=== PATIENT | male | born 1950 | race Caucasian/White ===

== ENCOUNTER 2020-04-04 14:32 | Inpatient (IN) | payer MEDICARE ==
[~2020-04-04] VITALS: Ht 182.9 cm; Wt 123.8 kg
[2020-04-04] MEDS ORDERED: SODIUM CHLORIDE 0.9% 1000ML 1,000 ML IV STA (14:40)
[2020-04-04] MEDS ORDERED: PIPERACILLIN/TAZO 4.5 GM 100 ML IV STA (14:40)
--- NOTE | 2020-04-04 14:44 | Emergency Department Note ---
History of Present Illnes History of Present Illness Chief Complaint: Hypertension History of Present Illness This is a 69 year old male presents to the ED from [place] [facility] today after it was noted that he was ataxic and feeling week. Enroute patient noted to be febrile with SBP 90 mmHg. Patient at clinic for orthopedic appointment. 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 Preventative Medicine/EMS Arrival Mode: [facility] TRANSCRIPTION SPECIALIST: See EMS Report Onset (how long ago): hour(s) Radiation: Reports non-radiation Severity: mild Onset quality: gradual Duration (how long): hour(s) Timing of current episode: constant Progression: unchanged Chronicity: new Context: Denies recent illness, Denies recent surgery, Denies recent immobilization, Denies recent travel, Denies trauma/injury, Denies new med ications, Denies hx of DVT/PE, Denies non-compliance w/ medications, Denies other Relieving factors: none Exacerbating factors: none Associated symptoms: Denies denies other symptoms, Denies confusion, Denies chest pain, Denies cough, Denies diaphoresis, Denies fever/chills, Denies headaches, Denies loss of appetite, Denies malaise, Denies nausea/vomiting, Denies rash, Denies seizure, Denies shortness of breath, Denies syncope, Denies weakness, Denies other Past Medical/Family History Physician Review I have reviewed the patient's past medical and family history. Any updates have been documented here. Past Medical History Recent Fever: No Clinical Suspicion of Infectio: Yes New/Unexplained Change in Ment: No Past Medical History: Diabetes Past Surgical History: None Social History Smoking Cessation: Never Smoker Alcohol Use: None Any Illegal Drug Use: No Review of Systems Review of Systems Constitutional: Reports no symptoms EENTM: Reports no symptoms Cardiovascular: Reports no symptoms Respiratory: Reports cough Gastrointestinal: Reports no symptoms Genitourinary: Reports no symptoms Musculoskeletal: Reports no symptoms Integumentary: Reports no symptoms Neurological: Reports no symptoms Psychological: Reports no symptoms Endocrine: Reports no symptoms Hematological/Lymphatic: Reports no symptoms Physical Exam Related Data Allergies: Coded Allergies: No Known Allergies (Unverified , 04/04/20) Physical Exam CONSTITUTIONAL HENT EYES NECK PULMONARY CARDIOVASCULAR GASTROINTESTINAL GENITOURINARY SKIN MUSCULOSKELETAL NEUROLOGICAL PSYCHOLOGICAL Results Laboratory Lab results reviewed: Yes Imaging Imaging results reviewed: Yes Impressions [facility] [address] [address] Patient Name: DYLLAN WAGNER MR #: [id number] : 1950 Age/Sex: 69/M Req #: [id number] Adm Physician: Ordered by: HOMAR MAYEN DO Report #: [id number] Location: ER Room/Bed: Procedure: [id number] DX/CHEST SINGLE (PORTABLE) Exam Date: Exam Time: REPORT STATUS: Signed TECHNIQUE: Frontal view of the chest. INDICATION: ^Y ^fever, hypoxia COMPARISON: None. IMPRESSION: Lines and hardware: Median sternotomy wires. Heart and mediastinum: Hazy left heart border. Lungs and pleura: Pulmonary interstitial edema. Hazy left airspace opacity, may represent atelectasis versus pneumonitis. Probable layering left pleural effusion. No pneumothorax. Soft tissues and bones: No acute abnormality. 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: Interpreted by ED physician Date: Apr 04, 2020 Time: 15:08 Prior ECG tracings: reviewed Rhythm: sinus rhythm Rate: normal BPM: 94 QRS axis: left ST segments normal: Yes T waves normal: Yes Clinical Impression: non-specific ECG Assessment & Plan Medical Decision Making MDM Diff Dx : Sepsis, PNA, CVA, covid-19 infection Assessment & Plan Final Impression: (1) Person under investigation for COVID-19 (2) SIRS (systemic inflammatory response syndrome) (3) Renal insufficiency Depart Disposition: ADMITTED Home Meds Reported Medications Insulin Glargine (LANTUS 3ML PEN) 100 Units/1 Ml Inj, 100 UNITS SQ HS 04/05/20 Insulin Lispro (HUMALOG) 100 Unit/1 Ml Cartridge, 50-60 UNITS SQ AC 04/05/20 Atorvastatin Calcium (ATORVASTATIN CALCIUM) 20 Mg Tablet, 20 MG PO HS 04/05/20 Pregabalin (LYRICA) 100 Mg Capsule, 100 MG PO TID, CAP 04/05/20 Furosemide (LASIX) 20 Mg Tablet, 20 MG PO DAILY 04/05/20 Aspirin (ASPIRIN) 81 Mg Tab.chew, 81 MG PO DAILY 04/05/20 HOMAR MAYEN DO Apr 04, 2020 14:43
[2020-04-04] MEDS ORDERED: ASPIRIN 81 MG CHEW TAB PO ONE (14:45)
--- NOTE | 2020-04-04 14:58 | NUR ---
Upon arrival to O2 applied via NC@2L, for O2 sats of 93%. Febrile with 102.9
[2020-04-04 15:02] LABS: BASOPHILS % 0.3 % (0.0-1.0); HEMATOCRIT 45.8 % (38.2-49.6); HEMOGLOBIN 14.8 g/dL (14.0-18.0); LYMPHOCYTES # (AUTO) 0.3 (1.0-3.2); LYMPHOCYTES % 2.5 % (18.0-39.1); MEAN CORPUSCULAR HEMOGLOBIN 27.1 pg (28-32); MEAN CORPUSCULAR HGB CONC 32.3 g/dL (31-35); MEAN CORPUSCULAR VOLUME 83.7 fL (81-99); MONOCYTES # (AUTO) 0.8 (0.2-0.8); MONOCYTES % 7.9 % (4.4-11.3); NEUTROPHILS # (AUTO) 9.4 (2.1-6.9); NEUTROPHILS % 88.2 % (38.7-80.0); PLATELET COUNT 228 x10e3/uL (140-360); RED BLOOD COUNT 5.47 x10e6/uL (4.3-5.7); RED CELL DISTRIBUTION WIDTH 14.9 % (11.7-14.4)
[2020-04-04 15:18] LABS: ALBUMIN 3.7 g/dL (3.5-5.0); ALBUMIN/GLOBULIN RATIO 1.2 (0.8-2.0); ANION GAP 16.9 mmol/L (8-16); CALCIUM 8.9 mg/dL (8.4-10.2); CREATININE, SERUM 2.36 mg/dL (0.72-1.25); POTASSIUM 4.9 mmol/L (3.5-5.1)
--- OUTSIDE RECORDS SUMMARY | 2020-04-04 15:22 | XMS REPORT | Continuity of Care Document ---
Author Author Cayetano Crespo Information DYLLAN Anderson [facility] Information Exchange Address Unknown Phone Unavailable Care Team Providers Care Security Management Specialist Name Role Phone [facility] Information Exchange Unavailable Un available Problems Problem Status Onset Date Classification Date Reported Comments Source Muscle weakness (generalized) 09/09/2017 12/10/2017 [facility] LEFT ACHILLES Active 08/05/2017 [facility] Methicillin resistant Staphylococcus aureus (organism) Active 02/04/2017 Problem 12/10/2017 RIGHT FOOT, 02/05/20 17 Problem [facility] Discern 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 02/27/2015 MANUEL Crespo PNEUMONIA/GENERALIZED WEAKNESS Active 01/15/2015 [facility] WEAKNESS Active 01/15/2015 [facility] POST CAB, POST AORTIV VALVE REPLACEMENT Active 12/27/2014 [facility] POST CAB, POST AORTIC VALVE REPLACEMENT Active 12/27/2014 [facility] POST CAB, POST AVR Active 12/27/2014 [facility] CAD Active 0 10/27/2014 [facility] Unspecified abnormalities of gait and mobility 12/10/2017 [facility] Unspecified injury of left Achilles tendon, sequela 12/10/2017 [facility] Type 2 diabetes mellitus without complications 12/10/2017 [facility] Pure hypercholesterolemia, unspecified 12/10/2017 [facility] Amputation of finger tip (procedure) Resolved Problem 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 finger) [facility] Aortic valve stenosis with insufficiency (disorder) Active Problem [facility]10[facility] Disorder of carotid artery (disorder) [facility] Diabetes mellitus (disorder) A ctive Problem [facility] Diabetic neuropathy (disorder) Active Problem MANUEL [place],[facility] Hypercholesterolemia (disorder) Active Problem MANUEL [place],[facility] Hypertensive disorder, systemic arterial (disorder) Active Problem 12/10/2017 MANUEL Zak,[facility] Psoriasis (disorder) [facility]10[facility]UMONIA, ORGANISM NOS Active [facility] MALAISE AND FATIGUE NEC Active [facility] CELLULITIS OF RIGHT LOWER LIMB Active [facility] OSTEOMYELITIS OF RIGHT ORBIT A ctive [facility] OTHER INJURY OF UNSPECIFIED BODY REGION Active [facility] Medications Medication Details Route Status Patient Instructions Ordering Provider Order Date Source Insulin Glargine 100 UNT/ML Injectable Solution 80 unit, SUB-Q, Bedtime, 0 Refill(s) Active 02/07/2017 [facility] cefdinir 300 MG Oral Capsule [Omnicef] 300 mg = 1 cap, PO, Daily, X 10 day, # 10 cap, 0 Refill(s), Pharmacy: [facility] [employer] [facility] [id number] Active 02/07/2017 [facility] ciprofloxacin 500 mg oral tablet 500 mg = 1 tab, PO, Daily, X 10 day, # 10 tab, 0 Refill(s), Pharmacy: [facility] [id number] Active 02/07/2017 [facility] Amlodipine 5 MG Oral Tablet [Norvasc] 5 mg = 1 tab, PO, Daily, # 30 tab, 0 Refill(s), Pharmacy: [facility] [id number] Active 02/07/2017 [facility] Kayexalate Notes: (sodium poly styrene sulfonate 15 gm/60 ml VONNIE) Shake well before use. (Same as: Kayexalate, SPS) Inactive 02/07/2017 [facility] Hydralazine Notes: (Same as: A presoline) Push over 5 minutes Inactive 02/07/2017 [facility] Ceftriaxone Notes: (Same As: Hue ayala). Use with 100 mL NS and infuse over 30 min MEDICATION WASTE Product Size: 1000 mg Product Wasted: ___ mg No Longer Active 02/07/2017 [facility] Insulin Lispro Notes: Roll in palms of hands gently; Do not shake `vigorously. (Same as: Humalog ) "Single Patient Use Only " WASTE: F/P - Black; E - Municipal Trash Bin Stable for 28 days at room temperature. Expires in days from Date No Longer Active 02/06/2017 [facility] Glucagon 1 mg, Route: IM, Drug form: PDR/INJ, PRN, Dosing Weight 139.364, kg, PRN Blood Glucose Results, Start date: 02/06/17 14:24:00 CDT, Duration: 30 day, Stop date: 03/08/17 14:23:00 CDT No Longer Active 02/06/2017 [facility] Dextrose 50% Syringe 12.5 gm, 25 mL, Route: IVP, Drug Form: INJ, Dosing Weight 139.364, kg, PRN, PRN Blood Glucose Results, Start date: 02/06/17 14:24:00 CDT, Duration: 30 day, Stop date: 03/08/17 14:23:00 CDT No Longer Active 02/06/2017 [facility] 3 ML Insulin Lispro 100 UNT/ML Pen Injector [Humalog] 50 units, SUB-Q, TID-Before Meals, 0 Refill(s) No Longer Active 02/06/2017 [facility] Saline Flush 0.9% Notes: Same as: BD Posiflush Sterile No Longer Active 02/06/2017 [facility] Saline Flush 0.9% Notes: Same as: BD Posiflush Sterile No Longer Active 02/05/2017 [facility] Acetaminophen 325 MG / Hydrocodone Marcelo trate 5 MG Oral Tablet Notes: (Same as: [place] 325/5) Do not ex ceed 4gm/day of acetaminophen. No Longer Active 02/05/2017 [facility] Morphine Notes: (Same as:MORPh ine Sulfate) No Longer Active 02/05/2017 [facility] propofol (ANES) Route: IV, Perez g form: INJ, ONCE, Stop date: 02/05/17 14:42:00 CDT Inactive 02/05/2017 [facility] ondansetron (ANES) Route: IV, Drug form: INJ, ONCE, Stop date: 02/05/17 14:37:00 CDT Inactive 02/05/2017 [facility] fentaNYL (ANES) Route: IV, Perez g form: INJ, ONCE, Stop date: 02/05/17 14:37:00 CDT Inactive 02/05/2017 [facility] famotidine (ANES) Route: IV, D rug form: INJ, ONCE, Stop date: 02/05/17 14:37:00 CDT Inactive 02/05/2017 [facility] midazolam (ANES) Route: IV, Dr ug form: SOLN, ONCE, Stop date: 02/05/17 14:27:00 CDT Inactive 02/05/2017 [facility] LR 1000 mL INJ (ANES) Route: I V, Total Volume: 1,000, Start date: 02/05/17 13:47:00 CDT, Stop date: 02/05/17 14:47:00 CDT Inactive 02/05/2017 [facility] insulin detemir 50 unit, Route : SUB-Q, Daily, Dosing Weight 139.364, kg, Start date: 02/05/17 9:00:00 CDT, Duration: 30 day, Stop date: 03/06/17 9:00:00 CDT No Longer Active 02/05/2017 [facility] Lyrica Notes: Same as Lyrica No Longer Active 02/05/2017 [facility] insulin glargine Notes: (Same as: Lantus) Do not hold insulin without contacting prescriber WASTE: F/P - Black; E - Municipal Trash Bin "single patient use only" No Longer Active 02/05/2017 [facility] Lisinopril Notes: (Same as: Pr inivil, Zestril) No Longer Active 02/05/2017 [facility] sodium hypochlorite topical 0.25% solution Notes: Note: half-strength = 0.25% sodium hypochlorite. No Longer Active 02/05/2017 [facility] Furosemide Notes: (Same as: La six) May cause GI upset. Give with food or milk. No Longer Active 02/05/2017 [facility] Aspirin Notes: Do not crush or chew. (Same As: Ecotrin) No Longer Active 02/05/2017 [facility] Albuterol 0.833 MG/ML / Ipratropium Brom french 0.167 MG/ML Inhalant Solution Notes: (Same as: Duoneb) Inactive 02/05/2017 [facility] Calcium Chloride 0.0014 MEQ/ML / Potassi um Chloride 0.004 MEQ/ML / Sodium Chloride 0.103 MEQ/ML / Sodium Lactate 0.028 MEQ/ML Injectable Solution 1,000 mL, Rate: 25 ml/hr, Infuse over: 4 0 hr, Route: IV, Dosing Weight 139.364 kg, Total Volume: 1,000, Start date: 02/05/17 6:19:00 CDT, Duration: 30 day, Stop date: 03/07/17 6:18:00 CDT Inactive 02/05/2017 [facility] insulin detemir 80 unit, Route : SUB-Q, Bedtime, Dosing Weight 139.364, kg, Start date: 02/04/17 21:00:00 CDT, Duration: 30 day, Stop date: 03/05/17 21:00:00 CDT Inactive 02/05/2017 [facility] heparin Notes: porcine heparin Inactive 02/05/2017 [facility] insulin glargine Notes: (Same as: Lantus) Do not hold insulin without contacting prescriber WASTE: F/P - Black; E - Municipal Trash Bin "single patient use only" No Longer Active 02/05/2017 [facility] atorvastatin Notes: (Same As: Lipitor) No Longer Active 02/05/2017 [facility] vancomycin + sodium chloride 0.9% INJ 250 mL 2001 mg: infuse over 2.5 hours MEDICATION WASTE Product Size: 1000 mg Product Wasted: ___ mg No Longer Active 02/05/2017 [facility] Zosyn + sodium chloride 0.9% INJ 100 mL Notes: (Same as: Zosyn) Dosing based on Piperacillin component MEDICATION WASTE Product Size: 3375 mg Product Wasted: ___ mg No Longer Active 02/05/2017 [facility] Humalog See Instructions, SUB- Q, 0 Refill(s), Pt uses this for sliding scale No Longer Active 02/04/2017 [facility] Amoxicillin 875 MG / Clavulanate 125 MG Oral Tablet 1 tab, PO, BID, # 20 tab, 0 Refill(s) No Longer Active 02/04/2017 [facility] Furosemide 40 mg, Daily, 0 Ref ill(s) No Longer Active 02/04/2017 [facility] Lisinopril 10 mg, PO, Daily, 0 Refill(s) No Longer Active 02/04/2017 [facility] Trujeo Trujeo, 50 units, SUB-Q , QAM, Refill(s) 0 No Longer Active 02/04/2017 [facility] Vancomycin 1,000 mg, Route: IV PB, Drug form: INJ, [id number], Dosing Weight 110.909, kg, Start date: 02/04/17 16:00:00 CDT, Duration: 10 day, Stop date: 02/13/17 16:00:00 CDT, ABX Indication: Bone/Joint Infection Inactive 02/04/2017 [facility] Dakins Half Strength Solution 0.25% topical Notes: Note: half-strength = 0.25% sodium hypochlorite. Inactive 02/04/2017 [facility] Zosyn 3.375 gm, Route: IVPB, D rug form: PDR/INJ, [id number], Dosing Weight 110.909, kg, Start date: 02/04/17 16:00:00 CDT, Duration: 10 day, Stop date: 02/14/17 10:00:00 CDT, ABX Indication: Bone/Joint Infection Inactive 02/04/2017 [facility] cefepime 1 g injection 1 gm, I V, Q12H, X 10 day, # 20 ea, 0 Refill(s), other Active 01/18/2015 [facility] Vancomycin 1.5 gm = 250 mL, IV PB, [id number], 0 Refill(s) Active 01/18/2015 [facility] Enoxaparin 40 mg = 0.4 mL, SUB -Q, [id number], 0 Refill(s) Active 01/18/2015 [facility] epoetin darnell 10,000 units/mL injectable solution 10,000 unit = 1 mL, SUB-Q, Q-M-W-F, 0 Refill(s) Active 01/18/2015 [facility] cefepime 1 gm, Route: IVPB, AB XQ12H, Dosing Weight 124.727, kg, Start date: 01/17/15 13:00:00, Duration: 30 day, Stop date: 02/16/15 1:00:00 Inactive 01/17/2015 [facility] NS 1,000 mL 1,000 mL, Rate: 50 ml/hr, Infuse over: 20 hr, Route: IV, Dosing Weight 124.727 kg, Total Volume: 1,000, Start date: 01/17/15 10:50:00, Duration: 30 day, Stop date: 02/16/15 10:49:00 Inactive 01/17/2015 [facility] ergocalciferol 50,000 IntlUnit , 1 cap, Route: PO, Drug form: CAP, QTue, Dosing Weight 112.4, kg, Start date: 01/17/15 9:00:00, Duration: 30 day, Stop date: 02/14/15 9:00:00 Inactive 01/17/2015 [facility] Insulin, Aspart, Human Notes: Roll in palms of hands gently; Do not shake vigorously. (Same as: NovoLOG) "single patient use only" Stable for 28 days at room temperature. Expires in days from Date Inactive 01/17/2015 [facility] Glucagon 1 mg, Route: IM, Drug form: PDR/INJ, PRN, Dosing Weight 124.727, kg, PRN Blood Glucose Results, Start date: 01/17/15 4:45:00, Duration: 30 day, Stop date: 02/16/15 4:44:00 Inactive 01/17/2015 [facility] Dextrose 50% Syringe 25 gm, 50 mL, Route: IVP, Drug Form: INJ, Dosing Weight 124.727, kg, PRN, PRN Blood Glucose Results, Start date: 01/17/15 4:45:00, Duration: 30 day, Stop date: 02/16/15 4:44:00 Inactive 01/17/2015 [facility] Sodium Chloride 0.154 MEQ/ML Injectable Solution 500 mL, 500 ml/hr, Infuse Over: 1 hr, Route: IV, 500, Drug form: INJ, ONCE, Priority: STAT, Dosing Weight 112.4 kg, Start date: 01/16/15 17:59:00, Duration: 1 doses or times, Stop date: 01/16/15 17:59:00 Inactive 01/16/2015 [facility] Epogen Notes: (Same as: Procri t) epoetin darnell 04423 unit/1 ml VL. For dialysis use only. (Procrit) MEDICATION WASTE Product Size: 54312 unit Product Wasted: ___ unit No Longer Active 01/16/2015 [facility] Sodium Chloride 0.154 MEQ/ML Injectable Solution 500 mL, 500 ml/hr, Infuse Over: 1 hr, Route: IV, ONCE, Priority: STAT, Dosing Weight 112.4 kg, Start date: 01/16/15 16:35:00, Duration: 1 doses or times, Stop date: 01/16/15 16:35:00 Inactive 01/16/2015 [facility] Furosemide Notes: (Same as: La six) May cause GI upset. Give with food or milk. Inactive 01/16/2015 [facility] Vancomycin 2001 mg: infuse ov er 2.5 hours No Longer Active 01/16/2015 [facility] NS 1,000 mL 1,000 mL, Rate: 75 ml/hr, Infuse over: 13.3 hr, Route: IV, Dosing Weight 112.4 kg, Total Volume: 1,000, Start date: 01/16/15 8:32:00, Duration: 30 day, Stop date: 02/15/15 8:31:00 No Longer Active 01/16/2015 [facility] NovoLOG FlexPen Notes: Roll in palms of hands gently; Do not shake vigorously. (Same as: NovoLOG) "single patient use only" Stable for 28 days at room temperature. Expires in days from Date No Longer Active 01/16/2015 [facility] Humalog 8 unit, Route: SUB-Q, QAM (Insulin), Dosing Weight 112.4, kg, Start date: 01/16/15 7:30:00, Duration: 30 day, Stop date: 02/14/15 7:30:00 No Longer Active 01/16/2015 [facility] atorvastatin 10 mg, Route: PO, Drug form: TAB, Bedtime, Dosing Weight 112.4, kg, Start date: 01/15/15 21:00:00, Duration: 30 day, Stop date: 02/13/15 21:00:00 Inactive 01/16/2015 [facility] Lantus Notes: Same as Laxmi S ernestoostar PEN "single patient use only" Stable for 28 days at room temperature. Expires in days from Date No Longer Active 01/16/2015 [facility] Vancomycin Notes: TIME CRITICA L MEDICATION No Longer Active 01/16/2015 [facility] Hydrochlorothiazide 12.5 MG / Lisinopril 10 MG Oral Tablet [Zestoretic 10/12.5] 1 tab, Route: PO, Drug Form: TAB, Dosing Weight 112.4, kg, BID, Start date: 01/15/15 17:00:00, Duration: 30 day, Stop date: 02/14/15 9:00:00 Inactive 01/15/2015 [facility] Lyrica Notes: Same as Lyrica No Longer Active 01/15/2015 [facility] Prinivil Notes: (Same as: Prin ivil, Zestril) Inactive 01/15/2015 [facility] hydrochlorothiazide 25 mg oral tablet Notes: (Same as: Hydrodiuril) With food. Inactive 01/15/2015 [facility] NovoLOG FlexPen Notes: Roll in palms of hands gently; Do not shake vigorously. (Same as: NovoLOG) "single patient use only" Stable for 28 days at room temperature. Expires in days from Date No Longer Active 01/15/2015 [facility] Humalog 5 unit, Route: SUB-Q, QPM (Insulin), Dosing Weight 112.4, kg, Start date: 01/15/15 16:30:00, Duration: 30 day, Stop date: 02/13/15 16:30:00 Inactive 01/15/2015 [facility] NovoLOG FlexPen Notes: Roll in palms of hands gently; Do not shake vigorously. (Same as: NovoLOG) "single patient use only" Stable for 28 days at room temperature. Expires in days from Date No Longer Active 01/15/2015 [facility] Bisoprolol Notes: (Same As: Ze beta) No Longer Active 01/15/2015 [facility] Aspirin 81 mg, 1 tab, Route: P O, Drug form: ECTAB, Daily, Dosing Weight 112.4, kg, Start date: 01/15/15 12:30:00, Duration: 30 day, Stop date: 02/14/15 9:00:00 No Longer Active 01/15/2015 [facility] Humalog 5 unit, Route: SUB-Q, QNoon, Dosing Weight 112.4, kg, Start date: 01/15/15 12:00:00, Duration: 30 day, Stop date: 02/13/15 12:00:00 Inactive 01/15/2015 [facility] cefepime Notes: (Same As: Yossi jama) MEDICATION WASTE Product Size: 1000 mg Product Wasted: ___ mg No Longer Active 01/15/2015 [facility] Enoxaparin Notes: (Same as: Lo venox) No Longer Active 01/15/2015 [facility] Sodium Chloride 0.9% IV 25 mL, Route: IV, Start date: 01/15/15 10:59:00, Duration: 30 day, Stop date: 02/14/15 10:58:00, PRN Line Flush No Longer Active 01/15/2015 [facility] BD Normal Saline Flush Notes: (Same as: BD Posiflush) No Longer Active 01/15/2015 [facility] Ergocalciferol 02651 UNT Oral Capsule 50,000 IntlUnit = 1 cap, PO, QTue, 0 Refill(s) Active 01/15/2015 [facility] Bisoprolol 10 mg, PO, Daily, 0 Refill(s) Active 01/15/2015 [facility] Humalog 5 unit, SUB-Q, QPM (In sulin), 0 Refill(s) No Longer Active 01/15/2015 [facility] Aspirin Low Dose 81 mg oral tablet = 1 tab, PO, Daily, # 30 tab, 1 Refill(s) Active 01/15/2015 [facility] Sodium Chloride 0.154 MEQ/ML Injectable Solution 250 mL, 250 ml/hr, Infuse Over: 1 hr, Route: IV, 250, Drug form: INJ, ONCE, Priority: STAT, Dosing Weight 118.182 kg, Start date: 01/15/15 7:49:00, Duration: 1 doses or times, Stop date: 01/15/15 7:49:00 Inactive 01/15/2015 [facility] Vancomycin Notes: TIME CRITICA L MEDICATION Inactive 01/15/2015 [facility] Levaquin Notes: (Same as:Levaq uin) Inactive 01/15/2015 [facility] Zosyn Notes: (Same as: Zosyn) Dosing based on Piperacillin component MEDICATION WASTE Product Size: 3375 mg Product Wasted: _0__ mg Inactive 01/15/2015 [facility] Sodium Chloride 0.154 MEQ/ML Injectable Solution 250 mL, 250 ml/hr, Infuse Over: 1 hr, Route: IV, 250, Drug form: INJ, ONCE, Priority: STAT, Dosing Weight 118.182 kg, Start date: 01/15/15 6:48:00, Duration: 1 doses or times, Stop date: 01/15/15 6:48:00 Inactive 01/15/2015 [facility] Saline Flush 0.9% Notes: (Same as: BD Posiflush) No Longer Active 01/15/2015 [facility] normal saline 0.9% IV 500 mL 5 00 mL, Rate: 100 ml/hr, Infuse over: 5 hr, Route: IV, Dosing Weight 126.818 kg, Total Volume: 500, Start date: 11/08/14 12:54:00, Duration: 30 day, Stop date: 12/08/14 12:53:00 Inactive 11/08/2014 [facility] Acetaminophen Notes: Do not ex ceed 4 gm/day. (Same as: Tylenol) Inactive 11/08/2014 [facility] Ondansetron Notes: (Same as: Faiza long) MEDICATION WASTE Product Size: 4 mg Product Wasted: ___ mg Inactive 11/08/2014 [facility] Psoriasis Drug Study Psoriasis Drug Study, Q30D, Refill(s) 0 Active 11/04/2014 [facility] atorvastatin 10 mg oral tablet 10 mg = 1 tab, PO, Bedtime Active 11/04/2014 [facility] gemfibrozil 600 mg oral tablet 600 mg = 1 tab, PO, BID Active 11/04/2014 [facility] 24 HR Metformin hydrochloride 500 MG Ext ended Release Tablet [Glumetza] 500 mg = 1 tab, PO, Daily Active 11/04/2014 [facility] Lantus 80 unit, SUB-Q, Bedtime Active 11/04/2014 [facility] Humalog 50 unit, SUB-Q, TID-Be fore Meals, 0 Refill(s) Active 11/04/2014 [facility] Aspirin 81 MG Enteric Coated Tablet 81 mg = 1 tab, PO, Daily Active 11/04/2014 [facility] pregabalin 150 MG Oral Capsule [Lyrica] 150 mg = 1 cap, PO, TID Active 11/04/2014 [facility] Hydrochlorothiazide 12.5 MG / Lisinopril 10 MG Oral Tablet [Zestoretic 10/12.5] 1 tab, PO, BID Active 11/04/2014 [facility] bisoprolol 5 mg oral tablet 5 mg = 1 tab, PO, Daily Active 11/04/2014 [facility] Allergies, Adverse Reactions, Alerts Substance Category Reaction Severity Reaction type Status Date Reported Comments Source NKFA Assertion Drug allergy Active [facility] Immunizations Immunization Date Given Site Status Last Updated Comments Source pneumococcal 23-valent vaccine 01/16/2015 Left deltoid completed [facility]ak[facility] MANUEL Crespo,[facility] Results Order Name Results Value Reference Range Date Interpretation Comments Source ELECTROLYTES Potassium Lvl 4.3 3.5 - 5.1 02/07/2017 [facility] CHEM PANEL Phosphorus 3.8 2.5 - 4.5 02/07/2017 [facility] CHEM PANEL Magnesium Lvl 2.6 1.8 - 2.4 02/07/2017 [facility] CHEM PANEL eGFR 45 02/07/2017 Result Comment: The eGFR is calculated using the CKD-EPI formula. In most young, healthy individuals the eGFR will be >90 mL/min/1.73m2. The eGFR declines with age. An eGFR of 60-89 may be normal in some populations, particularly the elderly, for whom the CKD-EPI formula has not been extensively validated. Use of the eGFR is not recommended in the following populations:

Individuals with unstable creatinine concentrations, including patients and those with serious co-morbid conditions.

Patients with extremes in muscle mass or diet.

The data above are obtained from the National Kidney Disease Education Program (NKDEP) which additionally recommends that when the eGFR is used in patients with extremes of body mass index for purposes of drug dosing, the eGFR should be multiplied by the estimated BMI. [facility] CHEM PANEL Calcium Lvl 8.8 8.5 - 10.5 02/07/2017 [facility] CHEM PANEL CO2 30 24 - 32 02/07/2017 [facility] CHEM PANEL Potassium Lvl 5.5 3.5 - 5.1 02/07/2017 [facility] CHEM PANEL Chloride Lvl 101 95 - 109 02/07/2017 [facility] CHEM PANEL BUN 20 7 - 22 02/07/2017 [facility] CHEM PANEL Creatinine Lvl 1.61 0.50 - 1.40 02/07/2017 [facility] CHEM PANEL Sodium Lvl 135 135 - 145 02/07/2017 [facility] CHEM PANEL Glucose Lvl 267 70 - 99 02/07/2017 [facility] CHEM PANEL AGAP 9.5 10.0 - 20.0 02/07/2017 [facility] HEMATOLOGY RDW 15.8 11.5 - 14.5 02/07/2017 [facility] HEMATOLOGY MCV 82.0 80.0 - 94.0 02/07/2017 [facility] HEMATOLOGY MCH 27.6 27.0 - 31.0 02/07/2017 [facility] HEMATOLOGY MCHC 33.6 32.0 - 36.0 02/07/2017 [facility] HEMATOLOGY Hct 38.2 42.0 - 54.0 02/07/2017 [facility] HEMATOLOGY Platelet 170 133 - 450 02/07/2017 [facility] HEMATOLOGY MPV 9.6 7.4 - 10.4 02/07/2017 [facility] HEMATOLOGY WBC 7.4 3.7 - 10.4 02/07/2017 [facility] HEMATOLOGY RBC 4.65 4.70 - 6.10 02/07/2017 [facility] HEMATOLOGY Hgb 12.8 14.0 - 18.0 02/07/2017 [facility] HEMATOLOGY Basophils # 0.1 0.0 - 0.2 02/07/2017 [facility] HEMATOLOGY Monocytes # 0.9 0.0 - 0.8 02/07/2017 [facility] HEMATOLOGY Eosinophils # 0.3 0.0 - 0.5 02/07/2017 [facility] HEMATOLOGY Basophils 0.8 0.0 - 1.0 02/07/2017 [facility] HEMATOLOGY Eosinophils 3.7 0.0 - 4.0 02/07/2017 [facility] HEMATOLOGY Lymphocytes # 1.1 1.0 - 5.5 02/07/2017 [facility] HEMATOLOGY Segs-Bands # 5.0 1.5 - 8.1 02/07/2017 [facility] HEMATOLOGY Segs 67.7 45.0 - 75.0 02/07/2017 [facility] HEMATOLOGY Lymphocytes 15.0 20.0 - 40.0 02/07/2017 [facility] HEMATOLOGY Monocytes 12.8 2.0 - 12.0 02/07/2017 [facility] CHEM PANEL eGFR 50 02/06/2017 Result Comment: The eGFR is calculated using the CKD-EPI formula. In most young, healthy individuals the eGFR will be >90 mL/min/1.73m2. The eGFR declines with age. An eGFR of 60-89 may be normal in some populations, particularly the elderly, for whom the CKD-EPI formula has not been extensively validated. Use of the eGFR is not recommended in the following populations:

Individuals with unstable creatinine concentrations, including patients and those with serious co-morbid conditions.

Patients with extremes in muscle mass or diet.

The data above are obtained from the National Kidney Disease Education Program (NKDEP) which additionally recommends that when the eGFR is used in patients with extremes of body mass index for purposes of drug dosing, the eGFR should be multiplied by the estimated BMI. [facility] CHEM PANEL Potassium Lvl 4.4 3.5 - 5.1 02/06/2017 [facility] CHEM PANEL Chloride Lvl 106 95 - 109 02/06/2017 [facility] CHEM PANEL CO2 29 24 - 32 02/06/2017 [facility] CHEM PANEL Calcium Lvl 8.6 8.5 - 10.5 02/06/2017 [facility] CHEM PANEL Creatinine Lvl 1.47 0.50 - 1.40 02/06/2017 [facility] CHEM PANEL BUN 19 7 - 22 02/06/2017 [facility] CHEM PANEL Glucose Lvl 164 70 - 99 02/06/2017 [facility] CHEM PANEL Sodium Lvl 139 135 - 145 02/06/2017 [facility] CHEM PANEL AGAP 8.4 10.0 - 20.0 02/06/2017 [facility] HEMATOLOGY Lymphocytes # 0.9 1.0 - 5.5 02/06/2017 [facility] HEMATOLOGY Eosinophils # 0.2 0.0 - 0.5 02/06/2017 [facility] HEMATOLOGY Basophils # 0.1 0.0 - 0.2 02/06/2017 [facility] HEMATOLOGY Segs 76.4 45.0 - 75.0 02/06/2017 [facility] HEMATOLOGY Monocytes # 0.9 0.0 - 0.8 02/06/2017 [facility] HEMATOLOGY Basophils 0.6 0.0 - 1.0 02/06/2017 [facility] HEMATOLOGY Lymphocytes 10.7 20.0 - 40.0 02/06/2017 [facility] HEMATOLOGY Eosinophils 2.0 0.0 - 4.0 02/06/2017 [facility] HEMATOLOGY Segs-Bands # 6.5 1.5 - 8.1 02/06/2017 [facility] HEMATOLOGY Monocytes 10.3 2.0 - 12.0 02/06/2017 [facility] HEMATOLOGY RDW 16.4 11.5 - 14.5 02/06/2017 [facility] HEMATOLOGY MCHC 33.4 32.0 - 36.0 02/06/2017 [facility] HEMATOLOGY MCH 27.3 27.0 - 31.0 02/06/2017 [facility] HEMATOLOGY WBC 8.5 3.7 - 10.4 02/06/2017 [facility] HEMATOLOGY RBC 4.74 4.70 - 6.10 02/06/2017 [facility] HEMATOLOGY Platelet 177 133 - 450 02/06/2017 [facility] HEMATOLOGY MPV 9.6 7.4 - 10.4 02/06/2017 [facility] HEMATOLOGY MCV 82.0 80.0 - 94.0 02/06/2017 [facility] HEMATOLOGY Hgb 13.0 14.0 - 18.0 02/06/2017 [facility] HEMATOLOGY Hct 38.8 42.0 - 54.0 02/06/2017 [facility] CHEM PANEL Calcium Lvl 8.8 8.5 - 10.5 02/05/2017 [facility] CHEM PANEL Chloride Lvl 107 95 - 109 02/05/2017 [facility] CHEM PANEL eGFR 48 02/05/2017 Result Comment: The eGFR is calculated using the CKD-EPI formula. In most young, healthy individuals the eGFR will be >90 mL/min/1.73m2. The eGFR declines with age. An eGFR of 60-89 may be normal in some populations, particularly the elderly, for whom the CKD-EPI formula has not been extensively validated. Use of the eGFR is not recommended in the following populations:

Individuals with unstable creatinine concentrations, including patients and those with serious co-morbid conditions.

Patients with extremes in muscle mass or diet.

The data above are obtained from the National Kidney Disease Education Program (NKDEP) which additionally recommends that when the eGFR is used in patients with extremes of body mass index for purposes of drug dosing, the eGFR should be multiplied by the estimated BMI. [facility] CHEM PANEL CO2 30 24 - 32 02/05/2017 [facility] CHEM PANEL Sodium Lvl 140 135 - 145 02/05/2017 [facility] CHEM PANEL BUN 23 7 - 22 02/05/2017 [facility] CHEM PANEL Creatinine Lvl 1.50 0.50 - 1.40 02/05/2017 [facility] CHEM PANEL Glucose Lvl 103 70 - 99 02/05/2017 [facility] CHEM PANEL AGAP 7.6 10.0 - 20.0 02/05/2017 [facility] HEMATOLOGY PTT 29.3 22.9 - 35.8 02/05/2017 [facility] HEMATOLOGY PT 13.4 12.0 - 14.7 02/05/2017 [facility] HEMATOLOGY INR 1.00 0.85 - 1.17 02/05/2017 [facility] HEMATOLOGY Platelet 176 133 - 450 02/05/2017 [facility] HEMATOLOGY MCV 81.8 80.0 - 94.0 02/05/2017 [facility] HEMATOLOGY MCH 27.3 27.0 - 31.0 02/05/2017 [facility] HEMATOLOGY MCHC 33.4 32.0 - 36.0 02/05/2017 [facility] HEMATOLOGY Hgb 13.1 14.0 - 18.0 02/05/2017 [facility] HEMATOLOGY Hct 39.3 42.0 - 54.0 02/05/2017 [facility] HEMATOLOGY RDW 15.7 11.5 - 14.5 02/05/2017 [facility] HEMATOLOGY RBC 4.80 4.70 - 6.10 02/05/2017 [facility] HEMATOLOGY WBC 7.8 3.7 - 10.4 02/05/2017 [facility] HEMATOLOGY MPV 9.4 7.4 - 10.4 02/05/2017 [facility] HEMATOLOGY Basophils # 0.1 0.0 - 0.2 02/05/2017 [facility] HEMATOLOGY Eosinophils 2.0 0.0 - 4.0 02/05/2017 [facility] HEMATOLOGY Segs 71.3 45.0 - 75.0 02/05/2017 [facility] HEMATOLOGY Lymphocytes 14.4 20.0 - 40.0 02/05/2017 [facility] HEMATOLOGY Monocytes 11.4 2.0 - 12.0 02/05/2017 [facility] HEMATOLOGY Segs-Bands # 5.6 1.5 - 8.1 02/05/2017 [facility] HEMATOLOGY Lymphocytes # 1.1 1.0 - 5.5 02/05/2017 [facility] HEMATOLOGY Eosinophils # 0.2 0.0 - 0.5 02/05/2017 [facility] HEMATOLOGY Basophils 0.9 0.0 - 1.0 02/05/2017 [facility] HEMATOLOGY Monocytes # 0.9 0.0 - 0.8 02/05/2017 [facility] URINE AND STOOL UA Nitrite Negative (02/05/17 1:40 AM) Negative 02/05/2017 [facility] URINE AND STOOL UA Leuk Est Negative (02/05/17 1:40 AM) Negative 02/05/2017 [facility] URINE AND STOOL Micro? Not Indicated (02/05/17 1:40 AM) 02/05/2017 [facility] URINE AND STOOL UA Urobilinogen 0.2 0.1 - 1.0 02/05/2017 [facility] URINE AND STOOL UA Blood Negative (02/05/17 1:40 AM) Negative 02/05/2017 [facility] URINE AND STOOL UA Turbidity Clear (02/05/17 1:40 AM) Clear 02/05/2017 [facility] URINE AND STOOL UA Color STRAW 02/05/2017 [facility] URINE AND STOOL UA Spec Grav <=1.005 *NA* (02/05/17 1:40 AM) <=1.030 02/05/2017 [facility] URINE AND STOOL UA Ketones Negative *NA* (02/05/17 1:40 AM) Negative 02/05/2017 [facility] URINE AND STOOL UA pH 6.0 5.0 - 8.0 02/05/2017 [facility] URINE AND STOOL UA Protein Negative (02/05/17 1:40 AM) Negative 02/05/2017 [facility] URINE AND STOOL UA Glucose Negative (02/05/17 1:40 AM) Negative 02/05/2017 [facility] URINE AND STOOL UA Bili Negative *NA* (02/05/17 1:40 AM) Negative 02/05/2017 [facility] HEMATOLOGY INR 0.98 0.85 - 1.17 02/04/2017 [facility] HEMATOLOGY PTT 20.5 22.9 - 35.8 02/04/2017 [facility] HEMATOLOGY PT 13.2 12.0 - 14.7 02/04/2017 [facility] HEMATOLOGY Sed Rate 20 0 - 15 02/04/2017 [facility] HEMATOLOGY PT 13.2 12.0 - 14.7 02/04/2017 [facility] HEMATOLOGY INR 0.98 0.85 - 1.17 02/04/2017 [facility] SPECIAL CHEMISTRY Hgb A1C 7.3 <=5.6 % 02/04/2017 [facility] TOXICOLOGY Vanco Tr 19.0 01/17/2015 [facility] TOXICOLOGY Vanco Tr TND 0900 01/17/2015 [facility] CHEM PANEL BUN 34 7 - 22 01/17/2015 [facility] CHEM PANEL CO2 24 24 - 32 01/17/2015 [facility] CHEM PANEL eGFR 46 01/17/2015 Result Comment: The eGFR is calculated using the CKD-EPI formula. In most young, healthy individuals the eGFR will be >90 mL/min/1.73m2. The eGFR declines with age. An eGFR of 60-89 may be normal in some populations, particularly the elderly, for whom the CKD-EPI formula has not been extensively validated. Use of the eGFR is not recommended in the following populations:

Individuals with unstable creatinine concentrations, including patients and those with serious co-morbid conditions.

Patients with extremes in muscle mass or diet.

The data above are obtained from the National Kidney Disease Education Program (NKDEP) which additionally recommends that when the eGFR is used in patients with extremes of body mass index for purposes of drug dosing, the eGFR should be multiplied by the estimated BMI. [facility] CHEM PANEL AGAP 14.7 10.0 - 20.0 01/17/2015 [facility] CHEM PANEL Chloride Lvl 100 95 - 109 01/17/2015 [facility] CHEM PANEL Glucose Lvl 125 70 - 99 01/17/2015 [facility] CHEM PANEL Calcium Lvl 7.5 8.5 - 10.5 01/17/2015 [facility] CHEM PANEL Sodium Lvl 134 135 - 145 01/17/2015 [facility] CHEM PANEL Potassium Lvl 4.7 3.5 - 5.1 01/17/2015 [facility] CHEM PANEL Creatinine Lvl 1.6 0.5 - 1.4 01/17/2015 [facility] HEMATOLOGY RBC Morph Neli l (01/17/15 3:36 AM) 01/17/2015 [facility] HEMATOLOGY Basophils 0.4 0.0 - 1.0 01/17/2015 [facility] HEMATOLOGY Lymphocytes 7.2 20.0 - 40.0 01/17/2015 [facility] HEMATOLOGY Eosinophils 2.1 0.0 - 4.0 01/17/2015 [facility] HEMATOLOGY Segs 80.7 45.0 - 75.0 01/17/2015 [facility] HEMATOLOGY Monocytes 9.6 2.0 - 12.0 01/17/2015 [facility] Monocytes # 1.2 0.0 - 0.8 01/17/2015 [facility] HEMATOLOGY Eosinophils # 0.3 0.0 - 0.5 01/17/2015 [facility] Segs-Bands # 9.9 1.5 - 8.1 01/17/2015 [facility] Lymphocytes # 0.9 1.0 - 5.5 01/17/2015 [facility] Large Plt Moder ate *ABN* (01/17/15 3:36 AM) None Seen 01/17/2015 [facility] Basophils # 0.1 0.0 - 0.2 01/17/2015 [facility] HEMATOLOGY Hct 25.0 42.0 - 54.0 01/17/2015 [facility] HEMATOLOGY MCH 27.0 27.0 - 31.0 01/17/2015 [facility] HEMATOLOGY Platelet 235 133 - 450 01/17/2015 [facility] HEMATOLOGY MCV 83.6 80.0 - 94.0 01/17/2015 [facility] HEMATOLOGY MPV 9.7 7.4 - 10.4 01/17/2015 [facility] MCHC 32.3 32.0 - 36.0 01/17/2015 [facility] HEMATOLOGY RDW 16.6 11.5 - 14.5 01/17/2015 [facility] HEMATOLOGY WBC 12.2 3.7 - 10.4 01/17/2015 [facility] HEMATOLOGY Hgb 8.1 14.0 - 18.0 01/17/2015 [facility] HEMATOLOGY RBC 2.99 4.70 - 6.10 01/17/2015 [facility] CHEM PANEL Albumin Lvl 2.4 3.5 - 5.0 01/16/2015 [facility] CHEM PANEL CO2 24 24 - 32 01/16/2015 [facility] CHEM PANEL eGFR 42 01/16/2015 Result Comment: The eGFR is calculated using the CKD-EPI formula. In most young, healthy individuals the eGFR will be >90 mL/min/1.73m2. The eGFR declines with age. An eGFR of 60-89 may be normal in some populations, particularly the elderly, for whom the CKD-EPI formula has not been extensively validated. Use of the eGFR is not recommended in the following populations:

Individuals with unstable creatinine concentrations, including patients and those with serious co-morbid conditions.

Patients with extremes in muscle mass or diet.

The data above are obtained from the National Kidney Disease Education Program (NKDEP) which additionally recommends that when the eGFR is used in patients with extremes of body mass index for purposes of drug dosing, the eGFR should be multiplied by the estimated BMI. [facility] CHEM PANEL Potassium Lvl 4.8 3.5 - 5.1 01/16/2015 [facility] CHEM PANEL Chloride Lvl 97 95 - 109 01/16/2015 [facility] CHEM PANEL Creatinine Lvl 1.7 0.5 - 1.4 01/16/2015 [facility] CHEM PANEL Sodium Lvl 132 135 - 145 01/16/2015 [facility] CHEM PANEL Calcium Lvl 7.9 8.5 - 10.5 01/16/2015 [facility] CHEM PANEL Alk Phos 129 39 - 136 01/16/2015 [facility] CHEM PANEL AST 16 0 - 37 01/16/2015 [facility] CHEM PANEL Bili Total 1.1 0.2 - 1.3 01/16/2015 [facility] CHEM PANEL Total Protein 5.8 6.4 - 8.4 01/16/2015 [facility] CHEM PANEL BUN 31 7 - 22 01/16/2015 [facility] CHEM PANEL ALT 28 0 - 65 01/16/2015 [facility] CHEM PANEL Glucose Lvl 184 70 - 99 01/16/2015 [facility] CHEM PANEL AGAP 15.8 10.0 - 20.0 01/16/2015 [facility] CHEM PANEL Globulin 3.4 2.0 - 4.0 01/16/2015 [facility] CHEM PANEL B/C Ratio 18 6 - 25 01/16/2015 [facility] CHEM PANEL A/G Ratio 0.7 0.7 - 1.6 01/16/2015 [facility] CHEM PANEL Phosphorus 3.1 2.5 - 4.5 01/16/2015 [facility] HEMATOLOGY MPV 9.4 7.4 - 10.4 01/16/2015 [facility] HEMATOLOGY Platelet 269 133 - 450 01/16/2015 [facility] MCHC 32.5 32.0 - 36.0 01/16/2015 [facility] HEMATOLOGY RDW 16.4 11.5 - 14.5 01/16/2015 [facility] MCH 27.3 27.0 - 31.0 01/16/2015 [facility] HEMATOLOGY MCV 83.8 80.0 - 94.0 01/16/2015 [facility] HEMATOLOGY Hct 27.1 42.0 - 54.0 01/16/2015 [facility] HEMATOLOGY Hgb 8.8 14.0 - 18.0 01/16/2015 [facility] HEMATOLOGY RBC 3.23 4.70 - 6.10 01/16/2015 [facility] HEMATOLOGY WBC 17.5 3.7 - 10.4 01/16/2015 [facility] HEMATOLOGY Lymphocytes # 0.8 1.0 - 5.5 01/16/2015 [facility] HEMATOLOGY Monocytes # 1.9 0.0 - 0.8 01/16/2015 [facility] HEMATOLOGY Eosinophils # 0.0 0.0 - 0.5 01/16/2015 [facility] HEMATOLOGY Eosinophils 0.1 0.0 - 4.0 01/16/2015 [facility] HEMATOLOGY Monocytes 11.0 2.0 - 12.0 01/16/2015 [facility] HEMATOLOGY Segs-Bands # 14.7 1.5 - 8.1 01/16/2015 [facility] HEMATOLOGY Basophils 0.3 0.0 - 1.0 01/16/2015 [facility] HEMATOLOGY Segs 84.0 45.0 - 75.0 01/16/2015 [facility] Lymphocytes 4.6 20.0 - 40.0 01/16/2015 [facility] HEMATOLOGY Plt Morph Neli l (01/16/15 3:45 AM) 01/16/2015 [facility] HEMATOLOGY Basophils # 0.1 0.0 - 0.2 01/16/2015 [facility] HEMATOLOGY RBC Morph Neli l (01/16/15 3:45 AM) 01/16/2015 [facility] IMMUNOLOGY CRP, High Sensitivity >19 0.0 mg/L 01/16/2015 [facility] TOXICOLOGY Vanco Tr TND 2030 01/16/2015 [facility] TOXICOLOGY Vanco Tr 4.8 01/16/2015 [facility] CARDIAC ENZYMES CK MB 0.8 0.5 - 3.6 01/15/2015 [facility] CARDIAC ENZYMES Total CK 41 12 - 191 01/15/2015 [facility] CARDIAC ENZYMES Troponin-I 0.51 0.00 - 0.40 01/15/2015 Result Comment: Critical Result(s) jo quiroga at 01/15/2015 18:49 by bk. Read back [place]. [facility] URINE AND STOOL UA Urobilinogen <=1.0 mg/dL 0.1 - 1.0 01/15/2015 [facility] URINE AND STOOL UA Bili Negative *NA* (01/15/15 4:40 PM) Negative 01/15/2015 [facility] URINE AND STOOL UA Ketones Negative mg/dL Negative mg/dL 01/15/2015 [facility] URINE AND STOOL UA Glucose Negative mg/dL Negative mg/dL 01/15/2015 [facility] URINE AND STOOL UA Protein 20 mg/dL Negative mg/dL 01/15/2015 [facility] URINE AND STOOL UA Nitrite Negative (01/15/15 4:40 PM) Negative 01/15/2015 [facility] URINE AND STOOL UA Blood Negative (01/15/15 4:40 PM) Negative 01/15/2015 [facility] URINE AND STOOL UA Leuk Est Negative (01/15/15 4:40 PM) Negative 01/15/2015 [facility] URINE AND STOOL UA Mucus Few /LPF None Seen /LPF 01/15/2015 [facility] URINE AND STOOL UA RBC <1 0 - 2 01/15/2015 [facility] URINE AND STOOL UA WBC 1 0 - 5 01/15/2015 [facility] URINE AND STOOL UA Sq Epi Few /LPF Few /LPF 01/15/2015 [facility] URINE AND STOOL UA pH 5.0 5.0 - 8.0 01/15/2015 [facility] URINE AND STOOL UA Color Yellow *NA* (01/15/15 4:40 PM) Yellow 01/15/2015 [facility] URINE AND STOOL UA Spec Grav 1.017 <=1.030 01/15/2015 [facility] URINE AND STOOL UA Turbidity Clear (01/15/15 4:40 PM) Clear 01/15/2015 [facility] URINE CHEM U Microalb 54.6 01/15/2015 [facility] URINE CHEM U Creatinine 158.5 01/15/2015 [facility] URINE CHEM U Alb/Crea 34.4 <=30.0 mcg/mg creat 01/15/2015 [facility] URINE CHEM U Sodium <5 01/15/2015 [facility] URINE CHEM U Eos None Seen (01/15/15 4:40 PM) None Seen 01/15/2015 [facility] CARDIAC ENZYMES CK MB 0.7 0.5 - 3.6 01/15/2015 [facility] CARDIAC ENZYMES Total CK 40 12 - 191 01/15/2015 [facility] CARDIAC ENZYMES Troponin-I 0.54 0.00 - 0.40 01/15/2015 Result Comment: Critical Result(s) osorio d to Leilani Quiroga at 01/15/2015 12:55 by hy. Read back OK. [facility] CHEM PANEL eGFR 42 01/15/2015 Result Comment: The eGFR is calculated using the CKD-EPI formula. In most young, healthy individuals the eGFR will be >90 mL/min/1.73m2. The eGFR declines with age. An eGFR of 60-89 may be normal in some populations, particularly the elderly, for whom the CKD-EPI formula has not been extensively validated. Use of the eGFR is not recommended in the following populations:

Individuals with unstable creatinine concentrations, including patients and those with serious co-morbid conditions.

Patients with extremes in muscle mass or diet.

The data above are obtained from the National Kidney Disease Education Program (NKDEP) which additionally recommends that when the eGFR is used in patients with extremes of body mass index for purposes of drug dosing, the eGFR should be multiplied by the estimated BMI. [facility] CHEM PANEL Creatinine Lvl 1.7 0.5 - 1.4 01/15/2015 [facility] HEMATOLOGY Platelet 294 133 - 450 01/15/2015 [facility] VIRAL - SEROLOGY Influ A Negative (01/15/15 6:50 AM) Negative 01/15/2015 [facility] VIRAL - SEROLOGY Influ B Negative (01/15/15 6:50 AM) Negative 01/15/2015 [facility] CARDIAC ENZYMES Troponin-I 0.66 0.00 - 0.40 01/15/2015 Result Comment: Critical Result(s) osorio d to zoran head rn at 01/15/2015 06:26 by hp. Read back OK. [facility] CARDIAC ENZYMES BNP 1369 <=100 pg/mL 01/15/2015 [facility] CARDIAC ENZYMES Total CK 42 12 - 191 01/15/2015 [facility] CARDIAC ENZYMES CK MB 0.8 0.5 - 3.6 01/15/2015 [facility] CARDIAC ENZYMES CK MB Index 1.9 0.0 - 2.5 01/15/2015 [facility] CHEM PANEL Lactic Acid Lvl 1.8 0.5 - 2.2 01/15/2015 [facility] CHEM PANEL Total Protein 6.6 6.4 - 8.4 01/15/2015 [facility] CHEM PANEL AST 17 0 - 37 01/15/2015 [facility] CHEM PANEL Alk Phos 157 39 - 136 01/15/2015 [facility] CHEM PANEL ALT 34 0 - 65 01/15/2015 [facility] CHEM PANEL Bili Total 1.1 0.2 - 1.3 01/15/2015 [facility] CHEM PANEL B/C Ratio 18 6 - 25 01/15/2015 [facility] CHEM PANEL A/G Ratio 0.7 0.7 - 1.6 01/15/2015 [facility] CHEM PANEL Globulin 3.8 2.0 - 4.0 01/15/2015 [facility] CHEM PANEL BUN 31 7 - 22 01/15/2015 [facility] CHEM PANEL CO2 26 24 - 32 01/15/2015 [facility] CHEM PANEL Calcium Lvl 8.6 8.5 - 10.5 01/15/2015 [facility] CHEM PANEL Albumin Lvl 2.8 3.5 - 5.0 01/15/2015 [facility] CHEM PANEL Potassium Lvl 5.1 3.5 - 5.1 01/15/2015 [facility] CHEM PANEL Chloride Lvl 99 95 - 109 01/15/2015 [facility] CHEM PANEL AGAP 16.1 10.0 - 20.0 01/15/2015 [facility] CHEM PANEL Sodium Lvl 136 135 - 145 01/15/2015 [facility] CHEM PANEL Glucose Lvl 167 70 - 99 01/15/2015 [facility] HEMATOLOGY PT 15.5 12.0 - 14.7 01/15/2015 [facility] HEMATOLOGY INR 1.22 0.85 - 1.17 01/15/2015 [facility] HEMATOLOGY PTT 41.5 22.9 - 35.8 01/15/2015 [facility] HEMATOLOGY MCHC 32.2 32.0 - 36.0 01/15/2015 [facility] HEMATOLOGY RDW 16.5 11.5 - 14.5 01/15/2015 [facility] HEMATOLOGY MPV 10.1 7.4 - 10.4 01/15/2015 [facility] MCV 83.9 80.0 - 94.0 01/15/2015 [facility] HEMATOLOGY WBC 17.1 3.7 - 10.4 01/15/2015 [facility] HEMATOLOGY RBC 3.73 4.70 - 6.10 01/15/2015 [facility] HEMATOLOGY Hgb 10.1 14.0 - 18.0 01/15/2015 [facility] HEMATOLOGY Hct 31.3 42.0 - 54.0 01/15/2015 [facility] HEMATOLOGY MCH 27.0 27.0 - 31.0 01/15/2015 [facility] HEMATOLOGY D-Dimer 3.78 01/15/2015 [facility] HEMATOLOGY Basophils # 0.1 0.0 - 0.2 01/15/2015 [facility] HEMATOLOGY Monocytes # 1.9 0.0 - 0.8 01/15/2015 [facility] HEMATOLOGY Eosinophils # 0.0 0.0 - 0.5 01/15/2015 [facility] HEMATOLOGY Segs 85.0 45.0 - 75.0 01/15/2015 [facility] HEMATOLOGY Plt Morph Neli l (01/15/15 5:51 AM) 01/15/2015 [facility] HEMATOLOGY RBC Morph Neli l (01/15/15 5:51 AM) 01/15/2015 [facility] HEMATOLOGY Eosinophils 0.1 0.0 - 4.0 01/15/2015 [facility] Segs-Bands # 14.5 1.5 - 8.1 01/15/2015 [facility] HEMATOLOGY Basophils 0.3 0.0 - 1.0 01/15/2015 [facility] HEMATOLOGY Lymphocytes 3.7 20.0 - 40.0 01/15/2015 [facility] HEMATOLOGY Lymphocytes # 0.6 1.0 - 5.5 01/15/2015 [facility] HEMATOLOGY Monocytes 10.9 2.0 - 12.0 01/15/2015 [facility] CHEM PANEL eGFR 54 11/04/2014 <sup>1</sup>Result Comment: The eGFR is calculated using the CKD-EPI formula. In most young, healthy individuals the eGFR will be >90 mL/min/1.73m2. The eGFR declines with age. An eGFR of 60-89 may be normal in some populations, particularly the elderly, for whom the CKD-EPI formula has not been extensively validated. Use of the eGFR is not recommended in the following populations:& lt;br/>
Individuals with unstable creatinine concentrations, including patients and those with serious co-morbid conditions.

Patients with extremes in muscle mass or diet.

The data above are obtained from the National Kidney Disease Education Program (NKDEP) which additionally recommends that when the eGFR is used in patients with extremes of body mass index for purposes of drug dosing, the eGFR should be multiplied by the estimated BMI. [facility] CHEM PANEL Potassium Lvl 4.6 3.5 - 5.1 11/04/2014 [facility] CHEM PANEL Sodium Lvl 138 135 - 145 11/04/2014 [facility] CHEM PANEL Creatinine Lvl 1.4 0.5 - 1.4 11/04/2014 [facility] CHEM PANEL Calcium Lvl 9.0 8.5 - 10.5 11/04/2014 [facility] CHEM PANEL Chloride Lvl 103 95 - 109 11/04/2014 [facility] CHEM PANEL CO2 30 24 - 32 11/04/2014 [facility] CHEM PANEL BUN 27 7 - 22 11/04/2014 [facility] CHEM PANEL Glucose Lvl 191 70 - 99 11/04/2014 <sup>2</sup>Interpretive Data: Adult ref erence range values reflect the clinical guidelines
of the [place] [employer]. [facility] CHEM PANEL AGAP 9.6 10.0 - 20.0 11/04/2014 [facility] HEMATOLOGY MCH 27.9 27.0 - 31.0 11/04/2014 [facility] HEMATOLOGY Hct 39.8 42.0 - 54.0 11/04/2014 [facility] HEMATOLOGY MCV 81.0 80.0 - 94.0 11/04/2014 [facility] HEMATOLOGY RBC 4.91 4.70 - 6.10 11/04/2014 [facility] Hgb 13.7 14.0 - 18.0 11/04/2014 [facility] HEMATOLOGY MPV 10.1 7.4 - 10.4 11/04/2014 [facility] HEMATOLOGY Platelet 207 133 - 450 11/04/2014 [facility] MCHC 34.4 32.0 - 36.0 11/04/2014 [facility] HEMATOLOGY RDW 18.1 11.5 - 14.5 11/04/2014 [facility] HEMATOLOGY WBC 7.4 3.7 - 10.4 11/04/2014 [facility] HEMATOLOGY PT 14.0 12.0 - 14.7 11/04/2014 [facility] HEMATOLOGY INR 1.08 0.85 - 1.17 11/04/2014 <sup>3</sup>Interpretive Data: RECOMMEND ED RANGES FOR PROTIME INR:
2.0- 3.0 for most medical and surgical thromboembolic states.
2.5-3.5 for artificial heart valves and recurrent embolism.

INR SHOULD BE USED ONLY FOR PATIENTS ON STABLE ANTICOAGULANT THERAPY. [facility] IMMUNOLOGY HIV 1/2 Ab Negat gail *NA* (11/04/14 2:00 PM) Negative 11/04/2014 [facility] Pathology Reports No Data Provided for This Section Diagnostic Reports Report Value Date Source Foot series DX Study: Right fo ot, 3 views Clinical Indication: -Post amputation Comparison: Right foot 02/04/2017 FINDINGS: The distal 5th metatarsal and the base of the 5th proximal phalanx have been resected. There is generalized osteopenia. Plantar and retrocalcaneal spurs are noted. Vascular calcifications are evident. SL: [id number] 02/05/2017 [facility] Chest 2 views DX EXAM: Chest 2 views DX DATE: 02/04/2017 2:57 PM CDT INDICATION: - infection COMPARISON: None. IMPRESSION: Moderately enlarged cardiac silhouette. Postoperative median sternotomy. No gross focal consolidation, significant pleural effusion or pneumothorax detected. Mild thoracic spondylosis. SL: [id number] 02/04/2017 [facility] Foot 3 views bilateral DX Stud y: Bilateral feet, 3 views Clinical Indication: - cellulitis, osteomyelitis of right foot; Comparison: None FINDINGS: Right foot: There is soft tissue ulcer lateral to the 5th toe. The soft tissues are edematous. No fracture or definite bone destruction is identified. There is generalized osteopenia. Minor degenerative changes involve the midfoot anteriorly and there is a moderate-sized plantar calcaneal spur. Left foot: The soft tissues are edematous. There are extensive vascular calcifications. No definite soft tissue gas or ulceration is evident. Minor degenerative changes involve the great toe metatarsal phalangeal joint and minor hypertrophic changes involve the anterior midfoot. Moderate-sized plantar and large retrocalcaneal spurs are noted. SL: [id number] 02/04/2017 [facility] Chest 2 views DX EXAM: Chest x -ray 2 views INDICATION: Atherosclerotic disease COMPARISON: 02/27/2015. TECHNIQUE: PA and lateral radiographs of the chest. FINDINGS: Significant interval improvement of previously seen left pleural effusion and basilar consolidation. Slight blunting of the bilateral costophrenic angles may relate to slight pleural thickening or trace pleural fluid. There is also decreasing central prominence of bronchovascular markings compatible with improved interstitial edema. There is no evidence of confluent consolidation or pneumothorax. Cardiomediastinal silhouette remains moderately enlarged. Prior median sternotomy. No acute osseous abnormalities noted. IMPRESSION: 1. Improving congestive heart failure, i nterstitial edema, and left pleural effusion with probable trace residual pleural fluid. 2. Moderate enlargement of the cardiomed iastinal silhouette and prior median sternotomy compatible with underlying heart disease. 03/28/2015 [facility] Chest 2 views DX EXAM: Chest x -ray 2 views INDICATION: Cardiomyopathy COMPARISON: 01/16/2015. TECHNIQUE: PA and lateral radiographs of the chest. FINDINGS: There is stable enlargement of the cardiomediastinal silhouette with postoperative changes of CABG and median sternotomy. There is a small to moderate sized left pleural effusion with associated left basilar opacity, progressed from the prior exam of 01/16/2015 and which may represent atelectasis or infiltrate. Prominent bronchovascular markings in both lungs may relate to component of interstitial pulmonary edema. Right lung demonstrates no consolidation with probable small effusion. IMPRESSION: See above. 02/27/2015 [facility] Chest 1view DX Clinical Histor y: See Clinic Indication Exam: CHEST Jan 16, 2015 05:38:00 AM Comparison: 01/15/2015 exam. Findings: There is a retrocardiac opacity. The heart is enlarged .There is no pneumothorax or pleural effusion. There is no acute fracture. IMPRESSION: Stable cardiomegaly. Retrocardiac opacity, which may represent atelectasis or pneumonia 01/16/2015 [facility] Ext Lower Venous Doppler Bilat US LOWER EXTREMITY VENOUS DOPPLER CLINICAL HISTORY: Lower extremity pain and swelling. TECHNIQUE: The bilateral deep venous system was evaluated with miller scale, color Doppler, and spectral Doppler sonography. FINDINGS: The veins of the bilateral lower extremity show no evidence of filling defect. There is normal respiratory phasicity on spectral doppler imaging and normal compressibility. IMPRESSION: No evidence of DVT. 01/15/2015 [facility] Retroperitoneal limited US FINDINGS: Right kidney: Length and cortical thickness are 13.0 x 5.4 x 5.4 and 1.34 cm, respectively. No hydronephrosis, suspicious mass, or large shadowing calculus. Left Kidney: Length and cortical thickness are 12.9 x 6.1 x 4.7 and 1.52 cm, respectively. No hydronephrosis, suspicious mass, or large shadowing calculus. Bladder: No wall thickening, mural nodularity, or suspicious intraluminal echoes are identified. IMPRESSION: No significant abnormality. 01/15/2015 [facility] Lung perfusion scan [place] [facility] HISTORY: Chest tightness. : 1950. TECHNIQUE: Single breath, equilibrium and washout posterior ventilation imaging was performed following inhalation of 14.6 mCi of xenon-133 gas following by immediate static perfusion imaging in multiple projections after intravenous injection of 6.4 mCi of technetium 99m MAA. Comparison chest x-ray from today. The ventilation images show normal distribution of radiotracer. There is normal washout. The perfusion images show no absolute segmental perfusion defect or mismatch. Matched photopenic defects noted from enlarged heart. IMPRESSION: 1. No evidence for acute pulmonary embol ism. 01/15/2015 [facility] Lung ventilation scan NM Pleas e refer to the Perfusion Lung Scan report, performed on 01/15/2015. 01/15/2015 [facility] Chest 1view DX Clinical Histor y: See Clinic Indication Exam: CHEST Jan 15, 2015 05:23:00 AM Comparison: 11/08/2014 exam. Findings: The lungs are clear. The heart is enlarged. There is no pneumothorax or pleural effusion. There is no acute fracture. IMPRESSION: No acute cardiopulmonary abnormality. 01/15/2015 [facility] Chest 1view DX STUDY: Chest, 1 view. COMPARISON: 05/13/2011 HISTORY: Arrhythmias. FINDINGS: The lungs are clear. No dense focal consolidation is seen. No pleural effusion or pneumothorax is seen. Mild cardiomegaly is seen. No pulmonary edema is seen. The osseous structures are unremarkable. IMPRESSION: No acute cardiopulmonary process. Cardiomegaly without pulmonary edema. 11/08/2014 [facility] Consultation Notes No Data Provided for This Section Discharge Summaries No Data Provided for This Section History and Physicals No Data Provided for This Section Vital Signs Vital Sign Value Date Comments Source Systolic (mm Hg) 152 02/07/2017 [facility] Diastolic (mm Hg) 78 02/07/2017 [facility] Systolic (mm Hg) 168 02/07/2017 [facility] Diastolic (mm Hg) 78 02/07/2017 [facility] Respitory Rate 18 02/07/2017 [facility] Heart Rate 78 02/07/2017 [facility] Temperature Oral (F) 98.0 F 02/07/2017 [facility] Temperature Oral (F) 98.1 F 02/07/2017 [facility] Respitory Rate 20 02/07/2017 [facility] Heart Rate 71 02/07/2017 [facility] Systolic (mm Hg) 160 02/07/2017 [facility] Diastolic (mm Hg) 81 02/07/2017 [facility] Temperature Oral (F) 97.6 F 02/07/2017 [facility] Heart Rate 70 02/07/2017 [facility] Respitory Rate 20 02/07/2017 [facility] Weight 139.364 02/04/2017 [facility] BMI Calculated 41.67 02/04/2017 [facility] Height 182.88 cm 02/04/2017 [facility] Weight 139.364 02/04/2017 [facility] BMI Calculated 41.67 02/04/2017 [facility] Height 182.88 cm 02/04/2017 [facility] Height 182.88 cm 05/17/2015 [facility] BMI Calculated 33.16 05/17/2015 [facility] Weight 110.909 05/17/2015 [facility] Weight 110.909 04/17/2015 [facility] BMI Calculated 33.16 04/17/2015 [facility] Height 182.88 cm 04/17/2015 [facility] Height 182.88 cm 03/22/2015 [facility] BMI Calculated 39.01 03/22/2015 [facility] Weight 130.455 03/22/2015 [facility] Weight 130.455 03/01/2015 [facility] BMI Calculated 39.01 03/01/2015 [facility] Height 182.88 cm 03/01/2015 [facility] Systolic (mm Hg) 122 01/18/2015 [facility] Diastolic (mm Hg) 62 01/18/2015 [facility] Respitory Rate 32 01/18/2015 [facility] Systolic (mm Hg) 118 01/17/2015 [facility] Diastolic (mm Hg) 64 01/17/2015 [facility] Respitory Rate 30 01/17/2015 [facility] Temperature Oral (F) 98.2 F 01/17/2015 [facility] Respitory Rate 21 01/17/2015 [facility] Systolic (mm Hg) 99 01/17/2015 [facility] Diastolic (mm Hg) 51 01/17/2015 [facility] Temperature Oral (F) 97.9 F 01/17/2015 [facility] Temperature Oral (F) 98.7 F 01/17/2015 [facility] Weight 124.727 01/17/2015 [facility] BMI Calculated 33.61 01/15/2015 [facility] Weight 112.4 01/15/2015 [facility] Height 182.88 cm 01/15/2015 [facility] BMI Calculated 33.45 01/15/2015 [facility] Weight 118.182 01/15/2015 [facility] Height 187.96 cm 01/15/2015 [facility] Heart Rate 87 01/15/2015 [facility] BMI Calculated 37.92 11/02/2014 [facility] Weight 126.818 11/02/2014 [facility] Height 182.88 cm 11/02/2014 [facility] Encounters Location Location Details Encounter Type Encounter Number Reason For Visit Attending Provider ADM Date DC Date Status Source [facility] Bedded Outpatient [id number] Arie Morillo 11/08/2014 11/09/2014 [facility] Inpatient [id number] Dali Escobar 01/15/2015 01/18/2015 [facility] [place] [facility] [id number] Familia Perkins 02/27/2015 02/28/2015 [facility] OP Recurring [id number] Familia Perkins 03/01/2015 03/16/2015 [facility] OP Recurring [id number] Familia Perkins 03/16/2015 04/15/2015 [facility] [place] [facility] [id number] Familia Perkins 03/28/2015 03/29/2015 [facility] OP Recurring [id number] Familia Perkins 04/17/2015 05/17/2015 [facility] OP Recurring [id number] Familia Perkins 05/17/2015 06/16/2015 [facility] Inpatient [id number] Aiedn Richards 02/04/2017 02/07/2017 [facility] OP Therapy Patients [id number] Lemuel Vijaya 08/05/2017 09/04/2017 [facility] [place] Procedures Procedure Code Date Perfomer Comments Source Cardiac catheterization, combined right and left heart [id number] MANUEL Crespo,[facility], [facility] [place],[facility] Cholecystectomy [id number] [facility] [place],[facility]onsillectomy [id number] [facility] [place],[facility] Triple coronary bypass [id number] [facility] [place],[facility] Assessment and Plan Assessment and Plan Date Source Extracted from:Title: Progress Note * Author: Star Gaviria MD Date: 02/05/17 Impression and Plan 1: 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 Follow-up on cultures. Patient being planned for surgery today per Dr. Sandra. Case discussed with Dr. Buchanan who has cleared the patient for surgery with a low cardiac risk. 2: Coronary artery disease status post C ABG: Continue heart medication at home dose. Currently patient asymptomatic. 3: Aortic valve disease status post biop rosthetic aortic valve replaced: Currently patient asymptomatic continue perioperative empiric antibiotic at present. Further follow-up as outpatient with primary cash sales audit clerk. 4: Diabetes mellitus type 2: Continue current insulin regimen, continue Accu-Cheks with sliding scale insulin and monitor blood sugar for any further adjustment. 5: Peripheral neuropathy. Continue Lyrica 6: Hypertension: Currently blood pressure stable on current medication continue to monitor blood pressure for any further adjustment. Extracted from:Title: History and Physical Author: Vicki Roman MD Date: 02/04/17 Assessment/Plan 66 yo M with PMH of CAD s/p CABG, AI s/p bioprostheticAVR, carotid artery disease, DMT2 with peripheral neuropathy, psoriasis,HTN who presents with RLE nonhealing wound with erythema and purulent drainage c/f active infection. RLE cellulitis RLE nonhealing wound CAD s/p CABG Carotid artery disease s/p bioprosthetic AVR DMT2 Peripheral neuropathy HTN -continue vanc/zosyn, f/u blood and woun d cx -c/f deeper infection, f/u ESR -f/u arterial dopplers -appreciate podiatry recommendations -ISS, f/u A1c, resume home insulin regim en -restart home medications except cosynte x Prophylaxis heparin Addendum by Vicki Roman MD on 02/04/2017 18:[address] Sandra, patient had outpatient MRI with confirmed osteomyelitits of 5th metatarsal head. Plan for surgical intervention tomorrow morning under local anesthesia with sedation.Cardiology c/s for clearance ordered. 02/07/2017 [facility] Plan of Care No Data Provided for This Section Social History Social History Date Source Social History TypeResponse Smoking Status Never smoker; Exposure to Tobacco Smoke None; Cigarette Smoking Last 365 Days No; Reg Smoking Cessation Counseling No entered on: 02/04/17 02/04/2017 [facility] Social History TypeResponse Smoking Status Never smoker; Exposure to Tobacco Smoke None; Cigarette Smoking Last 365 Days No; Reg Smoking Cessation Counseling No 02/04/2017 [facility] Social History TypeResponse Smoking Status Never smoker; Exposure to Tobacco Smoke None; Cigarette Smoking Last 365 Days No; Reg Smoking Cessation Counseling No 01/15/2015 [facility] Social History TypeResponse Smoking Status Never smoker; Exposure to Tobacco Smoke None; Cigarette Smoking Last 365 Days No; Reg Smoking Cessation Counseling No 01/15/2015 [facility] Family History No Data Provided for This Section Advance Directives No Data Provided for This Section Functional Status No Data Provided for This Section
--- OUTSIDE RECORDS SUMMARY | 2020-04-04 15:22 | XMS REPORT | Continuity of Care Document ---
Author Author [facility] t Organization [facility] Address 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 Attphys Unavailable Abdirahman Lopez Attphys Armando Richards Attphys Chetan Perkins Attphys Lior Escobar Attphys Blas Morillo Attphys Armando Richardsis Admphys Chetan Perkins Admphys Lior Escobar Dali Admphys Payers Payer Name Policy Type Policy Number Effective Date Expiration Date S ource Problems Condition Name Condition Details Condition Category Status Onset Date Resolution Date Last Treatment Date Treating Clinician Comments Source LEFT ACHILLES LEFT ACHILLES Active 08/05/2017 [facility] Diagnosis Active 2017-08-05 12:45:00 2017-08-05 12:48:00 Cayetano Crespo Methicillin resistant Staphylococcus aureus (organism) Methicillin resistant Staphylococcus aureus (organism) Active 02/04/2017 Problem 12/10/2017 RIGHT FOOT, 02/04/2017Problem added by Discern Expert. [facility] Problem Active 2017-02-04 00:00:00 2017-12-10 11:40:27 [facility] CELLULITIS INFECTED WOUND RIGHT FOOT,OST CELLULITIS INFECTED WOUND RIGHT FOOT,OST Active 02/04/2017 [facility] Diagnosis Active 2017-02-04 00:00:00 2017-02-13 22:03:00 [facility] Zak 425.4 - PRIM CARDIOMYOP 425. 4 - PRIM CARDIOMYOP Active 02/27/2015 [facility] [place] Diagnosis Active 2015-02-27 00:01:00 2015-02-27 16:05:00 [facility] Zak PNEUMONIA/GENERALIZED WEAKNESS PNEUMONIA/GENERALIZED WEAKNESS Active 01/15/2015 [facility] Diagnosis Active 01-15 00:00:00 2015-01-18 15:22:00 [facility] Her hinson WEAKNESS WEAK NESS Active 01/15/2015 [facility] Diagnosis Active 2015-01-15 00:00:00 2015-01-15 06:19:00 [facility] Zak POST CAB, POST AORTIV VALVE REPLACEMENT POST CAB, POST AORTIV VALVE REPLACEMENT Active 12/27/2014 [facility] Diagnosis Active 2014-12-27 08:00:00 2015-03-01 15:33:00 [facility] [place] POST CAB, POST AORTIC VALVE REPLACEMENT POST CAB, POST AORTIC VALVE REPLACEMENT Active 12/27/2014 [facility] Diagnosis Active 2014-12-27 08:00:00 2015-03-21 14:05:00 [facility] POST CAB, POST AVR POST CAB, POST AVR Active 12/27/2014 [facility] Diagnosis Active 2014-12-27 08:00:00 2015-05-17 15:33:00 [facility] CAD CAD Active 10/27/2014 [facility] Diagnosis Active 2014-10-27 00:00:00 2014-11-08 07:04:00 [facility] Zak Unspecified abnormalities of gait and mobility Unspecified abnormalities of gait and mobility 12/10/2017 [facility] Bivins Problem 2017-12-10 11:40:27 [facility] Zak Unspecified injury of left Achilles tendon, sequela Unspecified injury of left Achilles tendon, sequela 12/10/2017 [facility] Biv[facility] Problem 2017-12-10 11:40:27 [facility] Zak Type 2 diabetes mellitus without complications Type 2 diabetes mellitus without complications 12/10/2017 [facility] Problem 2017-12-10 11:40:27 [facility] Pure hypercholesterolemia, unspecified Pure hypercholesterolemia, unspecified 12/10/2017 [facility] Problem 2017-12-10 11:40:27 [facility] Amputation of finger tip (procedure) Amputation of finger tip (procedure) Resolved Problem 12/10/2017 Partial amputation of fingertip (right middle & ring finger) MANUEL Crespo, [facility], [facility] Problem Resolved 2017-12-10 11:40:27 [facility] Aortic valve stenosis with insufficiency (disorder) Aortic valve stenosis with insufficiency (disorder) Active Problem 12/10/2017 MANUEL Crespo,[facility], [facility] Problem Active 2017-12-10 11:40:27 Frank Crespo Disorder of carotid artery (disorder) Disorder of carotid artery (disorder) Active Problem 12/10/2017 MANUEL Crespo,[facility], [facility] Problem Active 2017-12-10 11:40:27 [facility] Diabetes mellitus (disorder) D iabetes mellitus (disorder) Active Problem 12/10/2017 LIANNA Crespo,[facility], [facility] Problem Active 2017-12-10 11:40:27 [facility] Diabetic neuropathy (disorder) Diabetic neuropathy (disorder) Active Problem 12/10/2017 [facility] Problem Active 2017-12-10 11:40:27 [facility] Hypercholesterolemia (disorder) Hypercholesterolemia (disorder) Active Problem 12/10/2017 MANUEL Crespo,[facility], [facility] Problem Active 2017-12-10 11:40:27 [facility] Hypertensive disorder, systemic arterial (disorder) Hypertensive disorder, systemic arterial (disorder) Active Problem 12/10/2017 [facility] Problem Active 2017-12-10 11:40:27 Frank Crespo Psoriasis (disorder) Psor iasis (disorder) Active Problem 12/10/2017 [facility] Problem Active 2017-12-10 11:40:27 Elijah Crespo PNEUMONIA, ORGANISM NOS PNEU MONIA, ORGANISM NOS Active [facility] Diagnosis Active 2015-01-18 15:22:00 [facility] MALAISE AND FATIGUE NEC OZZIE ISE AND FATIGUE NEC Active [facility] Diagnosis Active 2015-01-18 15:22:00 [facility] Zak CELLULITIS OF RIGHT LOWER LIMB CELLULITIS OF RIGHT LOWER LIMB Active [facility] Diagnosis Active 2016 22:03:00 [facility] Zak OSTEOMYELITIS OF RIGHT ORBIT O STEOMYELITIS OF RIGHT ORBIT Active [facility] Diagnosis Active 2016 22:03:00 [facility] Zak OTHER INJURY OF UNSPECIFIED BODY REGION OTHER INJURY OF UNSPECIFIED BODY REGION Active [facility] Diagnosis Active 2017-02-13 22:03:00 [facility] Muscle weakness (generalized) Muscle weakness (generalized) 09/09/2017 12/10/2017 [facility] Problem 2017-09-09 04:16:51 2017-12-10 11:40:27 2017-12-10 11:40:27 M ace Crespo Allergies, Adverse Reactions, Alerts Allergy Name Allergy Type Status Severity Reaction(s) Onset Date Inacti ve Date Treating Clinician Comments Source No Known Allergies DA Active U 2019-07-11 00:00:00 [facility] No Known Contrast Allergies DA Active U 2003-11-26 00:00: 00 [facility] No Known Drug Allergies DA Active U 2003-11-26 00:00:00 [facility] No Known Food Allergies DA Active U 2003-11-26 00:00:00 [facility] No Known Other Allergies DA Active U 2003-11-26 00:00:00 [facility] NKFA NKFA Active [facility] Social History Smoking Status Start Date Stop Date Source Social History [facility] Medications Ordered Medication Name Filled Medication Name Start Date Stop Da te Current Medication? Ordering Clinician Indication Dosage Frequency Signature (SIG) Comments Components Source Insulin Glargine 100 UNT/ML Injectable Solution 2017-02-07 21:11 :00 Yes 80 unit, SUB-Q, Bedtime, 0 Refill(s) Cayetano Crespo cefdinir 300 MG Oral Capsule [Omnicef] 2017-02-07 21:11:00 Yes 300 mg = 1 cap, PO, Daily, X 10 day, # 10 cap, 0 Refill(s), Pharmacy: [facility] [id number] [place], [place] [address]ann ciprofloxacin 500 mg oral tablet 2017-02-07 21:11:00 Yes 500 mg = 1 tab, PO, Daily, X 10 day, # 10 tab, 0 Refill(s), Pharmacy: [facility] [id number] [facility] Amlodipine 5 MG Oral Tablet [Norvasc] 2017-02-07 21:11:00 Y es 5 mg = 1 tab, PO, Daily, # 30 tab, 0 Refill(s), Pharmacy: [facility] [id number] [facility] Kayexalate 2017-02-07 17:39:00 No Notes: (sodium polystyrene sulfonate 15 gm/60 ml VONNIE) Shake well before use. (Same as: Kayexalate, SPS) [facility] Hydralazine 2017-02-07 17:31:00 No Notes: (Same as: Apresoline) Push over 5 minutes [facility] Ceftriaxone 2017-02-07 01:00:00 No Notes: (Same As: Rocephin). Use with 100 mL NS and infuse over 30 min MEDICATION WASTE Product Size: 1000 mg Product Wasted: ___ mg [facility] Insulin Lispro 2017-02-06 19:24:00 No Notes: Roll in palms of hands gently; Do not shake `vigorously. (Same as: Humalog ) "Single Patient Use Only " WASTE: F/P - Black; E - Municipal Trash Bin Stable for 28 days at room temperature. Expires in days from Date [facility] Glucagon 2017-02-06 19:24:00 No 1 mg, Route: IM, Drug form: PDR/INJ, PRN, Dosing Weight 139.364, kg, PRN Blood Glucose Results, Start date: 02/06/17 14:24:00 CDT, Duration: 30 day, Stop date: 03/08/17 14:23:00 CDT [facility] Dextrose 50% Syringe 2017-02-06 19:24:00 No 12.5 gm, 25 mL, Route: IVP, Drug Form: INJ, Dosing Weight 139.364, kg, PRN, PRN Blood Glucose Results, Start date: 02/06/17 14:24:00 CDT, Duration: 30 day, Stop date: 03/08/17 14:23:00 CDT [facility] 3 ML Insulin Lispro 100 UNT/ML Pen Injector [Humalog] 2017-02-06 19:15:00 No 50 units, SUB-Q, TID-Before Meals, 0 Ref ill(s) [facility] Saline Flush 0.9% 2017-02-06 02:00:00 No Notes: Same as: BD Posiflush Sterile [facility] Saline Flush 0.9% 2017-02-05 19:43:00 No Notes: Same as: BD Posiflush Sterile [facility] Acetaminophen 325 MG / Hydrocodone Bitartrate 5 MG Oral Tabl et 2017-02-05 19:43:00 No Notes: (Sa me as: [place] 325/5) Do not exceed 4gm/day of acetaminophen. [facility] Morphine 2017-02-05 19:43:00 No Not es: (Same as:MORPhine Sulfate) [facility] propofol (ANES) 2017-02-05 19:42:00 No Route: IV, Drug form: INJ, ONCE, Stop date: 02/05/17 14:42:00 CDT [facility] ondansetron ([facility]) 2017-02-05 19:37:00 No Route: IV, Drug form: INJ, ONCE, Stop date: 02/05/17 14:37:00 CDT [facility] fentaNYL ([facility]) 2017-02-05 19:37:00 No Route: IV, Drug form: INJ, ONCE, Stop date: 02/05/17 14:37:00 [facility] 2017-02-05 19:37:00 No Route: IV, Drug form: INJ, ONCE, Stop date: 02/05/17 14:37:00 CDT [facility] midazolam (ANES) 2017-02-05 19:27:00 No Route: IV, Drug form: SOLN, ONCE, Stop date: 02/05/17 14:27:00 [facility] mL INJ ([facility]) 2017-02-05 18:47:00 No Route: IV, Total Volume: 1,000, Start date: 02/05/17 13:47:00 CDT, Stop date: 02/05/17 14:47:00 CDT [facility] insulin detemir 2017-02-05 14:00:00 No 50 unit, Route: SUB-Q, Daily, Dosing Weight 139.364, kg, Start date: 02/05/17 9:00:00 CDT, Duration: 30 day, Stop date: 03/06/17 9:00:00 CDT [facility] Zak Lyrica 2017-02-05 14:00:00 No Notes: Same a derrell Agudelo [facility] Zak insulin glargine 2017-02-05 14:00:00 No Notes: (Same as: Lantus) Do not hold insulin without contacting prescriber WASTE: F/P - Black; E - Municipal Trash Bin "single patient use only" Cayetano Crespo Lisinopril 2017-02-05 14:00:00 No Notes: (Same as: ivgarcía Zestril) Cayetano Crespo sodium hypochlorite topical 0.25% solution 2017-02-05 14:00:00 No Notes: Note: half-strength = 0.25% sodium hypochlorite. Cayetano Crespo Furosemide 2017-02-05 14:00:00 No Notes: (Same as: Lasix) May cause GI upset. Give with food or milk. Elijah rial Zak Aspirin 2017-02-05 14:00:00 No Notes: Do not crush or chew. (Same As: Ecotrin) Cayetano Crespo Albuterol 0.833 MG/ML / Ipratropium [place] 0.167 MG/ML Inha lant Solution 2017-02-05 11:19:00 No Notes: (Same as: D uoneb) Cayetano Crespo Calcium Chloride 0.0014 MEQ/ML / Potassi um Chloride 0.004 MEQ/ML / Sodium Chloride 0.103 MEQ/ML / Sodium Lactate 0.028 MEQ/ML Injectable Solution 2017-02-05 11:19:00 No 1,000 mL, Rate: 25 ml/hr, Infuse over: 40 hr, Route: IV, Dosing Weight 139.364 kg, Total Volume: 1,000, Start date: 02/05/17 6:19:00 CDT, Duration: 30 day, Stop date: 03/07/17 6:18:00 CDT [facility] insulin detemir 2017-02-05 02:00:00 No 80 unit, Route: SUB-Q, Bedtime, Dosing Weight 139.364, kg, Start date: 02/04/17 21:00:00 CDT, Duration: 30 day, Stop date: 03/05/17 21:00:00 CDT [facility] heparin 2017-02-05 02:00:00 No Notes: porci ne heparin [facility] insulin glargine 2017-02-05 02:00:00 No Notes: (Same as: Lantus) Do not hold insulin without contacting prescriber WASTE: F/P - Black; E - Municipal Trash Bin "single patient use only" [facility] atorvastatin 2017-02-05 02:00:00 No Notes: (Same As: Lipitor) [facility] vancomycin + sodium chloride 0.9% INJ 250 mL 2017-02-05 01:00:00 No 2001 mg: infuse over 2.5 hours MEDICATION WASTE Product Size: 1000 mg Product Wasted: ___ mg [facility] chepe Zosyn + sodium chloride 0.9% INJ 100 mL 2017-02-05 01:00:00 No Notes: (Same as: Zosyn) Dosing based on Piperacillin component MEDICATION WASTE Product Size: 3375 mg Product Wasted: ___ mg [facility] Humalog 2017-02-04 22:09:00 No See Instructions, SUB-Q, 0 Refill(s), Pt uses this for sliding scale [facility] Amoxicillin 875 MG / Clavulanate 125 MG Oral Tablet 02-04 22:09:00 No 1 tab, PO, BID, # 20 tab, 0 Refill(s) [facility] Furosemide 2017-02-04 22:07:00 No 40 mg, [place], 0 Refill(s) [facility] Lisinopril 2017-02-04 22:07:00 No 10 mg, PO , Daily, 0 Refill(s) [facility] Trujeo 2017-02-04 22:04:00 No Trujeo, 50 units, SUB-Q, QAM, Refill(s) 0 [facility] Vancomycin 2017-02-04 21:00:00 No 1,000 mg, Route: IVPB, Drug form: INJ, [id number], Dosing Weight 110.909, kg, Start date: 02/04/17 16:00:00 CDT, Duration: 10 day, Stop date: 02/13/17 16:00:00 CDT, ABX Indication: Bone/Joint Infection [facility] Dakins Half Strength Solution 0.25% topical 2017-02-04 21:00:00 No Notes: Note: half-strength = 0.25% sodium hypochlorite. [facility] Zosyn 2017-02-04 21:00:00 No 3.375 gm, Route: IVPB, Drug form: PDR/INJ, [id number], Dosing Weight 110.909, kg, Start date: 02/04/17 16:00:00 CDT, Duration: 10 day, Stop date: 02/14/17 10:00:00 CDT, ABX Indication: Bone/Joint Infection [facility] cefepime 1 g injection 2015-01-18 00:40:00 Yes 1 gm, IV, Q12H, X 10 day, # 20 ea, 0 Refill(s), other [facility] [place] Vancomycin 2015-01-18 00:40:00 Yes 1.5 gm = 250 mL, IVPB, [id number], 0 Refill(s) [facility] Enoxaparin 2015-01-18 00:40:00 Yes 40 mg = 0.4 mL, SUB-Q, [id number], 0 Refill(s) [facility] epoetin darnell 10,000 units/mL injectable solution 2015-01-18 00:40:00 Yes 10,000 unit = 1 mL, SUB-Q, [id number], 0 Refill(s) [facility] cefepime 2015-01-17 18:00:00 No 1 gm, Route: IVPB, [id number], Dosing Weight 124.727, kg, Start date: 01/17/15 13:00:00, Duration: 30 day, Stop date: 02/16/15 1:00:00 [facility] NS 1,000 mL 2015-01-17 15:50:00 No 1,000 mL, Rate: 50 ml/hr, Infuse over: 20 hr, Route: IV, Dosing Weight 124.727 kg, Total Volume: 1,000, Start date: 01/17/15 10:50:00, Duration: 30 day, Stop date: 02/16/15 10:49:00 [facility] ergocalciferol 2015-01-17 14:00:00 No 50,000 IntlUnit, 1 cap, Route: PO, Drug form: CAP, QTue, Dosing Weight 112.4, kg, Start date: 01/17/15 9:00:00, Duration: 30 day, Stop date: 02/14/15 9:00:00 [facility] Insulin, Aspart, Human 2015-01-17 09:45:00 No Notes: Roll in palms of hands gently; Do not shake vigorously. (Same as: NovoLOG) "single patient use only" Stable for 28 days at room temperature. Expires in days from Date [facility] Glucagon 2015-01-17 09:45:00 No 1 mg, Route: IM, Drug form: PDR/INJ, PRN, Dosing Weight 124.727, kg, PRN Blood Glucose Results, Start date: 01/17/15 4:45:00, Duration: 30 day, Stop date: 02/16/15 4:44:00 [facility] Dextrose 50% Syringe 2015-01-17 09:45:00 No 25 gm, 50 mL, Route: IVP, Drug Form: INJ, Dosing Weight 124.727, kg, PRN, PRN Blood Glucose Results, Start date: 01/17/15 4:45:00, Duration: 30 day, Stop date: 02/16/15 4:44:00 [facility] Sodium Chloride 0.154 MEQ/ML Injectable Solution 2015-01-16 22:5 9:00 No 500 mL, 500 ml/hr, Infuse Ov er: 1 hr, Route: IV, 500, Drug form: INJ, ONCE, Priority: STAT, Dosing Weight 112.4 kg, Start date: 01/16/15 17:59:00, Duration: 1 doses or times, Stop date: 01/16/15 17:59:00 [facility] Epogen 2015-01-16 22:00:00 No Notes: (Same as: Procrit) epoetin darnell 25360 unit/1 ml VL. For dialysis use only. (Procrit) MEDICATION WASTE Product Size: 33769 unit Product Wasted: ___ unit [facility] Sodium Chloride 0.154 MEQ/ML Injectable Solution 2015-01-16 21:3 5:00 No 500 mL, 500 ml/hr, Infuse Ov er: 1 hr, Route: IV, ONCE, Priority: STAT, Dosing Weight 112.4 kg, Start date: 01/16/15 16:35:00, Duration: 1 doses or times, Stop date: 01/16/15 16:35:00 Elijah Crespo Furosemide 2015-01-16 14:45:00 No Notes: (Same as: Lasix) May cause GI upset. Give with food or milk. Elijah florecitamarisel Zak Vancomycin 2015-01-16 14:00:00 No 2001 mg: infuse over 2.5 hours [facility] NS 1,000 mL 2015-01-16 13:32:00 No 1,000 mL, Rate: 75 ml/hr, Infuse over: 13.3 hr, Route: IV, Dosing Weight 112.4 kg, Total Volume: 1,000, Start date: 01/16/15 8:32:00, Duration: 30 day, Stop date: 02/15/15 8:31:00 [facility] NovoLOG FlexPen 2015-01-16 13:00:00 No Notes: Roll in palms of hands gently; Do not shake vigorously. (Same as: NovoLOG) "single patient use only" Stable for 28 days at room temperature. Expires in days from Date [facility] Humalog 2015-01-16 12:30:00 No 8 unit, Route: SUB-Q, QAM (Insulin), Dosing Weight 112.4, kg, Start date: 01/16/15 7:30:00, Duration: 30 day, Stop date: 02/14/15 7:30:00 [facility] atorvastatin 2015-01-16 02:00:00 No 10 mg, Route: PO, Drug form: TAB, Bedtime, Dosing Weight 112.4, kg, Start date: 01/15/15 21:00:00, Duration: 30 day, Stop date: 02/13/15 21:00:00 [facility] eloisa Crespo Lantus 2015-01-16 02:00:00 No Notes: Same as Lant Solostar PEN "single patient use only" Stable for 28 days at room temperature. Expires in days from Date Frank Crespo Vancomycin 2015-01-16 02:00:00 No N otes: TIME CRITICAL MEDICATION Cayetano Crespo Hydrochlorothiazide 12.5 MG / Lisinopril 10 MG Oral Ta blet [Zestoretic 10/12.5] 2015-01-15 22:00:00 No 1 ta b, Route: PO, Drug Form: TAB, Dosing Weight 112.4, kg, BID, Start date: 01/15/15 17:00:00, Duration: 30 day, Stop date: 02/14/15 9:00:00 Cayetano Crespo Lyrica 2015-01-15 22:00:00 No Notes: Same a s Lyabisaia Cayetano Crespo Prinivil 2015-01-15 22:00:00 No Not es: (Same as: Prinivil, Zestril) Cayetano Crespo hydrochlorothiazide 25 mg oral tablet 2015-01-15 22:00:00 N o Notes: (Same as: Hydrodiuril) With food. [facility] NovoLOG FlexPen 2015-01-15 22:00:00 No Notes: Roll in palms of hands gently; Do not shake vigorously. (Same as: NovoLOG) "single patient use only" Stable for 28 days at room temperature. Expires in days from Date [facility] Zak Humalog 2015-01-15 21:30:00 No 5 unit, Route: SUB-Q, QPM (Insulin), Dosing Weight 112.4, kg, Start date: 01/15/15 16:30:00, Duration: 30 day, Stop date: 02/13/15 16:30:00 [facility] Zak NovoLOG FlexPen 2015-01-15 17:31:00 No Notes: Roll in palms of hands gently; Do not shake vigorously. (Same as: NovoLOG) "single patient use only" Stable for 28 days at room temperature. Expires in days from Date [facility] Bisoprolol 2015-01-15 17:30:00 No Notes: (S ladarius As: Zebeta) Cayetano Crespo Aspirin 2015-01-15 17:30:00 No 81 mg, 1 tab, Route: PO, Drug form: ECTAB, Daily, Dosing Weight 112.4, kg, Start date: 01/15/15 12:30:00, Duration: 30 day, Stop date: 02/14/15 9:00:00 Elijah adeline Issaann Humalog 2015-01-15 17:00:00 No 5 unit, Route: SUB-Q, QNoon, Dosing Weight 112.4, kg, Start date: 01/15/15 12:00:00, Duration: 30 day, Stop date: 02/13/15 12:00:00 Cayetano Zak cefepime 2015-01-15 17:00:00 No Notes: (Same As: Maxipime) MEDICATION WASTE Product Size: 1000 mg Product Wasted: ___ mg [facility] [place] Enoxaparin 2015-01-15 16:00:00 No Notes: (S ladarius as: Lovenox) [facility] [place] Sodium Chloride 0.9% IV 2015-01-15 15:59:00 No 25 mL, Route: IV, Start date: 01/15/15 10:59:00, Duration: 30 day, Stop date: 02/14/15 10:58:00, PRN Line Flush Cayetano Crespo BD Normal Saline Flush 2015-01-15 15:58:00 No Notes: (Same as: BD Posiflush) [facility] [place] Ergocalciferol [id number] UNT Oral Capsule 2015-01-15 15:42:00 Y es 50,000 IntlUnit = 1 cap, PO, QTue, 0 Refill(s) [facility] Bisoprolol 2015-01-15 15:42:00 Yes 1 0 mg, PO, Daily, 0 Refill(s) [facility] Zak Humalog 2015-01-15 15:42:00 No 5 unit, SUB-Q, QPM (Insulin), 0 Refill(s) Cayetano Crespo Aspirin Low Dose 81 mg oral tablet 2015-01-15 14:39:00 Yes = 1 tab, PO, Daily, # 30 tab, 1 Refill(s) Cande Crespo Sodium Chloride 0.154 MEQ/ML Injectable Solution 2015-01-15 12:4 9:00 No 250 mL, 250 ml/hr, Infuse Ov er: 1 hr, Route: IV, 250, Drug form: INJ, ONCE, Priority: STAT, Dosing Weight 118.182 kg, Start date: 01/15/15 7:49:00, Duration: 1 doses or times, Stop date: 01/15/15 7:49:00 [facility] Vancomycin 2015-01-15 12:27:00 No N otes: TIME CRITICAL MEDICATION [facility] Levaquin 2015-01-15 12:26:00 No Notes: (Jasper e as:Levaquin) [facility] Zosyn 2015-01-15 12:26:00 No Notes: (Same as: Zosyn) Dosing based on Piperacillin component MEDICATION WASTE Product Size: 3375 mg Product Wasted: _0__ mg [facility] Sodium Chloride 0.154 MEQ/ML Injectable Solution 2015-01-15 11:4 8:00 No 250 mL, 250 ml/hr, Infuse Ov er: 1 hr, Route: IV, 250, Drug form: INJ, ONCE, Priority: STAT, Dosing Weight 118.182 kg, Start date: 01/15/15 6:48:00, Duration: 1 doses or times, Stop date: 01/15/15 6:48:00 [facility] Saline Flush 0.9% 2015-01-15 10:14:00 No Notes: (Same as: BD Posiflush) [facility] normal saline 0.9% IV 500 mL 2014-11-08 17:54:00 No 500 mL, Rate: 100 ml/hr, Infuse over: 5 hr, Route: IV, Dosing Weight 126.818 kg, Total Volume: 500, Start date: 11/08/14 12:54:00, Duration: 30 day, Stop date: 12/08/14 12:53:00 [facility] Acetaminophen 2014-11-08 17:54:00 No Notes: Do not exceed 4 gm/day. (Same as: Tylenol) [facility] [facility] Ondansetron 2014-11-08 17:54:00 No Notes: (Same as: Zofran) MEDICATION WASTE Product Size: 4 mg Product Wasted: ___ mg [facility] Psoriasis Drug Study 2014-11-04 19:51:00 Yes Psoriasis Drug Study, Q30D, Refill(s) 0 [facility] atorvastatin 10 mg oral tablet 2014-11-04 18:57:00 Yes 10 mg = 1 tab, PO, Bedtime [facility] gemfibrozil 600 mg oral tablet 2014-11-04 18:57:00 Yes 600 mg = 1 tab, PO, BID [facility] 24 HR Metformin hydrochloride 500 MG Extended Release Tablet [Glumetza] 2014-11-04 18:57:00 Yes 500 mg = 1 tab, PO , Daily [facility] Lantus 2014-11-04 18:57:00 Yes 80 unit, SUB- Q, Bedtime [facility] [place] Humalog 2014-11-04 18:57:00 Yes 50 unit, SUB-Q, TID-Before Meals, 0 Refill(s) [facility] Aspirin 81 MG Enteric Coated Tablet 2014-11-04 18:57:00 Yes 81 mg = 1 tab, PO, Daily [facility] pregabalin 150 MG Oral Capsule [Lyrica] 2014-11-04 18:57:00 Yes 150 mg = 1 cap, PO, TID [facility] Hydrochlorothiazide 12.5 MG / Lisinopril 10 MG Oral Ta blet [Zestoretic 10/12.5] 2014-11-04 18:57:00 Yes 1 tab, PO, BID [facility] bisoprolol 5 mg oral tablet 2014-11-04 18:57:00 Yes 5 mg = 1 tab, PO, Daily [facility] Vital Signs Vital Name Observation Time Observation Value Comments Source Systolic (mm Hg) 2017-02-07 21:15:00 Elijah rial [place] Diastolic (mm Hg) 2017-02-07 21:15:00 [facility] Systolic (mm Hg) 2017-02-07 20:40:00 Elijah rial [place] Diastolic (mm Hg) 2017-02-07 20:40:00 Mem o[facility] [place] Respitory Rate 2017-02-07 20:40:00 Charlieori al [place] Heart Rate 2017-02-07 20:40:00 [facility] Temperature Oral (F) 2017-02-07 20:40:00 98.0 F [facility] Temperature Oral (F) 2017-02-07 16:15:00 98.1 F [facility] [place] Respitory Rate 2017-02-07 16:15:00 [facility] Heart Rate 2017-02-07 16:15:00 [facility] Systolic (mm Hg) 2017-02-07 16:15:00 Elijah [facility] [place] Diastolic (mm Hg) 2017-02-07 16:15:00 [facility] Temperature Oral (F) 2017-02-07 11:43:00 97.6 F [facility] [place] Heart Rate 2017-02-07 11:43:00 [facility] Respitory Rate 2017-02-07 11:43:00 [facility] Weight 2017-02-04 21:49:00 [facility] BMI Calculated 2017-02-04 21:49:00 [facility] Height 2017-02-04 21:49:00 182.88 cm [facility] [place] Weight 2017-02-04 20:41:00 [facility] [place] BMI Calculated 2017-02-04 20:41:00 [facility] Height 2017-02-04 20:41:00 182.88 cm [facility] Height 2015-05-17 21:50:00 182.88 cm [facility] BMI Calculated 2015-05-17 21:50:00 [facility] Weight 2015-05-17 21:50:00 [facility] [place] Weight 2015-04-17 21:56:00 [facility] BMI Calculated 2015-04-17 21:56:00 [facility] Height 2015-04-17 21:56:00 182.88 cm [facility] Height 2015-03-22 14:26:00 182.88 cm [facility] [place] BMI Calculated 2015-03-22 14:26:00 [facility] Weight 2015-03-22 14:26:00 [facility] Weight 2015-03-01 21:21:00 [facility] BMI Calculated 2015-03-01 21:21:00 [facility] Height 2015-03-01 21:21:00 182.88 cm [facility] Systolic (mm Hg) 2015-01-18 01:00:00 Elijah [facility] [place] Diastolic (mm Hg) 2015-01-18 01:00:00 Mem [facility] [place] Respitory Rate 2015-01-18 01:00:00 Mem[facility] [place] Systolic (mm Hg) 2015-01-17 23:18:00 [facility] [place] Diastolic (mm Hg) 2015-01-17 23:18:00 [facility] [place] Respitory Rate 2015-01-17 23:18:00 [facility] Temperature Oral (F) 2015-01-17 21:00:00 98.2 F [facility] [place] Respitory Rate 2015-01-17 20:00:00 [facility] Systolic (mm Hg) 2015-01-17 20:00:00 Elijah rial [place] Diastolic (mm Hg) 2015-01-17 20:00:00 Mem o[facility] [place] Temperature Oral (F) 2015-01-17 17:00:00 97.9 F [facility] Temperature Oral (F) 2015-01-17 13:00:00 98.7 F [facility] [place] Weight 2015-01-17 09:19:00 [facility] [place] BMI Calculated 2015-01-15 15:35:00 [facility] Weight 2015-01-15 15:35:00 [facility] Height 2015-01-15 15:35:00 182.88 cm [facility] [place] BMI Calculated 2015-01-15 10:03:00 Memori al [place] Weight 2015-01-15 10:03:00 [facility] [place] Height 2015-01-15 10:03:00 187.96 cm [facility] Heart Rate 2015-01-15 10:03:00 [facility] [place] BMI Calculated 2014-11-02 17:47:00 [facility] Weight 2014-11-02 17:47:00 [facility] [place] Height 2014-11-02 17:47:00 182.88 cm [facility] Procedures Procedure Date / Time Performed Performing Clinician [facility] e [U] XRAY ANKLE 2 VWS LEFT [id number] 2017-07-28 00:00:00 [facility] Cardiac catheterization, combined right and left heart [facility] Cholecystectomy [facility] [place] Tonsillectomy [facility] Triple coronary bypass [facility] [place] Encounters Start Date/Time End Date/Time En[facility] ID Source 2017-09-10 15:15:00 2017-09-10 15:15:00 Appointment; LEMUEL LOPEZ M. D. SHANI, RAJ, M.D. [facility] [id number] [facility] 2017-08-05 12:45:00 2017-09-03 23:59:00 Outpatient Lemuel Lopez [id number] 2017-07-28 11:00:00 2017-07-28 11:00:00 Appointment; LEMUEL LOPEZ M. D. SHANI, RAJ, M.D. [facility] [id number] [facility] 2017-02-04 14:28:00 2017-02-07 17:11:00 Outpatient Taylor mark Aiden Roberts [facility] [id number] 2015-05-17 15:32:00 2015-06-15 23:59:00 Outpatient Marco Perkins [facility] [id number] 2015-04-17 15:46:00 2015-05-16 23:59:00 Outpatient Marco Perkins [facility] [id number] 2015-03-16 08:00:00 2015-04-14 23:59:00 Outpatient Marco Perkins [facility] [id number] 2015-03-28 14:08:00 2015-03-28 23:59:00 Outpatient Marco Perkins [facility] [id number] 2015-03-01 15:33:00 2015-03-15 19:10:00 Outpatient Marco Perkins [facility] [id number] 2015-02-27 15:55:00 2015-02-27 23:59:00 Outpatient Marco Perkins [facility] [id number] 2015-01-15 05:02:00 2015-01-17 22:42:00 Outpatient Dali Escobar [facility] [id number] 2014-11-08 07:04:00 2014-11-08 20:00:00 Outpatient Arie Morillo [facility] [id number] Results Test Description Test Time Test Comments Results Result Comments Source D-DIMER 2019-07-11 10:20:00 Test Item D-DIMER (test code = DDIMER) 1470 ng/ml < 600 HH Results called to [id number] by V.LAB. 07/11/19 1019Critical results verified and read back by Nurse? Y BASIC METABOLIC [id number] 09:54:00* Test Item Value Reference Range Interpretation Comments SODIUM (test code = NA) 139 mmol/L 135-148 N POTASSIUM (test code = K) 5.2 mmol/L 3.5-5.1 H CHLORIDE (test code = CL) 101 mmol/L 101-109 N CARBON DIOXIDE (test code = CO2) 28.8 mmol/L 21-32 N ANION GAP (test code = GAP) 14 mmol/L 10-20 N GLUCOSE (test code = GLU) 296 mg/dL 74-106 H BLOOD UREA NITROGEN (test code = BUN) 35 mg/dL 3-21 H GLOMERULAR FILTRATION RATE (test code = GFR) 37 mL/min >=60 Estimated GFR by using Modified MDRD formula.Chronic kidney disease is defined as either kidney damageor GFR <60 mL/min/1.73 m2 for >3 months. CREATININE (test code = CREAT) 1.84 mg/dL 0.55-1.3 H BUN/CREATININE RATIO (test code = BUN/CREA) 19.0 10-20 N CALCIUM (test code = CA) 9.3 mg/dL 8.4-10.2 N CBC W/O [id number] 09:50:00* Test Item Value Reference Range Interpretation Comments WHITE BLOOD CELL (test code = WBC) 6.2 K/mm3 4.5-12.5 N RED BLOOD CELL (test code = RBC) 5.24 mill/mm3 4.0-5.8 N HEMOGLOBIN (test code = HGB) 14.8 gram/dL 13.0-17.5 N HEMATOCRIT (test code = HCT) 45.0 % 42.0-52.0 N MEAN CELL VOLUME (test code = MCV) 85.9 fL 80-98 N MEAN CELL HGB (test code = MCH) 28.2 picogram 27.0-33.0 N MEAN CELL HGB CONCETRATION (test code = MCHC) 32.9 gram/dL 33.0-36. 0 L RED CELL DISTRIBUTION WIDTH (test code = RDW) 13.8 % 11.6-16. 2 N RED CELL DISTRIBUTION WIDTH SD (test code = RDW-SD) 44.5 fL 37 .0-51.0 N PLATELET COUNT (test code = PLT) 255 K/mm3 150-450 N MEAN PLATELET VOLUME (test code = MPV) 11.8 fL 6.7-11.0 H [U] XRAY ANKLE MIN 3 VWS LEFT [id number] 11:44:00Images acquired, not reported on this accession number.[facility]icians[facility] 2017-02-07 20:03:004.3[facility] [id number] 16:22:003.8[facility]ann[facility] OKGXF0853-53-05 16:22:002.6[facility]ann[facility] PZUCX2032-88-98 16:22:0045[facility] RXWET5691-88-42 16:22:008.8[facility]ann[facility] TKXRB5123-76-72 16:22:0030[facility] ZTUTQ1826-77-22 16:22:005.5 [facility]ann[facility] SLXQX9020-91-68 16:22:71147Sbodiapc HermannCHEM PANEL 2017-02-07 16:22:0020[facility]ann[facility] QMBOU4635-95-14 16:22:001.61[facility]ann[facility] CHPWX8882-74-51 16:22:12707Xboitlgc HermannCHEM KOJAP3105-38-07 16:22:02737Ghhymowc HermannCHEM RNPDM2696-99-02 16:22:009.5[facility] KGMYBOQKEF5145-53-95 16:22:0015.8[facility] WnirgwlRQUHJLPGTA0564-54-26 16:22:00 82.0[facility] GsgwuxwDZOSRIKUEN6594-92-83 16:22:00* Test Item Value Reference Range Interpretation Comments MCH (test code = MCH) 27.6 pg 27.0-31.0 [facility] WjszdytEIZMSZXSFC5601-99-05 16:22:0033.6[facility]annHEMATOLOGY 2017-02-07 16:22:0038.2[facility] SjbmezsJYOTPODUJJ1194-09-71 16:22:18385Ohjicnkd WydmghyUKQEIISMZB2383-22-25 16:22:009.6[facility] ZquqqyiUAUDQWIUYV4587-02-22 16:22:007.4[facility] KzdseycZGDHYOECBW5384-08-05 16:22:004.65[facility] DDVNFECPTI1568-74-72 16:22:0012.8[facility] CxuhpdbUTWJSDBBVS7608-42-77 16:22:00 0.1[facility] BkekbiiKTUHFOOJRM4005-19-65 16:22:000.9[facility]annHEMATOLOGY 2017-02-07 16:22:000.3[facility] RvfdfnsLJWCTQSCGG9531-11-55 16:22:000.8[facility] QitmzaiNEBGXMOTSV1789-48-43 16:22:003.7[facility] CqqzzrqSGVSJYVJTM5656-44-17 16:22:001.1[facility] VauvwviZAORSGFXVL4397-90-91 16:22:005.0[facility] TPZWRXBRSA0815-84-42 16:22:0067.7[facility] NwmpeygBXUVKLOTSM1596-86-41 16:22:00 15.0[facility] XuspkxoECDKPKKTYG1933-05-23 16:22:0012.8[facility] HermannCHEM PANEL 2017-02-06 09:23:0050[facility]annCHE[facility] ZEWSW1954-50-36 09:23:004.4[facility]ann[facility] GVKRD8563-53-52 09:23:48673Xtkoqfkx HermannCHEM KEMSD4953-68-68 09:23:0029[facility]ann[facility] QBLEA4482-23-13 09:23:008.6[facility]ann[facility] CGYEB3893-04-02 09:23:001.47[facility]ann[facility] MSPYY6035-38-55 09:23:0019 [facility]ann[facility] JEHOZ7463-47-40 09:23:50030Wbshextj HermannCHEM PANEL 2017-02-06 09:23:94931Wzznmcsn HermannCHEM IEZPN9417-68-78 09:23:008.4[facility] JsyuczhZJJVLROXAE9399-05-01 09:23:000.9[facility] CjnhnqjYAJURGXGDF4275-38-64 09:23:000.2[facility] WtrbfqbQTQILNZLHT5384-32-12 09:23:000.1[facility] KSLFEYYZXG3351-51-22 09:23:0076.4[facility] UatqvbaXZAZORUGFI3612-19-11 09:23:00 0.9[facility] WoonbuyHQDVITCJXH9111-46-88 09:23:000.6[facility]annHEMATOLOGY 2017-02-06 09:23:0010.7[facility] YzrqpnyLQYDOMHOTP5803-53-66 09:23:002.0[facility] EtruwtoRTCITKNSWJ0166-71-77 09:23:006.5[facility] AyvoitoGWMXAIBVNY3298-77-78 09:23:0010.3[facility] McifxpoZQMVZUGOOC2832-44-99 09:23:0016.4[facility] [place] UQJGLHJUMY9576-12-54 09:23:0033.4[facility] SdremugYGMMGAZVPB2217-65-26 09:23:00* Test Item Value Reference Range Interpretation Comments MCH (test code = MCH) 27.3 pg 27.0-31.0 [facility] LpzmvyhGSZEQEVEFX0862-68-73 09:23:008.5[facility]annHEMATOLOGY 2017-02-06 09:23:004.74[facility] RomzqveDQLYJVYXMP5580-19-70 09:23:89359Mprcjsto RpjccmsVKGEFGKEPC8597-21-98 09:23:009.6[facility] AsdqdmuDYAFDXIMFC0042-13-00 09:23:0082.0[facility] RozxkfdIORKLRLWHC2807-51-33 09:23:0013.0[facility] [place] TSQDYYBASU9791-45-28 09:23:0038.8[facility]annCHE[facility] RKQTP6611-77-76 10:07:00 8.8[facility]annCHE[facility] RGSUK5201-54-84 10:07:68583Vdddsfmy HermannCHEM PANEL 2017-02-05 10:07:0048[facility]annCHE[facility] EHXYY4157-38-26 10:07:0030[facility]ann[facility] NQEJR6601-84-25 10:07:30354Butznyae HermannCHEM HPQWG8092-29-15 10:07:0023[facility]annCHE[facility] WZJOA8194-81-22 10:07:001.50[facility]annCHE[facility] FPFJM6359-11-18 10:07:77871Uiqtlthq HermannCHEM JGLQQ1459-55-29 10:07:007.6 [facility] CldwlgaRGVOFICMGB3593-16-73 10:07:00* Test Item Value Reference Range Interpretation Comments PTT (test code = PTT) 29.3 s 22.9-35.8 [facility] FkertglLCDABAPKAI1738-30-95 10:07:00* Test Item Value Reference Range Interpretation Comments PT (test code = PT) 13.4 s 12.0-14.7 [facility] YlnzdllWNIYOWXHAB2626-54-58 10:07:001.00[facility]annHEMATOLOGY 2017-02-05 10:07:21707Ocihnzly VvblubwOGCTKEBCRY5052-15-77 10:07:0081.8[facility] UagtcsnQWTTKFGRDE0631-64-56 10:07:00* Test Item Value Reference Range Interpretation Comments MCH (test code = MCH) 27.3 pg 27.0-31.0 [facility] AkbqdnkLQJWAJFNCN5100-48-89 10:07:0033.4[facility]annHEMATOLOGY 2017-02-05 10:07:0013.1[facility] DuxzcjpMZHTIBPXXG2741-19-84 10:07:0039.3[facility] YwbkcvdMYRIOUFHGH9908-43-47 10:07:0015.7[facility] TpenoraSJXSODQCHJ7345-56-46 10:07:004.80[facility] QokunvkKYFFJWFVUC4923-38-02 10:07:007.8[facility] IAXLVAGWHY3552-04-02 10:07:009.4[facility] JypxgokRCZSPGJQJS5663-90-35 10:07:000.1 [facility] ZbhgcoaUBBCFCOOLR8587-49-17 10:07:002.0[facility]annHEMATOLOGY 2017-02-05 10:07:0071.3[facility] PwqhimeIFUEOHESOH4035-33-77 10:07:0014.4[facility] QaftaeyGUECZETZLL9960-18-36 10:07:0011.4[facility] NtpycaoISERXFVPLN5977-59-97 10:07:005.6[facility] UcihfczHKJIRHSITD8111-89-06 10:07:001.1[facility] [place] OYRLHHPDFR1057-96-98 10:07:000.2[facility] HjmgezcVVGATOMOYH3145-73-39 10:07:000.9 [facility] JjgqylvJUUHWBJBCR9202-74-92 10:07:000.9[facility]annURINE AND STOOL 2017-02-05 06:40:00Negative (02/05/17 1:40 AM)[facility] STOOL 2017-02-05 06:40:00Negative (02/05/17 1:40 AM)[facility] STOOL 2017-02-05 06:40:00Not Indicated (02/05/17 1:40 AM)[facility] FMQQD6291-88-72 06:40:000.2[facility] GPKAQ7586-61-75 06:40:00 Negative (02/05/17 1:40 AM)[facility] SABIA9030-10-40 06:40:00 Clear (02/05/17 1:40 AM)[facility] MVNXK3524-80-96 06:40:00<=1.005 *NA*(02/05/17 1:40 AM)[facility] LDGCF7123-17-11 06:40:00Negative *NA*(02/05/17 1:40 AM)[facility] RRASO0087-74-70 06:40:00* Test Item Value Reference Range Interpretation Comments UA pH (test code = UA pH) 6.0 1 5.0-8.0 [facility] EKNFB8668-57-90 06:40:00Negative (02/05/17 1:40 AM) [facility] NKIRB2149-52-25 06:40:00Negative (02/05/17 1:40 AM) [facility] XIONO6065-41-33 06:40:00Negative *NA*(02/05/17 1:40 AM) [facility] EnepxtpUOSCVMDNOQ2711-70-56 23:22:000.98[facility]annHEMATOLOGY 2017-02-04 23:22:00* Test Item Value Reference Range Interpretation Comments PTT (test code = PTT) 20.5 s 22.9-35.8 [facility] WmljadmFFKRDYJYBV3496-17-84 23:22:00* Test Item Value Reference Range Interpretation Comments PT (test code = PT) 13.2 s 12.0-14.7 [facility] QewtzdcZSIJHHUPVU7615-16-96 23:22:0020[facility]annHE[facility]OLOGY 2017-02-04 23:22:00* Test Item Value Reference Range Interpretation Comments PT (test code = PT) 13.2 s 12.0-14.7 [facility] AmlzhvxGOMMEEOGQI2842-92-52 23:22:000.98[facility]annSPECIAL OXCVVZGZW4953-18-11 23:22:007.3[facility] GzmdrowUOKYCVBXSI5886-48-64 13:45:0019.0 [facility] GqtnncfCCPTDBGOLQ3762-37-45 13:45:510053Zbywwacv HermannCHEM PANEL 2015-01-17 08:36:0034[facility]annCHEM XLQGQ3854-13-04 08:36:0024[facility]annCHEM DJGMW1584-37-17 08:36:0046[facility]annCHE[facility] TTEPU0592-81-32 08:36:0014.7[facility]annCHEM YQMCI0041-05-89 08:36:50308Fkwuvxgh HermannCHEM GDEWJ8652-66-64 08:36:06176Rrjguyic HermannCHEM SYGHT6010-05-77 08:36:007.5 [facility] TXHDC4308-26-93 08:36:85190Wrtfcgeq HermannCHEM PANEL 2015-01-17 08:36:004.7[facility]annCHE[facility] OBMNW8511-70-63 08:36:001.6[facility] IiivlwgWGYATEUTJV2711-75-43 08:36:00Normal (01/17/15 3:36 AM)[facility] KNCJXNWJXQ7256-04-04 08:36:000.4[facility] HhsxfklONXWXXBAST0956-15-26 08:36:007.2 [facility] MftdxnbMTKPKQKLBN7607-59-38 08:36:002.1[facility]annHEMATOLOGY 2015-01-17 08:36:0080.7[facility] FiklhznLZEFAHDAKY6405-38-62 08:36:009.6[facility] UusycdqSKJIFGZPYI7547-22-32 08:36:001.2[facility] VmdpjkjUTOPYCLPNW5327-69-13 08:36:000.3[facility] ZtabaltPPCXFNOLRT6307-97-37 08:36:009.9[facility] QBMPNDCFNC3509-39-62 08:36:000.9[facility] EutvyggQIGKWOUVFX8107-39-78 08:36:00 Moderate *ABN*(01/17/15 3:36 AM)[facility] QxkplsxNEXKETLIDF8831-69-46 08:36:000.1 [facility] SxkhberGSNIZWWRFD6829-18-03 08:36:0025.0[facility]annHEMATOLOGY 2015-01-17 08:36:00* Test Item Value Reference Range Interpretation Comments MCH (test code = MCH) 27.0 pg 27.0-31.0 [facility] LonpjxuJPUDLCDQYU3601-85-41 08:36:67089Ydjimcuh HermannHEMATOLOGY 2015-01-17 08:36:0083.6[facility] ZaosvmdIDPOXEWCRW1731-27-29 08:36:009.7[facility] RvhihzuWEBRNFUOVD5216-04-13 08:36:0032.3[facility] MggppmwRGIICBKZIO0943-96-52 08:36:0016.6[facility] ZfpmsvtXDIZNLHYRW2512-60-35 08:36:0012.2[facility] FUECMCNSJQ4096-88-46 08:36:008.1[facility] RitnpxbJHMKJVDNOP2977-19-81 08:36:00 2.99[facility]annCHEM YZHNZ1649-69-03 08:45:002.4[facility]annCHEM PANEL 2015-01-16 08:45:0024[facility]annCHEM YEJYU6710-24-06 08:45:0042[facility]annCHE[facility] TOGFJ0924-30-34 08:45:004.8[facility]annCHE[facility] DLANQ2165-48-52 08:45:0097[facility]CHE[facility] HWQFK4662-30-91 08:45:001.7[facility]annCHE[facility] UQMPV7478-82-02 08:45:48047Tboiiswx [facility]annCHEM ACANQ9318-52-71 08:45:007.9 [facility] IMHBN5283-37-03 08:45:32964Iymyohiq HermannCHEM PANEL 2015-01-16 08:45:0016[facility]annCHEM JUSQF2525-11-81 08:45:001.1[facility]annCHE[facility] JPYDN0124-34-66 08:45:005.8[facility]annCHEM DKRXD3812-61-26 08:45:0031[facility]annCHE[facility] LWHYF2884-77-16 08:45:0028[facility]CHE[facility] RPREO4592-92-47 08:45:28244Ltmmpgmo HermannCHEM QKVBD0621-59-97 08:45:0015.8 [facility]CHE[facility] IPGEI3839-17-62 08:45:003.4[facility] HermannCHEM PANEL 2015-01-16 08:45:0018[facility]annCHEM TXZSL1732-03-01 08:45:000.7[facility]annCHEM ULLIC4760-12-03 08:45:003.1[facility] QswbkfkHYRHOACCWM5697-73-76 08:45:009.4[facility] GljvwmxBWLZMPDXYZ4496-91-15 08:45:23800Lidzophz [facility] OWQZMGUQKP9350-78-38 08:45:0032.5[facility] XoydrclKEJRPOXGAA1547-53-26 08:45:00 16.4[facility] FimzjyxIEJTZWWROR9817-68-29 08:45:00* Test Item Value Reference Range Interpretation Comments MCH (test code = MCH) 27.3 pg 27.0-31.0 [facility] UsqllruKCKDAWXUMG1874-95-96 08:45:0083.8[facility]annHEMATOLOGY 2015-01-16 08:45:0027.1[facility] XrgikagPFWMYEPSDF6242-79-62 08:45:008.8[facility] AdftaujGKGZVFGHPV4705-20-21 08:45:003.23[facility] HomhxipYBPGHVKXJW6528-65-58 08:45:0017.5[facility] DkpqvtiGCEZSYNTSH0701-41-24 08:45:000.8[facility] DVZOUJCMLF3251-77-72 08:45:001.9[facility] IcmxzktWRRKZSRCLF3266-67-08 08:45:000.0 [facility] KlcssszAJWGLTQFFF9667-81-02 08:45:000.1[facility] HermannHEMATOLOGY 2015-01-16 08:45:0011.0[facility] KhpevbvUJGQBQWOCY3214-14-71 08:45:0014.7[facility] YswjkcyZHGQRHDSYC7935-00-52 08:45:000.3[facility] AftjodcCPOAVQOPKG0023-24-29 08:45:0084.0[facility] BnjjssbUFBXWPYZET7798-53-44 08:45:004.6[facility] XVZZKLMEMB9968-22-66 08:45:00Normal (01/16/15 3:45 AM)[facility]annHEMATOLOGY 2015-01-16 08:45:000.1[facility] OdpchvcGGXPYGYFYB4619-65-83 08:45:00Normal (01/16/15 3:45 AM)[facility] DmumirqIURBPPJQGP6448-58-94 01:39:903148Xcglicug WqchzkaVJQOGZNLRS7495-93-94 01:39:004.8[facility] HermannCARDIAC SCJNFQF5735-71-53 23:12:000.8[facility] HermannCARDIAC EUBDCVE2238-42-91 23:12:0041[facility] [place] CARDIAC VTPPTKL5394-65-00 23:12:000.51[facility]UR[facility] AND PLXWU1250-42-43 21:40:00Negative *NA*(01/15/15 4:40 PM)[facility] UIRBQ1181-51-29 21:40:00Negative (01/15/15 4:40 PM)[facility] URFMR7874-27-13 21:40:00Negative (01/15/15 4:40 PM)[facility] CXQIY7549-99-90 21:40:00Negative (01/15/15 4:40 PM)[facility] GDZHK6078-99-54 21:40:00<1[facility] LPIYT6851-96-56 21:40:001[facility] AND ZLZWC2288-28-64 21:40:005.0[facility] AZZNW7658-26-81 21:40:00Yellow *NA*(01/15/15 4:40 PM)[facility] XLQQD0803-62-76 21:40:001.017[facility] JDTJP7674-93-80 21:40:00Clear (01/15/15 4:40 PM)[facility] CKXT3486-77-03 21:40:0054.6[facility] MYLD1304-83-02 21:40:42989.5[facility] NIWF8330-80-20 21:40:0034.4 [facility] HAJD9149-21-56 21:40:00<5[facility] CHEM 2015-01-15 21:40:00None Seen (01/15/15 4:40 PM)[facility] ENZYMES 2015-01-15 16:53:000.7[facility] WGISVBE6988-70-64 16:53:0040 [facility] BXKAVYF6914-97-36 16:53:000.54[facility]annCHEM PANEL 2015-01-15 16:53:0042[facility]annCHEM CEZPF8483-53-00 16:53:001.7[facility] ZrhsdjvPSVXGIUGLE1481-20-37 16:53:20065Ofzxnmux HermannVIRAL - SEROLOGY 2015-01-15 11:50:00Negative (01/15/15 6:50 AM)[facility] SEROLOGY 2015-01-15 11:50:00Negative (8/2/15 6:50 AM)[facility] ENZYMES 2015-01-15 10:51:000.66[facility] RSBEMOZ8932-41-22 10:51:201905 [facility] FFHLOND3902-42-36 10:51:0042[facility] NEEBKVS0053-68-70 10:51:000.8[facility] CSIARBG2885-19-51 10:51:00 1.9[facility]annCHEM VBAWC1052-21-42 10:51:001.8[facility]annCHEM PANEL 2015-01-15 10:51:006.6[facility]annCHEM AYXNA9092-28-99 10:51:0017[facility]annCHEM AAVPU2359-45-24 10:51:82666Ezthkebk HermannCHEM TCQAK0319-74-47 10:51:0034[facility]annCHEM ZJCLW9143-15-78 10:51:001.1[facility]annCHEM SLVSX2374-40-64 10:51:0018[facility]annCHEM QMMFL9729-81-06 10:51:000.7 [facility]annCHE[facility] NMPWC6193-16-38 10:51:003.8[facility]annCHEM PANEL 2015-01-15 10:51:0031[facility]annCHEM GSCKL7383-62-62 10:51:0026[facility]annCHEM MPVKY5799-36-30 10:51:008.6[facility]annCHEM MFTLZ6319-11-92 10:51:002.8[facility]annCHEM SUQED3956-28-89 10:51:005.1[facility]annCHEM WGPRE8189-59-01 10:51:0099[facility]annCHEM KPYPZ0258-14-55 10:51:0016.1 [facility]annCHEM PVUNN4241-98-58 10:51:17538Bzhtmrlo HermannCHEM PANEL 2015-01-15 10:51:52499Fcprvrbu IxswzhoSIONBTRSPU9150-14-31 10:51:00* Test Item Value Reference Range Interpretation Comments PT (test code = PT) 15.5 s 12.0-14.7 [facility] PjvjazvBCUIYMHEBH0484-06-20 10:51:001.22[facility]annHEMATOLOGY 2015-01-15 10:51:00* Test Item Value Reference Range Interpretation Comments PTT (test code = PTT) 41.5 s 22.9-35.8 [facility] LyojdwwRBNNDGVTTC3665-95-42 10:51:0032.2[facility]annHEMATOLOGY 2015-01-15 10:51:0016.5[facility] ZmouvrnCBABJOMFFA1774-03-76 10:51:0010.1[facility] XabshcrAGZYPDYZKM2562-56-29 10:51:0083.9[facility] KotqtowVOFSSRFRJY8042-14-46 10:51:0017.1[facility] SxsctnhOBSAKEJABO4204-02-81 10:51:003.73[facility] ZEWSWHMWCM4125-56-79 10:51:0010.1[facility] NafaqhbYRSUQVSHFL3523-71-25 10:51:00 31.3[facility] SbyjuxxCVDWJGKPEQ0606-59-36 10:51:00* Test Item Value Reference Range Interpretation Comments MCH (test code = MCH) 27.0 pg 27.0-31.0 [facility] CjyussqPLNSXJDDWY8012-05-11 10:51:003.78[facility]annHEMATOLOGY 2015-01-15 10:51:000.1[facility] AefhmsuQALMBZNKRF9634-37-82 10:51:001.9[facility] KxoxsjoOZQORTSPIQ3770-15-77 10:51:000.0[facility] HecwxfmRUJFXBOZQG2439-83-55 10:51:0085.0[facility] BfjzhrcFICXOUATHA2339-59-95 10:51:00Normal (01/15/15 5:51 AM) [facility] GgwxsvoBYGCKWBVNT3866-75-86 10:51:00Normal (01/15/15 5:51 AM)[facility] WvnsxrvBEVGKVXZKW9253-84-69 10:51:000.1[facility] HxokishPRKONTJKXK9337-42-56 10:51:0014.5[facility] IoyclsuLHVFJRESAO8515-16-04 10:51:000.3[facility] TXCAOIATUR0445-61-81 10:51:003.7[facility] EjujhwgDYUFLIHTAJ6490-79-16 10:51:000.6 [facility] PmnkrlfAZFLUTHMPW8618-10-27 10:51:0010.9[facility] HermannCHEM PANEL 2014-11-04 19:00:0054[facility] HermannCHEM PLCTO1453-90-39 19:00:004.6[facility] HermannCHEM BGAMO0921-09-93 19:00:01258Fbjelmyo HermannCHEM QMPGT8896-14-30 19:00:001.4[facility]annCHEM ZMSZA9000-04-21 19:00:009.0[facility]annCHEM QFDGS2234-56-32 19:00:02220Unifovez HermannCHEM RRZBR6622-23-50 19:00:0030 [facility]annCHEM NDABP3359-47-92 19:00:0027[facility]annCHEM PANEL 2014-11-04 19:00:83847Avdyzrln HermannCHEM KPATC6123-44-00 19:00:009.6[facility] WeywtpwBALSMIJEMR3793-13-42 19:00:00* Test Item Value Reference Range Interpretation Comments MCH (test code = MCH) 27.9 pg 27.0-31.0 [facility] XkmtuazDNUEKNHTMN7834-62-78 19:00[facility].8[facility] 2014-[facility]-04 19:00:0081.0[facility] XcnfeduDIBCQCBCLH7391-97-32 19:00:004.91[facility] GbzgofvPFUCJUCAXY5130-38-48 19:00:0013.7[facility] DtujoxdRQJEACFEYP6022-59-27 19:00:0010.1[facility] CvxwtxdGSTVAOTVPJ2153-33-35 19:00:57590[place] WKKVFGTBZU3095-57-49 19:00:0034.4[facility] GkptjxvXKHTXJELEV3782-04-45 19:00:00 18.1[facility] WzccevmNQMKRGWHSK9229-39-02 19:00:007.4[facility] 2014-11-04 19:00:00* Test Item Value Reference Range Interpretation Comments PT (test code = PT) 14.0 s 12.0-14.7 [facility]PRNCZNGAV5531-73-18 19:00:001.08[facility]OLOG[facility] 2014-11-04 19:00:00Negative *NA*(11/04/14 2:00 PM)[facility]
[2020-04-04] MEDS ORDERED: ACETAMINOPHEN 325 MG TAB PO STA (15:24)
[2020-04-04 15:25] LABS: CREATINE KINASE MB 1.4 ng/mL (0-5.0)
[2020-04-04 16:18] LABS: ABG PH 7.34 (7.35-7.45)
[2020-04-04 16:19] LABS: ABG HCO3 21 mmol/L (22-26); ABG PCO2 40 mmHg (35-45); ABG PO2 72 mmHg (80-105); ABG TCO2 22
--- NOTE | 2020-04-04 16:41 | Diagnostic Imaging Report ---
TECHNIQUE: Frontal view of the chest. INDICATION: ^Y ^fever, hypoxia COMPARISON: None. IMPRESSION: Lines and hardware: Median sternotomy wires. Heart and mediastinum: Hazy left heart border. Lungs and pleura: Pulmonary interstitial edema. Hazy left airspace opacity, may represent atelectasis versus pneumonitis. Probable layering left pleural effusion. No pneumothorax. Soft tissues and bones: No acute abnormality. Signed by: Ko Wylie MD on 04/04/2020 4:37 PM
[2020-04-04 17:25] LABS: CLARITY,URINE SL CLOUDY (CLEAR); COLOR,URINE YELLOW (YELLOW)
[2020-04-04 17:26] LABS: LEUKOCYTE ESTERASE ,URINE NEGATIVE (NEGATIVE); NITRITE,URINE NEGATIVE (NEGATIVE)
[2020-04-04 17:27] LABS: BILIRUBIN,URINE NEGATIVE (NEGATIVE); KETONES,URINE NEGATIVE (NEGATIVE); PROTEIN,URINE DIPSTICK NEGATIVE (NEGATIVE); URINE UROBILINOGEN 0.2 mg/dL (0.2 - 1)
[2020-04-04 17:34] LABS: BACTERIA,URINE RARE /HPF
[2020-04-04] MEDS ORDERED: ONDANSETRON HCL INJ 2MG/ML 2ML 2 MG/ML VIAL IV PRN (17:45)
[2020-04-04] MEDS ORDERED: MORPHINE SULFATE 2 MG/ML SYR 1ML IV PRN (17:45)
--- OUTSIDE RECORDS SUMMARY | 2020-04-04 17:56 | XMS REPORT | Continuity of Care Document ---
Author Author [facility] t Organization [facility] Address [address] [place] [address] Phone Unavailable Care Team Providers Care Financial Operations Analyst Name Role Phone HOMAR MAYEN Attphys Unavailable LEMUEL LOPEZ M.D. Attphys Unavailable Abdirahman Lopez Attphys Armando Richardsis Attphys Chetan Perkins Attphys Lior Escobarmbola Attphys Blas Morillo Attphys Armando Richards Aiden Admphys Chetan Perkins Admphys Lior Escobar Dali Admphys Payers Payer Name Policy Type Policy Number Effective Date Expiration Date S ource Problems Condition Name Condition Details Condition Category Status Onset Date Resolution Date Last Treatment Date Treating Clinician Comments Source LEFT ACHILLES LEFT ACHILLES Active 08/05/2017 [facility] [place] Diagnosis Active 2017-08-05 12:45:00 2017-08-05 12:48:00 Cayetano Crespo Methicillin resistant Staphylococcus aureus (organism) Methicillin resistant Staphylococcus aureus (organism) Active 02/04/2017 Problem 12/10/2017 RIGHT FOOT, 02/04/2017Problem added by Discern Expert. [facility] [place] [facility] Active 2017-02-04 00:00:00 2017-12-10 11:40:27 [facility] Zak CELLULITIS INFECTED WOUND RIGHT FOOT,OST CELLULITIS INFECTED WOUND RIGHT FOOT,OST Active 02/04/2017 [facility] Diagnosis Active 2017-02-04 00:00:00 2017-02-13 22:03:00 [facility] Zak 425.4 - PRIM CARDIOMYOP 425. 4 - PRIM CARDIOMYOP Active 02/27/2015 [facility] [place] Diagnosis Active 2015-02-27 00:01:00 2015-02-27 16:05:00 [facility] PNEUMONIA/GENERALIZED WEAKNESS PNEUMONIA/GENERALIZED WEAKNESS Active 01/15/2015 [facility] Diagnosis Active 01-15 00:00:00 2015-01-18 15:22:00 [facility] sravan WEAKNESS WEAK NESS Active 01/15/2015 [facility] Diagnosis Active 2015-01-15 00:00:00 2015-01-15 06:19:00 [facility] Zak POST CAB, POST AORTIV VALVE REPLACEMENT POST CAB, POST AORTIV VALVE REPLACEMENT Active 12/27/2014 [facility] Diagnosis Active 2014-12-27 08:00:00 2015-03-01 15:33:00 [facility] [place] POST CAB, POST AORTIC VALVE REPLACEMENT POST CAB, POST AORTIC VALVE REPLACEMENT Active 12/27/2014 [facility] Diagnosis Active 2014-12-27 08:00:00 2015-03-21 14:05:00 [facility] POST CAB, POST AVR POST CAB, POST AVR Active 12/27/2014 [facility] Diagnosis Active 2014-12-27 08:00:00 2015-05-17 15:33:00 [facility] CAD CAD Active 10/27/2014 [facility] Diagnosis Active 2014-10-27 00:00:00 2014-11-08 07:04:00 [facility] Zak Unspecified abnormalities of gait and mobility Unspecified abnormalities of gait and mobility 12/10/2017 [facility] [place] Problem 2017-12-10 11:40:27 [facility] Zak Unspecified injury of left Achilles tendon, sequela Unspecified injury of left Achilles tendon, sequela 12/10/2017 [facility] [place] Problem 2017-12-10 11:40:27 [facility] Zak Type 2 diabetes mellitus without complications Type 2 diabetes mellitus without complications 12/10/2017 [facility] [place] Problem 2017-12-10 11:40:27 [facility] Pure hypercholesterolemia, unspecified Pure hypercholesterolemia, unspecified 12/10/2017 [facility] [place] Problem 2017-12-10 11:40:27 [facility] Amputation of finger tip (procedure) Amputation of finger tip (procedure) Resolved Problem 12/10/2017 Partial amputation of fingertip (right middle & ring finger) MANUEL Crespo, [facility], [facility] [place],[facility] Problem Resolved 2017-12-10 11:40:27 [facility] Aortic valve stenosis with insufficiency (disorder) Aortic valve stenosis with insufficiency (disorder) Active Problem 12/10/2017 MANUEL Crespo, [facility], [facility] [place],[facility] Problem Active 2017-12-10 11:40:27 Frank Crespo Disorder of carotid artery (disorder) Disorder of carotid artery (disorder) Active Problem 12/10/2017 MANUEL Crespo, [facility], [facility] [place],[facility] Problem Active 2017-12-10 11:40:27 [facility] Diabetes mellitus (disorder) D iabetes mellitus (disorder) Active Problem 12/10/2017 MANUEL Crespo, [facility], [facility] [place],[facility] Problem Active 2017-12-10 11:40:27 [facility] Diabetic neuropathy (disorder) Diabetic neuropathy (disorder) Active Problem 12/10/2017 MANUEL Crespo, [facility], [facility] [place],[facility] Problem Active 2017-12-10 11:40:27 [facility] Hypercholesterolemia (disorder) Hypercholesterolemia (disorder) Active Problem 12/10/2017 MANUEL Crespo, [facility], [facility] [place],[facility] Problem Active 2017-12-10 11:40:27 [facility] Hypertensive disorder, systemic arterial (disorder) Hypertensive disorder, systemic arterial (disorder) Active Problem 12/10/2017 MANUEL Crespo, [facility], [facility] [place] Problem Active 2017-12-10 11:40:27 Frank Crespo Psoriasis (disorder) Psor iasis (disorder) Active Problem 12/10/2017 LIANNA Crespo, [facility], [facility] [place] Problem Active 2017-12-10 11:40:27 Elijah Crespo PNEUMONIA, ORGANISM NOS PNEU MONIA, ORGANISM NOS Active [facility] Diagnosis Active 2015-01-18 15:22:00 [facility] MALAISE AND FATIGUE NEC OZZIE ISE AND FATIGUE NEC Active [facility] Diagnosis Active 2015-01-18 15:22:00 [facility] Zak CELLULITIS OF RIGHT LOWER LIMB CELLULITIS OF RIGHT LOWER LIMB Active [facility] Diagnosis Active 2016 22:03:00 [facility] Zak OSTEOMYELITIS OF RIGHT ORBIT O STEOMYELITIS OF RIGHT ORBIT Active [facility] Diagnosis Active 2016 22:03:00 Cayetano Crespo OTHER INJURY OF UNSPECIFIED BODY REGION OTHER INJURY OF UNSPECIFIED BODY REGION Active [facility] Diagnosis Active 2017-02-13 22:03:00 [facility] Muscle weakness (generalized) Muscle weakness (generalized) 09/09/2017 12/10/2017 [facility] [place] Problem 2017-09-09 04:16:51 2017-12-10 11:40:27 2017-12-10 11:40:27 M ace Crespo Allergies, Adverse Reactions, Alerts Allergy Name Allergy Type Status Severity Reaction(s) Onset Date Inacti ve Date Treating Clinician Comments Source No Known Allergies DA Active U 2019-07-11 00:00:00 [facility] No Known Contrast Allergies DA Active U 2003-11-26 00:00: 00 [facility] No Known Drug Allergies DA Active U 2003-11-26 00:00:00 [facility] No Known Food Allergies DA Active U 2003-11-26 00:00:00 [facility] No Known Other Allergies DA Active U 2003-11-26 00:00:00 [facility] NKFA NKFA Active [facility] Social History Smoking Status Start Date Stop Date Source Social History [facility] Medications Ordered Medication Name Filled Medication Name [...] day, # 10 cap, 0 Refill(s), Pharmacy: [facility] [id number] Cayetano Crespo ciprofloxacin 500 mg oral tablet 2017-02-07 21:11:00 Yes 500 mg = 1 tab, PO, Daily, X 10 day, # 10 tab, 0 Refill(s), Pharmacy: [facility] [id number] [facility] Amlodipine 5 MG Oral Tablet [Norvasc] 2017-02-07 21:11:00 Y es 5 mg = 1 tab, PO, Daily, # 30 tab, 0 Refill(s), Pharmacy: [facility] [id number] [facility] Kayexalate 2017-02-07 17:39:00 No Notes: (sodium polystyrene sulfonate 15 gm/60 ml VONNIE) Shake well before use. (Same as: Kayexalate, SPS) [facility] Hydralazine 2017-02-07 17:31:00 No Notes: (Same as: Apresoline) Push over 5 minutes [facility] Ceftriaxone 2017-02-07 01:00:00 No Notes: (Same As: Rocephin). Use with 100 mL NS and infuse over 30 min MEDICATION WASTE Product Size: 1000 mg Product Wasted: ___ mg [facility] Insulin Lispro 2017-02-06 19:24:00 No Notes: Roll in palms of hands gently; Do not shake `vigorously. (Same as: Humalog ) "Single Patient Use Only " WASTE: F/P - Black; E - Municipal Trash Bin Stable for 28 days at room temperature. Expires in days from Date [facility] Glucagon 2017-02-06 19:24:00 No 1 mg, Route: IM, Drug form: PDR/INJ, PRN, Dosing Weight 139.364, kg, PRN Blood Glucose Results, Start date: 02/06/17 14:24:00 CDT, Duration: 30 day, Stop date: 03/08/17 14:23:00 CDT [facility] Dextrose 50% Syringe 2017-02-06 19:24:00 No 12.5 gm, 25 mL, Route: IVP, Drug Form: INJ, Dosing Weight 139.364, kg, PRN, PRN Blood Glucose Results, Start date: 02/06/17 14:24:00 CDT, Duration: 30 day, Stop date: 03/08/17 14:23:00 CDT [facility] 3 ML Insulin Lispro 100 UNT/ML Pen Injector [Humalog] 2017-02-06 19:15:00 No 50 units, SUB-Q, TID-Before Meals, 0 Ref ill(s) [facility] Saline Flush 0.9% 2017-02-06 02:00:00 No Notes: Same as: BD Posiflush Sterile [facility] Saline Flush 0.9% 2017-02-05 19:43:00 No Notes: Same as: BD Posiflush Sterile [facility] Acetaminophen 325 MG / Hydrocodone Bitartrate 5 MG Oral Tabl et 2017-02-05 19:43:00 No Notes: (Sa me as: [place] 325/5) Do not exceed 4gm/day of acetaminophen. [facility] Morphine 2017-02-05 19:43:00 No Not es: (Same as:MORPhine Sulfate) [facility] propofol (ANES) 2017-02-05 19:42:00 No Route: IV, Drug form: INJ, ONCE, Stop date: 02/05/17 14:42:00 [facility] 2017-02-05 19:37:00 No Route: IV, Drug form: INJ, ONCE, Stop date: 02/05/17 14:37:00 CDT [facility] fentaNYL (ANES) 2017-02-05 19:37:00 No Route: IV, Drug form: INJ, ONCE, Stop date: 02/05/17 14:37:00 [facility] famotidine ([facility]) 2017-02-05 19:37:00 No Route: IV, Drug form: INJ, ONCE, Stop date: 02/05/17 14:37:00 CDT [facility] midazolam ([facility]) 2017-02-05 19:27:00 No Route: IV, Drug form: SOLN, ONCE, Stop date: 02/05/17 14:27:00 [facility] 1000 mL INJ (ANES) 2017-02-05 18:47:00 No Route: IV, Total Volume: 1,000, Start date: 02/05/17 13:47:00 CDT, Stop date: 02/05/17 14:47:00 CDT [facility] insulin detemir 2017-02-05 14:00:00 No 50 unit, Route: SUB-Q, Daily, Dosing Weight 139.364, kg, Start date: 02/05/17 9:00:00 CDT, Duration: 30 day, Stop date: 03/06/17 9:00:00 CDT Cyaetano Crespo Lyrica 2017-02-05 14:00:00 No Notes: Same a derrell Crespo insulin glargine 2017-02-05 14:00:00 No Notes: (Same as: Lantus) Do not hold insulin without contacting prescriber WASTE: F/P - Black; E - Municipal Trash Bin "single patient use only" Cayetano Crespo Lisinopril 2017-02-05 14:00:00 No Notes: (Same as: Maxwell Gibsonstril) Cayetano Cerspo sodium hypochlorite topical 0.25% solution 2017-02-05 14:00:00 No Notes: Note: half-strength = 0.25% sodium hypochlorite. Cayetano Crespo Furosemide 2017-02-05 14:00:00 No Notes: (Same as: Lasix) May cause GI upset. Give with food or milk. [facility]jah rial Zak Aspirin 2017-02-05 14:00:00 No Notes: Do not crush or chew. (Same As: Ecotrin) Cayetano Crespo Albuterol 0.833 MG/ML / Ipratropium Keiser 0.167 MG/ML Inha lant Solution 2017-02-05 11:19:00 No Notes: (Same as: Yossi frankelb) Cayetano Crespo Calcium Chloride 0.0014 MEQ/ML / Potassi um Chloride 0.004 MEQ/ML / Sodium Chloride 0.103 MEQ/ML / Sodium Lactate 0.028 MEQ/ML Injectable Solution 2017-02-05 11:19:00 No 1,000 mL, Rate: 25 ml/hr, Infuse over: 40 hr, Route: IV, Dosing Weight 139.364 kg, Total Volume: 1,000, Start date: 02/05/17 6:19:00 CDT, Duration: 30 day, Stop date: 03/07/17 6:18:00 CDT Cayetano Crespo insulin detemir 2017-02-05 02:00:00 No 80 unit, Route: SUB-Q, Bedtime, Dosing Weight 139.364, kg, Start date: 02/04/17 21:00:00 CDT, Duration: 30 day, Stop date: 03/05/17 21:00:00 CDT [facility] heparin 2017-02-05 02:00:00 No Notes: porci ne heparin [facility] insulin glargine 2017-02-05 02:00:00 No Notes: (Same as: Lantus) Do not hold insulin without contacting prescriber WASTE: F/P - Black; E - Municipal Trash Bin "single patient use only" [facility] atorvastatin 2017-02-05 02:00:00 No Notes: (Same As: Lipitor) [facility] vancomycin + sodium chloride 0.9% INJ 250 mL 2017-02-05 01:00:00 No 2001 mg: infuse over 2.5 hours MEDICATION WASTE Product Size: 1000 mg Product Wasted: ___ mg [facility] Zosyn + sodium chloride 0.9% INJ 100 mL 2017-02-05 01:00:00 No Notes: (Same as: Zosyn) Dosing based on Piperacillin component MEDICATION WASTE Product Size: 3375 mg Product Wasted: ___ mg [facility] Humalog 2017-02-04 22:09:00 No See Instructions, SUB-Q, 0 Refill(s), Pt uses this for sliding scale [facility] Amoxicillin 875 MG / Clavulanate 125 MG Oral Tablet 02-04 22:09:00 No 1 tab, PO, BID, # 20 tab, 0 Refill(s) [facility] Furosemide 2017-02-04 22:07:00 No 40 mg, [place], 0 Refill(s) [facility] Lisinopril 2017-02-04 22:07:00 No 10 mg, PO , Daily, 0 Refill(s) [facility] Trujeo 2017-02-04 22:04:00 No Trujeo, 50 units, SUB-Q, QAM, Refill(s) 0 [facility] Vancomycin 2017-02-04 21:00:00 No 1,000 mg, Route: IVPB, Drug form: INJ, [id number], Dosing Weight 110.909, kg, Start date: 02/04/17 16:00:00 CDT, Duration: 10 day, Stop date: 02/13/17 16:00:00 CDT, ABX Indication: Bone/Joint Infection [facility] Dakins Half Strength Solution 0.25% topical 2017-02-04 21:00:00 No Notes: Note: half-strength = 0.25% sodium hypochlorite. [facility] Zosyn 2017-02-04 21:00:00 No 3.375 gm, Route: IVPB, Drug form: PDR/INJ, [id number], Dosing Weight 110.909, kg, Start date: 02/04/17 16:00:00 CDT, Duration: 10 day, Stop date: 02/14/17 10:00:00 CDT, ABX Indication: Bone/Joint Infection [facility] cefepime 1 g injection 2015-01-18 00:40:00 Yes 1 gm, IV, Q12H, X 10 day, # 20 ea, 0 Refill(s), other Memoria l [place] Vancomycin 2015-01-18 00:40:00 Yes 1.5 gm = 250 mL, IVPB, [id number], 0 Refill(s) [facility] Enoxaparin 2015-01-18 00:40:00 Yes 40 mg = 0.4 mL, SUB-Q, [id number], 0 Refill(s) [facility] epoetin darnell 10,000 units/mL injectable solution 2015-01-18 00:40:00 Yes 10,000 unit = 1 mL, SUB-Q, [id number], 0 Refill(s) [facility] cefepime 2015-01-17 18:00:00 No 1 gm, Route: IVPB, [id number], Dosing Weight 124.727, kg, Start date: 01/17/15 13:00:00, Duration: 30 day, Stop date: 02/16/15 1:00:00 [facility] NS 1,000 mL 2015-01-17 15:50:00 No 1,000 mL, Rate: 50 ml/hr, Infuse over: 20 hr, Route: IV, Dosing Weight 124.727 kg, Total Volume: 1,000, Start date: 01/17/15 10:50:00, Duration: 30 day, Stop date: 02/16/15 10:49:00 [facility] ergocalciferol 2015-01-17 14:00:00 No 50,000 IntlUnit, 1 cap, Route: PO, Drug form: CAP, QTue, Dosing Weight 112.4, kg, Start date: 01/17/15 9:00:00, Duration: 30 day, Stop date: 02/14/15 9:00:00 [facility] Insulin, Aspart, Human 2015-01-17 09:45:00 No Notes: Roll in palms of hands gently; Do not shake vigorously. (Same as: NovoLOG) "single patient use only" Stable for 28 days at room temperature. Expires in days from Date [facility] Glucagon 2015-01-17 09:45:00 No 1 mg, Route: IM, Drug form: PDR/INJ, PRN, Dosing Weight 124.727, kg, PRN Blood Glucose Results, Start date: 01/17/15 4:45:00, Duration: 30 day, Stop date: 02/16/15 4:44:00 [facility] Dextrose 50% Syringe 2015-01-17 09:45:00 No 25 gm, 50 mL, Route: IVP, Drug Form: INJ, Dosing Weight 124.727, kg, PRN, PRN Blood Glucose Results, Start date: 01/17/15 4:45:00, Duration: 30 day, Stop date: 02/16/15 4:44:00 [facility] Sodium Chloride 0.154 MEQ/ML Injectable Solution 2015-01-16 22:5 9:00 No 500 mL, 500 ml/hr, Infuse Ov er: 1 hr, Route: IV, 500, Drug form: INJ, ONCE, Priority: STAT, Dosing Weight 112.4 kg, Start date: 01/16/15 17:59:00, Duration: 1 doses or times, Stop date: 01/16/15 17:59:00 [facility] Epogen 2015-01-16 22:00:00 No Notes: (Same as: Procrit) epoetin darnell 03103 unit/1 ml VL. For dialysis use only. (Procrit) MEDICATION WASTE Product Size: 67798 unit Product Wasted: ___ unit Cayetano Crespo Sodium Chloride 0.154 MEQ/ML Injectable Solution 2015-01-16 21:3 5:00 No 500 mL, 500 ml/hr, Infuse Ov er: 1 hr, Route: IV, ONCE, Priority: STAT, Dosing Weight 112.4 kg, Start date: 01/16/15 16:35:00, Duration: 1 doses or times, Stop date: 01/16/15 16:35:00 Elijah Crespo Furosemide 2015-01-16 14:45:00 No Notes: (Same as: Lasix) May cause GI upset. Give with food or milk. Elijah Crespo Vancomycin 2015-01-16 14:00:00 No 2001 mg: infuse over 2.5 hours Cayetano Crespo NS 1,000 mL 2015-01-16 13:32:00 No 1,000 mL, Rate: 75 ml/hr, Infuse over: 13.3 hr, Route: IV, Dosing Weight 112.4 kg, Total Volume: 1,000, Start date: 01/16/15 8:32:00, Duration: 30 day, Stop date: 02/15/15 8:31:00 Cayetano Crespo NovoLOG FlexPen 2015-01-16 13:00:00 No Notes: Roll in palms of hands gently; Do not shake vigorously. (Same as: NovoLOG) "single patient use only" Stable for 28 days at room temperature. Expires in days from Date Cayetano Crespo Humalog 2015-01-16 12:30:00 No 8 unit, Route: SUB-Q, QAM (Insulin), Dosing Weight 112.4, kg, Start date: 01/16/15 7:30:00, Duration: 30 day, Stop date: 02/14/15 7:30:00 [facility] Zak atorvastatin 2015-01-16 02:00:00 No 10 mg, Route: PO, Drug form: TAB, Bedtime, Dosing Weight 112.4, kg, Start date: 01/15/15 21:00:00, Duration: 30 day, Stop date: 02/13/15 21:00:00 Charlie amin [place] Lantus 2015-01-16 02:00:00 No Notes: Same as Lantus Solostar PEN "single patient use only" Stable [...] 2015-01-15 22:00:00 No Notes: Same a s Saraha Cayetano Crespo Prinivil 2015-01-15 22:00:00 No Not es: (Same as: Maxwell Gibsonstril) [facility] Zak hydrochlorothiazide 25 mg oral tablet 2015-01-15 22:00:00 N o Notes: (Same as: Hydrodiuril) [facility] Novo[facility] FlexPen 2015-01-15 22:00:00 No Notes: Roll in palms of hands gently; Do not shake vigorously. (Same as: NovoLOG) "single patient use only" Stable for 28 days at room temperature. Expires in days from Date [facility] Zak Humalog 2015-01-15 21:30:00 No 5 unit, Route: SUB-Q, QPM (Insulin), Dosing Weight 112.4, kg, Start date: 01/15/15 16:30:00, Duration: 30 day, Stop date: 02/13/15 16:30:00 [facility] Zak NovoLOG FlexPen 2015-01-15 17:31:00 No Notes: Roll in palms of hands gently; Do not shake vigorously. (Same as: NovoLOG) "single patient use only" Stable for 28 days at room temperature. Expires in days from Date [facility] Bisoprolol 2015-01-15 17:30:00 No Notes: (S ladarius As: Zebeta) Cayetano Crespo Aspirin 2015-01-15 17:30:00 No 81 mg, 1 tab, Route: PO, Drug form: ECTAB, Daily, Dosing Weight 112.4, kg, Start date: 01/15/15 12:30:00, Duration: 30 day, Stop date: 02/14/15 9:00:00 Elijah lr Zak Humalog 2015-01-15 17:00:00 No 5 unit, Route: SUB-Q, QNoon, Dosing Weight 112.4, kg, Start date: 01/15/15 12:00:00, Duration: 30 day, Stop date: 02/13/15 12:00:00 Cayetano Crespo cefepime 2015-01-15 17:00:00 No Notes: (Same As: Maxipime) MEDICATION WASTE Product Size: 1000 mg Product Wasted: ___ mg [facility] Enoxaparin 2015-01-15 16:00:00 No Notes: (S ladarius as: Lovenox) [facility] Sodium Chloride 0.9% IV 2015-01-15 15:59:00 No 25 mL, Route: IV, Start date: 01/15/15 10:59:00, Duration: 30 day, Stop date: 02/14/15 10:58:00, PRN Line Flush [facility] BD Normal Saline Flush 2015-01-15 15:58:00 No Notes: (Same as: BD Posiflush) [facility] Ergocalciferol 08684 UNT Oral Capsule 2015-01-15 15:42:00 Y es 50,000 IntlUnit = 1 cap, PO, QTue, 0 Refill(s) [facility] Bisoprolol 2015-01-15 15:42:00 Yes 1 0 mg, PO, Daily, 0 Refill(s) [facility] Humalog 2015-01-15 15:42:00 No 5 unit, SUB-Q, QPM (Insulin), 0 Refill(s) [facility] Aspirin Low Dose 81 mg oral tablet 2015-01-15 14:39:00 Yes = 1 tab, PO, Daily, # 30 tab, 1 Refill(s) [facility] Sodium Chloride 0.154 MEQ/ML Injectable Solution 2015-01-15 12:4 9:00 No 250 mL, 250 ml/hr, Infuse Ov er: 1 hr, Route: IV, 250, Drug form: INJ, ONCE, Priority: STAT, Dosing Weight 118.182 kg, Start date: 01/15/15 7:49:00, Duration: 1 doses or times, Stop date: 01/15/15 7:49:00 [facility] Vancomycin 2015-01-15 12:27:00 No N otes: TIME CRITICAL MEDICATION [facility] Levaquin 2015-01-15 12:26:00 No Notes: (Jasper e as:Levaquin) [facility] Zosyn 2015-01-15 12:26:00 No Notes: (Same as: Zosyn) Dosing based on Piperacillin component MEDICATION WASTE Product Size: 3375 mg Product Wasted: _0__ mg [facility] Sodium Chloride 0.154 MEQ/ML Injectable Solution 2015-01-15 11:4 8:00 No 250 mL, 250 ml/hr, Infuse Ov er: 1 hr, Route: IV, 250, Drug form: INJ, ONCE, Priority: STAT, Dosing Weight 118.182 kg, Start date: 01/15/15 6:48:00, Duration: 1 doses or times, Stop date: 01/15/15 6:48:00 [facility] Saline Flush 0.9% 2015-01-15 10:14:00 No Notes: (Same as: BD Posiflush) [facility] normal saline 0.9% IV 500 mL 2014-11-08 17:54:00 No 500 mL, Rate: 100 ml/hr, Infuse over: 5 hr, Route: IV, Dosing Weight 126.818 kg, Total Volume: 500, Start date: 11/08/14 12:54:00, Duration: 30 day, Stop date: 12/08/14 12:53:00 [facility] Acetaminophen 2014-11-08 17:54:00 No Notes: Do not exceed 4 gm/day. (Same as: Tylenol) [facility] Ondansetron 2014-11-08 17:54:00 No Notes: (Same as: Zofran) MEDICATION WASTE Product Size: 4 mg Product Wasted: ___ mg [facility] Zak Psoriasis Drug Study 2014-11-04 19:51:00 Yes Psoriasis Drug Study, Q30D, Refill(s) 0 [facility] Zak atorvastatin 10 mg oral tablet 2014-11-04 18:57:00 Yes 10 mg = 1 tab, PO, Bedtime [facility] [place] gemfibrozil 600 mg oral tablet 2014-11-04 18:57:00 Yes 600 mg = 1 tab, PO, BID [facility] 24 HR Metformin hydrochloride 500 MG Extended Release Tablet [Glumetza] 2014-11-04 18:57:00 Yes 500 mg = 1 tab, PO , Daily [facility] Zak Lantus 2014-11-04 18:57:00 Yes 80 unit, SUB- Q, Bedtime [facility] [place] Humalog 2014-11-04 18:57:00 Yes 50 unit, SUB-Q, TID-Before Meals, 0 Refill(s) Cayetano Zak Aspirin 81 MG Enteric Coated Tablet 2014-11-04 18:57:00 Yes 81 mg = 1 tab, PO, Daily [facility] pregabalin 150 MG Oral Capsule [Lyrica] 2014-11-04 18:57:00 Yes 150 mg = 1 cap, PO, TID [facility] Hydrochlorothiazide 12.5 MG / Lisinopril 10 MG Oral Ta blet [Zestoretic 10/12.5] 2014-11-04 18:57:00 Yes 1 tab, PO, BID [facility] Zak bisoprolol 5 mg oral tablet 2014-11-04 18:57:00 Yes 5 mg = 1 tab, PO, Daily [facility] Vital Signs Vital Name Observation Time Observation Value Comments Source Systolic (mm Hg) 2017-02-07 21:15:00 Elijah rial [place] Diastolic (mm Hg) 2017-02-07 21:15:00 Mem orial Zak Systolic (mm Hg) 2017-02-07 20:40:00 Elijah rial [place] Diastolic (mm Hg) 2017-02-07 20:40:00 Mem orial [facility] Respitory Rate 2017-02-07 20:40:00 Alexa al Zak Heart Rate 2017-02-07 20:40:00 [facility] [facility] Temperature Oral (F) 2017-02-07 20:40:00 98.0 F [facility] Temperature Oral (F) 2017-02-07 16:15:00 98.1 F [facility] Respitory Rate 2017-02-07 16:15:00 [facility] Heart Rate 2017-02-07 16:15:00 [facility] [place] Systolic (mm Hg) 2017-02-07 16:15:00 [facility] [place] Diastolic (mm Hg) 2017-02-07 16:15:00 [facility] [place] Temperature Oral (F) 2017-02-07 11:43:00 97.6 F [facility] [place] Heart Rate 2017-02-07 11:43:00 [facility] Respitory Rate 2017-02-07 11:43:00 [facility] [place] Weight 2017-02-04 21:49:00 [facility] [place] BMI Calculated 2017-02-04 21:49:00 [facility] [place] Height 2017-02-04 21:49:00 182.88 cm [facility] [place] Weight 2017-02-04 20:41:00 [facility] [place] BMI Calculated 2017-02-04 20:41:00 [facility] [place] Height 2017-02-04 20:41:00 182.88 cm [facility] [place] Height 2015-05-17 21:50:00 182.88 cm [facility] BMI Calculated 2015-05-17 21:50:00 [facility] [place] Weight 2015-05-17 21:50:00 [facility] Weight 2015-04-17 21:56:00 [facility] [place] BMI Calculated 2015-04-17 21:56:00 [facility] [place] Height 2015-04-17 21:56:00 182.88 cm [facility] Height 2015-03-22 14:26:00 182.88 cm [facility] [place] BMI Calculated 2015-03-22 14:26:00 [facility] Weight 2015-03-22 14:26:00 [facility] Weight 2015-03-01 21:21:00 [facility] [place] BMI Calculated 2015-03-01 21:21:00 [facility] [place] Height 2015-03-01 21:21:00 182.88 cm [facility] Systolic (mm Hg) 2015-01-18 01:00:00 [facility] Diastolic (mm Hg) 2015-01-18 01:00:00 [facility] [place] Respitory Rate 2015-01-18 01:00:00 [facility] [place] Systolic (mm Hg) 2015-01-17 23:18:00 [facility] [place] Diastolic (mm Hg) 2015-01-17 23:18:00 [facility] Respitory Rate 2015-01-17 23:18:00 [facility] Temperature Oral (F) 2015-01-17 21:00:00 98.2 F [facility] Respitory Rate 2015-01-17 20:00:00 [facility] [place] Systolic (mm Hg) 2015-01-17 20:00:00 [facility] Diastolic (mm Hg) 2015-01-17 20:00:00 [facility] [place] Temperature Oral (F) 2015-01-17 17:00:00 97.9 F [facility] Temperature Oral (F) 2015-01-17 13:00:00 98.7 F [facility] Weight 2015-01-17 09:19:00 [facility] BMI Calculated 2015-01-15 15:35:00 [facility] Weight 2015-01-15 15:35:00 [facility] Height 2015-01-15 15:35:00 182.88 cm [facility] BMI Calculated 2015-01-15 10:03:00 [facility] [place] Weight 2015-01-15 10:03:00 [facility] Height 2015-01-15 10:03:00 187.96 cm [facility] Heart Rate 2015-01-15 10:03:00 [facility] BMI Calculated 2014-11-02 17:47:00 [facility] [place] Weight 2014-11-02 17:47:00 [facility] Height 2014-11-02 17:47:00 182.88 cm [facility] Procedures Procedure Date / Time Performed Performing Clinician [facility] e [U] XRAY ANKLE 2 VWS LEFT [id number] 2017-07-28 00:00:00 [facility] Cardiac catheterization, combined right and left heart [facility] Cholecystectomy [facility] Tonsillectomy [facility] Triple coronary bypass [facility] Encounters Start Date/Time End Date/Time Encounter [facility] ID Source 2017-09-10 15:15:00 2017-09-10 15:15:00 Appointment; LEMUEL LOPEZ M. D. SHANI, RAJ, M.D. [facility] [id number] [facility] 2017-08-05 12:45:00 2017-09-03 23:59:00 Outpatient Lemuel Lopez [id number] 2017-07-28 11:00:00 2017-07-28 11:00:00 Appointment; LEMUEL LOPEZ M. D. SHANI, RAJ, M.D. [facility] [id number] [facility] 2017-02-04 14:28:00 2017-02-07 17:11:00 [facility] [id number] 2015-05-17 15:32:00 2015-06-15 23:59:00 Outpatient Marco Perkins [facility] [id number] 2015-04-17 15:46:00 2015-05-16 23:59:00 Outpatient Marco Perkins [facility] [id number] 2015-03-16 08:00:00 2015-04-14 23:59:00 Outpatient Marco Perkins [facility] [id number] 2015-03-28 14:08:00 2015-03-28 23:59:00 Outpatient Marco Perkins [facility] [id number] 2015-03-01 15:33:00 2015-03-15 19:10:00 Outpatient Marco Perkins [facility] [id number] 2015-02-27 15:55:00 2015-02-27 23:59:00 Outpatient Marco Perkins [facility] [id number] 2015-01-15 05:02:00 2015-01-17 22:42:00 Outpatient Dali Escobar [facility] [id number] 2014-11-08 07:04:00 2014-11-08 20:00:00 Outpatient Arie Morillo [facility] [id number] Results Test Description Test Time Test Comments Results Result Comments Source CHEST SINGLE (PORTABLE) 2020-04-04 16:36:00 [facility] CENTERName: DYLLAN WAGNER : 1950 Sex: M [place] [address] Patient Name: DYLLAN WAGNER MR #: [id number] : 1950 Age/Sex: 69/M Req #: [id number] Adm Physician: Ordered by: HOMAR MAYEN DO Report #: [id number] Location: ER Room/Bed: Procedure: [id number] DX/CHEST SINGLE (PORTABLE) Exam Date: Exam Time: REPORT STATUS: Signed TECHNIQUE: Frontal view of the chest. INDICATION: Y fever, hypoxia COMPARISON: None. IMPRESSION: Lines and hardware: Median sternotomy wires. Heart and mediastinum: Hazy left heart border. Lungs and pleura: Pulmonary interstitial edema. Hazy left airspace opacity, may represent atelectasis versus pneumonitis. Probable layering left pleural effusion. No pneumothorax. Soft tissues and bones: No acute abnormality. Signed by: Ko Gutierrez MD on 04/04/2020 4:37 PM Dictated By: KO GUTIERREZ DO 36 Transcribed By: FELIX on 04/04/201636 COPY TO: HOMAR MAYEN DO D-DIMER 2019-07-11 10:20:00 Test Item D-DIMER (test code = DDIMER) 1470 ng/ml < 600 HH Results called to [id number] by V.[email or web address] 07/11/19 1019Critical results verified and read back by Nurse? Y BASIC METABOLIC [id number] 09:54:00* Test Item Value Reference Range Interpretation [...] CA) 9.3 mg/dL 8.4-10.2 N CBC W/O [id number] 09:50:00* Test Item Value Reference Range Interpretation [...] [U] XRAY ANKLE MIN 3 VWS LEFT [id number] 11:44:00Images acquired, not reported on this accession number.[facility] 2017-02-07 20:03:004.3[facility]annCHE[facility] UHMHA2504-14-24 16:22:003.8[facility]annCHEM QUKMY9434-03-17 16:22:002.6[facility]annCHEM JHOIN6431-83-15 16:22:0045[facility]annCHEM NUSZI1681-29-76 16:22:008.8[facility] HermannCHEM DMIEG1734-78-53 16:22:0030[facility]annCHEM OJFZV0315-24-69 16:22:005.5 [facility]annCHE[facility] HZTOD0268-79-09 16:22:81320Ylkewuoy HermannCHEM PANEL 2017-02-07 16:22:0020[facility]annCHEM VGSLN7536-16-35 16:22:001.61[facility]annCHEM NNEWJ9225-73-48 16:22:44679Tspfusbw HermannCHEM BOLNP6236-61-53 16:22:24118Nxlrrnzh HermannCHEM LQNRF3258-73-50 16:22:009.5[facility] INKDBJLATY3639-61-44 16:22:0015.8[facility] QjlalmcASSLESVYDR1718-82-74 16:22:00 82.0[facility] UayphxlCPBWZQFKWR7094-53-52 16:22:00* Test Item Value Reference Range Interpretation Comments MCH (test code = MCH) 27.6 pg 27.0-31.0 [facility] RtlgfkyWAARXXGLMU4627-63-02 16:22:0033.6[facility] HermannHEMATOLOGY 2017-02-07 16:22:0038.2[facility] CccyipcPXNBHIKVFN4568-19-66 16:22:76923Waqlymqz IafqxdiQEKEJVSKSL6211-99-71 16:22:009.6[facility] HkrhbzxKQALWXRXRR7653-94-45 16:22:007.4[facility] RcrowhxLHMVIFVHHQ9761-64-45 16:22:004.65[facility] PSQLMIYART3560-52-66 16:22:0012.8[facility] MfdpzamPXKZIJMOAZ2813-46-18 16:22:00 0.1[facility] DdtxpqrWQCHMHXTWI6236-77-25 16:22:000.9[facility]annHEMATOLOGY 2017-02-07 16:22:000.3[facility] GpjcmdoPJQOVLMIHL0764-82-90 16:22:000.8[facility] VyermjdAXQEVALZXS0194-31-21 16:22:003.7[facility] PatrixgZPDQHMXGWZ4186-75-95 16:22:001.1[facility] HjmnctzDRUJPDAYWJ9849-03-59 16:22:005.0[facility] CMYKZCDKGX6222-08-70 16:22:0067.7[facility] BfpklbxXSHHMVWCJG6358-36-34 16:22:00 15.0[facility] AkdbnteWBPVSXWPIM7889-38-51 16:22:0012.8[facility] HermannCHEM PANEL 2017-02-06 09:23:0050[facility] HermannCHEM DUCQB7828-61-52 09:23:004.4[facility] HermannCHEM SBQZG3674-78-43 09:23:99933Unydutrc HermannCHEM WLIGW8099-01-89 09:23:0029[facility] HermannCHEM DSMFI2725-43-77 09:23:008.6[facility] HermannCHEM GLDRC8831-75-40 09:23:001.47[facility] HermannCHEM AXIXP6610-37-32 09:23:0019 [facility]annCHEM HZBZU5984-25-61 09:23:17321Fjikbmfj HermannCHEM PANEL 2017-02-06 09:23:13074Nkdemjjk HermannCHEM GICWQ5712-60-35 09:23:008.4[facility] CftwrwqNMBHCWMASG8005-22-71 09:23:000.9[facility] KlcvhkmZSCNGGSHQL6083-21-78 09:23:000.2[facility] InrpxrwDOKPZBGQAD7502-74-45 09:23:000.1[facility] FPHKALUQIA3512-88-86 09:23:0076.4[facility] SmafakuEMQDRDVRIZ0629-55-83 09:23:00 0.9[facility] MirqxhzVIIECIUJPI3220-38-50 09:23:000.6[facility] HermannHEMATOLOGY 2017-02-06 09:23:0010.7[facility] DlhqhfpFDSWSNNUIJ7872-80-35 09:23:002.0[facility] XmqoeakKOBOZVDAUO3054-11-68 09:23:006.5[facility] DjpxjlvOZSPURWDLX6217-40-94 09:23:0010.3[facility] PozitgzCJLVEDERDW0673-05-75 09:23:0016.4[facility] AIUZJWLOCU0505-40-52 09:23:0033.4[facility] XbmvgclHIMTPWSQIO9063-95-90 09:23:00* Test Item Value Reference Range Interpretation Comments MCH (test code = MCH) 27.3 pg 27.0-31.0 [facility] NtxmbitJVRUCMYBCQ5111-50-21 09:23:008.5[facility] HermannHEMATOLOGY 2017-02-06 09:23:004.74[facility] MqxwvipFLATBVKRWT6201-90-46 09:23:78283Accocpty CfwivdaYPIBANYHMF6326-56-94 09:23:009.6[facility] HgmeuucSKWDLYIZVQ5292-91-99 09:23:0082.0[facility] KyysdlrQWIBXXFPOD2205-60-82 09:23:0013.0[facility] VHBTPZRWAK2412-34-86 09:23:0038.8[facility] HermannCHEM WICBL1996-14-25 10:07:00 8.8[facility] HermannCHEM GPZAW1029-88-35 10:07:23451Bpbyoatv HermannCHEM PANEL 2017-02-05 10:07:0048[facility] HermannCHEM GHIPP3518-76-90 10:07:0030[facility]annCHEM OPKVT2724-37-05 10:07:30109Gxbdysbc HermannCHEM SMESK1485-46-04 10:07:0023[facility] HermannCHEM MCVIZ5022-70-08 10:07:001.50[facility] HermannCHEM JJDZL7836-49-53 10:07:69774Ziytlvzm HermannCHEM ORGGN9684-80-19 10:07:007.6 [facility] GkarqffCHFWBBSUNN7081-00-64 10:07:00* Test Item Value Reference Range Interpretation Comments PTT (test code = PTT) 29.3 s 22.9-35.8 [facility] ZjkzjqpFQGDASRHQD5494-95-95 10:07:00* Test Item Value Reference Range Interpretation Comments PT (test code = PT) 13.4 s 12.0-14.7 [facility] PcccnpcQUABVLOEHT4347-35-86 10:07:001.00[facility]annHEMATOLOGY 2017-02-05 10:07:65950Nkmjfqsj IbykwaxUDNYBIPTVZ5412-87-06 10:07:0081.8[facility] MhtdjerIBOLETHKDQ8529-42-78 10:07:00* Test Item Value Reference Range Interpretation Comments MCH (test code = MCH) 27.3 pg 27.0-31.0 [facility] KjuidldROMMPRRAKU3946-60-88 10:07:0033.4[facility] HermannHEMATOLOGY 2017-02-05 10:07:0013.1[facility] AgsryacZHSGPGSEZU1084-56-06 10:07:0039.3[facility] NqsiwlnAKZGNQZBFJ4879-97-95 10:07:0015.7[facility] LtfxrtgVOXQHILRTW4372-56-34 10:07:004.80[facility] IrecnirJHNFEEDNAB0239-33-64 10:07:007.8[facility] MSTPBYBAOB2200-12-08 10:07:009.4[facility] SaormsaVCUCWWBJNM9576-17-09 10:07:000.1 [facility] QlivuupLVSBELEOMM9461-70-98 10:07:002.0[facility] HermannHEMATOLOGY 2017-02-05 10:07:0071.3[facility] MtiheakJRRJNKFYOE9821-97-79 10:07:0014.4[facility] RdxhpwpWWOWYFDPMO4162-96-88 10:07:0011.4[facility] JnpbakiLXTCJWRCMJ2079-18-85 10:07:005.6[facility] ZwcijniGOSFYEGXSW4952-11-85 10:07:001.1[facility] QLAZMULRGQ8805-24-55 10:07:000.2[facility] FymyghrUNTLQIXCSJ7752-44-11 10:07:000.9 [facility] FzpsquoRHFVRZAHHJ0160-64-20 10:07:000.9[facility]annURINE AND STOOL 2017-02-05 06:40:00Negative (02/05/17 1:40 AM)[facility] STOOL 2017-02-05 06:40:00Negative (02/05/17 1:40 AM)[facility] STOOL 2017-02-05 06:40:00Not Indicated (02/05/17 1:40 AM)[facility] AND RFXOR9984-50-25 06:40:000.2[facility] AND HPWYF7237-73-52 06:40:00 Negative (02/05/17 1:40 AM)[facility] EFUFN6720-62-29 06:40:00 Clear (02/05/17 1:40 AM)[facility] PTBZF4693-84-21 06:40:00<=1.005 *NA*(02/05/17 1:40 AM)[facility] YAMDV8384-56-17 06:40:00Negative *NA*(02/05/17 1:40 AM)[facility] CXTWH4821-48-04 06:40:00* Test Item Value Reference Range Interpretation Comments UA pH (test code = UA pH) 6.0 1 5.0-8.0 [facility] JDJZA2045-80-99 06:40:00Negative (02/05/17 1:40 AM) [facility] LGNWL0814-95-97 06:40:00Negative (02/05/17 1:40 AM) [facility] LAQPQ6263-18-90 06:40:00Negative *NA*(02/05/17 1:40 AM) [facility] XasnewwDLFXEBGKLF9987-40-43 23:22:000.98[facility] HermannHEMATOLOGY 2017-02-04 23:22:00* Test Item Value Reference Range Interpretation Comments PTT (test code = PTT) 20.5 s 22.9-35.8 [facility] KrrbmwtFCKBMSCBUA4602-95-21 23:22:00* Test Item Value Reference Range Interpretation Comments PT (test code = PT) 13.2 s 12.0-14.7 [facility] CodygtcCBDFGHFQXM5207-69-30 23:22:0020[facility] HermannHEMATOLOGY 2017-02-04 23:22:00* Test Item Value Reference Range Interpretation Comments PT (test code = PT) 13.2 s 12.0-14.7 [facility] PvfjbmxZMTHLSTPOV9704-36-65 23:22:000.98[facility] HermannSPECIAL VAYBKHIIU4412-04-19 23:22:007.3[facility] OpblbcwRLMTNDZRKV5074-48-64 13:45:0019.0 [facility] OomsdshJHOYMRHMQH4111-74-28 13:45:941963Xyqmdlom HermannCHEM PANEL 2015-01-17 08:36:0034[facility] HermannCHEM MFKKD1601-08-97 08:36:0024[facility] HermannCHEM FHXCB0455-00-49 08:36:0046[facility] HermannCHEM GQTYW2227-77-32 08:36:0014.7[facility] HermannCHEM UPHZC9246-49-10 08:36:54462Rbitwaak HermannCHEM RURGH8963-16-88 08:36:88127Puamrqms HermannCHEM TJPUK9830-43-62 08:36:007.5 [facility] HermannCHEM TNUDT2445-50-80 08:36:86231Xjgrbjvh HermannCHEM PANEL 2015-01-17 08:36:004.7[facility] HermannCHEM JAIWI1055-22-02 08:36:001.6[facility] YkihhxhZODJBOYMZO1339-71-21 08:36:00Normal (01/17/15 3:36 AM)[facility] IQFOZTBINH4926-98-69 08:36:000.4[facility] KibifamBIHOWNZCTL3736-05-64 08:36:007.2 [facility] VghpnatVOIYBDPJDF7112-52-60 08:36:002.1[facility] HermannHEMATOLOGY 2015-01-17 08:36:0080.7[facility] ElirmrpWLWWZFGUES1845-05-94 08:36:009.6[facility] DderlkcPFPAEIWTUL4410-96-84 08:36:001.2[facility] HslchjqDXHGPSKSYM5290-19-36 08:36:000.3[facility] KpbftrlILMJKHZCXW3709-43-82 08:36:009.9[facility] MRVNCMIDDO2734-79-34 08:36:000.9[facility] MvzgjuyXZUSKLGJUN4290-75-91 08:36:00 Moderate *ABN*(01/17/15 3:36 AM)[facility] UyfjccoAGHLGIVHUS9890-83-56 08:36:000.1 [facility] BwmyhztKVFMTPWVZI9109-60-13 08:36:0025.0[facility] HermannHEMATOLOGY 2015-01-17 08:36:00* Test Item Value Reference Range Interpretation Comments MCH (test code = MCH) 27.0 pg 27.0-31.0 [facility] MllcicvOCTXBBLIVZ8081-05-25 08:36:22246Cyqpnyax HermannHEMATOLOGY 2015-01-17 08:36:0083.6[facility] AidagcdKOCXLXJWKN2452-48-69 08:36:009.7[facility] NmskazqJUMEEXYESS1983-61-89 08:36:0032.3[facility] NbqdmqkIQAGQCEONQ6231-19-83 08:36:0016.6[facility] UctvdsxKURGKCQTSG9800-27-38 08:36:0012.2[facility] TEFKFSKRIM7893-47-82 08:36:008.1[facility] PrlewurBIPTCPDSJG8529-23-40 08:36:00 2.99[facility] HermannCHEM OFKLG4139-55-62 08:45:002.4[facility] HermannCHEM PANEL 2015-01-16 08:45:0024[facility] HermannCHEM YZOYR6156-87-58 08:45:0042[facility]annCHEM TVZRN1639-26-85 08:45:004.8[facility] HermannCHEM PUNMB0219-07-32 08:45:0097[facility]annCHEM AGLXB5432-35-25 08:45:001.7[facility]annCHEM PSHJP1793-52-97 08:45:46198Qimiqaml HermannCHEM OVBUY6198-52-99 08:45:007.9 [facility]annCHEM NDQAH0709-96-18 08:45:02317Prjvifae HermannCHEM PANEL 2015-01-16 08:45:0016[facility] HermannCHEM OOCVG3228-29-55 08:45:001.1[facility] HermannCHEM UWBLR0587-24-95 08:45:005.8[facility] HermannCHEM CLXUK2961-94-86 08:45:0031[facility]annCHEM BFCIW2594-18-58 08:45:0028[facility]annCHEM VGACA6794-90-69 08:45:78125Dumstlhr HermannCHEM VAAOU1246-88-35 08:45:0015.8 [facility]annCHEM LAIJV5080-09-16 08:45:003.4[facility] HermannCHEM PANEL 2015-01-16 08:45:0018[facility] HermannCHEM IYQBJ9005-43-56 08:45:000.7[facility] HermannCHEM DVNGF1518-41-26 08:45:003.1[facility] YqixsmlCIMKIMNDVZ0002-97-45 08:45:009.4[facility] YbeivksPOGUOCSGDF0687-59-10 08:45:74491Qkvpfjuj [place] CDMUOLKZAB5409-37-33 08:45:0032.5[facility] RkqhcggJZGECKAYGT0124-62-38 08:45:00 16.4[facility] JelztxlMCMULHDELP6126-59-36 08:45:00* Test Item Value Reference Range Interpretation Comments MCH (test code = MCH) 27.3 pg 27.0-31.0 [facility] DfohbxnSQORICYYOX0361-48-72 08:45:0083.8[facility] HermannHEMATOLOGY 2015-01-16 08:45:0027.1[facility] DkkgpysSQTHXASVVF6802-47-06 08:45:008.8[facility] PrixdrnENKDDMPOJU4465-93-99 08:45:003.23[facility] NxawuzuPIEXFGTXCH2828-49-08 08:45:0017.5[facility] MfcqkdwNOLQUFYWLZ7530-76-12 08:45:000.8[facility] TWFPJZXHTA0610-71-91 08:45:001.9[facility] GvgqpczAQVLOVHNLD9904-72-88 08:45:000.0 [facility] DynmicoDTIGNZFGZH7796-81-17 08:45:000.1[facility] HermannHEMATOLOGY 2015-01-16 08:45:0011.0[facility] BvajadwBJLOSJKSIR4720-83-41 08:45:0014.7[facility] OzlulykVKKZNGYQJT6849-76-76 08:45:000.3[facility] KxsrjtsVVASUUDNII9694-80-14 08:45:0084.0[facility] McgeukcEVTKDDFOAX6063-44-00 08:45:004.6[facility] [place] OFGXFFOJZW2722-72-59 08:45:00Normal (01/16/15 3:45 AM)[facility] HermannHEMATOLOGY 2015-01-16 08:45:000.1[facility] EqjcjkqLADEGUNJXY6518-01-73 08:45:00Normal (01/16/15 3:45 AM)[facility] YjnpydvBZQERLGWBP9283-05-92 01:39:148219Ofeiqzji EcqsjsrKIABTTWYTW7354-81-14 01:39:004.8[facility] HermannCARDIAC ZBSPFNV4388-22-46 23:12:000.8[facility] HermannCARDIAC NLLNYQT2634-01-14 23:12:0041[facility] [place] CARDIAC RHFZECO2400-35-08 23:12:000.51[facility]annURINE AND IHUSI4785-69-89 21:40:00Negative *NA*(01/15/15 4:40 PM)[facility] AND KINAJ7957-68-12 21:40:00Negative (01/15/15 4:40 PM)[facility] BPAHC5155-10-85 21:40:00Negative (01/15/15 4:40 PM)[facility] CRZRZ2255-18-73 21:40:00Negative (01/15/15 4:40 PM)[facility] SWWLF6782-71-31 21:40:00<1[facility] AND ZSIYM6557-54-87 21:40:001[facility] [place] URINE AND RJJVB7482-70-13 21:40:005.0[facility]UR[facility] AND DSOSX4550-51-01 21:40:00Yellow *NA*(01/15/15 4:40 PM)[facility] HCDSI9018-16-88 21:40:001.017[facility]UR[facility] AND WCILG6697-73-47 21:40:00Clear (01/15/15 4:40 PM)[facility]annUR[facility] IGSS6014-27-05 21:40:0054.6[facility]annURINE RJIQ1772-81-03 21:40:27155.5[facility]annURINE CIDZ0500-63-66 21:40:0034.4 [facility]URINE QVNF3567-68-45 21:40:00<5[facility]UR[facility] CHEM 2015-01-15 21:40:00None Seen (01/15/15 4:40 PM)[facility] HermannCARDIAC ENZYMES 2015-01-15 16:53:000.7[facility] HermannCARDIAC FTPLZHE2666-12-90 16:53:0040 [facility]annCARDIAC CQRTEEK2878-20-15 16:53:000.54[facility] HermannCHEM PANEL 2015-01-15 16:53:0042[facility] HermannCHEM BRRMB9917-04-04 16:53:001.7[facility] IpvwmtmVZKWRMNRNB4460-67-29 16:53:27413Urqzvrmz HermannVIRAL - SEROLOGY 2015-01-15 11:50:00Negative (01/15/15 6:50 AM)[facility] HermannVIRAL - SEROLOGY 2015-01-15 11:50:00Negative (01/15/15 6:50 AM)[facility] HermannCARDIAC ENZYMES 2015-01-15 10:51:000.66[facility] HermannCARDIAC UVFHHCI9708-31-31 10:51:844607 [facility]annCARDIAC BBIHGZV5915-87-61 10:51:0042[facility] HermannCARDIAC AGLGPAV0338-39-53 10:51:000.8[facility] HermannCARDIAC IKADFVJ9371-66-86 10:51:00 1.9[facility] HermannCHEM AVHGD6202-86-65 10:51:001.8[facility] HermannCHEM PANEL 2015-01-15 10:51:006.6[facility] HermannCHEM BJCZV6942-85-11 10:51:0017[facility] HermannCHEM YHHKX1043-38-84 10:51:45964Ejhusvjw HermannCHEM GOIIE2475-32-69 10:51:0034[facility]annCHEM LYHBY0455-89-69 10:51:001.1[facility]annCHEM SFWRJ1371-26-23 10:51:0018[facility]annCHEM VZOVV2007-63-16 10:51:000.7 [facility]annCHEM NMZTO8465-86-85 10:51:003.8[facility] HermannCHEM PANEL 2015-01-15 10:51:0031[facility]annCHEM FZWLI7741-48-17 10:51:0026[facility] HermannCHEM AEZNY9772-02-19 10:51:008.6[facility]annCHEM VCEJM8753-67-53 10:51:002.8[facility]annCHEM KQRFL1389-56-82 10:51:005.1[facility]annCHEM PDLGI6197-45-53 10:51:0099[facility]annCHEM OPMBN2213-56-29 10:51:0016.1 [facility]annCHEM RVNVS8442-59-35 10:51:93977Dpclfyzg HermannCHEM PANEL 2015-01-15 10:51:04250Vjtthvsq YkyzicnICOOLDXUSV5211-34-01 10:51:00* Test Item Value Reference Range Interpretation Comments PT (test code = PT) 15.5 s 12.0-14.7 [facility] DgirctrCAAXVONIAJ4998-67-19 10:51:001.22[facility]annHEMATOLOGY 2015-01-15 10:51:00* Test Item Value Reference Range Interpretation Comments PTT (test code = PTT) 41.5 s 22.9-35.8 [facility] SbqpmaiSJALBJSNXX7188-50-13 10:51:0032.2[facility] HermannHEMATOLOGY 2015-01-15 10:51:0016.5[facility] MlyrgtaVWUQUONYOA3412-12-55 10:51:0010.1[facility] VkfqwdiBSVHQRQAYT4620-95-52 10:51:0083.9[facility] VsfrperNXAFUYAICE4393-22-12 10:51:0017.1[facility] FjohvfuADSHLSFUXS0017-50-60 10:51:003.73[facility] Zak NQGWQGIHAR1980-87-56 10:51:0010.1[facility] PmdgiaqORNPXZOGTB5623-32-45 10:51:00 31.3[facility] SchshgqRMSQRKCAPG1920-96-33 10:51:00* Test Item Value Reference Range Interpretation Comments MCH (test code = MCH) 27.0 pg 27.0-31.0 [facility] NoeqlswJSWWUEXSQR0421-68-66 10:51:003.78[facility]annHEMATOLOGY 2015-01-15 10:51:000.1[facility] AtomhmlENCIATVEET7195-06-95 10:51:001.9[facility] FtmrfwcVLEOZFDNHL2604-08-85 10:51:000.0[facility] GiiokgrYKQOYAWTHY0226-38-92 10:51:0085.0[facility] KrzhpvlXTUCYEETXO0482-76-41 10:51:00Normal (01/15/15 5:51 AM) [facility] HzfdwgwCPZFYFDKEP2454-53-50 10:51:00Normal (01/15/15 5:51 AM)[facility] DzlpsyhLVASCHKHJL8584-47-45 10:51:000.1[facility] RfleopnGDSWLTIPHT5520-91-28 10:51:0014.5[facility] WggacoxYQIPHYDRXX1501-50-71 10:51:000.3[facility]ak CRLMFGFTRA8775-53-64 10:51:003.7[facility] TnkwphuTWIUNPIHMT8369-22-32 10:51:000.6 [facility] QrmsspsYXUQKVRUDZ5588-85-82 10:51:0010.9[facility] HermannCHEM PANEL 2014-11-04 19:00:0054[facility] HermannCHEM GFIVZ9230-68-48 19:00:004.6[facility] HermannCHEM XJSHE1993-17-25 19:00:92353Qaurhubz HermannCHEM WUFNC1561-41-38 19:00:001.4[facility] HermannCHEM TRGDQ5247-64-17 19:00:009.0[facility]annCHEM WPWSF7642-73-20 19:00:78404Ljwfdisb HermannCHEM QJOSM4824-31-16 19:00:0030 [facility]annCHEM EHPJP1812-32-35 19:00:0027[facility] HermannCHEM PANEL 2014-11-04 19:00:62998Ufmpbgzv HermannCHEM ZSLTK2063-95-46 19:00:009.6[facility] DcjxxusHZYIKYEZYM2266-31-08 19:00:00* Test Item Value Reference Range Interpretation Comments MCH (test code = MCH) 27.9 pg 27.0-31.0 [facility] DctfskjRGERHAVFOV0403-97-67 19:00:0039.8[facility] HermannHEMATOLOGY 2014-11-04 19:00:0081.0[facility] CqqpgzqQTECBOVSZF5113-30-08 19:00:004.91[facility] YrpdwuhHHQHRTVAVP3313-49-98 19:00:0013.7[facility] HuzoutiYBTETDJUJV3123-83-18 19:00:0010.1[facility] CrwcbfzJUNXKGFVBT9391-78-55 19:00:93248Gtkpvzmr Zak QBMSHKFGPS4215-30-53 19:00:0034.4[facility] KovqljgAPAUWABCTY6059-16-37 19:00:00 18.1[facility] OpaabekLYAELEPKVT3113-48-56 19:00:007.4[facility] HermannHEMATOLOGY 2014-11-04 19:00:00* Test Item Value Reference Range Interpretation Comments PT (test code = PT) 14.0 s 12.0-14.7 [facility]FM[facility]ZAECJTA0681-22-67 19:00:001.08Memoriwa HermannIMMUNOLOGY 2014-11-04 19:00:00Negative *NA*(11/04/14 2:00 PM)[facility]
--- OUTSIDE RECORDS SUMMARY | 2020-04-04 17:56 | XMS REPORT | Continuity of Care Document ---
Author Author Cayetano Crespo Information DYLLAN Anderson [facility] Information Exchange Address Unknown Phone Unavailable Care Team Providers Care Soap Maker Name Role Phone [facility] Unavailable Un available Problems Problem Status Onset Date Classification Date Reported Comments Source Muscle weakness (generalized) 09/09/2017 12/10/2017 [facility] LEFT ACHILLES Active 08/05/2017 [facility] Methicillin resistant Staphylococcus aureus (organism) Active 02/04/2017 Problem 12/10/2017 RIGHT FOOT, 02/05/20 17 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 02/27/2015 MANUEL Crespo PNEUMONIA/GENERALIZED WEAKNESS Active 01/15/2015 [facility] WEAKNESS Active 01/15/2015 [facility] POST CAB, POST AORTIV VALVE REPLACEMENT Active 12/27/2014 [facility] POST CAB, POST AORTIC VALVE REPLACEMENT Active 12/27/2014 [facility] POST CAB, POST AVR Active 12/27/2014 [facility] CAD Active 0 10/27/2014 [facility] Unspecified abnormalities of gait and mobility 12/10/2017 [facility] Unspecified injury of left Achilles tendon, sequela 12/10/2017 [facility] Type 2 diabetes mellitus without complications 12/10/2017 [facility] Pure hypercholesterolemia, unspecified 12/10/2017 [facility] Amputation of finger tip (procedure) Resolved Problem 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 [facility] Disorder of carotid artery (disorder) [facility] Diabetes mellitus (disorder) A ctive Problem [facility] Diabetic neuropathy (disorder) Active Problem MANUEL [place],[facility] Hypercholesterolemia (disorder) Active Problem MANUEL [place],[facility] Hypertensive disorder, systemic arterial (disorder) Active Problem 12/10/2017 MANUEL [place],[facility] Psoriasis (disorder) Active Problem [facility]/10/[facility] PNEUMONIA, ORGANISM NOS Active [facility] MALAISE AND FATIGUE NEC Active [facility] CELLULITIS OF RIGHT LOWER LIMB Active [facility] OSTEOMYELITIS OF RIGHT ORBIT A ctive [facility] OTHER INJURY OF UNSPECIFIED BODY REGION Active [facility] Medications Medication Details Route Status Patient Instructions Ordering Provider Order Date Source Insulin Glargine 100 UNT/ML Injectable Solution 80 unit, SUB-Q, Bedtime, 0 Refill(s) Active 02/07/2017 [facility] cefdinir 300 MG Oral Capsule [Omnicef] 300 mg = 1 cap, PO, Daily, X 10 day, # 10 cap, 0 Refill(s), Pharmacy: [facility] [id number] Active 02/07/2017 [facility] ciprofloxacin 500 mg oral tablet 500 mg = 1 tab, PO, Daily, X 10 day, # 10 tab, 0 Refill(s), Pharmacy: [facility] [id number] Active 02/07/2017 [facility] Amlodipine 5 MG Oral Tablet [Norvasc] 5 mg = 1 tab, PO, Daily, # 30 tab, 0 Refill(s), Pharmacy: [facility] [id number] Active 02/07/2017 [facility] Kayexalate Notes: (sodium poly styrene sulfonate 15 gm/60 ml VONNIE) Shake well before use. (Same as: Kayexalate, SPS) Inactive 02/07/2017 [facility] Hydralazine Notes: (Same as: A presoline) Push over 5 minutes Inactive 02/07/2017 [facility] Ceftriaxone Notes: (Same As: Hue ayala). Use [...] 5 MG Oral Tablet Notes: (Same as: [place] 325/5) Do not ex ceed 4gm/day of [...] date: 03/07/17 6:18:00 CDT Inactive 02/05/2017 [facility] insulin detemir 80 unit, Route : SUB-Q, Bedtime, Dosing Weight 139.364, kg, Start date: 02/04/17 21:00:00 CDT, Duration: 30 day, Stop date: 03/05/17 21:00:00 CDT Inactive 02/05/2017 [facility] heparin Notes: porcine heparin Inactive 02/05/2017 [facility] insulin glargine Notes: (Same as: Lantus) Do not hold insulin without contacting prescriber WASTE: F/P - Black; E - Municipal Trash Bin "single patient use only" No Longer Active 02/05/2017 [facility] atorvastatin Notes: (Same As: Lipitor) No Longer Active 02/05/2017 [facility] vancomycin + sodium chloride 0.9% INJ 250 mL 2001 mg: infuse over 2.5 hours MEDICATION WASTE Product Size: 1000 mg Product Wasted: ___ mg No Longer Active 02/05/2017 [facility] Zosyn + sodium chloride 0.9% INJ 100 mL Notes: (Same as: Zosyn) Dosing based on Piperacillin component MEDICATION WASTE Product Size: 3375 mg Product Wasted: ___ mg No Longer Active 02/05/2017 [facility] Humalog See Instructions, SUB- Q, 0 Refill(s), Pt uses this for sliding scale No Longer Active 02/04/2017 [facility] Amoxicillin 875 MG / Clavulanate 125 MG Oral Tablet 1 tab, PO, BID, # 20 tab, 0 Refill(s) No Longer Active 02/04/2017 [facility] Furosemide 40 mg, Daily, 0 Ref ill(s) No Longer Active 02/04/2017 [facility] Lisinopril 10 mg, PO, Daily, 0 Refill(s) No Longer Active 02/04/2017 [facility] Trujeo Trujeo, 50 units, SUB-Q , QAM, Refill(s) 0 No Longer Active 02/04/2017 [facility] Vancomycin 1,000 mg, Route: IV PB, Drug form: INJ, [id number], Dosing Weight 110.909, kg, Start date: 02/04/17 16:00:00 CDT, Duration: 10 day, Stop date: 02/13/17 16:00:00 CDT, ABX Indication: Bone/Joint Infection Inactive 02/04/2017 [facility] Dakins Half Strength Solution 0.25% topical Notes: Note: half-strength = 0.25% sodium hypochlorite. Inactive 02/04/2017 [facility] Zosyn 3.375 gm, Route: IVPB, D rug form: PDR/INJ, [id number], Dosing Weight 110.909, kg, Start date: 02/04/17 16:00:00 CDT, Duration: 10 day, Stop date: 02/14/17 10:00:00 CDT, ABX Indication: Bone/Joint Infection Inactive 02/04/2017 [facility] cefepime 1 g injection 1 gm, I V, Q12H, X 10 day, # 20 ea, 0 Refill(s), other Active 01/18/2015 [facility] Vancomycin 1.5 gm = 250 mL, IV PB, [id number], 0 Refill(s) Active 01/18/2015 [facility] Enoxaparin 40 mg = 0.4 mL, SUB -Q, [id number], 0 Refill(s) Active 01/18/2015 [facility] epoetin darnell 10,000 units/mL injectable solution 10,000 unit = 1 mL, SUB-Q, [id number]-[id number], 0 Refill(s) Active 01/18/2015 [facility] cefepime 1 gm, Route: IVPB, AB XQ12H, Dosing Weight 124.727, kg, Start date: 01/17/15 13:00:00, Duration: 30 day, Stop date: 02/16/15 1:00:00 Inactive 01/17/2015 [facility] NS 1,000 mL 1,000 mL, Rate: 50 ml/hr, Infuse over: 20 hr, Route: IV, Dosing Weight 124.727 kg, Total Volume: 1,000, Start date: 01/17/15 10:50:00, Duration: 30 day, Stop date: 02/16/15 10:49:00 Inactive 01/17/2015 [facility] ergocalciferol 50,000 IntlUnit , 1 cap, Route: PO, Drug form: CAP, QTue, Dosing Weight 112.4, kg, Start date: 01/17/15 9:00:00, Duration: 30 day, Stop date: 02/14/15 9:00:00 Inactive 01/17/2015 [facility] Insulin, Aspart, Human Notes: Roll in palms of hands gently; Do not shake vigorously. (Same as: NovoLOG) "single patient use only" Stable for 28 days at room temperature. Expires in days from Date Inactive 01/17/2015 [facility] Glucagon 1 mg, Route: IM, Drug form: PDR/INJ, PRN, Dosing Weight 124.727, kg, PRN Blood Glucose Results, Start date: 01/17/15 4:45:00, Duration: 30 day, Stop date: 02/16/15 4:44:00 Inactive 01/17/2015 [facility] Dextrose 50% Syringe 25 gm, 50 mL, Route: IVP, Drug Form: INJ, Dosing Weight 124.727, kg, PRN, PRN Blood Glucose Results, Start date: 01/17/15 4:45:00, Duration: 30 day, Stop date: 02/16/15 4:44:00 Inactive 01/17/2015 [facility] Sodium Chloride 0.154 MEQ/ML Injectable Solution 500 mL, 500 ml/hr, Infuse Over: 1 hr, Route: IV, 500, Drug form: INJ, ONCE, Priority: STAT, Dosing Weight 112.4 kg, Start date: 01/16/15 17:59:00, Duration: 1 doses or times, Stop date: 01/16/15 17:59:00 Inactive 01/16/2015 [facility] Epogen Notes: (Same as: Procri t) epoetin darnell 17312 unit/1 ml VL. For dialysis use only. (Procrit) MEDICATION WASTE Product Size: 21478 unit Product Wasted: ___ unit No Longer Active 01/16/2015 [facility] Sodium Chloride 0.154 MEQ/ML Injectable Solution 500 mL, 500 ml/hr, Infuse Over: 1 hr, Route: IV, ONCE, Priority: STAT, Dosing Weight 112.4 kg, Start date: 01/16/15 16:35:00, Duration: 1 doses or times, Stop date: 01/16/15 16:35:00 Inactive 01/16/2015 [facility] Furosemide Notes: (Same as: La six) May cause GI upset. Give with food or milk. Inactive 01/16/2015 [facility] Vancomycin 2001 mg: infuse ov er 2.5 hours No Longer Active 01/16/2015 [facility] NS 1,000 mL 1,000 mL, Rate: 75 ml/hr, Infuse over: 13.3 hr, Route: IV, Dosing Weight 112.4 kg, Total Volume: 1,000, Start date: 01/16/15 8:32:00, Duration: 30 day, Stop date: 02/15/15 8:31:00 No Longer Active 01/16/2015 [facility] NovoLOG FlexPen Notes: Roll in palms of hands gently; Do not shake vigorously. (Same as: NovoLOG) "single patient use only" Stable for 28 days at room temperature. Expires in days from Date No Longer Active 01/16/2015 [facility] Humalog 8 unit, Route: SUB-Q, QAM (Insulin), Dosing Weight 112.4, kg, Start date: 01/16/15 7:30:00, Duration: 30 day, Stop date: 02/14/15 7:30:00 No Longer Active 01/16/2015 [facility] atorvastatin 10 mg, Route: PO, Drug form: TAB, Bedtime, Dosing Weight 112.4, kg, Start date: 01/15/15 21:00:00, Duration: 30 day, Stop date: 02/13/15 21:00:00 Inactive 01/16/2015 [facility] Lantus Notes: Same as Laxmi S ernestoostar PEN "single patient use only" Stable for 28 days at room temperature. Expires in days from Date No Longer Active 01/16/2015 [facility] Vancomycin Notes: TIME CRITICA L MEDICATION No Longer Active 01/16/2015 [facility] Hydrochlorothiazide 12.5 MG / Lisinopril 10 MG Oral Tablet [Zestoretic 10/12.5] 1 tab, Route: PO, Drug Form: TAB, Dosing Weight 112.4, kg, BID, Start date: 01/15/15 17:00:00, Duration: 30 day, Stop date: 02/14/15 9:00:00 Inactive 01/15/2015 [facility] Lyrica Notes: Same as Lyrica No Longer Active 01/15/2015 [facility] Prinivil Notes: (Same as: Prin ivil, Zestril) Inactive 01/15/2015 [facility] hydrochlorothiazide 25 mg oral tablet Notes: (Same as: Hydrodiuril) With food. Inactive 01/15/2015 [facility] NovoLOG FlexPen Notes: Roll in palms of hands gently; Do not shake vigorously. (Same as: NovoLOG) "single patient use only" Stable for 28 days at room temperature. Expires in days from Date No Longer Active 01/15/2015 [facility] Humalog 5 unit, Route: SUB-Q, QPM (Insulin), Dosing Weight 112.4, kg, Start date: 01/15/15 16:30:00, Duration: 30 day, Stop date: 02/13/15 16:30:00 Inactive 01/15/2015 [facility] NovoLOG FlexPen Notes: Roll in palms of hands gently; Do not shake vigorously. (Same as: NovoLOG) "single patient use only" Stable for 28 days at room temperature. Expires in days from Date No Longer Active 01/15/2015 [facility] Bisoprolol Notes: (Same As: Ze beta) No Longer Active 01/15/2015 [facility] Aspirin 81 mg, 1 tab, Route: P O, Drug form: ECTAB, Daily, Dosing Weight 112.4, kg, Start date: 01/15/15 12:30:00, Duration: 30 day, Stop date: 02/14/15 9:00:00 No Longer Active 01/15/2015 [facility] Humalog 5 unit, Route: SUB-Q, QNoon, Dosing Weight 112.4, kg, Start date: 01/15/15 12:00:00, Duration: 30 day, Stop date: 02/13/15 12:00:00 Inactive 01/15/2015 [facility] cefepime Notes: (Same As: Yossi jama) MEDICATION WASTE Product Size: 1000 mg Product Wasted: ___ mg No Longer Active 01/15/2015 [facility] Enoxaparin Notes: (Same as: Lo venox) No Longer Active 01/15/2015 [facility] Sodium Chloride 0.9% IV 25 mL, Route: IV, Start date: 01/15/15 10:59:00, Duration: 30 day, Stop date: 02/14/15 10:58:00, PRN Line Flush No Longer Active 01/15/2015 [facility] BD Normal Saline Flush Notes: (Same as: BD Posiflush) No Longer Active 01/15/2015 [facility] Ergocalciferol 50333 UNT Oral Capsule 50,000 IntlUnit = 1 cap, PO, QTue, 0 Refill(s) Active 01/15/2015 [facility] Bisoprolol 10 mg, PO, Daily, 0 Refill(s) Active 01/15/2015 [facility] Humalog 5 unit, SUB-Q, QPM (In sulin), 0 Refill(s) No Longer Active 01/15/2015 [facility] Aspirin Low Dose 81 mg oral tablet = 1 tab, PO, Daily, # 30 tab, 1 Refill(s) Active 01/15/2015 [facility] Sodium Chloride 0.154 MEQ/ML Injectable Solution 250 mL, 250 ml/hr, Infuse Over: 1 hr, Route: IV, 250, Drug form: INJ, ONCE, Priority: STAT, Dosing Weight 118.182 kg, Start date: 01/15/15 7:49:00, Duration: 1 doses or times, Stop date: 01/15/15 7:49:00 Inactive 01/15/2015 [facility] Vancomycin Notes: TIME CRITICA L MEDICATION Inactive 01/15/2015 [facility] Levaquin Notes: (Same as:Levaq uin) Inactive 01/15/2015 [facility] Zosyn Notes: (Same as: Zosyn) Dosing based on Piperacillin component MEDICATION WASTE Product Size: 3375 mg Product Wasted: _0__ mg Inactive 01/15/2015 [facility] Sodium Chloride 0.154 MEQ/ML Injectable Solution 250 mL, 250 ml/hr, Infuse Over: 1 hr, Route: IV, 250, Drug form: INJ, ONCE, Priority: STAT, Dosing Weight 118.182 kg, Start date: 01/15/15 6:48:00, Duration: 1 doses or times, Stop date: 01/15/15 6:48:00 Inactive 01/15/2015 [facility] Saline Flush 0.9% Notes: (Same as: BD Posiflush) No Longer Active 01/15/2015 [facility] normal saline 0.9% IV 500 mL 5 00 mL, Rate: 100 ml/hr, Infuse over: 5 hr, Route: IV, Dosing Weight 126.818 kg, Total Volume: 500, Start date: 11/08/14 12:54:00, Duration: 30 day, Stop date: 12/08/14 12:53:00 Inactive 11/08/2014 [facility] Acetaminophen Notes: Do not ex ceed 4 gm/day. (Same as: Tylenol) Inactive 11/08/2014 [facility] Ondansetron Notes: (Same as: Faiza long) MEDICATION WASTE Product Size: 4 mg Product Wasted: ___ mg Inactive 11/08/2014 [facility] Psoriasis Drug Study Psoriasis Drug Study, Q30D, Refill(s) 0 Active 11/04/2014 [facility] atorvastatin 10 mg oral tablet 10 mg = 1 tab, PO, Bedtime Active 11/04/2014 [facility] gemfibrozil 600 mg oral tablet 600 mg = 1 tab, PO, BID Active 11/04/2014 [facility] 24 HR Metformin hydrochloride 500 MG Ext ended Release Tablet [Glumetza] 500 mg = 1 tab, PO, Daily Active 11/04/2014 [facility] Lantus 80 unit, SUB-Q, Bedtime Active 11/04/2014 [facility] Humalog 50 unit, SUB-Q, TID-Be fore Meals, 0 Refill(s) Active 11/04/2014 [facility] Aspirin 81 MG Enteric Coated Tablet 81 mg = 1 tab, PO, Daily Active 11/04/2014 [facility] pregabalin 150 MG Oral Capsule [Lyrica] 150 mg = 1 cap, PO, TID Active 11/04/2014 [facility] Hydrochlorothiazide 12.5 MG / Lisinopril 10 MG Oral Tablet [Zestoretic 10/12.5] 1 tab, PO, BID Active 11/04/2014 [facility] bisoprolol 5 mg oral tablet 5 mg = 1 tab, PO, Daily Active 11/04/2014 [facility] Allergies, Adverse Reactions, Alerts Substance Category Reaction Severity Reaction type Status Date Reported Comments Source NKFA Assertion Drug allergy Active [facility] Immunizations Immunization Date Given Site Status Last Updated Comments Source pneumococcal 23-valent vaccine 01/16/2015 Left deltoid completed Rakel MANUEL Crespo,[facility] Results Order Name Results Value Reference Range Date Interpretation Comments Source ELECTROLYTES Potassium Lvl 4.3 3.5 - 5.1 02/07/2017 [facility] CHEM PANEL Phosphorus 3.8 2.5 - 4.5 02/07/2017 [facility] CHEM PANEL Magnesium Lvl 2.6 1.8 - 2.4 02/07/2017 [facility] CHEM PANEL eGFR 45 02/07/2017 Result Comment: [...] should be multiplied by the estimated BMI. [facility] CHEM PANEL Calcium Lvl 8.8 8.5 - 10.5 02/07/2017 [facility] CHEM PANEL CO2 30 24 - 32 02/07/2017 [facility] CHEM PANEL Potassium Lvl 5.5 3.5 - 5.1 02/07/2017 [facility] CHEM PANEL Chloride Lvl 101 95 - 109 02/07/2017 [facility] CHEM PANEL BUN 20 7 - 22 02/07/2017 [facility] CHEM PANEL Creatinine Lvl 1.61 0.50 - 1.40 02/07/2017 [facility] CHEM PANEL Sodium Lvl 135 135 - 145 02/07/2017 [facility] CHEM PANEL Glucose Lvl 267 70 - 99 02/07/2017 [facility] CHEM PANEL AGAP 9.5 10.0 - 20.0 02/07/2017 [facility] HEMATOLOGY RDW 15.8 11.5 - 14.5 02/07/2017 [facility] HEMATOLOGY MCV 82.0 80.0 - 94.0 02/07/2017 [facility] HEMATOLOGY MCH 27.6 27.0 - 31.0 02/07/2017 [facility] HEMATOLOGY MCHC 33.6 32.0 - 36.0 02/07/2017 [facility] HEMATOLOGY Hct 38.2 42.0 - 54.0 02/07/2017 [facility] HEMATOLOGY Platelet 170 133 - 450 02/07/2017 [facility] HEMATOLOGY MPV 9.6 7.4 - 10.4 02/07/2017 [facility] HEMATOLOGY WBC 7.4 3.7 - 10.4 02/07/2017 [facility] HEMATOLOGY RBC 4.65 4.70 - 6.10 02/07/2017 [facility] HEMATOLOGY Hgb 12.8 14.0 - 18.0 02/07/2017 [facility] HEMATOLOGY Basophils # 0.1 0.0 - 0.2 02/07/2017 [facility] HEMATOLOGY Monocytes # 0.9 0.0 - 0.8 02/07/2017 [facility] HEMATOLOGY Eosinophils # 0.3 0.0 - 0.5 02/07/2017 [facility] HEMATOLOGY Basophils 0.8 0.0 - 1.0 02/07/2017 [facility] HEMATOLOGY Eosinophils 3.7 0.0 - 4.0 02/07/2017 [facility] HEMATOLOGY Lymphocytes # 1.1 1.0 - 5.5 02/07/2017 [facility] HEMATOLOGY Segs-Bands # 5.0 1.5 - 8.1 02/07/2017 [facility] HEMATOLOGY Segs 67.7 45.0 - 75.0 02/07/2017 [facility] HEMATOLOGY Lymphocytes 15.0 20.0 - 40.0 02/07/2017 [facility] HEMATOLOGY Monocytes 12.8 2.0 - 12.0 02/07/2017 [facility] CHEM PANEL eGFR 50 02/06/2017 Result Comment: [...] should be multiplied by the estimated BMI. [facility] CHEM PANEL Potassium Lvl 4.4 3.5 - 5.1 02/06/2017 [facility] CHEM PANEL Chloride Lvl 106 95 - 109 02/06/2017 [facility] CHEM PANEL CO2 29 24 - 32 02/06/2017 [facility] CHEM PANEL Calcium Lvl 8.6 8.5 - 10.5 02/06/2017 [facility] CHEM PANEL Creatinine Lvl 1.47 0.50 - 1.40 02/06/2017 [facility] CHEM PANEL BUN 19 7 - 22 02/06/2017 [facility] CHEM PANEL Glucose Lvl 164 70 - 99 02/06/2017 [facility] CHEM PANEL Sodium Lvl 139 135 - 145 02/06/2017 [facility] CHEM PANEL AGAP 8.4 10.0 - 20.0 02/06/2017 [facility] HEMATOLOGY Lymphocytes # 0.9 1.0 - 5.5 02/06/2017 [facility] HEMATOLOGY Eosinophils # 0.2 0.0 - 0.5 02/06/2017 [facility] HEMATOLOGY Basophils # 0.1 0.0 - 0.2 02/06/2017 [facility] HEMATOLOGY Segs 76.4 45.0 - 75.0 02/06/2017 [facility] HEMATOLOGY Monocytes # 0.9 0.0 - 0.8 02/06/2017 [facility] HEMATOLOGY Basophils 0.6 0.0 - 1.0 02/06/2017 [facility] HEMATOLOGY Lymphocytes 10.7 20.0 - 40.0 02/06/2017 [facility] HEMATOLOGY Eosinophils 2.0 0.0 - 4.0 02/06/2017 [facility] HEMATOLOGY Segs-Bands # 6.5 1.5 - 8.1 02/06/2017 [facility] HEMATOLOGY Monocytes 10.3 2.0 - 12.0 02/06/2017 [facility] HEMATOLOGY RDW 16.4 11.5 - 14.5 02/06/2017 [facility] HEMATOLOGY MCHC 33.4 32.0 - 36.0 02/06/2017 [facility] HEMATOLOGY MCH 27.3 27.0 - 31.0 02/06/2017 [facility] HEMATOLOGY WBC 8.5 3.7 - 10.4 02/06/2017 [facility] HEMATOLOGY RBC 4.74 4.70 - 6.10 02/06/2017 [facility] HEMATOLOGY Platelet 177 133 - 450 02/06/2017 [facility] HEMATOLOGY MPV 9.6 7.4 - 10.4 02/06/2017 [facility] HEMATOLOGY MCV 82.0 80.0 - 94.0 02/06/2017 [facility] HEMATOLOGY Hgb 13.0 14.0 - 18.0 02/06/2017 [facility] HEMATOLOGY Hct 38.8 42.0 - 54.0 02/06/2017 [facility] CHEM PANEL Calcium Lvl 8.8 8.5 - 10.5 02/05/2017 [facility] CHEM PANEL Chloride Lvl 107 95 - 109 02/05/2017 [facility] CHEM PANEL eGFR 48 02/05/2017 Result Comment: [...] should be multiplied by the estimated BMI. [facility] CHEM PANEL CO2 30 24 - 32 02/05/2017 [facility] CHEM PANEL Sodium Lvl 140 135 - 145 02/05/2017 [facility] CHEM PANEL BUN 23 7 - 22 02/05/2017 [facility] CHEM PANEL Creatinine Lvl 1.50 0.50 - 1.40 02/05/2017 [facility] CHEM PANEL Glucose Lvl 103 70 - 99 02/05/2017 [facility] CHEM PANEL AGAP 7.6 10.0 - 20.0 02/05/2017 [facility] HEMATOLOGY PTT 29.3 22.9 - 35.8 02/05/2017 [facility] HEMATOLOGY PT 13.4 12.0 - 14.7 02/05/2017 [facility] HEMATOLOGY INR 1.00 0.85 - 1.17 02/05/2017 [facility] HEMATOLOGY Platelet 176 133 - 450 02/05/2017 [facility] HEMATOLOGY MCV 81.8 80.0 - 94.0 02/05/2017 [facility] HEMATOLOGY MCH 27.3 27.0 - 31.0 02/05/2017 [facility] HEMATOLOGY MCHC 33.4 32.0 - 36.0 02/05/2017 [facility] HEMATOLOGY Hgb 13.1 14.0 - 18.0 02/05/2017 [facility] HEMATOLOGY Hct 39.3 42.0 - 54.0 02/05/2017 [facility] HEMATOLOGY RDW 15.7 11.5 - 14.5 02/05/2017 [facility] HEMATOLOGY RBC 4.80 4.70 - 6.10 02/05/2017 [facility] HEMATOLOGY WBC 7.8 3.7 - 10.4 02/05/2017 [facility] HEMATOLOGY MPV 9.4 7.4 - 10.4 02/05/2017 [facility] HEMATOLOGY Basophils # 0.1 0.0 - 0.2 02/05/2017 [facility] HEMATOLOGY Eosinophils 2.0 0.0 - 4.0 02/05/2017 [facility] HEMATOLOGY Segs 71.3 45.0 - 75.0 02/05/2017 [facility] HEMATOLOGY Lymphocytes 14.4 20.0 - 40.0 02/05/2017 [facility] HEMATOLOGY Monocytes 11.4 2.0 - 12.0 02/05/2017 [facility] HEMATOLOGY Segs-Bands # 5.6 1.5 - 8.1 02/05/2017 [facility] HEMATOLOGY Lymphocytes # 1.1 1.0 - 5.5 02/05/2017 [facility] HEMATOLOGY Eosinophils # 0.2 0.0 - 0.5 02/05/2017 [facility] HEMATOLOGY Basophils 0.9 0.0 - 1.0 02/05/2017 [facility] HEMATOLOGY Monocytes # 0.9 0.0 - 0.8 02/05/2017 [facility] URINE AND STOOL UA Nitrite Negative (02/05/17 1:40 AM) Negative 02/05/2017 [facility] URINE AND STOOL UA Leuk Est Negative (02/05/17 1:40 AM) Negative 02/05/2017 [facility] URINE AND STOOL Micro? Not Indicated (02/05/17 1:40 AM) 02/05/2017 [facility] URINE AND STOOL UA Urobilinogen 0.2 0.1 - 1.0 02/05/2017 [facility] URINE AND STOOL UA Blood Negative (02/05/17 1:40 AM) Negative 02/05/2017 [facility] URINE AND STOOL UA Turbidity Clear (02/05/17 1:40 AM) Clear 02/05/2017 [facility] URINE AND STOOL UA Color STRAW 02/05/2017 [facility] URINE AND STOOL UA Spec Grav <=1.005 *NA* (02/05/17 1:40 AM) <=1.030 02/05/2017 [facility] URINE AND STOOL UA Ketones Negative *NA* (02/05/17 1:40 AM) Negative 02/05/2017 [facility] URINE AND STOOL UA pH 6.0 5.0 - 8.0 02/05/2017 [facility] URINE AND STOOL UA Protein Negative (02/05/17 1:40 AM) Negative 02/05/2017 [facility] URINE AND STOOL UA Glucose Negative (02/05/17 1:40 AM) Negative 02/05/2017 [facility] URINE AND STOOL UA Bili Negative *NA* (02/05/17 1:40 AM) Negative 02/05/2017 [facility] HEMATOLOGY INR 0.98 0.85 - 1.17 02/04/2017 [facility] HEMATOLOGY PTT 20.5 22.9 - 35.8 02/04/2017 [facility] HEMATOLOGY PT 13.2 12.0 - 14.7 02/04/2017 [facility] HEMATOLOGY Sed Rate 20 0 - 15 02/04/2017 [facility] HEMATOLOGY PT 13.2 12.0 - 14.7 02/04/2017 [facility] HEMATOLOGY INR 0.98 0.85 - 1.17 02/04/2017 [facility] SPECIAL CHEMISTRY Hgb A1C 7.3 <=5.6 % 02/04/2017 [facility] TOXICOLOGY Vanco Tr 19.0 01/17/2015 [facility] TOXICOLOGY Vanco Tr TND 0900 01/17/2015 [facility] CHEM PANEL BUN 34 7 - 22 01/17/2015 [facility] CHEM PANEL CO2 24 24 - 32 01/17/2015 [facility] CHEM PANEL eGFR 46 01/17/2015 Result Comment: [...] be multiplied by the estimated BMI. [facility] CHEM PANEL AGAP 14.7 10.0 - 20.0 01/17/2015 [facility] CHEM PANEL Chloride Lvl 100 95 - 109 01/17/2015 [facility] CHEM PANEL Glucose Lvl 125 70 - 99 01/17/2015 [facility] CHEM PANEL Calcium Lvl 7.5 8.5 - 10.5 01/17/2015 [facility] CHEM PANEL Sodium Lvl 134 135 - 145 01/17/2015 [facility] CHEM PANEL Potassium Lvl 4.7 3.5 - 5.1 01/17/2015 [facility] CHEM PANEL Creatinine Lvl 1.6 0.5 - 1.4 01/17/2015 [facility] HEMATOLOGY RBC Morph Neli l (01/17/15 3:36 AM) 01/17/2015 [facility] HEMATOLOGY Basophils 0.4 0.0 - 1.0 01/17/2015 [facility] HEMATOLOGY Lymphocytes 7.2 20.0 - 40.0 01/17/2015 [facility] HEMATOLOGY Eosinophils 2.1 0.0 - 4.0 01/17/2015 [facility] HEMATOLOGY Segs 80.7 45.0 - 75.0 01/17/2015 [facility] HEMATOLOGY Monocytes 9.6 2.0 - 12.0 01/17/2015 [facility] Monocytes # 1.2 0.0 - 0.8 01/17/2015 [facility] HEMATOLOGY Eosinophils # 0.3 0.0 - 0.5 01/17/2015 [facility] Segs-Bands # 9.9 1.5 - 8.1 01/17/2015 [facility] Lymphocytes # 0.9 1.0 - 5.5 01/17/2015 [facility] Large Plt Moder ate *ABN* (01/17/15 3:36 AM) None Seen 01/17/2015 [facility] Basophils # 0.1 0.0 - 0.2 01/17/2015 [facility] HEMATOLOGY Hct 25.0 42.0 - 54.0 01/17/2015 [facility] HEMATOLOGY MCH 27.0 27.0 - 31.0 01/17/2015 [facility] HEMATOLOGY Platelet 235 133 - 450 01/17/2015 [facility] HEMATOLOGY MCV 83.6 80.0 - 94.0 01/17/2015 [facility] HEMATOLOGY MPV 9.7 7.4 - 10.4 01/17/2015 [facility] MCHC 32.3 32.0 - 36.0 01/17/2015 [facility] HEMATOLOGY RDW 16.6 11.5 - 14.5 01/17/2015 [facility] HEMATOLOGY WBC 12.2 3.7 - 10.4 01/17/2015 [facility] HEMATOLOGY Hgb 8.1 14.0 - 18.0 01/17/2015 [facility] HEMATOLOGY RBC 2.99 4.70 - 6.10 01/17/2015 [facility] CHEM PANEL Albumin Lvl 2.4 3.5 - 5.0 01/16/2015 [facility] CHEM PANEL CO2 24 24 - 32 01/16/2015 [facility] CHEM PANEL eGFR 42 01/16/2015 Result Comment: [...] be multiplied by the estimated BMI. [facility] CHEM PANEL Potassium Lvl 4.8 3.5 - 5.1 01/16/2015 [facility] CHEM PANEL Chloride Lvl 97 95 - 109 01/16/2015 [facility] CHEM PANEL Creatinine Lvl 1.7 0.5 - 1.4 01/16/2015 [facility] CHEM PANEL Sodium Lvl 132 135 - 145 01/16/2015 [facility] CHEM PANEL Calcium Lvl 7.9 8.5 - 10.5 01/16/2015 [facility] CHEM PANEL Alk Phos 129 39 - 136 01/16/2015 [facility] CHEM PANEL AST 16 0 - 37 01/16/2015 [facility] CHEM PANEL Bili Total 1.1 0.2 - 1.3 01/16/2015 [facility] CHEM PANEL Total Protein 5.8 6.4 - 8.4 01/16/2015 [facility] CHEM PANEL BUN 31 7 - 22 01/16/2015 [facility] CHEM PANEL ALT 28 0 - 65 01/16/2015 [facility] CHEM PANEL Glucose Lvl 184 70 - 99 01/16/2015 [facility] CHEM PANEL AGAP 15.8 10.0 - 20.0 01/16/2015 [facility] CHEM PANEL Globulin 3.4 2.0 - 4.0 01/16/2015 [facility] CHEM PANEL B/C Ratio 18 6 - 25 01/16/2015 [facility] CHEM PANEL A/G Ratio 0.7 0.7 - 1.6 01/16/2015 [facility] CHEM PANEL Phosphorus 3.1 2.5 - 4.5 01/16/2015 [facility] HEMATOLOGY MPV 9.4 7.4 - 10.4 01/16/2015 [facility] HEMATOLOGY Platelet 269 133 - 450 01/16/2015 [facility] MCHC 32.5 32.0 - 36.0 01/16/2015 [facility] HEMATOLOGY RDW 16.4 11.5 - 14.5 01/16/2015 [facility] MCH 27.3 27.0 - 31.0 01/16/2015 [facility] HEMATOLOGY MCV 83.8 80.0 - 94.0 01/16/2015 [facility] HEMATOLOGY Hct 27.1 42.0 - 54.0 01/16/2015 [facility] HEMATOLOGY Hgb 8.8 14.0 - 18.0 01/16/2015 [facility] HEMATOLOGY RBC 3.23 4.70 - 6.10 01/16/2015 [facility] HEMATOLOGY WBC 17.5 3.7 - 10.4 01/16/2015 [facility] HEMATOLOGY Lymphocytes # 0.8 1.0 - 5.5 01/16/2015 [facility] HEMATOLOGY Monocytes # 1.9 0.0 - 0.8 01/16/2015 [facility] HEMATOLOGY Eosinophils # 0.0 0.0 - 0.5 01/16/2015 [facility] HEMATOLOGY Eosinophils 0.1 0.0 - 4.0 01/16/2015 [facility] HEMATOLOGY Monocytes 11.0 2.0 - 12.0 01/16/2015 [facility] HEMATOLOGY Segs-Bands # 14.7 1.5 - 8.1 01/16/2015 [facility] HEMATOLOGY Basophils 0.3 0.0 - 1.0 01/16/2015 [facility] HEMATOLOGY Segs 84.0 45.0 - 75.0 01/16/2015 [facility] Lymphocytes 4.6 20.0 - 40.0 01/16/2015 [facility] HEMATOLOGY Plt Morph Neli l (01/16/15 3:45 AM) 01/16/2015 [facility] HEMATOLOGY Basophils # 0.1 0.0 - 0.2 01/16/2015 [facility] HEMATOLOGY RBC Morph Neli l (01/16/15 3:45 AM) 01/16/2015 [facility] IMMUNOLOGY CRP, High Sensitivity >19 0.0 mg/L 01/16/2015 [facility] TOXICOLOGY Vanco Tr TND 2030 01/16/2015 [facility] TOXICOLOGY Vanco Tr 4.8 01/16/2015 [facility] CARDIAC ENZYMES CK MB 0.8 0.5 - 3.6 01/15/2015 [facility] CARDIAC ENZYMES Total CK 41 12 - 191 01/15/2015 [facility] CARDIAC ENZYMES Troponin-I 0.51 0.00 - 0.40 01/15/2015 Result Comment: Critical Result(s) jo quiroga at 01/15/2015 18:49 by bk. Read back OK. [facility] URINE AND STOOL UA Urobilinogen <=1.0 mg/dL 0.1 - 1.0 01/15/2015 [facility] URINE AND STOOL UA Bili Negative *NA* (01/15/15 4:40 PM) Negative 01/15/2015 [facility] URINE AND STOOL UA Ketones Negative mg/dL Negative mg/dL 01/15/2015 [facility] URINE AND STOOL UA Glucose Negative mg/dL Negative mg/dL 01/15/2015 [facility] URINE AND STOOL UA Protein 20 mg/dL Negative mg/dL 01/15/2015 [facility] URINE AND STOOL UA Nitrite Negative (01/15/15 4:40 PM) Negative 01/15/2015 [facility] URINE AND STOOL UA Blood Negative (01/15/15 4:40 PM) Negative 01/15/2015 [facility] URINE AND STOOL UA Leuk Est Negative (01/15/15 4:40 PM) Negative 01/15/2015 [facility] URINE AND STOOL UA Mucus Few /LPF None Seen /LPF 01/15/2015 [facility] URINE AND STOOL UA RBC <1 0 - 2 01/15/2015 [facility] URINE AND STOOL UA WBC 1 0 - 5 01/15/2015 [facility] URINE AND STOOL UA Sq Epi Few /LPF Few /LPF 01/15/2015 [facility] URINE AND STOOL UA pH 5.0 5.0 - 8.0 01/15/2015 [facility] URINE AND STOOL UA Color Yellow *NA* (01/15/15 4:40 PM) Yellow 01/15/2015 [facility] URINE AND STOOL UA Spec Grav 1.017 <=1.030 01/15/2015 [facility] URINE AND STOOL UA Turbidity Clear (01/15/15 4:40 PM) Clear 01/15/2015 [facility] URINE CHEM U Microalb 54.6 01/15/2015 [facility] URINE CHEM U Creatinine 158.5 01/15/2015 [facility] URINE CHEM U Alb/Crea 34.4 <=30.0 mcg/mg creat 01/15/2015 [facility] URINE CHEM U Sodium <5 01/15/2015 [facility] URINE CHEM U Eos None Seen (01/15/15 4:40 PM) None Seen 01/15/2015 [facility] CARDIAC ENZYMES CK MB 0.7 0.5 - 3.6 01/15/2015 [facility] CARDIAC ENZYMES Total CK 40 12 - 191 01/15/2015 [facility] CARDIAC ENZYMES Troponin-I 0.54 0.00 - 0.40 01/15/2015 Result Comment: Critical Result(s) osorio d to Leilani Quiroga at 01/15/2015 12:55 by hy. Read back OK. [facility] CHEM PANEL eGFR 42 01/15/2015 Result Comment: [...] be multiplied by the estimated BMI. [facility] CHEM PANEL Creatinine Lvl 1.7 0.5 - 1.4 01/15/2015 [facility] HEMATOLOGY Platelet 294 133 - 450 01/15/2015 [facility] VIRAL - SEROLOGY Influ A Negative (01/15/15 6:50 AM) Negative 01/15/2015 [facility] VIRAL - SEROLOGY Influ B Negative (01/15/15 6:50 AM) Negative 01/15/2015 [facility] CARDIAC ENZYMES Troponin-I 0.66 0.00 - 0.40 01/15/2015 Result Comment: Critical Result(s) osorio d to zoran head rn at 01/15/2015 06:26 by hp. Read back OK. [facility] CARDIAC ENZYMES BNP 1369 <=100 pg/mL 01/15/2015 [facility] CARDIAC ENZYMES Total CK 42 12 - 191 01/15/2015 [facility] CARDIAC ENZYMES CK MB 0.8 0.5 - 3.6 01/15/2015 [facility] CARDIAC ENZYMES CK MB Index 1.9 0.0 - 2.5 01/15/2015 [facility] CHEM PANEL Lactic Acid Lvl 1.8 0.5 - 2.2 01/15/2015 [facility] CHEM PANEL Total Protein 6.6 6.4 - 8.4 01/15/2015 [facility] CHEM PANEL AST 17 0 - 37 01/15/2015 [facility] CHEM PANEL Alk Phos 157 39 - 136 01/15/2015 [facility] CHEM PANEL ALT 34 0 - 65 01/15/2015 [facility] CHEM PANEL Bili Total 1.1 0.2 - 1.3 01/15/2015 [facility] CHEM PANEL B/C Ratio 18 6 - 25 01/15/2015 [facility] CHEM PANEL A/G Ratio 0.7 0.7 - 1.6 01/15/2015 [facility] CHEM PANEL Globulin 3.8 2.0 - 4.0 01/15/2015 [facility] CHEM PANEL BUN 31 7 - 22 01/15/2015 [facility] CHEM PANEL CO2 26 24 - 32 01/15/2015 [facility] CHEM PANEL Calcium Lvl 8.6 8.5 - 10.5 01/15/2015 [facility] CHEM PANEL Albumin Lvl 2.8 3.5 - 5.0 01/15/2015 [facility] CHEM PANEL Potassium Lvl 5.1 3.5 - 5.1 01/15/2015 [facility] CHEM PANEL Chloride Lvl 99 95 - 109 01/15/2015 [facility] CHEM PANEL AGAP 16.1 10.0 - 20.0 01/15/2015 [facility] CHEM PANEL Sodium Lvl 136 135 - 145 01/15/2015 [facility] CHEM PANEL Glucose Lvl 167 70 - 99 01/15/2015 [facility] HEMATOLOGY PT 15.5 12.0 - 14.7 01/15/2015 [facility] HEMATOLOGY INR 1.22 0.85 - 1.17 01/15/2015 [facility] HEMATOLOGY PTT 41.5 22.9 - 35.8 01/15/2015 [facility] HEMATOLOGY MCHC 32.2 32.0 - 36.0 01/15/2015 [facility] HEMATOLOGY RDW 16.5 11.5 - 14.5 01/15/2015 [facility] HEMATOLOGY MPV 10.1 7.4 - 10.4 01/15/2015 [facility] MCV 83.9 80.0 - 94.0 01/15/2015 [facility] HEMATOLOGY WBC 17.1 3.7 - 10.4 01/15/2015 [facility] HEMATOLOGY RBC 3.73 4.70 - 6.10 01/15/2015 [facility] HEMATOLOGY Hgb 10.1 14.0 - 18.0 01/15/2015 [facility] HEMATOLOGY Hct 31.3 42.0 - 54.0 01/15/2015 [facility] HEMATOLOGY MCH 27.0 27.0 - 31.0 01/15/2015 [facility] HEMATOLOGY D-Dimer 3.78 01/15/2015 [facility] HEMATOLOGY Basophils # 0.1 0.0 - 0.2 01/15/2015 [facility] HEMATOLOGY Monocytes # 1.9 0.0 - 0.8 01/15/2015 [facility] HEMATOLOGY Eosinophils # 0.0 0.0 - 0.5 01/15/2015 [facility] HEMATOLOGY Segs 85.0 45.0 - 75.0 01/15/2015 [facility] HEMATOLOGY Plt Morph Neli l (01/15/15 5:51 AM) 01/15/2015 [facility] HEMATOLOGY RBC Morph Neli l (01/15/15 5:51 AM) 01/15/2015 [facility] HEMATOLOGY Eosinophils 0.1 0.0 - 4.0 01/15/2015 [facility] Segs-Bands # 14.5 1.5 - 8.1 01/15/2015 [facility] HEMATOLOGY Basophils 0.3 0.0 - 1.0 01/15/2015 [facility] HEMATOLOGY Lymphocytes 3.7 20.0 - 40.0 01/15/2015 [facility] HEMATOLOGY Lymphocytes # 0.6 1.0 - 5.5 01/15/2015 [facility] HEMATOLOGY Monocytes 10.9 2.0 - 12.0 01/15/2015 [facility] CHEM PANEL eGFR 54 11/04/2014 <sup>1</sup>Result Comment: [...] be multiplied by the estimated BMI. [facility] CHEM PANEL Potassium Lvl 4.6 3.5 - 5.1 11/04/2014 [facility] CHEM PANEL Sodium Lvl 138 135 - 145 11/04/2014 [facility] CHEM PANEL Creatinine Lvl 1.4 0.5 - 1.4 11/04/2014 [facility] CHEM PANEL Calcium Lvl 9.0 8.5 - 10.5 11/04/2014 [facility] CHEM PANEL Chloride Lvl 103 95 - 109 11/04/2014 [facility] CHEM PANEL CO2 30 24 - 32 11/04/2014 [facility] CHEM PANEL BUN 27 7 - 22 11/04/2014 [facility] CHEM PANEL Glucose Lvl 191 70 - 99 11/04/2014 <sup>2</sup>Interpretive Data: Adult ref erence range values reflect the clinical guidelines
of the [place] [employer]. [facility] CHEM PANEL AGAP 9.6 10.0 - 20.0 11/04/2014 [facility] HEMATOLOGY MCH 27.9 27.0 - 31.0 11/04/2014 [facility] HEMATOLOGY Hct 39.8 42.0 - 54.0 11/04/2014 [facility] HEMATOLOGY MCV 81.0 80.0 - 94.0 11/04/2014 [facility] HEMATOLOGY RBC 4.91 4.70 - 6.10 11/04/2014 [facility] Hgb 13.7 14.0 - 18.0 11/04/2014 [facility] HEMATOLOGY MPV 10.1 7.4 - 10.4 11/04/2014 [facility] HEMATOLOGY Platelet 207 133 - 450 11/04/2014 [facility] MCHC 34.4 32.0 - 36.0 11/04/2014 [facility] HEMATOLOGY RDW 18.1 11.5 - 14.5 11/04/2014 [facility] HEMATOLOGY WBC 7.4 3.7 - 10.4 11/04/2014 [facility] HEMATOLOGY PT 14.0 12.0 - 14.7 11/04/2014 [facility] HEMATOLOGY INR 1.08 0.85 - 1.17 11/04/2014 <sup>3</sup>Interpretive Data: RECOMMEND ED RANGES FOR PROTIME INR:
2.0- 3.0 for most medical and surgical thromboembolic states.
2.5-3.5 for artificial heart valves and recurrent embolism.

INR SHOULD BE USED ONLY FOR PATIENTS ON STABLE ANTICOAGULANT THERAPY. [facility] IMMUNOLOGY HIV 1/2 Ab Negat gail *NA* (11/04/14 2:00 PM) Negative 11/04/2014 [facility] Pathology Reports No Data Provided for This Section Diagnostic Reports Report Value Date Source Foot series DX Study: Right fo ot, 3 views Clinical Indication: -Post amputation Comparison: Right foot 02/04/2017 FINDINGS: The distal 5th metatarsal and the base of the 5th proximal phalanx have been resected. There is generalized osteopenia. Plantar and retrocalcaneal spurs are noted. Vascular calcifications are evident. SL: [id number] 02/05/2017 [facility] Chest 2 views DX EXAM: Chest 2 views DX DATE: 02/04/2017 2:57 PM CDT INDICATION: - infection COMPARISON: None. IMPRESSION: Moderately enlarged cardiac silhouette. Postoperative median sternotomy. No gross focal consolidation, significant pleural effusion or pneumothorax detected. Mild thoracic spondylosis. SL: [id number] 02/04/2017 [facility] Foot 3 views bilateral DX Stud y: [...] and large retrocalcaneal spurs are noted. SL: [id number] 02/04/2017 [facility] Chest 2 views DX EXAM: Chest x [...] sternotomy compatible with underlying heart disease. 03/28/2015 [facility] Chest 2 views DX EXAM: Chest x [...] probable small effusion. IMPRESSION: See above. 02/27/2015 [facility] Chest 1view DX Clinical Histor y: See Clinic Indication Exam: CHEST Jan 16, 2015 05:38:00 AM Comparison: 01/15/2015 exam. Findings: There is a retrocardiac opacity. The heart is enlarged .There is no pneumothorax or pleural effusion. There is no acute fracture. IMPRESSION: Stable cardiomegaly. Retrocardiac opacity, which may represent atelectasis or pneumonia 01/16/2015 [facility] Ext Lower Venous Doppler Bilat US LOWER [...] IMPRESSION: No evidence of DVT. 01/15/2015 [facility] Retroperitoneal limited US FINDINGS: Right kidney: Length [...] identified. IMPRESSION: No significant abnormality. 01/15/2015 [facility] Lung perfusion scan [facility] HISTORY: [...] for acute pulmonary embol ism. 01/15/2015 [facility] Lung ventilation scan NM Pleas e refer to the Perfusion Lung Scan report, performed on 01/15/2015. 01/15/2015 [facility] Chest 1view DX Clinical Histor y: See Clinic Indication Exam: CHEST Jan 15, 2015 05:23:00 AM Comparison: 11/08/2014 exam. Findings: The lungs are clear. The heart is enlarged. There is no pneumothorax or pleural effusion. There is no acute fracture. IMPRESSION: No acute cardiopulmonary abnormality. 01/15/2015 [facility] Chest 1view DX STUDY: Chest, 1 view. COMPARISON: 05/13/2011 HISTORY: Arrhythmias. FINDINGS: The lungs are clear. No dense focal consolidation is seen. No pleural effusion or pneumothorax is seen. Mild cardiomegaly is seen. No pulmonary edema is seen. The osseous structures are unremarkable. IMPRESSION: No acute cardiopulmonary process. Cardiomegaly without pulmonary edema. 11/08/2014 [facility] Consultation Notes No Data Provided for This [...] [place] Height 182.88 cm 05/17/2015 [facility] BMI Calculated 33.16 05/17/2015 [facility] Weight 110.909 05/17/2015 [facility] Weight 110.909 04/17/2015 [facility] BMI Calculated 33.16 04/17/2015 [facility] Height 182.88 cm 04/17/2015 [facility] Height 182.88 cm 03/22/2015 [facility] BMI Calculated 39.01 03/22/2015 [facility] Weight 130.455 03/22/2015 [facility] Weight 130.455 03/01/2015 [facility] BMI Calculated 39.01 03/01/2015 [facility] Height 182.88 cm 03/01/2015 [facility] Systolic (mm Hg) 122 01/18/2015 [facility] Diastolic (mm Hg) 62 01/18/2015 [facility] Respitory Rate 32 01/18/2015 [facility] Systolic (mm Hg) 118 01/17/2015 [facility] Diastolic (mm Hg) 64 01/17/2015 [facility] Respitory Rate 30 01/17/2015 [facility] Temperature Oral (F) 98.2 F 01/17/2015 [facility] Respitory Rate 21 01/17/2015 [facility] Systolic (mm Hg) 99 01/17/2015 [facility] Diastolic (mm Hg) 51 01/17/2015 [facility] Temperature Oral (F) 97.9 F 01/17/2015 [facility] Temperature Oral (F) 98.7 F 01/17/2015 [facility] Weight 124.727 01/17/2015 [facility] BMI Calculated 33.61 01/15/2015 [facility] Weight 112.4 01/15/2015 [facility] Height 182.88 cm 01/15/2015 [facility] BMI Calculated 33.45 01/15/2015 [facility] Weight 118.182 01/15/2015 [facility] Height 187.96 cm 01/15/2015 [facility] Heart Rate 87 01/15/2015 [facility] BMI Calculated 37.92 11/02/2014 [facility] Weight 126.818 11/02/2014 [facility] Height 182.88 cm 11/02/2014 [facility] Encounters Location Location Details Encounter Type Encounter Number Reason For Visit Attending Provider ADM Date DC Date Status Source [facility] Bedded Outpatient [id number] Arie Morillo 11/08/2014 11/09/2014 [facility] Inpatient [id number] Dali Escobar 01/15/2015 01/18/2015 [facility] [place] [facility] [id number] Familia Perkins 02/27/2015 02/28/2015 [facility] OP Recurring [id number] Familia Perkins 03/01/2015 03/16/2015 [facility] OP Recurring [id number] Familia Perkins 03/16/2015 04/15/2015 [facility] [facility] [id number] Familia Perkins 03/28/2015 03/29/2015 [facility] OP Recurring [id number] Familia Perkins 04/17/2015 05/17/2015 [facility] OP Recurring [id number] Familia Perkins 05/17/2015 06/16/2015 [facility] Inpatient [id number] Aiden Richards 02/04/2017 02/07/2017 [facility] OP Therapy Patients [id number] Lemuel Vijaya 08/05/2017 09/04/2017 [facility] [place] Procedures Procedure Code Date Perfomer Comments Source Cardiac catheterization, combined right and left heart [id number] MANUEL Crespo,[facility], [facility] [place],[facility] [id number] [facility] [place],[facility] Tonsillectomy [id number] [facility] [place],[facility] Triple coronary bypass [id number] [facility] [place],[facility] Assessment and Plan Assessment and Plan Date [...] present. 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 4: Diabetes mellitus type 2: Continue current [...] with sedation.Cardiology c/s for clearance ordered. 02/07/2017 [facility] Plan of Care No Data Provided for This Section Social History Social History Date Source Social History TypeResponse Smoking Status Never smoker; Exposure to Tobacco Smoke None; Cigarette Smoking Last 365 Days No; Reg Smoking Cessation Counseling No entered on: 02/04/17 02/04/2017 [facility] Social History TypeResponse Smoking Status Never smoker; Exposure to Tobacco Smoke None; Cigarette Smoking Last 365 Days No; Reg Smoking Cessation Counseling No 02/04/2017 [facility] Social History TypeResponse Smoking Status Never smoker; Exposure to Tobacco Smoke None; Cigarette Smoking Last 365 Days No; Reg Smoking Cessation Counseling No 01/15/2015 [facility] Social History TypeResponse Smoking Status Never smoker; Exposure to Tobacco Smoke None; Cigarette Smoking Last 365 Days No; Reg Smoking Cessation Counseling No 01/15/2015 [facility] Family History No Data Provided for This Section Advance Directives No Data Provided for This Section Functional Status No Data Provided for This Section
--- NOTE | 2020-04-04 18:50 | NUR ---
Called and spoke with pts spouse and updated her on pts condition per his request.
[2020-04-04] MEDS ORDERED: ACETAMINOPHEN 325 MG TAB PO ONE (19:45)
[2020-04-04] MEDS ORDERED: AZITHROMYCIN 500MG/NS 250 ML 250 ML IV SCH (22:00)
[2020-04-04 23:10] LABS: INR 0.99; PROTHROMBIN TIME 13.6 seconds (11.9-14.5)
[2020-04-04 23:11] LABS: PARTIAL THROMBOPLASTIN TIME 30.4 seconds (23.8-35.5)
[2020-04-04 23:26] LABS: CREATINE KINASE MB 1.8 ng/mL (0-5.0)
--- NOTE | 2020-04-04 23:32 | NUR ---
Patient placed on hospital bed at this time.
[2020-04-04] MEDS: HEPARIN SOD (PORCINE) 5,000 UNIT/ML VIAL SC SCH (23:43)
[2020-04-04] MEDS ORDERED: IBUPROFEN 600 MG TAB ONE (23:43)
[2020-04-04] MEDS ORDERED: IBUPROFEN 600 MG TAB PO STA (23:44)
[2020-04-05] VITALS (7 sets, daily range): BP systolic 111–149; BP diastolic 63–79
[2020-04-05] MEDS: PIPER-TAZ 3.375 GM 50 ML IV SCH ×2 (01:16→12:00)
--- NOTE | 2020-04-05 06:58 | NUR ---
report received from Jeanie Tejeda LVN
--- NOTE | 2020-04-05 08:14 | NUR ---
updated patient's regarding patient's status via phone call
[2020-04-05 08:23] LABS: BASOPHILS % 0.4 % (0.0-1.0); HEMATOCRIT 42.4 % (38.2-49.6); HEMOGLOBIN 13.4 g/dL (14.0-18.0); LYMPHOCYTES # (AUTO) 0.6 (1.0-3.2); LYMPHOCYTES % 7.1 % (18.0-39.1); MEAN CORPUSCULAR HEMOGLOBIN 26.6 pg (28-32); MEAN CORPUSCULAR HGB CONC 31.6 g/dL (31-35); MEAN CORPUSCULAR VOLUME 84.1 fL (81-99); MONOCYTES # (AUTO) 0.8 (0.2-0.8); MONOCYTES % 9.5 % (4.4-11.3); NEUTROPHILS # (AUTO) 6.7 (2.1-6.9); PLATELET COUNT 179 x10e3/uL (140-360); RED BLOOD COUNT 5.04 x10e6/uL (4.3-5.7); RED CELL DISTRIBUTION WIDTH 15.6 % (11.7-14.4)
--- NOTE | 2020-04-05 08:23 | NUR ---
as per Jasper RN from [facility], current patient has been moved to the ICU but been is not clean and ready at this time
[2020-04-05] MEDS ORDERED: DEXTROSE 50% SYRINGE 50 ML IV PRN (08:30)
[2020-04-05] MEDS: INSULIN GLARGINE 100 UNITS/ML VIAL SQ SCH ×2 (08:30→22:12)
--- NOTE | 2020-04-05 08:44 | NUR ---
Dr. Abbasi notified about positive blood cultures for gram positive cocci in clusters, no new orders given at this time
[2020-04-05 08:47] LABS: ALBUMIN 3.1 g/dL (3.5-5.0); ALBUMIN/GLOBULIN RATIO 1.1 (0.8-2.0); ANION GAP 17.1 mmol/L (8-16); CALCIUM 8.1 mg/dL (8.4-10.2); CREATININE, SERUM 2.63 mg/dL (0.72-1.25); POTASSIUM 4.1 mmol/L (3.5-5.1)
[2020-04-05] MEDS ORDERED: VANCOMYCIN 1GM/NS 250 ML 250 ML IV ONE (09:00)
[2020-04-05] MEDS ORDERED: LISINOPRIL 10 MG TAB PO SCH (09:00)
[2020-04-05] MEDS: SIMVASTATIN 20 MG TAB PO SCH (09:04)
[2020-04-05] MEDS: ACETAMINOPHEN 325 MG TAB PO PRN ×2 (09:04→18:45)
[2020-04-05 09:05] LABS: CREATINE KINASE MB 1.7 ng/mL (0-5.0)
--- NOTE | 2020-04-05 09:07 | Consultation ---
DATE OF CONSULTATION: Pulmonary Consultation The patient of Dr. Abbasi. HISTORY OF PRESENT ILLNESS: The patient admitted through the emergency room. Medication list is not completed there. The patient did not recall the doses of his medications. Apparently, he has been ill. Two weeks ago, he fell in the driveway on his back and fractured lumbar spine. On the , he developed chills and apparently was febrile in the wound Center. He has been treated for an ulcer on the plantar aspect of the left great toe. He has a history of diabetes and peripheral vascular disease. He has had amputation of the small toe on the right foot in the past. He has had bypass surgery in 2014. He has had gallbladder surgery, uvulopalatopharyngoplasty, obstructive sleep apnea. 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 SOCIAL HISTORY: He worked for [employer], but is now retired. Nonsmoker. No alcohol use. Born in [place], [place]. FAMILY HISTORY: Positive for diabetes. PHYSICAL EXAMINATION: GENERAL: He is a burly white male, moderately obese. VITAL SIGNS: Temperature on admission 102.8, pulse 67 and regular, respirations 18, and blood pressure 112/60. HEAD: Normocephalic and atraumatic. EYES: Extraocular movements are intact. LUNGS: Clear. HEART: Regular rhythm. ABDOMEN: Nontender. EXTREMITIES: Nonedematous. Decreased pulses in the lower extremities. There is a wound superficial in the left great toe. LABOROATY DATA: This is moderate hematuria and pyuria, microscopic. There is cardiac enlargement, elevated blood sugar. The patient is currently not on insulin. PLAN: To continue empiric antibiotics, urine culture, resume home medications. Control blood sugar. Obtain two view chest x-ray. Wound care of the toe wound. Observe for obstructive sleep apnea. Thank you for this kind referral. Iain Menchaca MD DS/MODL /[id number]
--- NOTE | 2020-04-05 09:24 | Diagnostic Imaging Report ---
TECHNIQUE: Frontal view of the chest. INDICATION: ^FEVER ^[id number] ^[id number] COMPARISON: None. IMPRESSION: Lines and hardware: Stable Heart and mediastinum: Stable. Lungs and pleura: Stable pulmonary interstitial edema. Stable hazy left basilar airspace opacity, may represent atelectasis versus pneumonitis. Probable layering left pleural effusion. No pneumothorax. Soft tissues and bones: No acute abnormality. Signed by: Ko Wylie MD on 04/05/2020 9:20 AM
[2020-04-05] MEDS ORDERED: INSULIN LISPRO 100 UNIT/1 ML 3ML VIAL SQ SCH (11:30)
[2020-04-05] MEDS ORDERED: SODIUM CHLORIDE 0.9% 250ML 250 ML ONE (11:34)
[2020-04-05] MEDS: HEPARIN SOD (PORCINE) 5,000 UNIT/ML VIAL SC SCH ×2 (12:03→22:11)
[2020-04-05] MEDS: SILVER ANTIMICROBIAL WOUND GEL 45ML TP SCH (12:26)
[2020-04-05] MEDS: INSULIN LISPRO 100 UNIT/1 ML 3ML VIAL SQ SCH ×3 (12:30→22:12)
[2020-04-05] MEDS ORDERED: LANTUS 3ML100 UNITS/ SQ (13:21)
[2020-04-05] MEDS ORDERED: LYRICA100 MG PO (13:21)
[2020-04-05] MEDS ORDERED: LASIX20 MG PO (13:21)
[2020-04-05] MEDS ORDERED: ATORVASTATIN CA20 MG PO (13:21)
[2020-04-05] MEDS ORDERED: HUMALOG100 UNIT/1 SQ (13:21)
[2020-04-05] MEDS ORDERED: ASPIRIN81 MG PO (13:21)
--- NOTE | 2020-04-05 16:02 | NUR ---
PT orders for eval and treat received. Pt is mod I with transfers and gait using single point cane. Pt reports to be at baseline. Pt has no acute therapy needs at this time and will be discharged from PT care. Thank you for the referral. Addendum: 04/05/20 at 1605 by Emerita Bingham PT Amended: Links added.
[2020-04-05] MEDS: LACTOBACILLUS ACIDOPHILUS CAPSULE PO SCH ×2 (16:49→21:50)
--- NOTE | 2020-04-05 19:27 | NUR ---
PATIENT RESTING IN BED WITH AT THE BEDSIDE. TELE APPLIED. RESPIRATIONS EVEN AND BREATHING UNLABORED. NO COMPLAINTS OF PAIN VERBALIZED. REPORT GIVEN TO ONCOMING NURSE.
--- NOTE | 2020-04-05 19:49 | NUR ---
PATIENT'S ASKING FOR COPY OF COVID TEST WHICH SHE NEEDED TO RETURN TO WORK. SPOKE WITH DR. DAVIS STATE IT'S OK TO RELEASED RESULT. PATIENT SIGNED CONSENT FOR RELEASE OF LAB RESULT.
[2020-04-05] MEDS: LACTATED RINGER'S 1,000 ML INJ SCH ×2 (20:00→21:50)
--- NOTE | 2020-04-05 20:36 | Diagnostic Imaging Report ---
EXAMINATION: CHEST 2 VIEWS INDICATION: Chest pain. COMPARISON: Same day chest radiograph. FINDINGS: TUBES and LINES: None. LUNGS: Normal lung volumes. There is pulmonary vessel congestion without ar edema. Lungs are clear. No consolidations. PLEURA: No pleural effusion or pneumothorax. HEART AND MEDIASTINUM: The cardiomediastinal silhouette is enlarged. BONES AND SOFT TISSUES: No acute osseous lesion. Median sternotomy wires are stable. Soft tissues are unremarkable. UPPER ABDOMEN: No free air under the diaphragm. IMPRESSION: Cardiomegaly with pulmonary vascular congestion. No ar pulmonary edema Signed by: Quin Crenshaw MD on 04/05/2020 8:32 PM
--- NOTE | 2020-04-05 20:45 | Diagnostic Imaging Report ---
X-ray 3 views of the foot. HISTORY: Foot pain. COMPARISON: None available. FINDINGS: Bones/joints: No acute fracture or dislocation. There are mild to moderate degenerative changes of the midfoot and multiple interphalangeal joints. Soft tissues: Atherosclerotic vascular calcification. The soft tissues are otherwise within normal limits. IMPRESSION: No acute fracture or dislocation. Mild to moderate degenerative changes of the midfoot and multiple interphalangeal joints. Signed by: Quin Crenshaw MD on 04/05/2020 8:41 PM
--- NOTE | 2020-04-05 22:36 | History and Physical ---
PRIMARY CARE PHYSICIAN: Aman Rain MD CHIEF COMPLAINT: Fever. HISTORY OF PRESENT ILLNESS: This is a 69-year-old male, who was having fever, nausea, and headache at home. Subsequently, yesterday, he went to see his primary care doctor to have his left big toe wound work done. Over there, the patient got dizzy and hypotensive. Therefore, the patient was sent to the emergency room. The patient stated that his left big toe has been there for about a month and the wound is actually getting smaller. The patient denies a history of peripheral vascular disease. The patient denies any cough. No chest pain. No shortness of breath. No sick contacts at home. PAST MEDICAL AND SURGICAL HISTORY: 1. Coronary artery disease, status post CABG. 2. Diabetes. 3. Hypertension. MEDICATIONS: Please see medication reconciliation. ALLERGIES: NONE. SOCIAL HISTORY: Does not smoke. FAMILY HISTORY: Diabetes. REVIEW OF SYSTEMS: A 10-point review of system obtained and nothing else is significant other than what is stated in HPI. PHYSICAL EXAMINATION: VITAL SIGNS: Temperature 101.0, pulse 89, respiratory rate 20, and blood pressure 149/75. GENERAL: In no acute distress. SKIN: No rash. HEENT: Anicteric. Oropharynx is clear. LUNGS: Clear. HEART: Regular rate and rhythm. Normal S1, S2. GI: Abdomen is soft and nontender. NEUROLOGIC: Alert and oriented x3. Cranial nerves II through XII grossly intact. PSYCHIATRIC: No hallucination. MUSCULOSKELETAL: Painless range of motion. LABORATORY DATA: White count 8, hemoglobin 13.4, platelet count 179, creatinine 2.63. Troponins are negative. Bicarb is 19. Sodium 133, PT, PTT are normal. UA is benign. Chest x-ray with cardiomegaly with pulmonary vascular congestion, but no ar pulmonary edema. ASSESSMENT AND PLAN: 1. Febrile illness, less likely to be his lungs. Again, his COVID is negative, possibly the source of the fever could be his left big toe. Gram stain on blood culture shows Gram-positive cocci in clusters. The patient received one dose of vancomycin. Given the fact that we are probably not dealing with pneumonia. We will go ahead and stop his Zosyn and azithromycin. We will get an x-ray of the left foot and also arterial Doppler. We will consider Infectious Disease consultation. The patient does have some diarrhea here at the hospital, but not at home. This is likely due to Zosyn. He still has diarrhea after Zosyn is stopped. We will check C. diff toxin. 2. The patient does have severe sepsis, present on admission. 3. Presumed acute kidney injury with metabolic acidosis and hyponatremia. We will continue lactated Ringer's IV fluid. If creatinine is not better tomorrow, we will check a renal ultrasound. 4. Diabetes with hyperglycemia. We will restart his insulin likely partially due to infection. 5. Coronary artery disease. Continue aspirin for now. 6. Gastrointestinal and deep venous thrombosis prophylaxis. Heparin subcu. Kariching MD GUIDO Mac/MODL /[id number] cc: [facility]
--- NOTE | 2020-04-05 22:45 | NUR ---
REPORT TAKEN AT BEDSIDE, VS WNL, CALL LIGHT IN REACH, PT AWAKE AND ALERT, TELE ON PT, IV INTACT, NO DISTRESS NOTED, WILL CONTINUE TO MONITOR PT.
[2020-04-06] VITALS (8 sets, daily range): BP systolic 102–134; BP diastolic 62–86
[2020-04-06 05:20] LABS: BASOPHILS % 0.4 % (0.0-1.0); EOSINOPHILS % 0.3 % (0.0-6.0); HEMATOCRIT 43.4 % (38.2-49.6); HEMOGLOBIN 13.9 g/dL (14.0-18.0); LYMPHOCYTES # (AUTO) 1.1 (1.0-3.2); LYMPHOCYTES % 15.8 % (18.0-39.1); MEAN CORPUSCULAR VOLUME 84.3 fL (81-99); MONOCYTES % 14.9 % (4.4-11.3); NEUTROPHILS # (AUTO) 4.6 (2.1-6.9); NEUTROPHILS % 68.2 % (38.7-80.0); PLATELET COUNT 150 x10e3/uL (140-360); RED BLOOD COUNT 5.15 x10e6/uL (4.3-5.7); RED CELL DISTRIBUTION WIDTH 15.1 % (11.7-14.4)
[2020-04-06 05:37] LABS: CALCIUM 8.3 mg/dL (8.4-10.2); CREATININE, SERUM 1.91 mg/dL (0.72-1.25)
[2020-04-06] MEDS: INSULIN LISPRO 100 UNIT/1 ML 3ML VIAL SQ SCH ×4 (07:51→20:02)
[2020-04-06] MEDS: SILVER ANTIMICROBIAL WOUND GEL 45ML TP SCH (07:51)
[2020-04-06] MEDS: ASPIRIN 81 MG CHEW TAB PO SCH (07:52)
[2020-04-06] MEDS: LACTOBACILLUS ACIDOPHILUS CAPSULE PO SCH ×3 (07:52→21:00)
[2020-04-06] MEDS: HEPARIN SOD (PORCINE) 5,000 UNIT/ML VIAL SC SCH ×2 (07:53→21:00)
[2020-04-06] MEDS ORDERED: LOPERAMIDE HCL 2 MG CAP PO PRN (09:15)
[2020-04-06] MEDS: LACTATED RINGER'S 1,000 ML INJ SCH (10:30)
[2020-04-06] MEDS: MORPHINE SULFATE INJ 4 MG/ML INJ 1ML IV PRN ×4 (10:32→22:28)
--- NOTE | 2020-04-06 13:26 | NUR ---
WOUND CARE CONSULT 69 YO MALE HX OF PUI, HYPOXIA BHARGAVI 20 0N CONSERVATIVE / MODERATE/ STRICT PUP STATUS AND INTERVENTIONS SURFACE LABS: WBC- 6.72 HGB- 13.9 GLUCOSE-219 HEAD TO TOE SKIN ASSESSMENT COMPLETE PATIENT PRESENTS WITH LEFT GREAT TOE DIABETIC ULCERATION MEASURES 2.3CM X 3CM X 0.2CM RECOMMENDATIONS: NURSING TO CONTINUE TO MONITOR PATIENT AND KEEP SKIN CLEAN AND FREE FROM LOOSE STOOL OR IRRITATING MOISTURE AND CONTINUE TO FOLLOW CONSERVATIVE PUP STATUS INTERVENTIONS NURSING TO CONTINUE TO GET PATIENT OUT OF BED FOR MEALS AND MUCH TOLERATED NURSING TO CLEAN LEFT GREAT TOE DIABETIC ULCERATION WITH NORMAL SALINE DAILY AND APPLY SILVERSORB GEL AND FOAM TO WOUND BASE AND WRAP LIGHTLY WITH KERLIX AND COBAN Addendum: 04/06/20 at 1335 by Edison Pérez RN Amended: Links added.
--- NOTE | 2020-04-06 13:50 | NUR ---
IMM letter delivered and explained to pt. He verbalized understanding. States he wants to go home as soon as possible. Copy given to pt. Signed copy placed in chart.
--- NOTE | 2020-04-06 14:44 | NUR ---
Nutrition Screen Note RD Recommendation for Physician: -Recommend to continue current diet as ordered Plan of Care: RD following, monitoring for tolerance and adequacy Nutrition reason for involvement: Nutrition Risk Trigger Primary Diagnose(s): hypoxia PMH: CAD, diabetes, HTN Ht: 72 in Wt:273 lb BMI: 37.0 kg/m2 IBW:[address] Assessment: (04/06/20) Chart reviewed. Labs and meds reviewed. Pt is a 69 year old male admitted with hypoxia. Pt reports he had a decreased appetite and did not eat anything for 2 days prior to admission. At time of visit, pt mentioned he was able to eat most of his lunch today. Pt also mentioned he had lost weight in the past 1 weeks and had weighed 282 lbs. Pt currently has a weight of 273 lbs in chart. If accurate, this would be a 3% weight loss in 1 weeks which is significant weight loss. No N/V, but pt reports he had been having diarrhea. No chewing/swallowing issues. Pt declined the need for diet education. Will continue to monitor. Current Diet: 1800 ADA/2gm Na Malnutrition Evaluation (04/06/20) The patient does not meet criteria for a specified degree of malnutrition at this time. Will re-evaluate at follow-up as appropriate. Diet Education Needs Assessment: Pt declined the need for diet education Nutrition Care Level: low Signed: Emerita Alvares, RD, LD
--- NOTE | 2020-04-06 14:46 | NUR ---
PATIENT LEFT THE UNIT TO RADIOLOGY FOR MRI BY WHEELCHAIR. PT IN STABLE CONDITION AND TELE APPLIED.
[2020-04-06] MEDS: CEFEPIME 2 GM/NS 0.9% 100 ML 100 ML IV SCH (15:00)
[2020-04-06] MEDS ORDERED: DAPTOMYCIN IV SCH (16:00)
[2020-04-06] MEDS ORDERED: SODIUM CHLORIDE 0.9% IV SCH (16:00)
--- NOTE | 2020-04-06 16:03 | NUR ---
pt seen and examined full consult dictated
--- NOTE | 2020-04-06 16:36 | Diagnostic Imaging Report ---
TECHNIQUE: Magnetic resonance imaging of the LEFT foot was performed WITHOUT injected contrast. HISTORY: Diabetic ulcer left great toe, rule out osteomyelitis COMPARISON: Left foot radiographs 04/05/2020 DISCUSSION: Bone: No fractures or acute osseous abnormality. Specifically, no bone marrow edema or T1 hypointense signal to suggest osteomyelitis. Increased signal within the lateral hallux sesamoid bone, favored to represent stress reaction or degenerative cystic change given lack of adjacent ulcer or inflammatory changes. Joints: No joint malalignment or dislocation. No joint effusion. Mild joint space narrowing and osteophytosis at the first MTP joint. 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 Visualized portions of flexor and extensor tendons are intact and unremarkable. Soft Tissues: Mild superficial edema along the dorsal aspect of the distal first toe, may represent nailbed or reported ulcer. No associated fluid collection or underlying osseous signal change. Mild dorsal subcutaneous edema overlying the metatarsals. IMPRESSION: 1. No evidence of acute osteomyelitis. 2. Mild superficial edema along the dorsal aspect of the first toe, may represent nailbed or reported ulcer. No associated fluid collection. 3. Bone marrow signal changes in the lateral hallux sesamoid bone, may represent stress reaction or degenerative cystic change. 4. Nonspecific mild dorsal subcutaneous edema overlying the metatarsals. Signed by: Dr. Turner Zelaya M.D. on 04/06/2020 4:33 PM
[2020-04-06] MEDS ORDERED: CEFEPIME HCL 2 GM VIAL IV SCH (18:00)
--- NOTE | 2020-04-06 19:30 | NUR ---
PATIENT RESTING IN BED. RESPIRATIONS EVEN AND BREATHING UNLABORED. NO COMPLAINTS OF PAIN AT THIS TIME. TELE APPLIED. CALL LIGHT WITHIN REACH. REPORT GIVEN TO ONCOMING NURSE.
--- NOTE | 2020-04-06 19:39 | NUR ---
Received change of shift report from AM nurse. Walking rounds completed.
[2020-04-06] MEDS: INSULIN GLARGINE 100 UNITS/ML VIAL SQ SCH (20:01)
[2020-04-06] MEDS: SIMVASTATIN 20 MG TAB PO SCH (21:00)
--- NOTE | 2020-04-06 21:43 | Progress Note ---
DATE: 04/06/2020 SUBJECTIVE: The patient feels better. No more chills. OBJECTIVE: VITAL SIGNS: Temperature 98.1, pulse 72, respiratory rate 20, and blood pressure 131/73. GENERAL: No acute distress. SKIN: No rash. LUNGS: Clear. HEART: Regular rate and rhythm. Normal S1 and S2. GI: Abdomen is soft and nondistended. NEUROLOGIC: Alert and oriented x3. PSYCHIATRIC: No hallucination. LABORATORY DATA: White count 6.7, hemoglobin 13.9, and platelet count 150. Creatinine 1.91. Sodium 132. ASSESSMENT AND PLAN: 1. Febrile illness, etiology is unclear. I will consult Infectious Disease specialist. Blood culture now is showing Staph aureus. Antibiotic per Infectious Disease. MRI of the left foot has been ordered. We will get echocardiogram to rule out vegetation. Again, he does have severe sepsis, present on admission. 2. Acute kidney injury, improving. We will continue lactated Ringer. 3. Diabetes, a little better. 4. Coronary artery disease. Continue aspirin. 5. Gastrointestinal and deep venous thrombosis prophylaxis. Continue heparin subcutaneous. MD GUIDO Sofia/RJEI /[id number]
[2020-04-07] VITALS (7 sets, daily range): BP systolic 100–118; BP diastolic 51–62
--- NOTE | 2020-04-07 | NUR ---
Patient c/o pain -6. Given pain med as ordered by MD. Pt resting in bed. dressing to left great toe dry and intact.
[2020-04-07] MEDS: CEFEPIME 2 GM/NS 0.9% 100 ML 100 ML IV SCH (03:00)
--- NOTE | 2020-04-07 04:00 | NUR ---
Pt sitting in chair. Request pain meds. Given as ordered by .
[2020-04-07] MEDS: MORPHINE SULFATE INJ 4 MG/ML INJ 1ML IV PRN ×4 (04:23→21:11)
[2020-04-07 05:21] LABS: BASOPHILS % 0.4 % (0.0-1.0); EOSINOPHILS % 0.1 % (0.0-6.0); HEMATOCRIT 38.4 % (38.2-49.6); HEMOGLOBIN 12.4 g/dL (14.0-18.0); LYMPHOCYTES # (AUTO) 0.9 (1.0-3.2); LYMPHOCYTES % 11.1 % (18.0-39.1); MEAN CORPUSCULAR HEMOGLOBIN 26.9 pg (28-32); MEAN CORPUSCULAR HGB CONC 32.3 g/dL (31-35); MEAN CORPUSCULAR VOLUME 83.3 fL (81-99); MONOCYTES # (AUTO) 1.4 (0.2-0.8); MONOCYTES % 16.4 % (4.4-11.3); NEUTROPHILS # (AUTO) 5.9 (2.1-6.9); NEUTROPHILS % 71.5 % (38.7-80.0); PLATELET COUNT 174 x10e3/uL (140-360); RED BLOOD COUNT 4.61 x10e6/uL (4.3-5.7); RED CELL DISTRIBUTION WIDTH 15.1 % (11.7-14.4)
[2020-04-07 05:35] LABS: ANION GAP 14.1 mmol/L (8-16); CALCIUM 7.9 mg/dL (8.4-10.2); CREATININE, SERUM 1.78 mg/dL (0.72-1.25); POTASSIUM 4.1 mmol/L (3.5-5.1)
[2020-04-07] MEDS: ASPIRIN 81 MG CHEW TAB PO SCH (08:34)
[2020-04-07] MEDS: LACTATED RINGER'S 1,000 ML INJ SCH ×2 (08:34→21:45)
[2020-04-07] MEDS: LACTOBACILLUS ACIDOPHILUS CAPSULE PO SCH ×3 (08:34→21:11)
[2020-04-07] MEDS: INSULIN LISPRO 100 UNIT/1 ML 3ML VIAL SQ SCH ×4 (08:50→21:30)
[2020-04-07] MEDS: HEPARIN SOD (PORCINE) 5,000 UNIT/ML VIAL SC SCH ×2 (09:00→21:30)
[2020-04-07] MEDS: SILVER ANTIMICROBIAL WOUND GEL 45ML TP SCH (09:32)
--- NOTE | 2020-04-07 11:30 | Consultation ---
DATE OF CONSULTATION: 04/06/2020 REQUESTING PHYSICIAN: Liseth Abbasi MD REASON FOR CONSULTATION: Cellulitis, right great toe. Thank you for this consultation. HISTORY OF PRESENT ILLNESS: This is a 69-year-old male, who has a history of coronary artery disease, diabetes mellitus, who was admitted to the hospital because of fever, headache, and nausea at home, has had swelling and redness in the right great toe. The patient became dizzy at home with hypotension, sent to the emergency room. He has been on outpatient antibiotic treatment related to the right foot, but without any improvement. On admission, noted to have a temperature of 101 degrees. Blood cultures were done, reported later to be positive for Staphylococcus aureus, full susceptibility pending. The patient mainly complains of pain and redness in the right great toe. REVIEW OF SYSTEMS: HEENT: Denies any headaches, visual complaints, sinus congestion, ear ache, throat pain, or neck pain. RESPIRATORY: No cough or shortness of breath. CARDIOVASCULAR: No chest pain or palpitations. GI: No nausea, vomiting, or diarrhea. : No urinary symptoms. PAST MEDICAL HISTORY: 1. Coronary artery disease. 2. CABG. 3. Diabetes mellitus. 4. Hypertension. PAST SURGICAL HISTORY: As above. ALLERGIES: NO KNOWN DRUG ALLERGIES. CURRENT MEDICATIONS: Reviewed. FAMILY HISTORY: Noncontributory. SOCIAL HISTORY: No active alcohol, tobacco, or drug use. PHYSICAL EXAMINATION: VITAL SIGNS: Respiratory rate 18, pulse 64, temperature 97.8, and blood pressure 121/63. HEENT: Normocephalic, atraumatic. Extraocular movements not accessed. NECK: Supple. LUNGS: Fair air entry bilaterally. Clear to auscultation. HEART: Sounds S1, S2. No murmur. No gallop. ABDOMEN: Soft, nontender, and normoactive bowel sounds. EXTREMITIES: Right great toe shows swelling and redness and superficial ulcerations. LABORATORY DATA: Reveal BUN of 32 and creatinine of 1.9, WBC count of 6.7, hemoglobin 13.9, platelets 150. X-ray of the right foot is unremarkable. ASSESSMENT: This is a 69-year-old male with: 1. Cellulitis in the right great toe. 2. Staphylococcus aureus bacteremia. 3. Sepsis secondary to above. 4. Probable chronic renal insufficiency. 5. Diabetes mellitus. RECOMMENDATIONS: 1. We will obtain MRI of the right great toe to evaluate for underlying osteomyelitis. 2. Antibiotic regimen of the daptomycin and Maxipime for now. 3. We will determine course and duration of antibiotic therapy once all initial investigations are completed. Thank you, Dr. Abbasi for this consultation. We will follow the patient along with you. Felton Yeh MD SR/MODL /[id number] cc: Liseth Abbasi MD
[2020-04-07] MEDS: CEFAZOLIN SOD 1 GM/NS 50ML 50 ML IV SCH (16:59)
--- NOTE | 2020-04-07 19:20 | NUR ---
BEDSIDE SHIFT REPORT RECEIVED. PATIENT IS RESTING IN BED, AAOX3. RESP EVEN AND UNLABORED. NO ACUTE DISTRESS NOTED AT THIS TIME. EDUCATED PT ABOUT FALL PRECAUTIONS. PT VERBALIZED UNDERSTANDING. BED IS LOW AND LOCKED. SIDE RAILS X2. CALL LIGHT WITH IN EASY REACH. BED ALARM IS ON. ALL SAFETY MEASURES IN PLACE. PT DENIES NEEDS AT THIS TIME.
--- NOTE | 2020-04-07 19:28 | Progress Note ---
DATE: 04/07/2020 CONSULTANTS: 1. Dr. Menchaca, landmen. 2. Dr. Yeh, ID. SUBJECTIVE: The patient is resting in bed with no acute distress. He is complaining of back pain due to recent fall 4 weeks ago. OBJECTIVE: VITAL SIGNS: Temperature 98.0, pulse is 61, respirations 19, blood pressure 100/56, pulse ox is 96% on room air. GENERAL: No acute distress. HEENT: Normocephalic and atraumatic. NECK: Supple. SKIN: Dry and intact. No rash. LUNGS: Clear to auscultation. CARDIOVASCULAR: Regular rate and rhythm. GI: Soft and nontender. MUSCULOSKELETAL: Moves all extremities. NEUROLOGIC: Alert, awake, and oriented x3. PSYCH: Calm. LABORATORY DATA: WBC 8.22, hemoglobin 12.4, hematocrit 38.4, and platelets 174. Sodium 132, potassium 4.1, BUN 30, creatinine 1.78, estimated GFR is 38, blood sugar 230, calcium 7.9. C diff negative. COVID negative. Urine culture is negative. Blood culture shows gram-positive cocci in clusters, Staphylococcus aureus. IMAGING: Left foot MRI shows no evidence of acute osteomyelitis. ASSESSMENT AND PLAN: 1. Septicemia of unknown source. ID on the case. Blood culture today is positive for Staphylococcus aureus. Urine culture negative so far. We will continue on cefazolin per ID. Repeat blood cultures have been ordered, and echocardiogram to rule out vegetation. 2. Acute kidney injury. Unknown baseline creatinine. Creatinine today is 1.78. We will continue IV fluids and continue to monitor BMP. 3. Diabetes. SSI. 4. History of coronary artery disease. Continue on aspirin. 5. Gastrointestinal and deep venous thrombosis prophylaxis. Continue heparin. 6. Recent fall with complaints of back pain. We will check CT of the lumbar spine without contrast. Dictated by MIN Matias Liseth Abbasi MD MY/MODL /[id number]
--- NOTE | 2020-04-07 20:33 | Diagnostic Imaging Report ---
History: Back pain, recent fall Comparison studies: None Technique: Axial images were obtained through the lumbar spine. Coronal and sagittal images reconstructed from the axial data. Dose modulation, iterative reconstruction, and/or weight based adjustment of the mA/kV was utilized to reduce the radiation dose to as low as reasonably achievable. Intravenous contrast: None Findings: Transitional lumbosacral anatomy with partially lumbarized S1 vertebral body with rudimentary disc and pseudoarthrosis on the left. Alignment: Normal lordosis. No significant scoliosis. Soft tissues: No gross acute abnormalities. Dorsal paraspinal muscles: Mild symmetric fatty-replaced atrophic changes. Vertebrae: L1 compression fracture with depression of the superior and inferior endplates results in approximately 40-50% height loss centrally. Fracture extends through the anterior vertebral body and there is a vacuum cleft along the fractured inferior L1 endplate. Fracture does not appear to involve the posterior L1 vertebral body. Irregularity of the left L1 transverse process compatible with evolving nondisplaced subacute to chronic fracture. Degenerative changes: L1-L2: Mildly degenerated disc with vacuum phenomenon. No significant canal or foraminal stenosis.. L2-L3: Mildly degenerated disc with loss of disc height and vacuum phenomenon. Disc bulge and mild left facet arthrosis without significant canal foraminal stenosis. L3-L4: Mildly degenerated disc with vacuum phenomenon. Disc bulge and mild facet arthrosis do not result significant canal or foraminal stenosis. L4-L5: Mildly degenerated disc with mild loss of disc height, vacuum disc and mild degenerative changes with Schmorl's node and sclerosis along the posterior inferior L4 endplate. Disc osteophyte complex, thickened ligamentum flavum and bilateral facet arthrosis result in at least mild canal stenosis and mild bilateral foraminal stenosis. L5-S1: Mildly degenerated disc with mild loss of disc height and vacuum disc. Disc osteophyte complex and bilateral facet arthrosis intravenous and mild canal stenosis and severe left and moderate right foraminal stenosis. S1-S2: Transitional level with bilateral facet arthrosis without significant canal or foraminal stenosis. Sacroiliac joints: Degenerative changes bilaterally with bilateral articular sclerosis. Incidental findings: Scattered aortoiliac calcified atherosclerosis. IMPRESSION: 1. Transitional lumbosacral anatomy with partially lumbarized S1. 2. 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 Consider spinal surgical consultation to further discuss if the patient may benefit from vertebral augmentation procedure. 3. Late subacute to chronic nondisplaced left L1 transverse process fracture. 4. Degenerative changes as described with moderate to severe foraminal stenosis at L5-S1. Findings and recommendations discussed with FLACO Valle on 04/07/2020 p.m. Signed by: Dr. Iain Linares M.D. on 04/07/2020 8:30 PM
--- NOTE | 2020-04-07 20:40 | NUR ---
SPOKE TO [employer] DEVELOPER OF DR HASTINGS ABOUT RESULT OF CT LUMBAR. NO ORDER RECEIVED AT THIS TIME
[2020-04-07] MEDS: SIMVASTATIN 20 MG TAB PO SCH (21:11)
[2020-04-07] MEDS: ACETAMINOPHEN 325 MG TAB PO PRN (21:25)
[2020-04-07] MEDS: INSULIN GLARGINE 100 UNITS/ML VIAL SQ SCH (21:30)
[2020-04-08] VITALS (18 sets, daily range): BP systolic 93–142; BP diastolic 39–63
[2020-04-08] MEDS: CEFAZOLIN SOD 1 GM/NS 50ML 50 ML IV SCH ×2 (00:25→10:16)
[2020-04-08] MEDS: MORPHINE SULFATE INJ 4 MG/ML INJ 1ML IV PRN ×3 (04:50→22:00)
[2020-04-08 06:55] LABS: ANION GAP 14.8 mmol/L (8-16); CREATININE, SERUM 2.26 mg/dL (0.72-1.25); POTASSIUM 3.8 mmol/L (3.5-5.1)
[2020-04-08] MEDS: INSULIN LISPRO 100 UNIT/1 ML 3ML VIAL SQ SCH ×4 (08:22→21:55)
[2020-04-08] MEDS: LACTOBACILLUS ACIDOPHILUS CAPSULE PO SCH ×4 (09:00→21:38)
[2020-04-08] MEDS: ASPIRIN 81 MG CHEW TAB PO SCH ×2 (09:00→10:16)
[2020-04-08] MEDS: HEPARIN SOD (PORCINE) 5,000 UNIT/ML VIAL SC SCH ×2 (10:18→21:55)
[2020-04-08] MEDS: SILVER ANTIMICROBIAL WOUND GEL 45ML TP SCH (11:01)
[2020-04-08] MEDS ORDERED: ATROPINE SULFATE INJ 0.4 MG/ML VIAL IV PRN (12:00)
--- NOTE | 2020-04-08 12:30 | NUR ---
Patient transferred to ICU handoff report to Isabelle SAM. made aware patient blood glucose.
--- NOTE | 2020-04-08 12:46 | Consultation ---
DATE OF CONSULTATION: 04/08/2020 Cardiology Consultation CONSULTING PHYSICIAN: Saad Gordon MD, Interventional Cardiology. REASON FOR CONSULTATION: Bradycardia. HISTORY OF PRESENT ILLNESS: A 69-year-old man with a history of aortocoronary bypass and aortic valve replacement, bioprosthetic, approximately [address] Marcelino Dill, diabetes, dyslipidemia, peripheral vascular disease, presents with fever, found to have left 1st toe cellulitis, underwent antibiotic therapy initiation without any recurrent fevers today. Initial blood cultures positive for Staph; however, repeat blood cultures ordered today are pending. He was observed to have on echocardiogram, TBI of 0.18 of aortic valve concerning for moderate stenosis. LVEF was mildly decreased. He denies any syncope; however has had over the last three weeks, intermittent episodes of lightheadedness, there are unrelated to position occurring while standing as well as while lying down. He was found to have a sinus rhythm with third-degree AV block on telemetry today. His pulse rate is having a ventricular escape in the 40s with normal blood pressure and without any active chest discomfort or shortness of breath or lightheadedness at that time. REVIEW OF SYSTEMS: A 12-system review negative except for as noted above. ALLERGIES: NO KNOWN DRUG ALLERGIES. PAST MEDICAL HISTORY: Remarkable for as described above. SOCIAL HISTORY: No active smoking, alcohol, or drugs. FAMILY HISTORY: Noncontributory. PHYSICAL EXAMINATION: VITAL SIGNS: Temperature 97.9, heart rate 79, blood pressure 123/56, respiratory rate 20, O2 saturation 99%, BMI 37. GENERAL: In no acute distress. Alert. NECK: No JVD. CHEST: Clear to auscultation. CARDIOVASCULAR: Regular rate and rhythm. Normal S1 and S2. Systolic ejection murmur 2/6. No S3. No S4. Bradycardic. ABDOMEN: Soft. Bowel sounds positive. EXTREMITIES: No edema. Has 2+ radial pulse on exam with pulse rate in the 40s. Normal capillary refill. First left toe wound covered with dressings. CARDIOVASCULAR MEDICATIONS: Reviewed, receiving cefazolin, aspirin 81 mg daily, simvastatin 10 mg at bedtime. No chronotropic negative medications noted. STUDIES: Reviewed. Sodium 130, potassium 3.8, chloride 98, bicarbonate 21, BUN 40, creatinine 2.2, glucose 193. White blood cells 8.2, hemoglobin 12.4, platelets 174. INR 0.9, PT 13.6, PTT 30. AST 59, ALT 71, alkaline phosphatase 90, total bilirubin is 1. ASSESSMENT AND PLAN: A 69-year-old man presents with third-degree AV block, history of aortic bioprosthetic valve replacement with TBI ratio 0.18, chronic systolic heart failure with LVEF in the 40s, coronary artery disease, status post aortocoronary bypass, diabetes, hypertension, peripheral vascular disease with left 1st toe osteomyelitis, staph bacteremia. RECOMMENDATIONS: Transfer to intensive care unit for further monitoring in the setting of third-degree AV block. Keep on telemetry and continuous O2 saturation. Add atropine 0.4 mg q.2 hours p.r.n. heart rate less than 40, and dopamine drip to titrate for heart rate more than 40. EP has been consulted, repeat blood cultures ordered today. Continue antibiotics per ID expertise. Continue aspirin and statin. Guarded prognosis. Questions addressed. Discussed plan of care with the patient's family, who are at bedside today. Coordinating transfer to ICU. MD RAGHAVENDRA Dunn/REJI /[id number]
[2020-04-08] MEDS: PREGABALIN 50 MG CAP PO SCH ×2 (12:59→21:56)
[2020-04-08] MEDS: LACTATED RINGER'S 1,000 ML INJ SCH ×2 (13:00→23:41)
--- NOTE | 2020-04-08 13:26 | Progress Note ---
DATE: SUBJECTIVE: The patient is breathing well. No distress. However, heart rate was down in 40s. Cardiology was consulted and the patient is transferred to ICU, possible pacemaker today. He is denying any complaints of chest pain, nausea or vomiting. PHYSICAL EXAMINATION: VITAL SIGNS: Temperature 98.5, pulse of 40, blood pressure 113/60. CHEST: Clear to auscultation bilaterally. No wheezing. HEART: S1, S2 audible. ABDOMEN: Soft, awake and alert. EXTREMITIES: Pedal edema. NEUROLOGIC: Awake and alert. LABORATORY DATA: Sodium 130, potassium 3.8, chloride 98, BUN 40, creatinine 2.26. White count of 8000, hemoglobin 12.4, platelets 174. Blood cultures, positive for Staph aureus. ASSESSMENT: Mr. Juarez is a 69-year-old male with Staph sepsis . PLAN: Continue the patient on IV cefazolin. The patient will be transferred to ICU for bradycardia, temporary pacemaker is being planned. Thank you for this consult. MD RUTH ANN Acosta/REJI /[id number]
[2020-04-08] MEDS: NAFCILLIN SOD 2 GM/NS 100ML 100 ML IV SCH ×3 (14:30→21:55)
--- NOTE | 2020-04-08 14:37 | Operative Report ---
DATE OF PROCEDURE: SURGEON: Morenita Rice MD PRE-PROCEDURE DIAGNOSIS: Hemodynamic instability. POSTPROCEDURE DIAGNOSIS: Hemodynamic instability. PROCEDURE IN DETAIL: After standard aseptic measure, right internal jugular vein was identified with the real-time ultrasound was performed during the procedure and right internal jugular 16 cm triple-lumen catheter was placed with Seldinger technique. Good blood flow was seen in all three ports. Postprocedure chest x-ray is pending. MD RUTH ANN Acosta/MODL /[id number]
--- NOTE | 2020-04-08 14:52 | NUR ---
Right IJ CVC placed. Dr. Howell cleared to use. Dopamine started at 5 mcs. Pt is 3d degree block. HR 41, BP 111/48 prior to infusion initiation, HR 53, BP 132/61 after.
--- NOTE | 2020-04-08 16:12 | Diagnostic Imaging Report ---
EXAMINATION: CHEST SINGLE (PORTABLE) INDICATION: Central line placement. COMPARISON: Chest x-ray on 04/05/2020. FINDINGS: TUBES and LINES: Right central internal jugular central venous catheter which terminates in the distal SVC. LUNGS: Normal lung volumes. Interval worsening of diffuse interstitial opacities throughout both lungs. PLEURA: No pleural effusion or pneumothorax. HEART AND MEDIASTINUM: The cardiomediastinal silhouette is enlarged. There are atherosclerotic calcifications within the aorta. BONES AND SOFT TISSUES: Degenerative changes in the spine and shoulders. Soft tissues are unremarkable. UPPER ABDOMEN: No free air under the diaphragm. IMPRESSION: 1. Interval placement of right internal jugular central venous catheter which terminates in the distal SVC. 2. Cardiomegaly with worsening interstitial pulmonary edema. Underlying multifocal pneumonia cannot be excluded. Signed by: Quin Crenshaw MD on 04/08/2020 4:08 PM
[2020-04-08] MEDS: ONDANSETRON HCL 4 MG ORAL DISINTEGRATING TAB PO PRN ×2 (18:23→23:00)
--- NOTE | 2020-04-08 19:27 | Progress Note ---
DATE: 04/08/2020 CONSULTANTS: 1. Dr. Menchaca, spa manager. 2. Dr. Yeh, ID. 3. Dr. Cloud, Cardiology. SUBJECTIVE: The patient was noted to have third-degree AV block this morning. He is now transferred to ICU for close monitoring. He denies any dizziness, chest pain, shortness of breath, nausea, or vomiting. PHYSICAL EXAMINATION: VITAL SIGNS: Temperature 98.7, pulse is 42, respirations 16, blood pressure 94/50, pulse ox is 93% on room air. GENERAL: No acute distress. HEENT: Normocephalic and atraumatic. NECK: Supple. SKIN: Dry and intact. LUNGS: Clear to auscultation. CARDIOVASCULAR: Bradycardic with heart rate of 40s to 50s. GI: Soft and nontender. Obese. MUSCULOSKELETAL: Moves all extremities. NEUROLOGIC: Alert, awake, and oriented x3. PSYCH: Calm. LABORATORY DATA: Sodium is 130, potassium is 3.8, BUN is 40, creatinine 2.26, estimated GFR is 29, glucose 193, calcium 8.0. Repeat blood culture done today. Chest x-ray shows interval placement of right internal IJ, cardiomegaly with worsening interstitial pulmonary edema, underlying multifocal pneumonia cannot be excluded. CT of the lumbar spine shows late subacute to chronic L1 compression fracture with evidence of osteonecrosis, late subacute to chronic displaced L1 transverse process fracture and degenerative changes as described with [id number] foraminal stenosis of L5-S1. ASSESSMENT AND PLAN: 1. Septicemia of unknown source. ID is on the case. Blood culture is positive for Staphylococcus aureus. Repeat blood culture is pending. Urine culture negative so far. Started on nafcillin 2 g. 2. Acute kidney injury versus chronic kidney disease. Creatinine is up to 2.26 today. We will continue to monitor closely. 3. Diabetes. Sliding scale insulin. 4. History of coronary artery disease. Continue aspirin. 5. New onset of third-degree AV block. Cardiology has been consulted and started on dopamine drip and atropine p.r.n. Cardiology and EP on the case. 6. Lower back pain with recent fall at home. CT of lumbar spine was reviewed. He has an appointment with a spine surgeon in a couple of weeks per patient and . 7. Gastrointestinal and deep venous thrombosis prophylaxis. Continue heparin subcu b.i.d. We will continue to monitor in the ICU on dopamine drip to titrate. Discussed with regarding treatment plan, verbalized understanding. Further recommendations per Cardiology and EP. Dictated by MIN Matias Kariching Sohan Abbasi MD MY/MODL /[id number]
[2020-04-08] MEDS: SIMVASTATIN 20 MG TAB PO SCH (21:38)
[2020-04-08] MEDS: INSULIN GLARGINE 100 UNITS/ML VIAL SQ SCH (21:55)
[2020-04-09] VITALS (17 sets, daily range): BP systolic 90–125; BP diastolic 42–64
[2020-04-09] MEDS: NAFCILLIN SOD 2 GM/NS 100ML 100 ML IV SCH ×6 (02:46→21:45)
[2020-04-09] MEDS: PREGABALIN 50 MG CAP PO SCH ×3 (05:29→21:45)
[2020-04-09 05:31] LABS: BASOPHILS # (AUTO) 0.1 (0.0-0.1); BASOPHILS % 0.5 % (0.0-1.0); EOSINOPHILS % 0.1 % (0.0-6.0); HEMATOCRIT 38.1 % (38.2-49.6); HEMOGLOBIN 12.3 g/dL (14.0-18.0); LYMPHOCYTES # (AUTO) 1.4 (1.0-3.2); LYMPHOCYTES % 10.4 % (18.0-39.1); MEAN CORPUSCULAR HEMOGLOBIN 26.9 pg (28-32); MEAN CORPUSCULAR HGB CONC 32.3 g/dL (31-35); MEAN CORPUSCULAR VOLUME 83.2 fL (81-99); MONOCYTES # (AUTO) 2.1 (0.2-0.8); MONOCYTES % 15.7 % (4.4-11.3); NEUTROPHILS # (AUTO) 9.4 (2.1-6.9); NEUTROPHILS % 72.1 % (38.7-80.0); PLATELET COUNT 206 x10e3/uL (140-360); RED BLOOD COUNT 4.58 x10e6/uL (4.3-5.7); RED CELL DISTRIBUTION WIDTH 14.9 % (11.7-14.4)
[2020-04-09 05:43] LABS: ANION GAP 16.8 mmol/L (8-16); CREATININE, SERUM 2.91 mg/dL (0.72-1.25); POTASSIUM 4.8 mmol/L (3.5-5.1)
[2020-04-09] MEDS: INSULIN LISPRO 100 UNIT/1 ML 3ML VIAL SQ SCH ×4 (08:49→21:44)
[2020-04-09] MEDS: HEPARIN SOD (PORCINE) 5,000 UNIT/ML VIAL SC SCH ×2 (09:00→21:43)
[2020-04-09] MEDS: LACTOBACILLUS ACIDOPHILUS CAPSULE PO SCH ×3 (09:09→21:39)
[2020-04-09] MEDS: ASPIRIN 81 MG CHEW TAB PO SCH (09:09)
[2020-04-09] MEDS ORDERED: FENTANYL CITRATE/PF 100MCG/2 ML INJ ONE (09:35)
[2020-04-09] MEDS ORDERED: MIDAZOLAM HCL 2 MG/2 ML VIAL ONE (09:35)
[2020-04-09] MEDS ORDERED: HEPARIN SOD/SOD CHLORIDE 0 ML ONE (09:35)
[2020-04-09] MEDS ORDERED: LIDOCAINE HCL 2% LOCAL 20 ML VIAL ONE ×2 (09:35→10:38)
[2020-04-09] MEDS ORDERED: SODIUM CHLORIDE 0.9% 500ML 500 ML ONE (09:36)
[2020-04-09] MEDS ORDERED: SODIUM CHLORIDE 0.9% 1000ML 1,000 ML ONE (09:36)
[2020-04-09] MEDS: SILVER ANTIMICROBIAL WOUND GEL 45ML TP SCH (12:08)
--- NOTE | 2020-04-09 12:25 | Operative Report ---
DATE OF PROCEDURE: 04/09/2020 SURGEON: Abhi Kenney MD PREPROCEDURE DIAGNOSES: Complete heart block, osteomyelitis, severe bradycardia. PROCEDURES PERFORMED: Temporary pacemaker placement with a permanent pacemaker lead, moderate sedation with 1 of versed, 50 of Fentanyl for 30 minutes while O2 saturation, heart rate, and blood pressure were being monitored by me and the circulating nurse. PROCEDURE IN DETAIL: The patient was brought into the EP Lab in fasting state. Right chest was prepped and draped in a sterile fashion. Conscious sedation was administered. One guidewire placed inside the right axillary vein using modified Seldinger technique. No complications. Pacing lead advanced to the RV apex and actively fixated in place, sensing 8, threshold 0.9, impedance 500 ohms. Lead was sutured to the skin using 0 silk and was connected to the externalized permanent pacemaker, which later was sutured to the skin as well and area was cleaned and covered with CHG covering. The patient tolerated the procedure well with no complications. CONCLUSION: Temporary pacemaker placement, moderate sedation. The circulating nurse was Ms. Trev Andres. PLAN: The patient requires Infectious Disease clearance. Once clearance is done, they will proceed with the biventricular pacemaker due to complete heart block and low EF and history of coronary artery disease and aortic valve disease. MD WYATT Werner/MODL /[id number]
[2020-04-09] MEDS: SODIUM CHLORIDE 0.9% 1000ML 1,000 ML IV SCH (13:12)
--- NOTE | 2020-04-09 13:51 | Diagnostic Imaging Report ---
EXAMINATION: CHEST SINGLE (PORTABLE) INDICATION: temporary pacemaker placement COMPARISON: Chest x-ray on 04/05/2020. FINDINGS: TUBES and LINES: Interval placement of a partially imaged right chest wall pacemaker. Partially imaged right central venous catheter which terminates in the distal SVC. LUNGS: Normal lung volumes. There is interval worsening of diffuse interstitial lung prominence. There is hazy opacification the bilateral lung bases, left more to right. PLEURA: No pleural effusion or pneumothorax. HEART AND MEDIASTINUM: The cardiomediastinal silhouette is enlarged. There are mild atherosclerotic calcifications within the aorta. BONES AND SOFT TISSUES: No acute osseous lesion. Median sternotomy wires are unchanged. Soft tissues are unremarkable. UPPER ABDOMEN: No free air under the diaphragm. IMPRESSION: 1. Interval placement of single lead right chest wall pacemaker. 2. Cardiomegaly with worsened pulmonary edema. 3. Hazy opacification of the left lung base which may represent atelectasis and/or aspiration. Signed by: Quin Crenshaw MD on 04/09/2020 1:48 PM
--- NOTE | 2020-04-09 14:50 | Progress Note ---
DATE: 04/09/2020 Cardiology Progress Note SUBJECTIVE: Feels better following transvenous pacemaker implantation. Eating lunch today. No new complaints. OBJECTIVE: VITAL SIGNS: Temperature 98.7, heart rate 53, blood pressure 119/44, respiratory rate 20, and O2 saturation 96%. GENERAL: In no acute distress. NECK: No JVD. CHEST: Clear to auscultation. CARDIOVASCULAR: Regular rate and rhythm. Normal S1 and S2. No S3 or S4. ABDOMEN: Soft. Bowel sounds positive. EXTREMITIES: No edema. Foot wound covered with dressings. CARDIOVASCULAR MEDICATIONS: Reviewed. Simvastatin 10 mg at bedtime, aspirin 81 mg daily, atropine p.r.n., and dopamine p.r.n. LABORATORY DATA: Telemetry with V-paced rhythm. Sodium 129, potassium 4.8, chloride 97, bicarbonate 20, BUN 56, creatinine 2.9, and glucose 292. White blood cells 13, hemoglobin 12, and platelets 206. PT 13.6, PTT 30.4, and INR 0.9. AST 59, ALT 71, alkaline phosphatase 90, and total bilirubin is 1. ASSESSMENT AND PLAN: 1. A 69-year-old man presents with third-degree AV block. 2. Bacteremia. 3. History of coronary artery disease and bypass. 4. History of bioprosthetic aortic valve with TVI ratio 0.18. 5. Diabetes. 6. Dyslipidemia. 7. Renal failure. RECOMMEND: 1. Continue antibiotics per primary service. 2. Await repeat blood cultures. 3. Plan for permanent pacemaker implantation prior to discharge once confirmation of resolution of bacteremia. 4. Continue rest of cardiovascular medications. Monitor renal function. MD RAGHAVENDRA Dunn/NANOL /[id number]
[2020-04-09] MEDS: MORPHINE SULFATE INJ 4 MG/ML INJ 1ML IV PRN (16:13)
--- NOTE | 2020-04-09 19:36 | Progress Note ---
DATE: 04/09/2020 CONSULTANTS: 1. Dr. Menchaca, handicraft or hobby shop manager. 2. Dr. Yeh, ID. 3. Dr. Cloud, Cardiology. 4. Dr. Kenney, EP. SUBJECTIVE: Status post external transvenous pacemaker implantation. His was at bedside. He denies any chest pain, shortness of breath, nausea, or vomiting. PHYSICAL EXAMINATION: VITAL SIGNS: Temperature 98.9, pulse is 60, respiration 24, blood pressure 100/64, and pulse ox is 100% on 4 L of nasal cannula. GENERAL: No acute distress. HEENT: Normocephalic, atraumatic. NECK: Supple. LUNGS: Clear to auscultation. CARDIOVASCULAR: Bradycardia in the 50s. GI: Soft and nontender. Obese. MUSCULOSKELETAL: Moves all extremities. NEUROLOGIC: Alert, awake, and oriented x3. SKIN: Dry and intact. PSYCH: Calm. LABORATORY DATA: WBC 13.07, hemoglobin 12.3, hematocrit 38.1, and platelets 206. Sodium 129, CO2 of 20. BUN 56, creatinine 2.91. Blood glucose 292, calcium 8.0. Blood culture repeat is negative so far. Chest x-ray shows interval placement of single lead right chest wall pacemaker and cardiomegaly with worsening pulmonary edema, hazy opacification of the left lung base, which may represent atelectasis or aspiration. ASSESSMENT AND PLAN: 1. Septicemia of unknown source. ID on case likely due to right foot infection. Continue nafcillin, repeat blood culture is negative so far. 2. Acute kidney injury versus chronic kidney disease. Creatinine is up to 2.91 today. We will continue to monitor. 3. Diabetes. Continue sliding scale insulin. We will add Lantus at bedtime. 4. History of coronary artery disease and bioprosthetic aortic valve with TVI placement. Continue aspirin and statin. 5. Third-degree AV block. Cardiology and EP consulted, status post temporary pacemaker placement today. 6. Chronic low back pain with recent fall at home. Imaging reviewed and has a followup with Spine Surgery in couple of weeks. 7. Hyponatremia. Sodium is 129. We will continue with normal saline at 75 mL/h. Repeat labs in a.m. 8. Gastrointestinal and deep venous thrombosis prophylaxis. Continue heparin subcutaneous. PLAN: To continue to monitor closely in ICU. Repeat labs in a.m. Dictated by Fanta Lloyd ANP MD PATRICIA Sofia/REJI /[id number]
[2020-04-09] MEDS: SIMVASTATIN 20 MG TAB PO SCH (21:39)
[2020-04-09] MEDS: INSULIN GLARGINE 100 UNITS/ML VIAL SQ SCH (21:45)
[2020-04-10] VITALS (26 sets, daily range): BP systolic 93–123; BP diastolic 46–67
[2020-04-10] MEDS: NAFCILLIN SOD 2 GM/NS 100ML 100 ML IV SCH ×6 (02:34→21:44)
[2020-04-10] MEDS: PREGABALIN 50 MG CAP PO SCH ×3 (05:54→21:44)
[2020-04-10 05:58] LABS: BASOPHILS % 0.5 % (0.0-1.0); EOSINOPHILS # (AUTO) 0.1 (0.0-0.4); EOSINOPHILS % 0.9 % (0.0-6.0); HEMATOCRIT 33.9 % (38.2-49.6); LYMPHOCYTES % 11.5 % (18.0-39.1); MEAN CORPUSCULAR HEMOGLOBIN 27.5 pg (28-32); MEAN CORPUSCULAR HGB CONC 32.4 g/dL (31-35); MEAN CORPUSCULAR VOLUME 84.8 fL (81-99); MONOCYTES # (AUTO) 1.1 (0.2-0.8); MONOCYTES % 12.7 % (4.4-11.3); NEUTROPHILS # (AUTO) 6.5 (2.1-6.9); NEUTROPHILS % 72.9 % (38.7-80.0); PLATELET COUNT 195 x10e3/uL (140-360); RED CELL DISTRIBUTION WIDTH 15.4 % (11.7-14.4)
[2020-04-10 06:28] LABS: ANION GAP 15.5 mmol/L (8-16); CALCIUM 7.5 mg/dL (8.4-10.2); CREATININE, SERUM 4.44 mg/dL (0.72-1.25); POTASSIUM 4.5 mmol/L (3.5-5.1)
[2020-04-10] MEDS: INSULIN LISPRO 100 UNIT/1 ML 3ML VIAL SQ SCH ×4 (08:06→21:43)
[2020-04-10] MEDS: LACTOBACILLUS ACIDOPHILUS CAPSULE PO SCH ×3 (08:07→21:43)
[2020-04-10] MEDS: HEPARIN SOD (PORCINE) 5,000 UNIT/ML VIAL SC SCH ×2 (08:07→21:43)
[2020-04-10] MEDS: SILVER ANTIMICROBIAL WOUND GEL 45ML TP SCH (08:07)
[2020-04-10] MEDS: ASPIRIN 81 MG CHEW TAB PO SCH (08:07)
[2020-04-10] MEDS: SODIUM CHLORIDE 0.9% 1000ML 1,000 ML IV SCH ×2 (10:18→14:25)
[2020-04-10] MEDS: MORPHINE SULFATE INJ 4 MG/ML INJ 1ML IV PRN ×2 (10:18→22:20)
--- NOTE | 2020-04-10 13:05 | Progress Note ---
DATE: 04/10/2020 Cardiology Progress Note SUBJECTIVE: No complaints OBJECTIVE: VITAL SIGNS: Temperature 97.9, heart rate 61, blood pressure 100/46, respiratory rate 22, and O2 saturation 96%. GENERAL: No acute distress. Alert. NECK: No JVD. CHEST: Clear to auscultation. CARDIOVASCULAR: Regular rate and rhythm. Normal S1 and S2. Systolic ejection murmur. ABDOMEN: Soft. Bowel sounds positive. EXTREMITIES: No edema. CARDIOVASCULAR MEDICATIONS: Simvastatin 10 mg at bedtime, aspirin 81 mg daily, Atrovent p.r.n., nafcillin antibiotics, and dopamine p.r.n. STUDIES: Reviewed. Creatinine 4.4, sodium 127, potassium 4.5, bicarbonate 19, and glucose 240. White blood cells 8.8, hemoglobin 11, platelets 195. INR 0.9. AST 59, ALT 71, and alkaline phosphatase 90. ASSESSMENT AND PLAN: A 69-year-old man presents with third-degree AV block with temporary pacemaker, left 1st toe osteomyelitis and bacteremia, undergoing antibiotics, history of aortic bioprosthesis and coronary artery disease with prior bypass, diabetes, and dyslipidemia. RECOMMEND: Discussed indications, alternatives, risks, and benefits for transesophageal echocardiographic assessment with assistance of anesthesia. We will schedule for tomorrow morning. N.p.o. after midnight. Renal function deteriorating. Renal consultation appreciated. MD RAGHAVENDRA Dunn/REJI /[id number]
[2020-04-10] MEDS ORDERED: SODIUM CHLORIDE 0.45% IV SCH (15:30)
[2020-04-10] MEDS ORDERED: SODIUM BICARB IV SCH (15:30)
[2020-04-10 16:00] LABS: CLARITY,URINE CLEAR (CLEAR); COLOR,URINE YELLOW (YELLOW)
[2020-04-10] MEDS ORDERED: SODIUM BICARBONATE 8.4% 75 ML in SODIUM CHLORIDE 0.45% 1,000 ML IV SCH (16:00)
[2020-04-10 16:01] LABS: BILIRUBIN,URINE NEGATIVE (NEGATIVE); KETONES,URINE NEGATIVE (NEGATIVE); LEUKOCYTE ESTERASE ,URINE TRACE (NEGATIVE); NITRITE,URINE NEGATIVE (NEGATIVE); PROTEIN,URINE DIPSTICK TRACE (NEGATIVE); URINE UROBILINOGEN 0.2 mg/dL (0.2 - 1)
[2020-04-10 16:07] LABS: BACTERIA,URINE FEW /HPF; EPITHELIAL CELLS,URINE MANY /LPF
[2020-04-10 16:24] LABS: CREATININE,URINE RANDOM 91.5 mg/dL (63-166)
--- NOTE | 2020-04-10 19:21 | Diagnostic Imaging Report ---
EXAM: Renal Ultrasound INDICATION: ^KIDNEY FAILURE ^[id number] ^[id number] COMPARISON: None TECHNIQUE: Transverse and longitudinal images of the kidneys and bladder were obtained. FINDINGS: Right Kidney: Size: 13.7 x 6.2 x 6.5 cm Echogenicity: Normal Parenchymal thickness: Normal Collecting system: No hydronephrosis Stones: None Cyst/Mass: None Left Kidney: Size: 12.8 x 7.1 x 4.8 cm Echogenicity: Normal Parenchymal thickness: Normal Collecting system: No hydronephrosis Stones: None Cyst/Mass: None Bladder: Urinary bladder is decompressed with Gaytan catheter in place however no catheter balloon visualized. IMPRESSION: 1. Kidneys are sonographically unremarkable. 2. Urinary bladder is decompressed with Gaytan catheter however no catheter balloon visualized. Signed by: Dr. Turner Zelaya M.D. on 04/10/2020 7:17 PM
--- NOTE | 2020-04-10 20:27 | Progress Note ---
DATE: SUBJECTIVE: The patient is breathing well, no distress. Awake and alert. The patient underwent temporary pacemaker placement. Heart rate is stable. HUSSEIN is planned. PHYSICAL EXAMINATION: VITAL SIGNS: Temperature 98.1, pulse of 60, blood pressure 111/57. CHEST: Clear to auscultation bilaterally. No wheezing. HEART: S1, S2 audible. ABDOMEN: Soft. EXTREMITIES: No pedal edema. NEUROLOGIC: Awake and alert. LABORATORY DATA: White count of 8000, hemoglobin 11.0, platelets 195. Chemistry; creatinine is 4.4. Creatinine was 1, sodium was 2.91 on 04/09, it is progressively getting worse. Sodium is 127. ASSESSMENT/PLAN: Mr. Juarez is a 69-year-old male who is septic. His initial blood culture showed Staph aureus, repeat is negative. The patient is on IV antibiotics per ID recommendations. Currently, the patient is also developing renal failure. Continue the patient on continue current treatment. Nephrology has been consulted. We will follow recommendation. Dopamine has been discontinued. HUSSEIN is planned in a.m. The patient can be transferred out of ICU when okay with other services. MD RUTH ANN Acosta/REJI /[id number]
[2020-04-10] MEDS: SIMVASTATIN 20 MG TAB PO SCH (21:43)
[2020-04-10] MEDS: INSULIN GLARGINE 100 UNITS/ML VIAL SQ SCH (21:44)
--- NOTE | 2020-04-10 22:06 | Progress Note ---
DATE: 04/10/2020 CONSULTANTS: 1. Dr. Menchaca, jockey room custodian. 2. Dr. Yeh, ID. 3. Dr. Cloud, Cardiology. 4. Dr. Kenney, EP. SUBJECTIVE: The patient is resting in bed with no acute distress. He denies any chest pain, shortness of breath, nausea, or vomiting. PHYSICAL EXAMINATION: VITAL SIGNS: Temperature 98.1, pulse is 61, respirations 24, blood pressure 122/53, pulse ox is 99% on 2 L of nasal cannula. GENERAL: In no acute distress. HEENT: Normocephalic, atraumatic. NECK: Supple. LUNGS: With decreased breath sounds. CARDIOVASCULAR: Regular rate and rhythm. GI: Soft and nontender. Obese. MUSCULOSKELETAL: Moves all extremities. NEUROLOGIC: Alert, awake, and oriented x3. SKIN: Dry. PSYCH: Calm. LABORATORY DATA: WBC 8.88, hemoglobin 11.0, hematocrit 33.9, platelet 195. Sodium 127, potassium 4.5, BUN 71 and creatinine 4.44, estimated GFR is 13. IMAGING: Renal ultrasound, kidneys are sonographically unremarkable. Urinary bladder is decompressed with Gaytan catheter, however, no catheter balloon visualized. ASSESSMENT AND PLAN: 1. Septicemia, likely due to right foot infection. ID on the case. Continue on nafcillin. Repeat blood cultures are negative so far. 2. Acute kidney injury. Creatinine is 4.4. Nephrology has been consulted. Renal ultrasound unremarkable. 3. Diabetes. Continue sliding scale insulin. 4. History of coronary artery disease and bioprosthetic aortic valve. Continue aspirin and statin. 5. Third-degree AV block. Status post temporary pacemaker placement. Cardiology and EP on the case. 6. Chronic lower back pain with recent fall at home. Imaging noted. He has a followup with his operation specialist next week outpatient. 7. Hyponatremia. Sodium is 127. Started on bicarb per Renal. 8. Gastrointestinal and deep venous thrombosis prophylaxis. Continue heparin subcutaneous. PLAN: To continue monitor in the ICU, n.p.o. after midnight for HUSSEIN in the morning per Cardiology. Repeat labs in a.m. Dictated by Fanta Lloyd, MIN Liseth Abbasi MD MY/MODL /[id number]
[2020-04-11] VITALS (26 sets, daily range): BP systolic 94–148; BP diastolic 49–92
[2020-04-11] MEDS: NAFCILLIN SOD 2 GM/NS 100ML 100 ML IV SCH ×6 (02:00→22:00)
[2020-04-11] MEDS: PREGABALIN 50 MG CAP PO SCH ×3 (05:15→21:37)
[2020-04-11 05:54] LABS: BASOPHILS # (AUTO) 0.1 (0.0-0.1); BASOPHILS % 0.6 % (0.0-1.0); EOSINOPHILS # (AUTO) 0.2 (0.0-0.4); EOSINOPHILS % 2.4 % (0.0-6.0); HEMATOCRIT 36.3 % (38.2-49.6); HEMOGLOBIN 11.8 g/dL (14.0-18.0); LYMPHOCYTES # (AUTO) 1.3 (1.0-3.2); MEAN CORPUSCULAR HEMOGLOBIN 27.4 pg (28-32); MEAN CORPUSCULAR HGB CONC 32.5 g/dL (31-35); MEAN CORPUSCULAR VOLUME 84.4 fL (81-99); MONOCYTES % 11.9 % (4.4-11.3); NEUTROPHILS # (AUTO) 5.7 (2.1-6.9); NEUTROPHILS % 67.9 % (38.7-80.0); PLATELET COUNT 274 x10e3/uL (140-360); RED CELL DISTRIBUTION WIDTH 15.5 % (11.7-14.4)
[2020-04-11 06:09] LABS: INR 1.13; PROTHROMBIN TIME 15.1 seconds (11.9-14.5)
[2020-04-11 06:10] LABS: PARTIAL THROMBOPLASTIN TIME 37.7 seconds (23.8-35.5)
[2020-04-11 06:34] LABS: ANION GAP 16.5 mmol/L (8-16); CALCIUM 7.4 mg/dL (8.4-10.2); CREATININE, SERUM 4.72 mg/dL (0.72-1.25); POTASSIUM 4.5 mmol/L (3.5-5.1)
[2020-04-11] MEDS: INSULIN LISPRO 100 UNIT/1 ML 3ML VIAL SQ SCH ×4 (06:46→21:36)
--- NOTE | 2020-04-11 06:59 | Diagnostic Imaging Report ---
EXAMINATION: CHEST SINGLE (PORTABLE) INDICATION: PULMONARY CONGESTION COMPARISON: Radiograph dated 04/09/2020 FINDINGS: Unchanged sternotomy wires. Right internal jugular central venous catheter projects over the distal SVC. Single lead right chest wall cardiac device. Stable cardiomegaly. Persistent but improved distention of the pulmonary vessels improved aeration of the left upper lobe with persistent interstitial densities. Unchanged right infrahilar patchy opacity. No pneumothorax. No sizable effusion. IMPRESSION: Improving pulmonary edema. Unchanged right infrahilar patchy opacity could represent atelectasis. Pneumonia not excluded. Signed by: Alfredo Napier MD on 04/11/2020 6:55 AM
[2020-04-11] MEDS ORDERED: BENZOCAINE 20% SPR 60 ML CAN ONE (07:46)
[2020-04-11] MEDS ORDERED: SODIUM CHLORIDE 0.9% 1000ML 0 ML ONE (07:47)
[2020-04-11] MEDS ORDERED: SODIUM CHLORIDE 0.9% 500ML 500 ML ONE (07:54)
--- NOTE | 2020-04-11 08:00 | NUR ---
0800--in room 0805--hurricaine spray x2 0824--bite block in 0825--probe in 0830--bubble study 0832--probe out pt tolerated well
[2020-04-11] MEDS: SILVER ANTIMICROBIAL WOUND GEL 45ML TP SCH (09:05)
--- NOTE | 2020-04-11 09:49 | Progress Note ---
DATE: 04/11/2020 Cardiology Progress Note CONSULTING PHYSICIAN: Saad Gordon M.D. SUBJECTIVE: Mr. Juarez has no new complaints today. He underwent transesophageal echocardiogram earlier this morning. OBJECTIVE: VITAL SIGNS: Temperature 98.1, heart rate 60, blood pressure 135/64, respiratory rate 16, and O2 saturation 96%. BMI 37. GENERAL: In no acute distress, alert. NECK: No JVD. CHEST: Clear to auscultation. CARDIOVASCULAR: Regular rate and rhythm. Normal S1, S2. Systolic ejection murmur. Sternotomy scar. ABDOMEN: Soft. Bowel sounds positive. EXTREMITIES: No edema. Left foot wound covered with dressings. CARDIOVASCULAR MEDICATIONS: 1. Simvastatin 10 mg at bedtime. 2. Aspirin 81 mg daily. 3. Atropine p.r.n. 4. Dopamine p.r.n. TELEMETRY: V-paced rhythm. LABORATORY STUDIES: Creatinine 4.7, sodium 128, bicarbonate 18, potassium 4.5, and glucose 215. White blood cells 8.3, hemoglobin 11.8, and platelets 274. INR 1.1. AST 59, ALT 71, and alkaline phosphatase 90. ASSESSMENT AND PLAN: A 69-year-old man presents with: 1. Third-degree AV block. 2. Bioprosthetic aortic valve with increased gradients. 3. Bacteremia. 4. Diabetes. 5. Hypertension. 6. Dyslipidemia. 7. Left first toe cellulitis. 8. Coronary artery disease with history of bypass. RECOMMENDATIONS: 1. Repeat blood cultures, so far negative. No evidence of vegetations on transesophageal echocardiogram performed today, report to follow. 2. Worsening renal function, metabolic acidosis. Appreciate Nephrology expertise. Has transvenous pacemaker, with plans for permanent pacemaker implantation prior to discharge. Antibiotics per Primary Service. Continue ICU monitoring. Saad Gordon MD AFV/MODL /[id number]
[2020-04-11] MEDS ORDERED: FUROSEMIDE INJ 10 MG/ML 4 ML VIAL IV ONE (10:00)
[2020-04-11] MEDS: ASPIRIN 81 MG CHEW TAB PO SCH (10:33)
[2020-04-11] MEDS: LACTOBACILLUS ACIDOPHILUS CAPSULE PO SCH ×3 (10:33→21:36)
[2020-04-11] MEDS: HEPARIN SOD (PORCINE) 5,000 UNIT/ML VIAL SC SCH ×2 (10:34→21:00)
[2020-04-11] MEDS: SODIUM CHLORIDE 0.9% 1000ML 1,000 ML IV SCH (10:34)
--- NOTE | 2020-04-11 11:19 | Progress Note ---
DATE: SUBJECTIVE: The patient is improving. Heart rate is better. Denies any complaints of chest pain, nausea, or vomiting. PHYSICAL EXAMINATION: VITAL SIGNS: Temperature 98.1, pulse of 60, and blood pressure 118/60. CHEST: Clear to auscultation bilaterally. NEUROLOGIC: Awake, alert. No focal neurologic deficit. ABDOMEN: Soft, nontender. LABORATORY DATA: White count of 8000 and hemoglobin 11.8. Chemistry reviewed. Creatinine is up to 4.72. The patient is still having urine output. Other labs reviewed. ASSESSMENT AND PLAN: Mr. Juarez is a 69-year-old male with: 1. Sepsis, improving. 2. Renal failure, acute kidney injury on top of chronic kidney disease. Follow Nephrology recommendations. Antibiotics per ID recommendations. MD RUTH ANN Acosta/REJI /[id number]
[2020-04-11] MEDS ORDERED: PROPOFOL IV EMULSION 10 MG/ML 20 ML VIAL ONE (12:11)
[2020-04-11] MEDS ORDERED: LIDOCAINE HCL 2% LOCAL INJ 5 ML SDV VIAL INJ ONE (12:11)
[2020-04-11] MEDS: SODIUM BICARBONATE 650 MG TAB PO SCH ×2 (14:59→21:36)
--- NOTE | 2020-04-11 16:22 | Progress Note ---
DATE: 04/11/2020 Progress Note. SUBJECTIVE: The patient is doing well today, is out of bed onto the chair. No further febrile episodes. OBJECTIVE: VITAL SIGNS: Temperature 98, heart rates 60, blood pressure 135/64, respiratory rate 16. HEENT: Normocephalic, atraumatic. Extraocular movements not accessed. NECK: Supple. LUNGS: Fair air entry bilaterally. Clear to auscultation. HEART: S1, S2. Systolic ejection murmur. Old sternotomy scar. ABDOMEN: Soft, nontender, normoactive bowel sounds. EXTREMITIES: Left great toe erythema has improved. LABORATORY DATA: Labs reveal WBC count of 8.3, hemoglobin 11.8, platelets 274. BUN of 78, creatinine 4.7. Transesophageal echocardiogram reported as negative. ASSESSMENT: 1. Staphylococcus aureus adlwjlevft-gpoheckumid-cvvgbeyfnnc Staphylococcus aureus, probable source left great toe soft-tissue infection. 2. No endocarditis by transesophageal echocardiogram, repeat blood culture negative. 3. Acute kidney injury. 4. Third degree AV block. 5. Leukocytosis, improved. 6. Bioprosthetic aortic valve. 7. Cellulitis, left great toe, improved-no evidence of osteomyelitis, on MRI. RECOMMENDATIONS: 1. Antibiotic treatment with nafcillin to continue. 2. Permanent pacemaker placement can be performed. 3. Repeat blood cultures are negative and there is no endocarditis, we will continue to follow. Felton Yeh MD SR/MODL /[id number]
[2020-04-11] MEDS: SIMVASTATIN 20 MG TAB PO SCH (21:36)
[2020-04-11] MEDS: INSULIN GLARGINE 100 UNITS/ML VIAL SQ SCH (21:37)
--- NOTE | 2020-04-11 21:42 | Progress Note ---
DATE: 04/11/2020 Progress Note. CONSULTANTS: 1. Dr. Menchaca, group product manager. 2. Dr. Yeh, ID. 3. Dr. Cloud, Cardiology. 4. Dr. Morse, Renal. 5. Dr. Kenney, EP. SUBJECTIVE: The patient was seen this morning post HUSSEIN. He was resting and requesting HUSSEIN. He denies any chest pain, fever, chills, shortness of breath, nausea, or vomiting. OBJECTIVE: VITAL SIGNS: Temperature 98.5, pulse is 60, respirations 24, blood pressure 126/51, and pulse ox is 95% on 1 L nasal cannula. GENERAL: No acute distress. HEENT: Normocephalic, atraumatic. NECK: Supple. LUNGS: Decreased breath sounds. CARDIOVASCULAR: Regular rate and rhythm placed on monitor. GI: Soft and nontender. Obese. MUSCULOSKELETAL: Moves all extremities. NEUROLOGIC: Alert, awake, and oriented x3. SKIN: Dry and noted cellulitis of the right foot. PSYCH: Calm. LABORATORY DATA: WBC 8.32, hemoglobin 11.8, hematocrit 36.3, and platelets 274. Sodium 128, potassium 4.5, CO2 18, BUN 78, creatinine 4.72. Estimated GFR 12, blood glucose 215, calcium 7.4. BNP is 661. IMPRESSION: 1. Septicemia, likely due to right foot infection. Blood culture first set was positive for Staphylococcus aureus MSSA. Repeat blood culture is negative so far. Continue nafcillin per ID. 2. Acute kidney injury. ATN. Creatinine 4.7. Nephrology has been consulted, and bicarb tabs. 3. Diabetes type 2. Continue sliding scale insulin and increase Lantus to 25 units at bedtime. 4. History of coronary artery disease. 5. History of bioprosthetic aortic valve replacement. 6. Third-degree AV block. Status post temporary pacemaker placement per EP. HUSSEIN negative for endocarditis. ID has cleared for permanent pacemaker placement. 7. Hyponatremia. Sodium is 128 today. Continue on bicarb per Renal. 8. Chronic back pain with recent fall at home. Continue pain management as needed and follow up outpatient with his affirmative action specialist. 9. Cellulitis. Wound care and antibiotics. 10. Gastrointestinal and deep vein thrombosis prophylaxis. Continue heparin subcu. PLAN: Continue to monitor in ICU, HUSSEIN has been done and pending for final report. Repeat BNP in the morning. Dictated by Fanta Lolyd, ANP MD PATRICIA Sofia/MODL /[id number]
[2020-04-12] VITALS (19 sets, daily range): BP systolic 98–143; BP diastolic 54–82
[2020-04-12] MEDS: NAFCILLIN SOD 2 GM/NS 100ML 100 ML IV SCH ×6 (02:00→22:00)
[2020-04-12] MEDS: PREGABALIN 50 MG CAP PO SCH ×3 (04:29→22:00)
[2020-04-12 05:39] LABS: BASOPHILS # (AUTO) 0.1 (0.0-0.1); BASOPHILS % 0.8 % (0.0-1.0); EOSINOPHILS # (AUTO) 0.2 (0.0-0.4); EOSINOPHILS % 3.4 % (0.0-6.0); HEMATOCRIT 33.9 % (38.2-49.6); HEMOGLOBIN 10.8 g/dL (14.0-18.0); LYMPHOCYTES # (AUTO) 0.8 (1.0-3.2); MEAN CORPUSCULAR HEMOGLOBIN 27.1 pg (28-32); MEAN CORPUSCULAR HGB CONC 31.9 g/dL (31-35); MONOCYTES # (AUTO) 0.8 (0.2-0.8); MONOCYTES % 12.3 % (4.4-11.3); NEUTROPHILS # (AUTO) 4.2 (2.1-6.9); NEUTROPHILS % 68.4 % (38.7-80.0); PLATELET COUNT 266 x10e3/uL (140-360); RED BLOOD COUNT 3.99 x10e6/uL (4.3-5.7); RED CELL DISTRIBUTION WIDTH 15.8 % (11.7-14.4)
[2020-04-12 06:04] LABS: ALBUMIN 1.7 g/dL (3.5-5.0); ALBUMIN/GLOBULIN RATIO 0.5 (0.8-2.0); ANION GAP 17.2 mmol/L (8-16); CALCIUM 7.1 mg/dL (8.4-10.2); CREATININE, SERUM 4.73 mg/dL (0.72-1.25); POTASSIUM 4.2 mmol/L (3.5-5.1)
--- NOTE | 2020-04-12 07:04 | Consultation ---
DATE OF CONSULTATION: 04/11/2020 REASON FOR CONSULTATION: Acute kidney injury. HISTORY OF PRESENT ILLNESS: A 69-year-old gentleman, underlying history of longstanding diabetes. The patient claims that he did not really take care of his diabetes and had odd blood pressure. Consequently, he developed chronic kidney disease stage 3, had a virtual interview with one of my office mates. He follows up at [facility]. He had coronary artery bypass surgery in the past, aortic valve replacement. He had a mild stroke. He was told while he was in the OR with mild residual weakness of the left upper extremity. He denies any history of malignancy, prostate issues, or kidney stone disease. Currently lying supine, awake, alert, and oriented x3. Denies shortness of breath, orthopnea, dyspnea, pain, fever, or chills. He has a temporary pacemaker for complete heart block. Also on dopamine, now off, currently receiving IV bicarbonate. ALLERGIES: NO APPARENT DRUG ALLERGIES. MEDICATIONS: He was on vancomycin, but currently on nafcillin, aspirin, insulin lispro, heparin subcutaneous, Lyrica 100 mg p.o. q.8, which I am going to stop because of worsening kidney function. He is also on simvastatin 10 mg p.o. at bedtime. The patient is receiving antibiotics for diabetic ulcer of the left great toe. There was no evidence of osteomyelitis. He had blood cultures positive for Staphylococcus aureus, which was sensitive to amoxicillin. Repeat cultures are negative. Urine culture negative. LABORATORY TESTS: Show a baseline serum creatinine of 2.63, came down to 1.78 and has gradually gone up to 4.72 today with a sodium 128, potassium 4.5, chloride 98, bicarbonate 18, BUN 78, creatinine 4.7, and calcium 7.4. He had a urinalysis, shows dipstick positive protein, in fact trace protein, 6-10 rbc's, 6-10 wbc. SOCIAL HISTORY: Does not smoke or drink. FAMILY HISTORY: Significant for diabetes. PHYSICAL EXAMINATION: GENERAL: Awake, alert, and oriented x3, lying supine, in no apparent distress. VITAL SIGNS: Blood pressure 118/59, pulse rate 60, paced rhythm, and respiratory rate 14. HEAD AND NECK: Cornea clear. Oral mucosa moist. Neck veins flat. Right IJ central line noted. LUNGS: Clear to auscultation on supine exam. No rales. HEART: S1 and S2 audible. ABDOMEN: Soft, nontender, obese abdomen, but no apparent visceromegaly. Nontender. EXTREMITIES: Lower extremity examination shows 1+ edema, bilateral pretibial. DICTATION ENDS HERE MD IRVIN Nunez/REJI /[id number]
[2020-04-12] MEDS: INSULIN LISPRO 100 UNIT/1 ML 3ML VIAL SQ SCH ×4 (07:54→21:45)
[2020-04-12] MEDS: SODIUM CHLORIDE 0.9% 1000ML 1,000 ML IV SCH (07:54)
[2020-04-12] MEDS: LACTOBACILLUS ACIDOPHILUS CAPSULE PO SCH ×3 (08:00→21:45)
[2020-04-12] MEDS: SODIUM BICARBONATE 650 MG TAB PO SCH ×3 (08:00→21:45)
[2020-04-12] MEDS: SILVER ANTIMICROBIAL WOUND GEL 45ML TP SCH (08:00)
[2020-04-12] MEDS: ASPIRIN 81 MG CHEW TAB PO SCH (08:00)
[2020-04-12] MEDS ORDERED: ALBUMIN 5% 0.05 GM/ML BTL IV ONE (09:30)
[2020-04-12] MEDS ORDERED: FUROSEMIDE INJ 10 MG/ML 2 ML VIAL IV ONE (11:45)
--- NOTE | 2020-04-12 14:23 | Progress Note ---
DATE: SUBJECTIVE: The patient has improved breathing and better heart rate. The patient planned to have a permanent pacemaker today. Denies any chest pain, nausea, or vomiting. PHYSICAL EXAMINATION: VITAL SIGNS: Temperature 98.1, pulse of 70, blood pressure 133/69, respiratory rate of 18, and O2 saturation 97% on 1 L. HEENT: Head is atraumatic and normocephalic. NECK: Supple. CHEST: Clear to auscultation bilaterally. EXTREMITIES: Pedal edema. NEUROLOGIC: Awake and alert. LABORATORY DATA: Creatinine is 4.7 and sodium 132. White cell count of 6.1 and hemoglobin 10.8. Chest x-ray, I have reviewed the images. ASSESSMENT/PLAN: Mr. Juarez is a 69-year-old male with blood cultures positive for Staph aureus. Repeat one is negative. The patient will be getting a permanent pacemaker soon. Acute kidney injury on chronic kidney disease, currently stable. Nephrology is following the patient. The patient can be transferred out of ICU once cleared by Cardiology. MD RUTH ANN Acosta/REJI /[id number]
[2020-04-12 14:34] LABS: ALBUMIN 2.2 g/dL (3.5-5.0); ALBUMIN/GLOBULIN RATIO 0.7 (0.8-2.0); ANION GAP 19.4 mmol/L (8-16); CALCIUM 7.5 mg/dL (8.4-10.2); CREATININE, SERUM 4.43 mg/dL (0.72-1.25); POTASSIUM 4.4 mmol/L (3.5-5.1)
[2020-04-12] MEDS ORDERED: MIDAZOLAM HCL 2 MG/2 ML VIAL ONE ×3 (15:57→17:38)
[2020-04-12] MEDS ORDERED: LIDOCAINE 1% W/EPINEPHRINE 20 ML VIAL ONE (15:57)
[2020-04-12] MEDS ORDERED: FENTANYL CITRATE/PF 100MCG/2 ML INJ ONE ×2 (15:57→17:38)
[2020-04-12] MEDS ORDERED: SODIUM CHLORIDE 0.9% 1000ML 2,000 ML ONE (15:58)
[2020-04-12] MEDS ORDERED: VANCOMYCIN 1GM/NS 250 ML 250 ML ONE ×2 (15:58→17:10)
--- NOTE | 2020-04-12 20:30 | NUR ---
Transfered from ICU Bedside report received from morning nurse. Pt alert and oriented to name, lying in bed HIB 60 degrees, denies pain at this time. Call light within reach. Bed low and locked.
[2020-04-12] MEDS: SIMVASTATIN 20 MG TAB PO SCH (21:45)
[2020-04-12] MEDS: ACETAMINOPHEN/CODEINE 300MG - 30MG TAB PO PRN (22:00)
--- NOTE | 2020-04-12 22:55 | Diagnostic Imaging Report ---
EXAMINATION: CHEST SINGLE (PORTABLE) INDICATION: ^s/p pacemaker placement ^[id number] ^[id number] COMPARISON: Chest radiograph 04/11/2020 FINDINGS: TUBES and LINES: Interval removal of right-sided cardiac device and placement of left-sided cardiac device with dual leads overlying the cardiac silhouette. Unchanged position of right IJ central venous catheter with tip at the mid SVC. LUNGS: Normal lung volumes. Redemonstrated central pulmonary mass or congestion with mild interstitial edema. Persistent right infrahilar opacity, favored to represent atelectasis. PLEURA: Questionable trace left pleural effusion. No pneumothorax. HEART AND MEDIASTINUM: Unchanged enlarged cardiac silhouette. A surgical changes of the mediastinum with intact median sternotomy wires. BONES AND SOFT TISSUES: No acute osseous lesion. Soft tissues are unremarkable. UPPER ABDOMEN: No free air under the diaphragm. IMPRESSION: 1. Interval removal of right-sided cardiac device and placement of left-sided cardiac device with 2 leads overlying the cardiac silhouette. 2. Redemonstrated central pulmonary vascular congestion with mild interstitial edema. Questionable trace left pleural effusion. 3. Persistent right infrahilar opacity, favored to represent atelectasis. Signed by: Dr. Turner Zelaya M.D. on 04/12/2020 10:52 PM
[2020-04-13] VITALS (7 sets, daily range): BP systolic 115–137; BP diastolic 59–78
[2020-04-13] MEDS: INSULIN GLARGINE 100 UNITS/ML VIAL SQ SCH ×2 (00:51→21:00)
[2020-04-13] MEDS: NAFCILLIN SOD 2 GM/NS 100ML 100 ML IV SCH ×6 (02:00→21:44)
--- NOTE | 2020-04-13 02:42 | Progress Note ---
DATE: 04/12/2020 Cardiology Note SUBJECTIVE: No new complaints this a.m. OBJECTIVE: VITAL SIGNS: Temperature 98, heart rate 63, blood pressure 113/54, respiratory rate 22, O2 saturation 98%. GENERAL: No acute distress, alert. NECK: No JVD. CHEST: Clear to auscultation. CARDIOVASCULAR: Regular rate and rhythm. Normal S1, S2. Systolic ejection murmur. ABDOMEN: Soft. Bowel sounds positive. EXTREMITIES: No edema. Transvenous pacemaker in place. TELEMETRY: Paced rhythm. CARDIOVASCULAR MEDICATIONS: Reviewed. Aspirin 81 mg daily, atropine 0.4 q.12 hours, dopamine p.r.n. STUDIES: Reviewed. Creatinine 4.7, potassium 4.2, bicarbonate 19, glucose 170. White blood cells 6.1, hemoglobin 10.8, platelets 266. ASSESSMENT AND PLAN: 1. A 69-year-old man with history of aortic valve replacement with prosthetic TBI index on transesophageal echocardiogram is 0.3 with effective prosthetic valve orifice area 0.9 cm2 and a mean gradient of 44 with peak velocity of 4.08 in the setting of preserved ventricular systolic function with LVEF of 55% to 60%. 2. Third-degree AV block with plans for permanent pacemaker implantation later today. 3. Hypertension, dyslipidemia. 4. Diabetes. 5. Coronary artery disease with history of bypass. 6. Osteomyelitis. 7. Bacteremia with recent negative repeat blood cultures on antibiotic therapy. RECOMMENDATIONS: 1. Continue antibiotic course and complete per ID recommendations. 2. Plans for permanent pacemaker implantation, likely today, per EP. 3. Aortic valve prosthetic stenosis. Discussed importance of close followup as outpatient and consideration for intervention for prosthetic valve increased gradients. 4. Continue rest of cardiovascular medications. Saad Gordon MD AFV/MODL /[id number]
--- NOTE | 2020-04-13 02:42 | Progress Note ---
DATE: 04/12/2020 CONSULTANTS: 1. Dr. Menchaca, lime vat tender. 2. Dr. Yeh, ID. 3. Dr. Cloud, Cardiology. 4. Dr. Morse, Renal. 5. Dr. Kenney, EP. SUBJECTIVE: The patient seen in the ICU n.p.o. awaiting for permanent pacemaker placement today. He denies any chest pain, shortness of breath, fever, chills, or shortness of breath. PHYSICAL EXAMINATION: VITAL SIGNS: Temperature 98.1, pulse is 68, respirations 22, blood pressure 118/70, pulse ox is 98% on room air. GENERAL: In no acute distress. HEENT: Normocephalic, atraumatic. NECK: Supple. LUNGS: Decreased breath sounds. CARDIOVASCULAR: Regular rate and rhythm. GI: Soft and nontender, obese. MUSCULOSKELETAL: Moves all extremities with trace edema. NEUROLOGIC: Alert, awake and oriented x3. SKIN: Dry and intact. Right lower extremity cellulitis. PSYCH: Calm. LABORATORY DATA: WBC 6.10, hemoglobin 10.8, hematocrit 33.9, platelets 266,000. Sodium 136, potassium 4.4, CO2 19, BUN is 81, creatinine 4.43, estimated GFR is 13, glucose 139, AST 16, ALT 15. IMPRESSION: 1. Septicemia likely due to right foot cellulitis. Blood culture was positive for Staph MSSA. Repeat blood culture is negative. Continue on nafcillin per ID. HUSSEIN was negative for vegetation. 2. Acute kidney injury, ATN. Creatinine is mildly improving at 4.4 today. Renal on the case. 3. Diabetes type 2. Continue sliding scale insulin and Lantus 25 units at bedtime. 4. History of coronary artery disease. 5. Third degree AV block, status post temporary pacemaker per EP. Pending for permanent pacemaker placement today. 6. History of coronary artery disease. Continue aspirin and statin. 7. History of bioprosthetic aortic valve replacement. 8. Hyponatremia. Sodium is improved at 136 today. 9. Chronic back pain with recent fall at home. Pain management as needed, and will follow up outpatient with his epic cadence specialists at [facility]. 10. Right foot cellulitis. Wound care and continue antibiotics. 11. GI and DVT prophylaxis. Continue heparin subcu. PLAN: To continue close monitoring in the ICU, he is pending permanent pacemaker placement later on today. Dictated by Fanta Lloyd, ANP MD PATRICIA Sofia/REJI /[id number]
[2020-04-13] MEDS: PREGABALIN 50 MG CAP PO SCH ×3 (06:00→21:44)
[2020-04-13 07:00] LABS: ALBUMIN 2.1 g/dL (3.5-5.0); ALBUMIN/GLOBULIN RATIO 0.7 (0.8-2.0); ANION GAP 15.6 mmol/L (8-16); CALCIUM 7.4 mg/dL (8.4-10.2); CREATININE, SERUM 4.14 mg/dL (0.72-1.25); POTASSIUM 4.6 mmol/L (3.5-5.1)
[2020-04-13] MEDS: INSULIN LISPRO 100 UNIT/1 ML 3ML VIAL SQ SCH ×4 (07:30→21:00)
[2020-04-13] MEDS: SILVER ANTIMICROBIAL WOUND GEL 45ML TP SCH (09:00)
[2020-04-13] MEDS: LACTOBACILLUS ACIDOPHILUS CAPSULE PO SCH ×3 (09:24→21:00)
[2020-04-13] MEDS: SODIUM BICARBONATE 650 MG TAB PO SCH ×3 (09:24→21:00)
[2020-04-13] MEDS: ASPIRIN 81 MG CHEW TAB PO SCH (09:24)
--- NOTE | 2020-04-13 10:23 | Progress Note ---
DATE: 04/13/2020 Cardiology Progress Note SUBJECTIVE: No complaints. OBJECTIVE: VITAL SIGNS: Temperature 97.8, heart rate 67, blood pressure 115/70, respiratory rate 22, and O2 saturation 97%. GENERAL: In no acute distress. Alert. NECK: No JVD. Central venous catheter to right IJ site. CHEST: Clear to auscultation. CARDIOVASCULAR: Regular rate and rhythm. Normal S1 and S2. Systolic ejection murmur. Pacemaker pocket site covered with dressings. ABDOMEN: Soft. Bowel sounds positive. EXTREMITIES: Trace edema. Pacemaker pocket site covered with dressings. CARDIOVASCULAR MEDICATIONS: Reviewed. Atropine p.r.n., aspirin 81 mg daily, nafcillin IV, and simvastatin 10 mg at bedtime. STUDIES: Reviewed. Creatinine 4, potassium 4.6, and bicarbonate 22. White blood cells 6, hemoglobin 10.8, and platelets 266. ASSESSMENT AND PLAN: A 69-year-old man presents with toe osteomyelitis, bacteremia, history of aortic valve prosthesis with increased gradients, history of coronary artery disease and bypass, dyslipidemia, diabetes, and [id number] renal failure, anemia, third-degree AV block, now status post permanent pacemaker implantation. RECOMMEND: 1. Continue antibiotics at the discretion of ID expertise. 2. Continue aspirin and statin. 3. Blood pressure currently adequately controlled. 4. Monitor anemia and H and H. 5. Appreciate Nephrology expertise regarding renal issues. 6. Status post permanent pacemaker implantation. 7. Outpatient evaluation for increased valve gradients at a later date, status post HUSSEIN on this admission. MD RAGHAVENDRA Dunn/REJI /[id number]
--- NOTE | 2020-04-13 11:28 | Progress Note ---
DATE: SUBJECTIVE: The patient is out of ICU, breathing well, no distress. Renal failure is improving. PHYSICAL EXAMINATION: VITAL SIGNS: Temperature 97.8, pulse of 67, blood pressure 115/78, respiratory rate of 18, and O2 saturation 97%. HEENT: Head is atraumatic, normocephalic. CHEST: Clear to auscultation. NEUROLOGIC: Awake, alert. No focal neurologic deficit. CHEST: Clear to auscultation. No wheezing. ABDOMEN: Soft. LABORATORY DATA: Reviewed, status post permanent pacemaker placement. Creatinine is down to 4.14. Urine output is appropriate. ASSESSMENT/PLAN: Mr. Juarez is a 69-year-old male who was bacteremic with Staph aureus. Repeat cultures are negative. ID cleared the patient for permanent pacemaker placement, status post permanent pacemaker placement for bradycardia. Overall, the patient has improved. Continue the patient on antibiotics per ID recommendation. Oxygen as needed. Since the patient's blood pressure and heart rate is stable, we will consider removing the central line. MD RUTH ANN Acosta/REJI /[id number]
[2020-04-13] MEDS ORDERED: FUROSEMIDE INJ 10 MG/ML 4 ML VIAL IV ONE (12:15)
--- NOTE | 2020-04-13 17:52 | NUR ---
Nutrition Screen Note RD Recommendation for Physician: -Recommend 1800 ADA/low sodium diet Plan of Care: RD following, monitoring for tolerance and adequacy Nutrition reason for involvement: follow up Primary Diagnose(s): hypoxia PMH: CAD, diabetes, HTN Ht: 72 in Wt:273 lb BMI: 37.0 kg/m2 IBW:[address] Assessment: 04/13: Follow up. Chart reviewed. Pt reports he is eating well and ate all of his meals today. No N/V/D/C reported. Pt did not have any questions and declined the need for diet education at follow-up visit. Will continue to monitor. (04/06/20) Chart reviewed. Labs and meds reviewed. Pt is a 69 year old male admitted with hypoxia. Pt reports he had a decreased appetite and did not eat anything for 2 days prior to admission. At time of visit, pt mentioned he was able to eat most of his lunch today. Pt also mentioned he had lost weight in the past 1 weeks and had weighed 282 lbs. Pt currently has a weight of 273 lbs in chart. If accurate, this would be a 3% weight loss in 1 weeks which is significant weight loss. No N/V, but pt reports he had been having diarrhea. No chewing/swallowing issues. Pt declined the need for diet education. Will continue to monitor. Current Diet: 1800 ADA Malnutrition Evaluation (04/06/20) The patient does not meet criteria for a specified degree of malnutrition at this time. Will re-evaluate at follow-up as appropriate. Diet Education Needs Assessment: Pt declined the need for diet education Nutrition Care Level: low Signed: Emerita Alvares, RD, LD
--- NOTE | 2020-04-13 18:05 | Operative Report ---
DATE OF PROCEDURE: 04/12/2020 SURGEON: EL MARSHALL DO CLINICAL INDICATION: Mr. Juraez is a 69-year-old man with a history of systolic cardiomyopathy with left ventricular ejection fraction of 45% to 50%, who presents to the hospital with symptomatic bradycardia. He was noted to have complete heart block, requiring an urgent temporary externalized pacer via the right subclavian vein route. He presents today for an implantation of a dual-chamber pacemaker. He has no reversible causes of his bradycardia and explantation of the temporary externalized lead. PROCEDURES PERFORMED: 1. Implantation of dual-chamber pacemaker ([employer]). 2. Explantation of a temporary externalized pacer. 3. Moderate sedation. PROCEDURE IN DETAIL: After informed consent was obtained. The patient was prepped and draped in usual manner. Moderate sedation was used for this procedure, total of 4 mg IV Versed and 100 mcg IV fentanyl given by Alonso Waggoner, for a total 40 minutes. The patient is monitored by myself and nurse. Preprocedure time-out and antibiotics were given to the patient. He was brought to the asset availability leader in a fasting and nonsedated state. No upper extremity venogram was performed due to the patient's elevated creatinine. Using modified Seldinger technique, one uncomplicated venous access was obtained in the left axillary vein and a wire was subsequently inserted into the inferior vena cava. Afterwards, 1% lidocaine was given to the left chest region and a 3 cm incision was created over the left chest. A pocket was created over the pectoralis muscle, then additional uncomplicated venous access was obtained and wire was subsequently inserted into the inferior vena cava. A 6-Romanian peel-away sheath was passed over the wire and a right ventricular pacing lead was inserted through that sheath and brought to the right ventricular apex, this included the myocardium, supervisor in circuit testing demonstrated adequate threshold and sheath was peeled, then another 6-Romanian peel-away sheath was inserted over the wire and a right atrial pacing lead was inserted through the sheath and brought to the right atrial appendage. This included the myocardium, supervisor in circuit testing demonstrated adequate threshold and sheath was peeled. Both leads were sutured to muscle using 0 silk. The pocket was then irrigated thoroughly with antibiotic solution. Hemostasis was confirmed. The generator was brought into the field. The leads were connected to the generator. Generator and leads were then inserted into the pocket and generator was sutured to muscle using 0 silk, then in a standard 3-layer fashion, pocket was closed using Vicryl, Stratafix, and skin glue was applied. using fluoroscopic guidance, the lead was then removed with gentle traction and manual pressure was held at the venipuncture site. After adequate hemostasis was confirmed. At the conclusion of procedure, the patient tolerated the procedure well without any immediate complications fluoroscopy demonstrated normal cardiac silhouette, no evidence of pericardial effusion, no pneumothorax, no retained products within the pocket. IMPLANTED DEVICE: 1. [employer] model [id number], serial #[id number]. 2. RA 2087TC/52, serial #[id number]. 3. RV 2087TC/58, serial #[id number]. 4. Explanted lead, [employer] model 8TC/58, serial #[id number]. MEASUREMENTS: 1. RA 2.7 mV, 480 ohms, 0.75 V at 0.4 millisecond. 2. RV greater than 12 mV, 690 ohms, 0.5 V at 0.4 millisecond. 3. . CONCLUSION: 1. Successful placement of a [employer] dual-chamber pacemaker. 2. Successful removal of a temporary externalized lead. 3. No immediate complications. POSTPROCEDURE PLAN: 1. Bed rest 4 hours. The patient can resume his prior diet. 2. Postprocedure usual incisional care and arm restriction. 3. Postprocedure chest x-ray and EKG to be obtained. 4. Postprocedure pain medication and antibiotics to be given. Once the patient is discharged, please see Dr. Crouch in clinic in 2 weeks. DO JOSÉ ANTONIO RAND/REJI /[id number]
--- NOTE | 2020-04-13 19:00 | NUR ---
Report given to oncoming nurse of patient's status. Resting in bed. No s/s of acute distress noted. Side rails upx2, call light within reach.
--- NOTE | 2020-04-13 20:31 | Progress Note ---
DATE: 04/13/2020 SUBJECTIVE: The patient is out of ICU, he is status post permanent pacemaker placement. He denies any fever, chills, chest pain, shortness of breath, nausea, or vomiting. PHYSICAL EXAMINATION: VITAL SIGNS: Temperature 98.1, pulse is 67, respirations 22, blood pressure 133/66, pulse ox is 98% on room air. GENERAL: No acute distress. HEENT: Normocephalic and atraumatic. NECK: Supple. LUNGS: With decreased breath sounds. CARDIOVASCULAR: Regular rate and rhythm. Permanent pacemaker to the left upper chest. GI: Soft and nontender. Obese. MUSCULOSKELETAL: Moves all extremities with trace edema. NEUROLOGIC: Alert, awake, and oriented x3. SKIN: Dry and intact. Left foot cellulitis noted. Dressing intact. PSYCH: Calm. LABORATORY DATA: Sodium 134, potassium 4.6, BUN is 74, creatinine 4.14, estimated GFR is 14, calcium 7.4, AST 19, ALT 16. BNP 406. IMPRESSION: 1. Septicemia, likely due to left foot cellulitis. Blood culture was initially positive for methicillin-sensitive Staphylococcus aureus. Repeat culture negative. Continue on nafcillin per ID. HUSSEIN was negative for vegetation. 2. Acute kidney injury, acute tubular necrosis. Creatinine is mildly improving, was 4.14. Renal on the case. Continue with bicarb t.i.d. 3. Diabetes type 2. Continue sliding scale insulin and Lantus 25 units at bedtime. 4. Third-degree AV block. Status post permanent pacemaker placement. Site is intact. 5. History of coronary artery disease. Continue with aspirin and statin. 6. History of bioprosthetic aortic valve replacement. 7. Hyponatremia, now improved. 8. Chronic back pain with recent fall at home. Pain management as needed. Follow up with search marketing specialist at [facility] upon discharge. 9. Left foot cellulitis. Wound care daily and continue antibiotics. 10. Debility. Physical Therapy to evaluate and treat. 11. Gastrointestinal and deep venous thrombosis prophylaxis. Continue heparin subcu. Plan is PT to evaluate and treat, we will continue to trend creatinine. Dictated by MIN Matias Liseth Abbasi MD MY/MODL /[id number]
[2020-04-13] MEDS: SIMVASTATIN 20 MG TAB PO SCH (21:00)
[2020-04-14] MEDS: ACETAMINOPHEN/CODEINE 300MG - 30MG TAB PO PRN ×3 (00:17→11:28)
[2020-04-14] MEDS: NAFCILLIN SOD 2 GM/NS 100ML 100 ML IV SCH ×6 (02:58→22:15)
[2020-04-14] MEDS: PREGABALIN 50 MG CAP PO SCH ×3 (06:00→22:15)
[2020-04-14 06:34] LABS: BASOPHILS # (AUTO) 0.1 (0.0-0.1); BASOPHILS % 0.8 % (0.0-1.0); EOSINOPHILS # (AUTO) 0.2 (0.0-0.4); EOSINOPHILS % 2.6 % (0.0-6.0); HEMATOCRIT 32.7 % (38.2-49.6); HEMOGLOBIN 10.3 g/dL (14.0-18.0); LYMPHOCYTES % 14.3 % (18.0-39.1); MEAN CORPUSCULAR HEMOGLOBIN 26.8 pg (28-32); MEAN CORPUSCULAR HGB CONC 31.5 g/dL (31-35); MEAN CORPUSCULAR VOLUME 85.2 fL (81-99); MONOCYTES % 13.6 % (4.4-11.3); NEUTROPHILS # (AUTO) 4.8 (2.1-6.9); NEUTROPHILS % 66.5 % (38.7-80.0); PLATELET COUNT 301 x10e3/uL (140-360); RED BLOOD COUNT 3.84 x10e6/uL (4.3-5.7); RED CELL DISTRIBUTION WIDTH 15.9 % (11.7-14.4)
[2020-04-14 06:54] LABS: ANION GAP 15.4 mmol/L (8-16); CALCIUM 7.7 mg/dL (8.4-10.2); CREATININE, SERUM 3.88 mg/dL (0.72-1.25); POTASSIUM 4.4 mmol/L (3.5-5.1)
[2020-04-14] MEDS: INSULIN LISPRO 100 UNIT/1 ML 3ML VIAL SQ SCH ×4 (08:15→20:50)
[2020-04-14 08:32] VITALS: BP 137/77
[2020-04-14 09:26] VITALS: BP 120/61
--- NOTE | 2020-04-14 10:59 | Progress Note ---
DATE: SUBJECTIVE: The patient is improving, no distress. Renal failure has improved. Urine output has improved. PHYSICAL EXAMINATION: VITAL SIGNS: Temperature 97.7, pulse of 67, blood pressure 120/61. CHEST: Clear. GENERAL: Awake, alert. LABORATORY DATA: Reviewed. ASSESSMENT: A 69-year-old male with bradycardia, sepsis, now improved, status post permanent pacemaker placement, high likelihood of obstructive sleep apnea. PLAN: Discontinue central line. Overall respiratory status stable. MD RUTH ANN Acosta/MODL /[id number]
[2020-04-14] MEDS: SILVER ANTIMICROBIAL WOUND GEL 45ML TP SCH (11:06)
[2020-04-14] MEDS: ASPIRIN 81 MG CHEW TAB PO SCH (11:06)
[2020-04-14] MEDS: SODIUM BICARBONATE 650 MG TAB PO SCH ×3 (11:07→20:55)
[2020-04-14] MEDS: LACTOBACILLUS ACIDOPHILUS CAPSULE PO SCH ×3 (11:07→20:55)
--- NOTE | 2020-04-14 11:45 | Progress Note ---
DATE: 04/14/2020 SUBJECTIVE: The patient overall is doing better, has been moved out of the intensive care unit, offers no new complaints today. PHYSICAL EXAMINATION: VITAL SIGNS: Temperature 98, pulse 71, respiratory rate 20, blood pressure is 137/77. HEENT: There are no conjunctival lesions. NECK: Supple. LUNGS: Fair air entry bilaterally. Clear to auscultation. HEART: Sounds S1, S2. No murmur. No gallop. ABDOMEN: Soft, nontender, normoactive bowel sounds. EXTREMITIES: The erythema over the left great toe has improved. There is discoloration of the nails. LABORATORY DATA: BUN 64, creatinine 3.8, glucose 192. WBC count of 7.2, hemoglobin 10.3, platelets 301. Repeat blood cultures are negative. Transesophageal echocardiogram is negative. ASSESSMENT: 1. Staphylococcus aureus qgixeavfbq-apjzjatgucg-baqhenovquf Staphylococcus aureus, with probable source being left great toe soft-tissue infection. MRI was negative for underlying osteomyelitis. 2. Transesophageal echocardiogram negative for endocarditis. 3. Acute kidney injury, improving. 4. Third-degree atrioventricular block, status post permanent pacemaker placement. 5. Leukocytosis, improved. 6. Bioprosthetic aortic valve. RECOMMENDATIONS: Antibiotic treatment with nafcillin to continue. We will determine final antibiotic regimen based on renal function. Anticipated duration of antibiotic treatment is another two weeks. We will continue to follow. Felton Yeh MD SR/MODL /[id number]
--- NOTE | 2020-04-14 11:50 | NUR ---
patricio discontinued, tip intact. pt tolerated well.
[2020-04-14 12:15] VITALS: BP 145/64
--- NOTE | 2020-04-14 13:16 | NUR ---
SPOKE WITH PT ABOUT HOME HEALTH AND CHOICE, HE STATES [facility], FILE DIN CHART AND FAXED CLINICALS TO COMPANY
--- NOTE | 2020-04-14 15:49 | NUR ---
Per Booker Clifford with [facility], they are accepting pt. COVID test results were faxed as requested. HH information was printed and given to pt. [facility] [address] [place] [address] Received order for patrice. Spoke to pt at bedside. He signed choice letter for [facility]. Copy given to pt. Signed copy placed in chart. Order and clinical faxed to [facility] at [phone] / Barb Ness with [facility] was notified of referral.
[2020-04-14 16:40] VITALS: BP 142/68
[2020-04-14 18:29] LABS: CREATININE,URINE RANDOM 40.25 mg/dL (63-166); TOTAL PROTEIN, URINE 14.5 mg/dL (1-14)
[2020-04-14 20:01] VITALS: BP 148/82
--- NOTE | 2020-04-14 20:38 | Progress Note ---
DATE: 04/14/2020 SUBJECTIVE: The patient is resting in bed. He is in no acute distress. Gaytan has been removed and reports he has been getting up with physical therapy. He denies any chest pain, shortness of breath, fever, or chills. PHYSICAL EXAMINATION: VITAL SIGNS: Temperature 97.9, pulse is 74, respirations 18, blood pressure 145/64, and pulse ox is 97% on room air. GENERAL: No acute distress. HEENT: Normocephalic and atraumatic. NECK: Supple. LUNGS: With decreased breath sounds. CARDIOVASCULAR: Regular rate and rhythm. Permanent pacemaker in the left upper chest. GI: Soft and nontender. Obese. MUSCULOSKELETAL: Moves all extremities. NEUROLOGIC: Alert, awake, and oriented x3. SKIN: Dry and intact. Left foot cellulitis. PSYCH: Calm. LABORATORY DATA: WBC 7.2, hemoglobin 10.3, hematocrit 32.7, and platelet 301. Sodium 136, potassium 4.4, BUN 64, creatinine is 3.88, and estimated GFR is 15. ASSESSMENT AND PLAN: 1. Septicemia, likely due to left foot cellulitis. Initial blood culture was positive for methicillin-sensitive Staphylococcus aureus. Repeat cultures are negative. HUSSEIN negative for vegetation. Continue with nafcillin per ID. 2. Acute kidney injury, acute tubular necrosis. Creatinine is improving some, today 3.88. 3. Diabetes type 2. Continue sliding scale insulin and Lantus 25 units at bedtime. 4. Third-degree AV block. Status post permanent pacemaker placed. left arm in a sling and site intact. 5. History of coronary artery disease. Continue aspirin and statin. 6. History of bioprosthetic aortic valve replacement. 7. Chronic back pain with recent fall at home. Pain management as needed. Follow up with ncqa specialist at [facility] upon discharge per appointment. 8. Left foot cellulitis. Continue wound care and antibiotics per ID. 9. Debility. Physical therapy to evaluate and treat. 10. Gastrointestinal and deep venous thrombosis prophylaxis. Continue heparin subcutaneous. PLAN: To continue trending creatinine and physical therapy as tolerated. Case management has been consulted for home health, PT/OT. Anticipate discharge in 2 to 3 days once creatinine improves. Dictated by MIN Matias MD PATRICIA Sofia/NANOL /[id number]
[2020-04-14] MEDS: INSULIN GLARGINE 100 UNITS/ML VIAL SQ SCH (20:50)
[2020-04-14] MEDS: SIMVASTATIN 20 MG TAB PO SCH (20:55)
[2020-04-14 22:05] VITALS: BP 148/82
[2020-04-15] VITALS (9 sets, daily range): BP systolic 120–151; BP diastolic 51–71
--- NOTE | 2020-04-15 01:53 | Progress Note ---
DATE: 04/14/2020 Cardiology Progress Note SUBJECTIVE: The patient has no complaints. He is feeling much better; hopes to go home soon. He has been sitting in chair a few times daily. OBJECTIVE: VITAL SIGNS: Blood pressure 142/68 mmHg, the heart rate is 68 beats per minute. His pulse oximetry shows oxygen saturation 96% to room air and he is afebrile. GENERAL: The patient is in no acute distress. He is awake, alert, oriented and pleasant; answers questions appropriately. HEAD AND NECK: Shows normocephalic, atraumatic head. No increased jugular venous pressure. There is a central venous catheter to the right IJ site. LUNGS: Clear to auscultation. CARDIOVASCULAR: Regular rate and rhythm. Normal S1 and S2 and a systolic ejection murmur is heard. He has the left sided pacemaker pocket site covered with dressings. He is wearing a left sling. ABDOMEN: Soft, nontender. No masses palpated. EXTREMITIES: Trace leg edema. CARDIOVASCULAR: Medications were reviewed. LABORATORY DATA: Shows a white blood cell count of 7.21, hemoglobin of 10.3, hematocrit of 32.7, platelet count is 301,000. His basic metabolic profile shows a sodium of 136, potassium of 4.4, chloride of 101, carbon dioxide is 24, BUN is 64, and creatinine is 3.88. His estimated GFR is 16. His glucose is 192 and calcium is 7.7. ASSESSMENT AND PLAN: A 69-year-old man 1. Left big toe osteomyelitis, left foot cellulitis. 2. Bacteremia with methicillin sensitive Staph Aureus 04/04/20. 3. History of aortic valve prosthesis, increased gradient s/p HUSSEIN. 4. History of coronary artery disease and bypass. 5. Dyslipidemia. 6. Diabetes. 7. Fdoqc-yp-eynbitl renal failure. 8. Anemia. 9. Third-degree AV block for which he received a permanent pacemaker implantation. RECOMMENDATIONS: 1. Antibiotics as per ID service. 2. Continue aspirin and statin. 3. Blood pressure is adequately controlled; continue to monitor. 4. Monitor H and H. 5. Status post permanent pacemaker implantation for third-degree AV block. 6. Outpatient evaluation for increased valve gradient across the prosthetic aortic valve. Piper Park MD EC/MODL /[id number] MARY ANN
[2020-04-15] MEDS: NAFCILLIN SOD 2 GM/NS 100ML 100 ML IV SCH ×6 (02:05→22:20)
[2020-04-15 05:44] LABS: ANION GAP 14.4 mmol/L (8-16); CALCIUM 8.1 mg/dL (8.4-10.2); CREATININE, SERUM 3.43 mg/dL (0.72-1.25); POTASSIUM 4.4 mmol/L (3.5-5.1)
[2020-04-15] MEDS: PREGABALIN 50 MG CAP PO SCH (06:09)
[2020-04-15] MEDS: LACTOBACILLUS ACIDOPHILUS CAPSULE PO SCH ×3 (08:07→21:35)
[2020-04-15] MEDS: ASPIRIN 81 MG CHEW TAB PO SCH (08:07)
[2020-04-15] MEDS: INSULIN LISPRO 100 UNIT/1 ML 3ML VIAL SQ SCH ×4 (08:32→21:35)
[2020-04-15] MEDS: SODIUM BICARBONATE 650 MG TAB PO SCH ×3 (08:33→21:35)
[2020-04-15] MEDS: SILVER ANTIMICROBIAL WOUND GEL 45ML TP SCH (10:12)
--- NOTE | 2020-04-15 12:00 | Progress Note ---
DATE: 04/15/2020 SUBJECTIVE: The patient overall has been doing much better. Progress noted. Notes reviewed. OBJECTIVE: VITAL SIGNS: Temperature 97.6, pulse 55, respiratory rate 18, blood pressure 128/63. HEENT: Normocephalic, atraumatic. Extraocular movements not accessed. NECK: Supple. LUNGS: Fair air entry bilaterally. Clear to auscultation. HEART: Evaluation of the heart sounds, S1, S2, systolic ejection murmur. ABDOMEN: Soft, nontender, normoactive bowel sounds. EXTREMITIES: There is no cyanosis, clubbing, or edema. Left great toe shows some erythema with darkening of the nail. LABORATORY DATA: WBC count 7.2, hemoglobin 10.3, and platelets 301. BUN 57, creatinine 3.4. Repeat blood cultures are negative. ASSESSMENT: 1. Staphylococcus aureus iztjpwqtjy-dafccpopzfa-cvfxaaaaduc Staphylococcus aureus. 2. Soft-tissue infection of left great toe. No underlying osteomyelitis by MRI. 3. No endocarditis by transesophageal echocardiogram. 4. Acute kidney injury, improving. 5. Third-degree atrioventricular block, had permanent pacemaker placement. 6. Leukocytosis, improved. 7. Bioprosthetic mitral valve. RECOMMENDATIONS: Continue the patient on nafcillin. The patient will need central venous access to be changed. Duration of antibiotic therapy anticipated to be another 2 weeks. We will determine final antibiotic regimen based on renal recovery. We will continue to follow. Felton Yeh MD SR/MODL /[id number]
--- NOTE | 2020-04-15 12:30 | Progress Note ---
DATE: 04/15/2020 SUBJECTIVE: The patient is resting in bed with no acute distress, he denies any chest pain, shortness of breath, nausea, or vomiting. PHYSICAL EXAMINATION: VITAL SIGNS: Temperature 97.6, pulse is 65, respirations 18, blood pressure 128/63, pulse ox 100% on room air. GENERAL: No acute distress. HEENT: Normocephalic and atraumatic. NECK: Supple. LUNGS: Decreased breath sounds. CARDIOVASCULAR: Regular rate and rhythm. GI: Soft and nontender. Obese. MUSCULOSKELETAL: Moves all extremities. NEUROLOGY: Alert, awake, and oriented x3. SKIN: Dry and intact. Left foot cellulitis. PSYCH: Calm. LABORATORY DATA: Sodium 135, potassium 4.4, BUN 57, creatinine 3.43, estimated GFR is 18, blood glucose 172, calcium 8.1. ASSESSMENT: 1. Septicemia, likely due to left foot cellulitis. Blood culture was positive for methicillin-sensitive Staphylococcus aureus, repeat cultures negative. HUSSEIN negative for vegetation, continue with nafcillin per ID, adjust once kidney function improves. 2. Acute kidney injury, acute tubular necrosis, creatinine is 3.43 today. Renal on the case. 3. Diabetes type 2. Continue sliding scale insulin and Lantus 25 units at bedtime. 4. Third-degree AV block. Status post pacemaker placement. 5. History of coronary artery disease. Continue aspirin and statin. 6. History of bioprosthetic aortic valve replacement. 7. Chronic back pain with recent fall at home. Pain management as needed and follow up with ecmo specialist at [facility] upon discharge per appointment. Continue physical therapy. 8. Left foot cellulitis. Wound care and antibiotics per ID. 9. Debility. Physical therapy tolerated. 10. Gastrointestinal and deep venous thrombosis prophylaxis. Continue heparin subcu. PLAN: Continue current treatment and trend creatinine. Anticipate discharge once creatinine improves with antibiotics and home health, PT/OT care. Dictated by MIN Matias Liseth Abbais MD MY/MODL /[id number]
--- NOTE | 2020-04-15 21:03 | Progress Note ---
DATE: 04/15/2020 Cardiology Progress Note SUBJECTIVE: The patient is in no acute distress. He denies chest pain, shortness of breath, cough, nausea, vomiting, or diarrhea. PHYSICAL EXAMINATION: VITAL SIGNS: His blood pressure is 120/60 mmHg with a heart rate of 75, his pulse oximetry is 98% on room air, and he is afebrile. GENERAL: The patient is in no acute distress. HEAD AND NECK: Shows normocephalic and atraumatic head, no increased jugular venous pressure. LUNGS: Clear to auscultation. CARDIOVASCULAR: Regular rate and rhythm. Normal S1 and S2 and a systolic murmur is heard. He has a pacemaker pocket site, cover with dressings. ABDOMEN: Soft, nontender. No masses palpated. EXTREMITIES: No significant leg edema. CARDIOVASCULAR MEDICATIONS: Reviewed. LABORATORY DATA: Shows sodium of 135, potassium of 4.4, chloride of 100, bicarb is 25, BUN is 57, creatinine is 3.43 from 3.88 yesterday, estimated GFR is 18, glucose is 172, calcium is 8.1. ASSESSMENT AND PLAN: A 69-year-old man 1. Left big toe osteomyelitis, left foot cellulitis. 2. Bacteremia with methicillin sensitive Staph Aureus 04/04/20. 3. History of aortic valve prosthesis, increased gradient s/p HUSSEIN. 4. History of coronary artery disease and bypass. 5. Dyslipidemia. 6. Diabetes. 7. Xgzcq-fx-jsjxrig renal failure. 8. Anemia. 9. Third-degree AV block for which he received a permanent pacemaker implantation. RECOMMENDATIONS: 1. Antibiotics as per ID service. 2. Continue aspirin and statin. 3. Blood pressure is adequately controlled; continue to monitor. 4. Monitor H and H. 5. Status post permanent pacemaker implantation for third-degree AV block. 6. Outpatient evaluation for increased valve gradient across the prosthetic aortic valve. MD TERRY Archer/MODL /[id number] MARY ANN
[2020-04-15] MEDS: SIMVASTATIN 20 MG TAB PO SCH (21:35)
[2020-04-15] MEDS: INSULIN GLARGINE 100 UNITS/ML VIAL SQ SCH (21:35)
[2020-04-16] VITALS (11 sets, daily range): BP systolic 132–172; BP diastolic 69–85
[2020-04-16] MEDS: NAFCILLIN SOD 2 GM/NS 100ML 100 ML IV SCH ×6 (02:00→22:00)
[2020-04-16 06:56] LABS: ANION GAP 13.2 mmol/L (8-16); CALCIUM 7.9 mg/dL (8.4-10.2); CREATININE, SERUM 3.19 mg/dL (0.72-1.25); POTASSIUM 4.2 mmol/L (3.5-5.1)
[2020-04-16] MEDS: INSULIN LISPRO 100 UNIT/1 ML 3ML VIAL SQ SCH ×4 (07:30→21:40)
[2020-04-16] MEDS: ASPIRIN 81 MG CHEW TAB PO SCH (08:49)
[2020-04-16] MEDS: LACTOBACILLUS ACIDOPHILUS CAPSULE PO SCH ×3 (08:49→21:17)
[2020-04-16] MEDS: SODIUM BICARBONATE 650 MG TAB PO SCH ×3 (08:49→21:17)
[2020-04-16] MEDS: SILVER ANTIMICROBIAL WOUND GEL 45ML TP SCH (08:56)
--- NOTE | 2020-04-16 12:00 | Progress Note ---
DATE: 04/16/2020 SUBJECTIVE: The patient is seen in the room with no acute distress, denies any chest pain, shortness of breath, nausea, or vomiting. at the bedside. PHYSICAL EXAMINATION: VITAL SIGNS: Temperature 98.3, pulse is 85, respirations 18, blood pressure 157/79, pulse ox is 100% on room air. GENERAL: No acute distress. HEENT: Normocephalic atraumatic. NECK: Supple. LUNGS: Decreased breath sounds. CARDIOVASCULAR: Regular rate and rhythm. GI: Soft and nontender. Obese. MUSCULOSKELETAL: Moves all extremities. NEUROLOGIC: Alert, awake, and oriented x3. SKIN: Dry and intact. Left foot has cellulitis. Dressing intact. PSYCH: Calm. LABORATORY DATA: Sodium 136, potassium 4.2, CO2 26, BUN 48, creatinine 3.19, estimated GFR is 20, blood glucose 240, calcium 7.9. ASSESSMENT: 1. Septicemia, likely due to left foot cellulitis. Blood culture was initially positive for methicillin-susceptible Staphylococcus aureus. Repeat culture is negative x5 days. HUSSEIN was negative for vegetation. Continue nafcillin per ID and plans to adjust medications once kidney function improves. 2. Acute kidney injury. Creatinine is 3.1. Renal on the case. 3. Diabetes type 2. Continue sliding scale insulin and we will increase Lantus to 30 units at bedtime. 4. Third-degree AV block. Status post pacemaker placement. 5. History of coronary artery disease. Continue aspirin and statin. 6. History of bioprosthetic aortic valve replacement. 7. Chronic back pain with recent fall. Will follow up with [facility] upon discharge. 8. Left foot cellulitis. Wound care daily per nursing and antibiotics per ID. 9. Debility. Continue physical therapy as tolerated. 10. Gastrointestinal and deep vein thrombosis prophylaxis. Continue heparin subcu. PLAN: To continue current treatment, trend creatinine, PT as tolerated. Dictated by MIN Matias Liseth Abbasi MD MY/MODL /[id number]
[2020-04-16] MEDS: SIMVASTATIN 20 MG TAB PO SCH (21:17)
[2020-04-16] MEDS: INSULIN GLARGINE 100 UNITS/ML VIAL SQ SCH (21:17)
--- NOTE | 2020-04-16 21:31 | Progress Note ---
DATE: 04/16/2020 Cardiology Progress Note SUBJECTIVE: The patient is in no acute distress. He is hoping to go home soon with outpatient wound care and home health for intravenous antibiotics. He has no complaint. He denies chest pain, shortness of breath, cough, nausea, vomiting, or diarrhea. He has been sitting in a chair multiple times during the day and is able to transfer himself from bed to chair without problems. PHYSICAL EXAMINATION: VITAL SIGNS: His blood pressure is 146/85 with a heart rate of 68. His pulse oximetry shows 95% oxygen saturation on room air and he is afebrile. GENERAL: He is in no acute distress. HEAD AND NECK: Shows normocephalic and atraumatic head. No increased jugular venous pressure detected. Right sided IJ central line. LUNGS: Clear to auscultation. CARDIOVASCULAR: Regular rate and rhythm. Normal S1, S2. Systolic murmur. He has a sling over his left arm because of recent implantation of pacemaker. ABDOMEN: Soft, obese, nontender. No masses palpated. EXTREMITIES: No leg edema. MEDICATIONS: Cardiovascular medications were reviewed. LABORATORY DATA: The basic metabolic profile shows a sodium of 136, potassium of 4.2, chloride of 101, carbon dioxide of 26. BUN is 48, decreased from 57 yesterday. Creatinine is 3.19, decreased from 3.43 yesterday. His estimated GFR is 20. His glucose was elevated at 240. ASSESSMENT AND PLAN: A 69-year-old man 1. Left big toe osteomyelitis, left foot cellulitis. 2. Bacteremia with methicillin sensitive Staph Aureus 04/04/20. 3. History of aortic valve prosthesis, increased gradient across prosthetic valve, s/p HUSSEIN. 4. History of coronary artery disease and bypass. 5. Dyslipidemia. 6. Diabetes. 7. Tkwtz-mw-pdsehdj renal failure. 8. Anemia. 9. Third-degree AV block for which he received a permanent pacemaker implantation. RECOMMENDATIONS: 1. Antibiotics as per ID service. 2. Continue aspirin and statin. 3. Blood pressure: continue to monitor and adjust medications as needed. 4. Monitor H and H, electrolytes and renal function. 5. Status post permanent pacemaker implantation for third-degree AV block. 6. Outpatient evaluation for increased valve gradient across the prosthetic aortic valve. MD TERRY Archer/REJI /[id number] MARY ANN
[2020-04-17] VITALS (9 sets, daily range): BP systolic 145–177; BP diastolic 68–87
[2020-04-17] MEDS: NAFCILLIN SOD 2 GM/NS 100ML 100 ML IV SCH ×6 (02:00→22:15)
[2020-04-17 06:14] LABS: ANION GAP 13.1 mmol/L (8-16); CREATININE, SERUM 2.8 mg/dL (0.72-1.25); POTASSIUM 4.1 mmol/L (3.5-5.1)
--- NOTE | 2020-04-17 07:00 | NUR ---
RECEIVED BEDSIDE SHIFT REPORT FROM OFF GOING NIGHT NURSE. PATIENT ABLE TO VOICE NEEDS. RESPIRATIONS EVEN AND NONLABORED. PATIENT IN STABLE CONDITION, NO S/S OF DISTRESS NOTED. TELEMETRY APPLIED. IV SITE ASYMPTOMATIC AND PATENT, TRANSPARENT DRESSING C/D/I. BED IN LOWEST POSITION AND LOCKED, SIDE RAILS X2, NONSKID SOCKS APPLIED. CALL LIGHT WITHIN REACH.
[2020-04-17] MEDS: INSULIN LISPRO 100 UNIT/1 ML 3ML VIAL SQ SCH ×4 (07:30→20:46)
[2020-04-17] MEDS: FUROSEMIDE 40 MG TAB PO SCH (09:21)
[2020-04-17] MEDS: SODIUM BICARBONATE 650 MG TAB PO SCH ×3 (09:21→20:38)
[2020-04-17] MEDS: LACTOBACILLUS ACIDOPHILUS CAPSULE PO SCH ×3 (09:21→20:38)
[2020-04-17] MEDS: ASPIRIN 81 MG CHEW TAB PO SCH (09:21)
[2020-04-17] MEDS: SILVER ANTIMICROBIAL WOUND GEL 45ML TP SCH (09:22)
--- NOTE | 2020-04-17 12:09 | Progress Note ---
DATE: 04/17/2020 SUBJECTIVE: The patient is sitting up in a chair with no acute distress. Denies any chest pain, shortness of breath, nausea, or vomiting. He reports wants his Lyrica for his neuropathy. PHYSICAL EXAMINATION: VITAL SIGNS: Temperature 97.7, pulse is 73, respirations 20, blood pressure 149/73, and pulse ox is 98% on room air. GENERAL: No acute distress. HEENT: Normocephalic and atraumatic. NECK: Supple. LUNGS: With decreased breath sounds. CARDIOVASCULAR: Regular rate and rhythm. GI: Soft and nontender. Obese. MUSCULOSKELETAL: Moves all extremities. NEUROLOGIC: Alert, awake, and oriented x3. SKIN: Dry and intact. Left foot cellulitis. Dressing intact. PSYCH: Calm. LABORATORY DATA: Sodium 140, potassium 4.1, BUN 40, creatinine 2.8, estimated GFR 23, and calcium 8.0. ASSESSMENT: 1. Septicemia, methicillin-susceptible Staphylococcus aureus, likely due to left foot cellulitis. Repeat blood cultures negative. HUSSEIN negative for vegetation. Continue nafcillin per ID for total of 15 days. 2. Acute kidney injury. Creatinine is improving, 2.8 today. Renal on the case. 3. Diabetes type 2. Continue sliding scale insulin and Lantus 30 units at bedtime. 4. Third-degree AV block. Status post pacemaker placement. 5. History of coronary artery disease. Continue aspirin and statin. 6. History of bioprosthetic aortic valve replacement. 7. Chronic back pain with recent fall. CT done and will follow up with [facility] spine surgeon upon discharge. 8. Left foot cellulitis. Continue wound care daily per nursing and antibiotics per ID. 9. Debility. Continue physical therapy as tolerated. Home health has been arranged for PT/OT. 10. Gastrointestinal and deep venous thrombosis prophylaxis. Continue heparin subcutaneous. PLAN: To continue current treatment, trend creatinine, PT as tolerated, anticipate discharge home in 1 to 2 days. Dictated by MIN Matias Liseth Abbasi MD MY/MODL /[id number]
[2020-04-17] MEDS: AMLODIPINE BESYLATE 5 MG TAB PO SCH (12:29)
--- NOTE | 2020-04-17 12:44 | Progress Note ---
DATE: 04/17/2020 Cardiology Progress Note SUBJECTIVE: No new complaints. Receiving IV antibiotics. OBJECTIVE: VITAL SIGNS: Temperature is 97.7, heart rate 73, blood pressure 149/76, respiratory rate 20, and O2 saturation 98%. GENERAL: No acute distress. Alert. NECK: No JVD. CHEST: Clear to auscultation. CARDIOVASCULAR: Regular rate and rhythm. Normal S1 and S2. No S3. No S4. Systolic ejection murmur. ABDOMEN: Soft. Bowel sounds positive. EXTREMITIES: No edema. SKIN: With pacemaker pocket site healing well. CARDIOVASCULAR MEDICATIONS: Reviewed. Simvastatin 10 mg at bedtime, aspirin 81 mg daily, furosemide 40 mg daily, and atropine p.r.n. STUDIES: Reviewed. Sodium 140, potassium 4.1, chloride 104, bicarbonate 27, BUN 40, creatinine 2.8, and glucose 188. White blood cell 7.2, hemoglobin 10.3, and platelets 301. INR 1.1. AST 19, ALT 16, and alkaline phosphatase 107. ASSESSMENT AND PLAN: 1. A 69-year-old man presents with left big toe osteomyelitis, bacteremia, methicillin-susceptible Staphylococcus aureus with negative repeat cultures. 2. History of aortic valve prosthesis with increased gradients across prosthetic valve. 3. Coronary artery disease and bypass. 4. Diabetes. 5. Hypertension. 6. Dyslipidemia. 7. Anemia. 8. Pwckb-dq-kwnblgl renal failure. 9. Third-degree AV block, status post pacemaker implant. RECOMMENDATIONS: 1. Continue IV antibiotics as per ID. 2. Continue aspirin and statin. 3. Blood pressure being optimized, add low-dose calcium channel michael. 4. Continue statin. MD RAGHAVENDRA Dunn/NANOL /[id number]
--- NOTE | 2020-04-17 13:55 | Progress Note ---
DATE: 04/17/2020 SUBJECTIVE: The patient has been doing much better, progress noted, notes reviewed. No new events. He has not had any further febrile episodes. OBJECTIVE: VITAL SIGNS: Temperature 97.7, pulse 73, respiratory rate 20, and blood pressure is 149/76. HEENT: Normocephalic, atraumatic. Extraocular movements not assessed. NECK: Supple. LUNGS: Fair air entry bilaterally. Clear to auscultation. HEART: Sounds S1, S2. No murmur. No gallop. ABDOMEN: Soft, nontender, normoactive bowel sounds. EXTREMITIES: Left great toe erythema has improved. LABORATORY DATA: Reviewed. BUN 40, creatinine 2.8. ASSESSMENT: 1. Staphylococcus aureus septicemia with probable source being left great toe infection. 2. Cellulitis, left great toe with no evidence of osteomyelitis by MRI. 3. Acute kidney injury, improving. 4. Diabetes mellitus. 5. Third-degree atrioventricular block, status post pacemaker placement. 6. Bioprosthetic mitral valve with no evidence of endocarditis on transesophageal echocardiogram. RECOMMENDATIONS: We will continue the patient on nafcillin during hospitalization. On discharge, we would recommend continuation of antibiotic treatment which can be changed to cephalexin for another 2 weeks. We will continue to follow. Felton Yeh MD SR/MODL /[id number]
[2020-04-17] MEDS: PREGABALIN 50 MG CAP PO SCH ×2 (14:34→20:38)
--- NOTE | 2020-04-17 19:00 | NUR ---
RECEIVED PATIENT IN BEDSIDE SHIFT REPORT. PATIENT SITTING IN RECLINER AT BEDSIDE, NO PAIN REPORTED. NO S&S OF DISTRESS NOTED. BED LOCKED IN LOWEST POSITION, SIDE RAILS UPX2, CALL LIGHT IN REACH.
--- NOTE | 2020-04-17 19:23 | NUR ---
COMPLETED BEDSIDE SHIFT REPORT AND ROUNDING WITH ONCOMING NIGHT NURSE. PATIENT ABLE TO VOICE NEEDS. RESPIRATIONS EVEN AND NONLABORED. PATIENT IN STABLE CONDITION, NO S/S OF DISTRESS NOTED. TELEMETRY APPLIED. IV SITE ASYMPTOMATIC AND PATENT, TRANSPARENT DRESSING C/D/I. BED IN LOWEST POSITION AND LOCKED, SIDE RAILS X2, NONSKID SOCKS APPLIED. CALL LIGHT WITHIN REACH.
[2020-04-17] MEDS: SIMVASTATIN 20 MG TAB PO SCH (20:38)
[2020-04-17] MEDS: INSULIN GLARGINE 100 UNITS/ML VIAL SQ SCH (20:46)
[2020-04-18] VITALS: BP 158/76
[2020-04-18] MEDS: NAFCILLIN SOD 2 GM/NS 100ML 100 ML IV SCH ×3 (02:17→09:25)
[2020-04-18] MEDS ORDERED: SODIUM CHLORIDE 0.9% 250ML 250 ML ONE (02:18)
[2020-04-18 04:00] VITALS: BP 161/75
[2020-04-18 06:09] LABS: ANION GAP 16.1 mmol/L (8-16); CALCIUM 8.2 mg/dL (8.4-10.2); CREATININE, SERUM 2.79 mg/dL (0.72-1.25); POTASSIUM 4.1 mmol/L (3.5-5.1)
[2020-04-18] MEDS: INSULIN LISPRO 100 UNIT/1 ML 3ML VIAL SQ SCH ×2 (07:30→11:30)
[2020-04-18 08:00] VITALS: BP 164/80
[2020-04-18 08:19] VITALS: BP 164/80
[2020-04-18] MEDS: AMLODIPINE BESYLATE 5 MG TAB PO SCH (08:29)
[2020-04-18] MEDS: ASPIRIN 81 MG CHEW TAB PO SCH (08:29)
[2020-04-18] MEDS: FUROSEMIDE 40 MG TAB PO SCH (08:29)
[2020-04-18] MEDS: LACTOBACILLUS ACIDOPHILUS CAPSULE PO SCH (08:29)
[2020-04-18] MEDS: SODIUM BICARBONATE 650 MG TAB PO SCH (08:29)
[2020-04-18] MEDS: SILVER ANTIMICROBIAL WOUND GEL 45ML TP SCH (08:34)
[2020-04-18] MEDS ORDERED: PREGABALIN 50 MG CAP PO SCH (09:00)
--- NOTE | 2020-04-18 10:18 | NUR ---
THE PATIENT IS REFUSING TO TURN AND REPOSITION AT THIS TIME HE STATED THAT HE IS IN PAIN AND DOES NOT WANT TO MOVED. PAIN MEDICATION WAS GIVEN.
[2020-04-18] MEDS ORDERED: FUROSEMIDE INJ 10 MG/ML 4 ML VIAL IV ONE (11:45)
[2020-04-18 12:08] VITALS: BP 154/74
--- NOTE | 2020-04-18 12:25 | Progress Note ---
DATE: 04/18/2020 SUBJECTIVE: The patient overall has been doing well, progress noted, notes reviewed. No new events. REVIEW OF SYSTEMS: A 10-point review of systems is negative. OBJECTIVE: VITAL SIGNS: Temperature 98.3, pulse 70, respiratory rate 18, and blood pressure 164/80. HEENT: Normocephalic, atraumatic. Extraocular movements not assessed. There are no conjunctival lesions. NECK: Supple. LUNGS: Fair air entry bilaterally. Clear to auscultation. HEART: Sounds S1, S2. No murmur. No gallop. ABDOMEN: Soft, nontender, normoactive bowel sounds. EXTREMITIES: There is some swelling in the legs, along with an ulcer on the left great toe on plantar aspect. There is darkening of the nail in the left great toe. LABORATORY DATA: BUN 33, creatinine 2.7. WBC count 7.2, hemoglobin 10, and platelets 301. ASSESSMENT: 1. Staphylococcus aureus [id number] Staphylococcus aureus with source probably left great toe soft tissue infection. 2. Cellulitis, left great toe. 3. Acute kidney injury, improving. 4. Diabetes mellitus. 5. Third-degree atrioventricular block, status post pacemaker placement. 6. Bioprosthetic mitral valve with no evidence of endocarditis. RECOMMENDATIONS: Continue antibiotic treatment with cephalexin for another 10 days. The patient will be asked to follow up at the wound care center related to the left great toe ulcer, which has been chronic. Discharge plan per primary care. Felton Yeh MD SR/REJI /[id number]
[2020-04-18] MEDS ORDERED: LYRICA50 MG PO (12:33)
[2020-04-18] MEDS ORDERED: NORVASC5 MG PO (12:33)
[2020-04-18] MEDS ORDERED: SODIUM BICARBO650 MG PO (12:33)
[2020-04-18] MEDS ORDERED: KEFLEX500 MG PO (12:34)
--- NOTE | 2020-04-18 12:49 | NUR ---
Informed pt that [facility] unable to fill hemiwalker order due to weight limitation. Pt states they've called him and let him know. Pt has been using a cane in the room. States he already has one at home. IMM letter delivered and explained to pt. He stated he was ready to discharge home. Copy given to pt. Signed copy placed in chart. Called and spoke to Flor triplett/ jorge at [facility]. Informed of discharge today. Updated clinicals faxed. Called and spoke to wound clinic. They are already working on referral. Do not need anything for CM at this time.
--- NOTE | 2020-04-18 13:05 | NUR ---
CENTRAL LINE REMOVED AT THIS TIME WITH TIP INTACT, PATIENT TOLERATED IT WELL. APPLIED PRESSURE TO SITE. PRESSURE DRESSING APPLIED.
--- NOTE | 2020-04-18 14:25 | NUR ---
PATIENT DISCHARGED HOME. PATIENT OFF THE UNIT @ 1405 VIA WHEELCHAIR ACCOMPANIED BY RN TO THE LOBBY. PATIENT IN STABLE CONDITION,NO S/S OF DISTRESS NOTED. NO PAIN VOICED. IV ACCESS REMOVED WITH TIP INTACT. ALL PERSONAL ITEMS TAKEN WITH THE PATIENT. DISCHARGE TEACHING AND INSTRUCTION GIVEN TO THE PATIENT. PATIENT VERBALIZED UNDERSTANDING. DISCHARGE PAPERWORK AND PRESCRIPTIONS GIVEN TO THE PATIENT.
--- NOTE | 2020-04-18 20:33 | Discharge Summary ---
PRIMARY CARE PHYSICIANS: Dr. Rain and Dr. Potter at [facility]. FINAL DISCHARGE DIAGNOSES: 1. Septicemia with methicillin-susceptible Staphylococcus aureus, likely due to left foot cellulitis. 2. Acute kidney injury. 3. Diabetes type 2. 4. Third-degree AV block, status post pacemaker placement. 5. History of coronary artery disease. 6. History of bioprosthetic aortic valve replacement. 7. Chronic back pain with recent fall. 8. Left foot cellulitis. 9. Debility. CONSULTANTS: 1. Dr. Cloud, Cardiology. 2. Dr. Yeh, ID. 3. Dr. Morse, Nephrology. 4. Dr. Rice of Pulmonology. 5. Dr. Alondra Carranza, EP. PROCEDURES: 1. HUSSEIN, which ruled out vegetation. 2. Pacemaker placement for third-degree AV block. HISTORY: Per HPI. HOSPITAL COURSE: This is a 69-year-old male, who presented to the ER with complaints of fever, nausea, headache at home. Workup showed septicemia. Infectious Disease was consulted and was started on IV antibiotics. Blood culture was positive for MSSA initially. HUSSEIN, which was negative per the patient. He was getting supportive therapy and he was found to have third-degree AV block on telemetry. Cardiology was consulted and recommended EP for pacemaker placement. His renal function seemed to worsen, Renal was consulted and started on fluids and bicarb. It is slowly improving. Today, he is feeling much better, afebrile, left foot cellulitis, improving. Dressing changes daily per nursing staff. He is advised to follow up at outpatient wound care on Friday for further evaluation. He was also complaining of chronic back pain due to recent fall. CT of the lumbar spine was noted one compression fracture with evidence of osteonecrosis. He reports is aware and is following up at [facility] supervisory training specialist upon discharge. Today, he is requesting to go home, creatinine is 2.79, and he will follow up with Renal and PCP for repeat BMP on Friday. PHYSICAL EXAMINATION: VITAL SIGNS: Temperature 97.5, pulse is 76, respirations 18, blood pressure 154/74, pulse ox is 99% on room air. GENERAL: In no acute distress. HEENT: Normocephalic, atraumatic. NECK: Supple. LUNGS: With decreased breath sounds. CARDIOVASCULAR: Regular rate and rhythm. Left upper chest pacemaker in place. GI: Soft and nontender. Obese. MUSCULOSKELETAL: Moves all extremities. NEUROLOGIC: Alert, awake, and oriented x3. SKIN: Dry. Left foot cellulitis. Dressing intact. PSYCH: Calm. CONDITION AT DISCHARGE: Improved and stable. DISCHARGE MEDICATIONS: Please see medication reconciliation list. He is discharging on Keflex 500 mg q.8 hours x10 more days per ID. Lyrica has been decreased to 50 mg b.i.d. and the patient is made aware of the changes. FOLLOWUP: Follow up with PCP, ID, Renal, supervisory training specialist, and EP in 1 to 2 weeks. TIME SPENT: Total discharge time is 32 minutes. Dictated by MIN Matias Liseth Abbasi MD MY/MODL /[id number] cc: Aman Rain MD [facility]
== END 2020-04-18 14:05 | disposition home health service (06) | DRG 853 ==
LOC: ER 15:19 → ERHOLD 17:45 → MED/SURG2 04-05 10:54 → ICU 04-08 12:21 → MED/SURG2 04-12 20:08 → MED/SURG 04-12 20:17
PROVIDERS: ADMIT Internal Medicine; ATTEND Internal Medicine
PROC: 02HV33Z Insertion of Infusion Device into Superior Vena Cava, Percutaneous Approach (ICD-10-PCS; 2020-04-08)
PROC: B548ZZA Ultrasonography of Superior Vena Cava, Guidance (ICD-10-PCS; 2020-04-08)
PROC: 5A1223Z Performance of Cardiac Pacing, Continuous (ICD-10-PCS; principal; 2020-04-09)
PROC: 02HK3JZ Insertion of Pacemaker Lead into Right Ventricle, Percutaneous Approach (ICD-10-PCS; 2020-04-09)
PROC: 02PA3MZ Removal of Cardiac Lead from Heart, Percutaneous Approach (ICD-10-PCS; 2020-04-12)
PROC: 0JH606Z Insertion of Pacemaker, Dual Chamber into Chest Subcutaneous Tissue and Fascia, Open Approach (ICD-10-PCS; 2020-04-12)
PROC: 02HK3JZ Insertion of Pacemaker Lead into Right Ventricle, Percutaneous Approach (ICD-10-PCS; 2020-04-12)
PROC: 02H63JZ Insertion of Pacemaker Lead into Right Atrium, Percutaneous Approach (ICD-10-PCS; 2020-04-12)
DX: A41.01 Sepsis due to Methicillin susceptible Staphylococcus aureus (principal); N17.0 Acute kidney failure with tubular necrosis; N17.9 Acute kidney failure, unspecified; E87.1 Hypo-osmolality and hyponatremia; E87.2 Acidosis; I44.2 Atrioventricular block, complete; I13.0 Hypertensive heart and chronic kidney disease with heart failure and stage 1 through stage 4 chronic kidney disease, or unspecified chronic kidney disease; I50.22 Chronic systolic (congestive) heart failure; M86.8X6 Other osteomyelitis, lower leg; M48.56XA Collapsed vertebra, not elsewhere classified, lumbar region, initial encounter for fracture; R65.20 Severe sepsis without septic shock; E11.621 Type 2 diabetes mellitus with foot ulcer; L97.529 Non-pressure chronic ulcer of other part of left foot with unspecified severity; N18.30 Chronic kidney disease, stage 3 unspecified; L03.032 Cellulitis of left toe; E11.22 Type 2 diabetes mellitus with diabetic chronic kidney disease; E11.65 Type 2 diabetes mellitus with hyperglycemia; I25.10 Atherosclerotic heart disease of native coronary artery without angina pectoris; Z83.3 Family history of diabetes mellitus; Z11.59 Encounter for screening for other viral diseases; Z89.021 Acquired absence of right finger(s); Z89.421 Acquired absence of other right toe(s); L03.031 Cellulitis of right toe; Z95.2 Presence of prosthetic heart valve; E78.5 Hyperlipidemia, unspecified; G47.33 Obstructive sleep apnea (adult) (pediatric)
CPT/HCPCS: 33208; 33210; 36415; 36600; 71045; 71046; 72131; 76770; 80048; 80053; 81001; 82550; 82553; 82570; 82805; 82948; 83605; 83880; 84156; 84300; 84484; 85025; 85610; 85730; 87040; 87071; 87086; 87186; 87205; 87493; 93005; 93306; 93307; 93312; 93325; 93926; 97139; 99152; 99153; 99251; 99284; C1769; C1898; J0456; J0690; J1644; J1815; J1940; J2001; J2250; J2270; J2405; J2543; J3010; J3370; J7030; J7040; J7050; J7121; P9045; Q0162

== ENCOUNTER 2020-04-20 06:55 | Inpatient (IN) | payer MEDICARE ==
[~2020-04-20] VITALS: Ht 182.9 cm; Wt 123.8 kg
[~2020-04-20 06:55] MED LIST: ASPIRIN81 MG PO; ATORVASTATIN CA20 MG PO; HUMALOG100 UNIT/1 SQ; KEFLEX500 MG PO; LANTUS 3ML100 UNITS/ SQ; LASIX20 MG PO; LYRICA100 MG PO; LYRICA50 MG PO; NORVASC5 MG PO; SODIUM BICARBO650 MG PO
[2020-04-20 07:32] LABS: BASOPHILS # (AUTO) 0.1 (0.0-0.1); BASOPHILS % 0.6 % (0.0-1.0); EOSINOPHILS # (AUTO) 0.1 (0.0-0.4); EOSINOPHILS % 0.6 % (0.0-6.0); HEMATOCRIT 33.8 % (38.2-49.6); HEMOGLOBIN 10.4 g/dL (14.0-18.0); LYMPHOCYTES # (AUTO) 0.8 (1.0-3.2); LYMPHOCYTES % 10.4 % (18.0-39.1); MEAN CORPUSCULAR HEMOGLOBIN 26.8 pg (28-32); MEAN CORPUSCULAR HGB CONC 30.8 g/dL (31-35); MEAN CORPUSCULAR VOLUME 87.1 fL (81-99); MONOCYTES # (AUTO) 0.7 (0.2-0.8); MONOCYTES % 8.3 % (4.4-11.3); NEUTROPHILS # (AUTO) 6.3 (2.1-6.9); NEUTROPHILS % 79.5 % (38.7-80.0); PLATELET COUNT 261 x10e3/uL (140-360); RED BLOOD COUNT 3.88 x10e6/uL (4.3-5.7); RED CELL DISTRIBUTION WIDTH 16.3 % (11.7-14.4)
--- NOTE | 2020-04-20 07:45 | Emergency Department Note ---
History of Present Illnes History of Present Illness Chief Complaint: Respiratory History of Present Illness This is a 69 year old male arrives to the ED with worsening shortness of breath, states he feels like he left the hospital too soon during his last admission and so has fluid on his lungs. . Chief Complaint Comment Patient in from home via EMS with complaints of shortness of breath worse when laying down that started Friday night just hours after discharge from here. Patient reports that he got scared because he felt he couldn't catch his breath so he called for EMS. Patient was admitted for fever but no suspicion of pneumonia. Patient states that he cannot lay flat due to the difficulty with taking a deep breath. Denies history of CHF. Oxygen 97-98% on room air. Patient reports that he got scared because he felt he couldn't catch his breath so he called for EMS. Patient has bilateral lower extremity edema as well as a wound to his left great toe that appears chronic in nature with callous formation around ulceration. History of diabetes. 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 Any updates have been documented here. Past Medical History Recent Fever: No Clinical Suspicion of Infectio: No New/Unexplained Change in Ment: No Past Medical History: Hypertension, Diabetes Other Medical History: NEUROPATHY, PSORIASIS, RENAL DISEASE Past Surgical History: CABG, Pacer/AICD Other Surgery: TRIPLE BYPASS, RIGHT FOOT, MIDDLE TO 5TH FINGER SURGERY OF RIGHT HAND, THROAT Pig valve in heart Social History Smoking Cessation: Former smoker Other Any Pre-Existing Lines (PICC,: No Review of Systems Review of Systems Constitutional: Reports no symptoms EENTM: Reports no symptoms Cardiovascular: Reports no symptoms Respiratory: Reports as per HPI, Reports dyspnea, Reports dyspnea on exertion Gastrointestinal: Reports no symptoms Genitourinary: Reports no symptoms Musculoskeletal: Reports no symptoms Integumentary: Reports no symptoms Neurological: Reports no symptoms Psychological: Reports no symptoms Endocrine: Reports no symptoms Hematological/Lymphatic: Reports no symptoms Physical Exam Related Data Allergies: Coded Allergies: No Known Allergies (Unverified , 04/04/20) Triage Vital Signs Vital Signs Date Time Temp Pulse Resp B/P (MAP) Pulse Ox O2 Delivery O2 Flow Rate FiO2 04/20/20 07:01 97.8 70 20 147/75 97 Room Air Vital signs reviewed: Yes Physical Exam CONSTITUTIONAL Constitutional: Present well-developed, Present well-nourished HENT HENT: Present normocephalic, Present atraumatic, Present oropharynx clear/[address] [facility], Present nose normal HENT L/R: Present left ext ear normal, Present right ext ear normal EYES Eyes: Reports PERRL, Reports conjunctivae normal NECK Neck: Present ROM normal PULMONARY Pulmonary: Present effort normal, Present respiratory distress CARDIOVASCULAR Cardiovascular: Present regular rhythm, Present heart sounds normal, Present capillary refill normal, Present normal rate GASTROINTESTINAL Abdominal: Present soft, Present nontender, Present bowel sounds normal GENITOURINARY Genitourinary: Present exam deferred SKIN Skin: Present warm, Present dry MUSCULOSKELETAL Musculoskeletal: Present ROM normal, Present edema NEUROLOGICAL Neurological: Present alert, Present oriented x 3, Present no gross motor or sensory deficits PSYCHOLOGICAL Psychological: Present mood/affect normal, Present judgement normal Results Laboratory Result Diagram: 04/20/2017 Laboratory Laboratory Tests Test 04/20/20 07:27 04/20/20 07:17 White Blood Count 7.87 x10e3/uL (4.8-10.8) Red Blood Count 3.88 x10e6/uL (4.3-5.7) Hemoglobin 10.4 g/dL (14.0-18.0) Hematocrit 33.8 % (38.2-49.6) Mean Corpuscular Volume 87.1 fL (81-99) Mean Corpuscular Hemoglobin 26.8 pg (28-32) Mean Corpuscular Hemoglobin Concent 30.8 g/dL (31-35) Red Cell Distribution Width 16.3 % (11.7-14.4) Platelet Count 261 x10e3/uL (140-360) Neutrophils (%) (Auto) 79.5 % (38.7-80.0) Lymphocytes (%) (Auto) 10.4 % (18.0-39.1) Monocytes (%) (Auto) 8.3 % (4.4-11.3) Eosinophils (%) (Auto) 0.6 % (0.0-6.0) Basophils (%) (Auto) 0.6 % (0.0-1.0) Neutrophils # (Auto) 6.3 (2.1-6.9) Lymphocytes # (Auto) 0.8 (1.0-3.2) Monocytes # (Auto) 0.7 (0.2-0.8) Eosinophils # (Auto) 0.1 (0.0-0.4) Basophils # (Auto) 0.1 (0.0-0.1) Absolute Immature Granulocyte (auto 0.05 x10e3/uL (0-0.1) Lab results reviewed: Yes Imaging Imaging results reviewed: Yes Impressions IMPRESSION: Cardiomegaly, central vascular congestion and prominent interstitial vascular markings with trace pleural effusions is concerning for CHF/fluid overload. Assessment & Plan Medical Decision Making MDM 69-year-old male arrives to the ED with complaints of cough shortness of breath and worsening leg swelling. Patient noted to be fluid overloaded mild tachypnea noted on exertion. No concerns of acute infectious process at time of admission. Patient admitted for cardiac optimization. Patient's locomotive observer Dr. Cloud informed. Assessment & Plan Final Impression: (1) CHF (congestive heart failure) (2) Person under investigation for COVID-19 Depart Disposition: ADMITTED Last Vital Signs Date Time Temp Pulse Resp B/P (MAP) Pulse Ox O2 Delivery O2 Flow Rate FiO2 04/20/20 07:01 97.8 70 20 147/75 97 Room Air Home Meds Active Scripts Cephalexin Monohydrate (KEFLEX) 500 Mg Capsule, 500 TAB PO TID for 10 Days Prov:TOMAS AHUMADA [employer]ARY [employer] EDUCATION TEACHER 04/18/20 Sodium Bicarbonate (SODIUM BICARBONATE) 650 Mg Tablet, 1300 MG PO TID, #90 Prov:TOMAS AHUMADA [employer] EDUCATION TE[employer]ER 04/18/20 Pregabalin (LYRICA) 50 Mg Cap, 50 MG PO BID, #60 CAP Prov:TOMAS AHUMADA [employer] EDUCATION TEACHER 04/18/20 Amlodipine Besylate (NORVASC) 5 Mg Tab, 2.5 MG PO DAILY for 30 Days, #30 TAB Prov:TOMAS AHUMADA [employer] EDUCATION TEACHER 11/3/20 Reported Medications Insulin Glargine (LANTUS 3ML PEN) 100 Units/1 Ml Inj, 100 UNITS SQ HS 04/05/20 Insulin Lispro (HUMALOG) 100 Unit/1 Ml Cartridge, 50-60 UNITS SQ AC 04/05/20 Atorvastatin Calcium (ATORVASTATIN CALCIUM) 20 Mg Tablet, 20 MG PO HS 04/05/20 Furosemide (LASIX) 20 Mg Tablet, 20 MG PO DAILY 04/05/20 Aspirin (ASPIRIN) 81 Mg Tab.chew, 81 MG PO DAILY 04/05/20 Discontinued Reported Medications Pregabalin (LYRICA) 100 Mg Capsule, 100 MG PO TID, CAP 04/05/20 NIURKA VALENTINE DO Apr 20, 2020 07:45
[2020-04-20 07:55] LABS: INR 1.02; PROTHROMBIN TIME 13.9 seconds (11.9-14.5)
[2020-04-20 07:55] LABS: ALBUMIN 2.6 g/dL (3.5-5.0); ALBUMIN/GLOBULIN RATIO 0.7 (0.8-2.0); ANION GAP 17.1 mmol/L (8-16); CALCIUM 8.4 mg/dL (8.4-10.2); CREATININE, SERUM 2.27 mg/dL (0.72-1.25); POTASSIUM 4.1 mmol/L (3.5-5.1)
[2020-04-20 08:10] LABS: CREATINE KINASE MB 2.1 ng/mL (0-5.0)
[2020-04-20] MEDS ORDERED: FUROSEMIDE INJ 10 MG/ML 4 ML VIAL IV NR (08:15)
--- NOTE | 2020-04-20 08:42 | Diagnostic Imaging Report ---
TECHNIQUE: Frontal view of the chest. INDICATION: ^SOB ^[id number] ^[id number] COMPARISON: 04/12/2020 DISCUSSION: Limited evaluation due to portable technique. Lines and hardware: Stable left chest wall dual-lead pacemaker. Interval removal of the right internal jugular central venous catheter. Heart and mediastinum: Stable cardiomegaly. New central vascular congestion is noted. Lungs and pleura: There are prominent bilateral perihilar opacities and prominent diffuse vascular markings. Blunting of the costophrenic angles is noted just above small pleural effusions. Negative for large pneumothorax. Soft tissues and bones: No acute abnormality. IMPRESSION: Cardiomegaly, central vascular congestion and prominent interstitial vascular markings with trace pleural effusions is concerning for CHF/fluid overload. Signed by: Emile Tena MD on 04/20/2020 8:39 AM
[2020-04-20] MEDS ORDERED: ASPIRIN 81 MG CHEW TAB PO ONE (09:15)
[2020-04-20] MEDS ORDERED: AMLODIPINE BESYLATE 5 MG TAB PO SCH (10:00)
--- NOTE | 2020-04-20 10:52 | Consultation ---
DATE OF CONSULTATION: 04/20/2020 CONSULTING PHYSICIAN: Saad Gordon MD, Interventional Cardiology. REASON FOR CONSULTATION: Heart failure. HISTORY OF PRESENT ILLNESS: Pleasant 69-year-old man well known to me from recent admission with history of coronary artery disease, status post aortocoronary bypass, aortic valve replacement with bioprosthetic valve gradient, diabetes mellitus, dyslipidemia, peripheral vascular disease, status post recent admission with left 1st toe cellulitis for which he received antibiotics in the setting of MSSA bacteremia. He was noted to have third-degree AV block for which a permanent pacemaker was implanted while in-house. He returns with worsening edema. His previous course was complicated with renal failure as well as metabolic acidosis for which he was on bicarb drip, he was not on diuretics. He returns with significant increased edema. He was also complaining of dyspnea, which has improved following IV 40 mg Lasix administered while in-house. His chest x-ray is remarkable for central vascular congestion, pulmonary interstitial vascular markings with trace pleural effusions and cardiomegaly. Telemetry reveals paced rhythm. REVIEW OF SYSTEMS: A 12-system review is negative except for as noted above. PAST MEDICAL HISTORY: As per HPI. SOCIAL HISTORY: No smoking, alcohol, or drugs. FAMILY HISTORY: Noncontributory. PHYSICAL EXAMINATION: VITAL SIGNS: Temperature 97.8, heart rate 72, respiratory rate 15, blood pressure 134/78, O2 saturation 100% on room air. GENERAL: No acute distress. Alert. NECK: No JVD. CHEST: Clear to auscultation. CARDIOVASCULAR: Regular rate and rhythm. Normal S1, S2. No S3. No S4. Systolic ejection murmur 2/6. ABDOMEN: Soft. Bowel sounds positive. EXTREMITIES: With 3+ edema, pitting. Normothermic. Cardiovascular medications reviewed, received furosemide IV x1 and aspirin 81 mg x1. Home medications reviewed. Please see EMR. STUDIES: Sodium 140, potassium 4.1, chloride 102, bicarbonate 25, BUN 28, creatinine 2.2, glucose 232, AST 15, ALT 19, alkaline phosphatase 100. Troponin I is negative at 0.048. BNP is 1154 elevated, total protein is 6.5, albumin 2.9, INR 1, PT 13.9, PTT 34. White blood cell 7.8, hemoglobin 10.4, platelets 261. ASSESSMENT AND PLAN: A 69-year-old man presents with acute on chronic diastolic heart failure, renal failure, chronic, coronary artery disease, status post aortocoronary bypass, aortic valve bioprosthesis with at least moderate stenosis, previous metabolic acidosis on home bicarbonate pills. RECOMMENDATIONS: 1. Lasix IV 60 mg b.i.d. 2. Discontinue bicarbonate pill. Consider renal consultation if renal function or bicarbonate starts deteriorating, currently with a bicarb of 25 and a creatinine of 2.2, stable compared on recent discharge. 3. Continue aspirin 81 mg daily, atorvastatin 20 mg at bedtime, amlodipine 5 mg daily. 4. Diabetes optimization per primary service. 5. Consider continuing antibiotics as per recommendations from ID upon recent discharge. Thank you for the opportunity to participate in the care of Mr. Juarez. Please feel free to call with any questions. MD RAGHAVENDRA Dunn/REJI /[id number]
[2020-04-20 11:10] VITALS: BP 152/76
--- NOTE | 2020-04-20 11:10 | NUR ---
PATIENT RECEIVED FROM ER PER STRETCHER. ALERT AND VERBALLY RESPONSIVE, DENIED PAIN AT THIS TIME.SKIN WARM AND DRY TO TOUCH, DIABETIC FOOT WOUND TO LEFT GREAT TOE, DRESSING APPLIED, RESP EVEN AND UNLABORED, ABD SOFT, LARGE , AND ROUND. EDEMA TO LOWER EXTREMITIES. PATIENT ORIENTED TO SURROUNDINGS, OUT OF BED TO RECLINING CHAIR. CALL LIGHT AT REACH, INSTRUCTED TO CALL FOR ASSISTANCE NEEDED.
[2020-04-20 11:43] VITALS: BP 152/76
[2020-04-20] MEDS ORDERED: DEXTROSE 50% SYRINGE 50 ML IV PRN ×2 (14:00→14:45)
[2020-04-20] MEDS ORDERED: HYDRALAZINE HCL 20 MG/ML VIAL IV PRN (14:45)
[2020-04-20] MEDS ORDERED: ACETAMINOPHEN 325 MG TAB PO PRN (14:45)
[2020-04-20 15:08] LABS: CREATINE KINASE MB 2.7 ng/mL (0-5.0)
[2020-04-20 15:56] VITALS: BP 126/80
[2020-04-20] MEDS: INSULIN REGULAR, HUMAN 100 UNIT/1 ML 3ML VIAL SQ SCH ×2 (16:30→21:00)
[2020-04-20] MEDS: CEPHALEXIN 500 MG CAP PO SCH ×2 (16:30→21:20)
--- NOTE | 2020-04-20 16:40 | NUR ---
GSE MECHANIC IN TO SEE PATIENT, NEW ORDERS RECEIVED.
[2020-04-20] MEDS ORDERED: FUROSEMIDE INJ 10 MG/ML 4 ML VIAL IV SCH ×2 (17:00)
[2020-04-20] MEDS: ENOXAPARIN SOD INJ 40 MG/0.4 ML SYR SC SCH (17:23)
[2020-04-20] MEDS: PREGABALIN 50 MG CAP PO SCH (17:23)
--- NOTE | 2020-04-20 19:20 | NUR ---
patient received awake, alert, lying quietly in bed. no c/o pain noted. dressing to left foot c,d,i. 2+ edema noted to ble. both legs elevated while in recliner. pm assessment complete. call day within reach. patient instructed to call for assistance when needed.
--- OUTSIDE RECORDS SUMMARY | 2020-04-20 19:52 | XMS REPORT | Continuity of Care Document ---
Author Author Cayetano Crespo Information DYLLAN Anderson [facility] Information Exchange Address Unknown Phone Unavailable Care Team Providers Care Central Scheduler Name Role Phone [facility] Information Exchange Unavailable Un available Problems Problem Status Onset Date Classification Date Reported Comments Source Muscle weakness (generalized) 09/09/2017 12/10/2017 [facility] LEFT ACHILLES Active 08/05/2017 [facility] Methicillin resistant Staphylococcus aureus (organism) Active 02/04/2017 Problem 12/10/2017 RIGHT FOOT, 02/05/20 17 [facility] Dis[facility] Expert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 Unspecified injury of left Achilles tendon, sequela 12/10/2017 [facility] Type 2 diabetes mellitus without complications 12/10/2017 [facility] Pure hypercholesterolemia, unspecified 12/10/2017 [facility] Amputation of finger tip (procedure) Resolved Problem 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 finger) [facility] Aortic valve stenosis with insufficiency (disorder) Active Problem [facility]10[facility] Disorder of carotid artery (disorder) [facility] [place] Diabetes mellitus (disorder) A ctive Problem [facility] [place] Diabetic neuropathy (disorder) Active Problem MANUEL Zak,[facility], [place] Hypercholesterolemia (disorder) Active Problem MANUEL [place],[facility] Hypertensive disorder, systemic arterial (disorder) Active Problem 12/10/2017 MANUEL Laporte,[facility], [place] Psoriasis (disorder) [facility]10[facility], ORGANISM NOS Active [facility] MALAISE AND FATIGUE NEC Active [facility] CELLULITIS OF RIGHT LOWER LIMB Active [facility] OSTEOMYELITIS OF RIGHT ORBIT A ctive [facility] OTHER INJURY OF UNSPECIFIED BODY REGION Active [facility] Medications Medication Details Route Status Patient Instructions Ordering Provider Order Date Source Insulin Glargine 100 UNT/ML Injectable Solution 80 unit, SUB-Q, Bedtime, 0 Refill(s) Active 02/07/2017 [facility] cefdinir 300 MG Oral Capsule [Omnicef] 300 mg = 1 cap, PO, Daily, X 10 day, # 10 cap, 0 Refill(s), Pharmacy: [facility] [id number] Active 02/07/2017 [facility] ciprofloxacin 500 mg oral tablet 500 mg = 1 tab, PO, Daily, X 10 day, # 10 tab, 0 Refill(s), Pharmacy: [facility] [id number] Active 02/07/2017 [facility] Amlodipine 5 MG Oral Tablet [Norvasc] 5 mg = 1 tab, PO, Daily, # 30 tab, 0 Refill(s), Pharmacy: [facility] [id number] Active 02/07/2017 [facility] Kayexalate Notes: (sodium poly styrene sulfonate 15 gm/60 ml VONNIE) Shake well before use. (Same as: Kayexalate, SPS) Inactive 02/07/2017 [facility] Hydralazine Notes: (Same as: A presoline) Push over 5 minutes Inactive 02/07/2017 [facility] Ceftriaxone Notes: (Same As: Hue ayala). Use [...] 5 MG Oral Tablet Notes: (Same as: [place] 325/5) Do not ex ceed 4gm/day of [...] Notes: (Same as: Duoneb) Inactive 02/05/2017 [facility] Calcium Chloride 0.0014 MEQ/ML / Potassi um Chloride 0.004 MEQ/ML / Sodium Chloride 0.103 MEQ/ML / Sodium Lactate 0.028 MEQ/ML Injectable Solution 1,000 mL, Rate: 25 ml/hr, Infuse over: 4 0 hr, Route: IV, Dosing Weight 139.364 kg, Total Volume: 1,000, Start date: 02/05/17 6:19:00 CDT, Duration: 30 day, Stop date: 03/07/17 6:18:00 CDT Inactive 02/05/2017 [facility] insulin detemir 80 unit, Route : SUB-Q, Bedtime, Dosing Weight 139.364, kg, Start date: 02/04/17 21:00:00 CDT, Duration: 30 day, Stop date: 03/05/17 21:00:00 CDT Inactive 02/05/2017 [facility] heparin Notes: porcine heparin Inactive 02/05/2017 [facility] insulin glargine Notes: (Same as: Lantus) Do not hold insulin without contacting prescriber WASTE: F/P - Black; E - [employer] "single patient use only" No Longer Active 02/05/2017 [facility] atorvastatin Notes: (Same As: Lipitor) No Longer Active 02/05/2017 [facility] vancomycin + sodium chloride 0.9% INJ 250 mL 2001 mg: infuse over 2.5 hours MEDICATION WASTE Product Size: 1000 mg Product Wasted: ___ mg No Longer Active 02/05/2017 [facility] Zosyn + sodium chloride 0.9% INJ 100 mL Notes: (Same as: Zosyn) Dosing based on Piperacillin component MEDICATION WASTE Product Size: 3375 mg Product Wasted: ___ mg No Longer Active 02/05/2017 [facility] Humalog See Instructions, SUB- Q, 0 Refill(s), Pt uses this for sliding scale No Longer Active 02/04/2017 [facility] Amoxicillin 875 MG / Clavulanate 125 MG Oral Tablet 1 tab, PO, BID, # 20 tab, 0 Refill(s) No Longer Active 02/04/2017 [facility] Furosemide 40 mg, Daily, 0 Ref ill(s) No Longer Active 02/04/2017 [facility] Lisinopril 10 mg, PO, Daily, 0 Refill(s) No Longer Active 02/04/2017 [facility] Trujeo Trujeo, 50 units, SUB-Q , QAM, Refill(s) 0 No Longer Active 02/04/2017 [facility] Vancomycin 1,000 mg, Route: IV PB, Drug form: INJ, [id number], Dosing Weight 110.909, kg, Start date: 02/04/17 16:00:00 CDT, Duration: 10 day, Stop date: 02/13/17 16:00:00 CDT, ABX Indication: Bone/Joint Infection Inactive 02/04/2017 [facility] Dakins Half Strength Solution 0.25% topical Notes: Note: half-strength = 0.25% sodium hypochlorite. Inactive 02/04/2017 [facility] Zosyn 3.375 gm, Route: IVPB, D rug form: PDR/INJ, [id number], Dosing Weight 110.909, kg, Start date: 02/04/17 16:00:00 CDT, Duration: 10 day, Stop date: 02/14/17 10:00:00 CDT, ABX Indication: Bone/Joint Infection Inactive 02/04/2017 [facility] cefepime 1 g injection 1 gm, I V, Q12H, X 10 day, # 20 ea, 0 Refill(s), other Active 01/18/2015 [facility] Vancomycin 1.5 gm = 250 mL, IV PB, [id number], 0 Refill(s) Active 01/18/2015 [facility] Enoxaparin 40 mg = 0.4 mL, SUB -Q, [id number], 0 Refill(s) Active 01/18/2015 [facility] epoetin darnell 10,000 units/mL injectable solution 10,000 unit = 1 mL, SUB-Q, Q-M-W-F, 0 Refill(s) Active 01/18/2015 [facility] cefepime 1 gm, Route: IVPB, AB XQ12H, Dosing Weight 124.727, kg, Start date: 01/17/15 13:00:00, Duration: 30 day, Stop date: 02/16/15 1:00:00 Inactive 01/17/2015 [facility] NS 1,000 mL 1,000 mL, Rate: 50 ml/hr, Infuse over: 20 hr, Route: IV, Dosing Weight 124.727 kg, Total Volume: 1,000, Start date: 01/17/15 10:50:00, Duration: 30 day, Stop date: 02/16/15 10:49:00 Inactive 01/17/2015 [facility] ergocalciferol 50,000 IntlUnit , 1 cap, Route: PO, Drug form: CAP, QTue, Dosing Weight 112.4, kg, Start date: 01/17/15 9:00:00, Duration: 30 day, Stop date: 02/14/15 9:00:00 Inactive 01/17/2015 [facility] Insulin, Aspart, Human Notes: Roll in palms of hands gently; Do not shake vigorously. (Same as: NovoLOG) "single patient use only" Stable for 28 days at room temperature. Expires in days from Date Inactive 01/17/2015 [facility] Glucagon 1 mg, Route: IM, Drug form: PDR/INJ, PRN, Dosing Weight 124.727, kg, PRN Blood Glucose Results, Start date: 01/17/15 4:45:00, Duration: 30 day, Stop date: 02/16/15 4:44:00 Inactive 01/17/2015 [facility] Dextrose 50% Syringe 25 gm, 50 mL, Route: IVP, Drug Form: INJ, Dosing Weight 124.727, kg, PRN, PRN Blood Glucose Results, Start date: 01/17/15 4:45:00, Duration: 30 day, Stop date: 02/16/15 4:44:00 Inactive 01/17/2015 [facility] Sodium Chloride 0.154 MEQ/ML Injectable Solution 500 mL, 500 ml/hr, Infuse Over: 1 hr, Route: IV, 500, Drug form: INJ, ONCE, Priority: STAT, Dosing Weight 112.4 kg, Start date: 01/16/15 17:59:00, Duration: 1 doses or times, Stop date: 01/16/15 17:59:00 Inactive 01/16/2015 [facility] Epogen Notes: (Same as: Procri t) epoetin darnell 76592 unit/1 ml VL. For dialysis use only. (Procrit) MEDICATION WASTE Product Size: 34448 unit Product Wasted: ___ unit No Longer Active 01/16/2015 [facility] Sodium Chloride 0.154 MEQ/ML Injectable Solution 500 mL, 500 ml/hr, Infuse Over: 1 hr, Route: IV, ONCE, Priority: STAT, Dosing Weight 112.4 kg, Start date: 01/16/15 16:35:00, Duration: 1 doses or times, Stop date: 01/16/15 16:35:00 Inactive 01/16/2015 [facility] Furosemide Notes: (Same as: La six) May cause GI upset. Give with food or milk. Inactive 01/16/2015 [facility] Vancomycin 2001 mg: infuse ov er 2.5 hours No Longer Active 01/16/2015 [facility] NS 1,000 mL 1,000 mL, Rate: 75 ml/hr, Infuse over: 13.3 hr, Route: IV, Dosing Weight 112.4 kg, Total Volume: 1,000, Start date: 01/16/15 8:32:00, Duration: 30 day, Stop date: 02/15/15 8:31:00 No Longer Active 01/16/2015 [facility] NovoLOG FlexPen Notes: Roll in palms of hands gently; Do not shake vigorously. (Same as: NovoLOG) "single patient use only" Stable for 28 days at room temperature. Expires in days from Date No Longer Active 01/16/2015 [facility] Humalog 8 unit, Route: SUB-Q, QAM (Insulin), Dosing Weight 112.4, kg, Start date: 01/16/15 7:30:00, Duration: 30 day, Stop date: 02/14/15 7:30:00 No Longer Active 01/16/2015 [facility] atorvastatin 10 mg, Route: PO, Drug form: TAB, Bedtime, Dosing Weight 112.4, kg, Start date: 01/15/15 21:00:00, Duration: 30 day, Stop date: 02/13/15 21:00:00 Inactive 01/16/2015 [facility] Lantus Notes: Same as Laxmi parkinson PEN "single patient use only" Stable for 28 days at room temperature. Expires in days from Date No Longer Active 01/16/2015 [facility] Vancomycin Notes: TIME CRITICA L MEDICATION No Longer Active 01/16/2015 [facility] Hydrochlorothiazide 12.5 MG / Lisinopril 10 MG Oral Tablet [Zestoretic 10/12.5] 1 tab, Route: PO, Drug Form: TAB, Dosing Weight 112.4, kg, BID, Start date: 01/15/15 17:00:00, Duration: 30 day, Stop date: 02/14/15 9:00:00 Inactive 01/15/2015 [facility] Lyrica Notes: Same as Lyrica No Longer Active 01/15/2015 [facility] Prinivil Notes: (Same as: Prin ivil, Zestril) Inactive 01/15/2015 [facility] hydrochlorothiazide 25 mg oral tablet Notes: (Same as: Hydrodiuril) With food. Inactive 01/15/2015 [facility] NovoLOG FlexPen Notes: Roll in palms of hands gently; Do not shake vigorously. (Same as: NovoLOG) "single patient use only" Stable for 28 days at room temperature. Expires in days from Date No Longer Active 01/15/2015 [facility] Humalog 5 unit, Route: SUB-Q, QPM (Insulin), Dosing Weight 112.4, kg, Start date: 01/15/15 16:30:00, Duration: 30 day, Stop date: 02/13/15 16:30:00 Inactive 01/15/2015 [facility] NovoLOG FlexPen Notes: Roll in palms of hands gently; Do not shake vigorously. (Same as: NovoLOG) "single patient use only" Stable for 28 days at room temperature. Expires in days from Date No Longer Active 01/15/2015 [facility] Bisoprolol Notes: (Same As: Ze beta) No Longer Active 01/15/2015 [facility] Aspirin 81 mg, 1 tab, Route: P O, Drug form: ECTAB, Daily, Dosing Weight 112.4, kg, Start date: 01/15/15 12:30:00, Duration: 30 day, Stop date: 02/14/15 9:00:00 No Longer Active 01/15/2015 [facility] Humalog 5 unit, Route: SUB-Q, QNoon, Dosing Weight 112.4, kg, Start date: 01/15/15 12:00:00, Duration: 30 day, Stop date: 02/13/15 12:00:00 Inactive 01/15/2015 [facility] cefepime Notes: (Same As: Yossi jama) MEDICATION WASTE Product Size: 1000 mg Product Wasted: ___ mg No Longer Active 01/15/2015 [facility] Enoxaparin Notes: (Same as: Lo venox) No Longer Active 01/15/2015 [facility] Sodium Chloride 0.9% IV 25 mL, Route: IV, Start date: 01/15/15 10:59:00, Duration: 30 day, Stop date: 02/14/15 10:58:00, PRN Line Flush No Longer Active 01/15/2015 [facility] BD Normal Saline Flush Notes: (Same as: BD Posiflush) No Longer Active 01/15/2015 [facility] Ergocalciferol 15435 UNT Oral Capsule 50,000 IntlUnit = 1 cap, PO, QTue, 0 Refill(s) Active 01/15/2015 [facility] Bisoprolol 10 mg, PO, Daily, 0 Refill(s) Active 01/15/2015 [facility] Humalog 5 unit, SUB-Q, QPM (In sulin), 0 Refill(s) No Longer Active 01/15/2015 [facility] Aspirin Low Dose 81 mg oral tablet = 1 tab, PO, Daily, # 30 tab, 1 Refill(s) Active 01/15/2015 [facility] Sodium Chloride 0.154 MEQ/ML Injectable Solution 250 mL, 250 ml/hr, Infuse Over: 1 hr, Route: IV, 250, Drug form: INJ, ONCE, Priority: STAT, Dosing Weight 118.182 kg, Start date: 01/15/15 7:49:00, Duration: 1 doses or times, Stop date: 01/15/15 7:49:00 Inactive 01/15/2015 [facility] Vancomycin Notes: TIME CRITICA L MEDICATION Inactive 01/15/2015 [facility] Levaquin Notes: (Same as:Levaq uin) Inactive 01/15/2015 [facility] Zosyn Notes: (Same as: Zosyn) Dosing based on Piperacillin component MEDICATION WASTE Product Size: 3375 mg Product Wasted: _0__ mg Inactive 01/15/2015 [facility] Sodium Chloride 0.154 MEQ/ML Injectable Solution 250 mL, 250 ml/hr, Infuse Over: 1 hr, Route: IV, 250, Drug form: INJ, ONCE, Priority: STAT, Dosing Weight 118.182 kg, Start date: 01/15/15 6:48:00, Duration: 1 doses or times, Stop date: 01/15/15 6:48:00 Inactive 01/15/2015 [facility] Saline Flush 0.9% Notes: (Same as: BD Posiflush) No Longer Active 01/15/2015 [facility] normal saline 0.9% IV 500 mL 5 00 mL, Rate: 100 ml/hr, Infuse over: 5 hr, Route: IV, Dosing Weight 126.818 kg, Total Volume: 500, Start date: 11/08/14 12:54:00, Duration: 30 day, Stop date: 12/08/14 12:53:00 Inactive 11/08/2014 [facility] Acetaminophen Notes: Do not ex ceed 4 gm/day. (Same as: Tylenol) Inactive 11/08/2014 [facility] Ondansetron Notes: (Same as: Faiza long) MEDICATION WASTE Product Size: 4 mg Product Wasted: ___ mg Inactive 11/08/2014 [facility] Psoriasis Drug Study Psoriasis Drug Study, Q30D, Refill(s) 0 Active 11/04/2014 [facility] atorvastatin 10 mg oral tablet 10 mg = 1 tab, PO, Bedtime Active 11/04/2014 [facility] gemfibrozil 600 mg oral tablet 600 mg = 1 tab, PO, BID Active 11/04/2014 [facility] 24 HR Metformin hydrochloride 500 MG Ext ended Release Tablet [Glumetza] 500 mg = 1 tab, PO, Daily Active 11/04/2014 [facility] Lantus 80 unit, SUB-Q, Bedtime Active 11/04/2014 [facility] Humalog 50 unit, SUB-Q, TID-Be fore Meals, 0 Refill(s) Active 11/04/2014 [facility] Aspirin 81 MG Enteric Coated Tablet 81 mg = 1 tab, PO, Daily Active 11/04/2014 [facility] pregabalin 150 MG Oral Capsule [Lyrica] 150 mg = 1 cap, PO, TID Active 11/04/2014 [facility] Hydrochlorothiazide 12.5 MG / Lisinopril 10 MG Oral Tablet [Zestoretic 10/12.5] 1 tab, PO, BID Active 11/04/2014 [facility] bisoprolol 5 mg oral tablet 5 mg = 1 tab, PO, Daily Active 11/04/2014 [facility] Allergies, Adverse Reactions, Alerts Substance Category Reaction Severity Reaction type Status Date Reported Comments Source NKFA Assertion Drug allergy Active [facility] Immunizations Immunization Date Given Site Status Last Updated Comments Source pneumococcal 23-valent vaccine 01/16/2015 Left deltoid completed [facility] Results Order Name Results Value Reference Range Date Interpretation Comments Source ELECTROLYTES Potassium Lvl 4.3 3.5 - 5.1 02/07/2017 [facility] CHEM PANEL Phosphorus 3.8 2.5 - 4.5 02/07/2017 [facility] CHEM PANEL Magnesium Lvl 2.6 1.8 - 2.4 02/07/2017 [facility] CHEM PANEL eGFR 45 02/07/2017 Result Comment: [...] should be multiplied by the estimated BMI. [facility] CHEM PANEL Calcium Lvl 8.8 8.5 - 10.5 02/07/2017 [facility] CHEM PANEL CO2 30 24 - 32 02/07/2017 [facility] CHEM PANEL Potassium Lvl 5.5 3.5 - 5.1 02/07/2017 [facility] CHEM PANEL Chloride Lvl 101 95 - 109 02/07/2017 [facility] CHEM PANEL BUN 20 7 - 22 02/07/2017 [facility] CHEM PANEL Creatinine Lvl 1.61 0.50 - 1.40 02/07/2017 [facility] CHEM PANEL Sodium Lvl 135 135 - 145 02/07/2017 [facility] CHEM PANEL Glucose Lvl 267 70 - 99 02/07/2017 [facility] CHEM PANEL AGAP 9.5 10.0 - 20.0 02/07/2017 [facility] HEMATOLOGY RDW 15.8 11.5 - 14.5 02/07/2017 [facility] HEMATOLOGY MCV 82.0 80.0 - 94.0 02/07/2017 [facility] HEMATOLOGY MCH 27.6 27.0 - 31.0 02/07/2017 [facility] HEMATOLOGY MCHC 33.6 32.0 - 36.0 02/07/2017 [facility] HEMATOLOGY Hct 38.2 42.0 - 54.0 02/07/2017 [facility] HEMATOLOGY Platelet 170 133 - 450 02/07/2017 [facility] HEMATOLOGY MPV 9.6 7.4 - 10.4 02/07/2017 [facility] HEMATOLOGY WBC 7.4 3.7 - 10.4 02/07/2017 [facility] HEMATOLOGY RBC 4.65 4.70 - 6.10 02/07/2017 [facility] HEMATOLOGY Hgb 12.8 14.0 - 18.0 02/07/2017 [facility] HEMATOLOGY Basophils # 0.1 0.0 - 0.2 02/07/2017 [facility] HEMATOLOGY Monocytes # 0.9 0.0 - 0.8 02/07/2017 [facility] HEMATOLOGY Eosinophils # 0.3 0.0 - 0.5 02/07/2017 [facility] HEMATOLOGY Basophils 0.8 0.0 - 1.0 02/07/2017 [facility] HEMATOLOGY Eosinophils 3.7 0.0 - 4.0 02/07/2017 [facility] HEMATOLOGY Lymphocytes # 1.1 1.0 - 5.5 02/07/2017 [facility] HEMATOLOGY Segs-Bands # 5.0 1.5 - 8.1 02/07/2017 [facility] HEMATOLOGY Segs 67.7 45.0 - 75.0 02/07/2017 [facility] HEMATOLOGY Lymphocytes 15.0 20.0 - 40.0 02/07/2017 [facility] HEMATOLOGY Monocytes 12.8 2.0 - 12.0 02/07/2017 [facility] CHEM PANEL eGFR 50 02/06/2017 Result Comment: [...] should be multiplied by the estimated BMI. [facility] CHEM PANEL Potassium Lvl 4.4 3.5 - 5.1 02/06/2017 [facility] CHEM PANEL Chloride Lvl 106 95 - 109 02/06/2017 [facility] CHEM PANEL CO2 29 24 - 32 02/06/2017 [facility] CHEM PANEL Calcium Lvl 8.6 8.5 - 10.5 02/06/2017 [facility] CHEM PANEL Creatinine Lvl 1.47 0.50 - 1.40 02/06/2017 [facility] CHEM PANEL BUN 19 7 - 22 02/06/2017 [facility] CHEM PANEL Glucose Lvl 164 70 - 99 02/06/2017 [facility] CHEM PANEL Sodium Lvl 139 135 - 145 02/06/2017 [facility] CHEM PANEL AGAP 8.4 10.0 - 20.0 02/06/2017 [facility] HEMATOLOGY Lymphocytes # 0.9 1.0 - 5.5 02/06/2017 [facility] HEMATOLOGY Eosinophils # 0.2 0.0 - 0.5 02/06/2017 [facility] HEMATOLOGY Basophils # 0.1 0.0 - 0.2 02/06/2017 [facility] HEMATOLOGY Segs 76.4 45.0 - 75.0 02/06/2017 [facility] HEMATOLOGY Monocytes # 0.9 0.0 - 0.8 02/06/2017 [facility] HEMATOLOGY Basophils 0.6 0.0 - 1.0 02/06/2017 [facility] HEMATOLOGY Lymphocytes 10.7 20.0 - 40.0 02/06/2017 [facility] HEMATOLOGY Eosinophils 2.0 0.0 - 4.0 02/06/2017 [facility] HEMATOLOGY Segs-Bands # 6.5 1.5 - 8.1 02/06/2017 [facility] HEMATOLOGY Monocytes 10.3 2.0 - 12.0 02/06/2017 [facility] HEMATOLOGY RDW 16.4 11.5 - 14.5 02/06/2017 [facility] HEMATOLOGY MCHC 33.4 32.0 - 36.0 02/06/2017 [facility] HEMATOLOGY MCH 27.3 27.0 - 31.0 02/06/2017 [facility] HEMATOLOGY WBC 8.5 3.7 - 10.4 02/06/2017 [facility] HEMATOLOGY RBC 4.74 4.70 - 6.10 02/06/2017 [facility] HEMATOLOGY Platelet 177 133 - 450 02/06/2017 [facility] HEMATOLOGY MPV 9.6 7.4 - 10.4 02/06/2017 [facility] HEMATOLOGY MCV 82.0 80.0 - 94.0 02/06/2017 [facility] HEMATOLOGY Hgb 13.0 14.0 - 18.0 02/06/2017 [facility] HEMATOLOGY Hct 38.8 42.0 - 54.0 02/06/2017 [facility] CHEM PANEL Calcium Lvl 8.8 8.5 - 10.5 02/05/2017 [facility] CHEM PANEL Chloride Lvl 107 95 - 109 02/05/2017 [facility] CHEM PANEL eGFR 48 02/05/2017 Result Comment: [...] should be multiplied by the estimated BMI. [facility] CHEM PANEL CO2 30 24 - 32 02/05/2017 [facility] CHEM PANEL Sodium Lvl 140 135 - 145 02/05/2017 [facility] CHEM PANEL BUN 23 7 - 22 02/05/2017 [facility] CHEM PANEL Creatinine Lvl 1.50 0.50 - 1.40 02/05/2017 [facility] CHEM PANEL Glucose Lvl 103 70 - 99 02/05/2017 [facility] CHEM PANEL AGAP 7.6 10.0 - 20.0 02/05/2017 [facility] HEMATOLOGY PTT 29.3 22.9 - 35.8 02/05/2017 [facility] HEMATOLOGY PT 13.4 12.0 - 14.7 02/05/2017 [facility] HEMATOLOGY INR 1.00 0.85 - 1.17 02/05/2017 [facility] HEMATOLOGY Platelet 176 133 - 450 02/05/2017 [facility] HEMATOLOGY MCV 81.8 80.0 - 94.0 02/05/2017 [facility] HEMATOLOGY MCH 27.3 27.0 - 31.0 02/05/2017 [facility] HEMATOLOGY MCHC 33.4 32.0 - 36.0 02/05/2017 [facility] HEMATOLOGY Hgb 13.1 14.0 - 18.0 02/05/2017 [facility] HEMATOLOGY Hct 39.3 42.0 - 54.0 02/05/2017 [facility] HEMATOLOGY RDW 15.7 11.5 - 14.5 02/05/2017 [facility] HEMATOLOGY RBC 4.80 4.70 - 6.10 02/05/2017 [facility] HEMATOLOGY WBC 7.8 3.7 - 10.4 02/05/2017 [facility] HEMATOLOGY MPV 9.4 7.4 - 10.4 02/05/2017 [facility] HEMATOLOGY Basophils # 0.1 0.0 - 0.2 02/05/2017 [facility] HEMATOLOGY Eosinophils 2.0 0.0 - 4.0 02/05/2017 [facility] HEMATOLOGY Segs 71.3 45.0 - 75.0 02/05/2017 [facility] HEMATOLOGY Lymphocytes 14.4 20.0 - 40.0 02/05/2017 [facility] HEMATOLOGY Monocytes 11.4 2.0 - 12.0 02/05/2017 [facility] HEMATOLOGY Segs-Bands # 5.6 1.5 - 8.1 02/05/2017 [facility] HEMATOLOGY Lymphocytes # 1.1 1.0 - 5.5 02/05/2017 [facility] HEMATOLOGY Eosinophils # 0.2 0.0 - 0.5 02/05/2017 [facility] HEMATOLOGY Basophils 0.9 0.0 - 1.0 02/05/2017 [facility] HEMATOLOGY Monocytes # 0.9 0.0 - 0.8 02/05/2017 [facility] URINE AND STOOL UA Nitrite Negative (02/05/17 1:40 AM) Negative 02/05/2017 [facility] URINE AND STOOL UA Leuk Est Negative (02/05/17 1:40 AM) Negative 02/05/2017 [facility] URINE AND STOOL Micro? Not Indicated (02/05/17 1:40 AM) 02/05/2017 [facility] URINE AND STOOL UA Urobilinogen 0.2 0.1 - 1.0 02/05/2017 [facility] URINE AND STOOL UA Blood Negative (02/05/17 1:40 AM) Negative 02/05/2017 [facility] URINE AND STOOL UA Turbidity Clear (02/05/17 1:40 AM) Clear 02/05/2017 [facility] URINE AND STOOL UA Color STRAW 02/05/2017 [facility] URINE AND STOOL UA Spec Grav <=1.005 *NA* (02/05/17 1:40 AM) <=1.030 02/05/2017 [facility] URINE AND STOOL UA Ketones Negative *NA* (02/05/17 1:40 AM) Negative 02/05/2017 [facility] URINE AND STOOL UA pH 6.0 5.0 - 8.0 02/05/2017 [facility] URINE AND STOOL UA Protein Negative (02/05/17 1:40 AM) Negative 02/05/2017 [facility] URINE AND STOOL UA Glucose Negative (02/05/17 1:40 AM) Negative 02/05/2017 [facility] URINE AND STOOL UA Bili Negative *NA* (02/05/17 1:40 AM) Negative 02/05/2017 [facility] HEMATOLOGY INR 0.98 0.85 - 1.17 02/04/2017 [facility] HEMATOLOGY PTT 20.5 22.9 - 35.8 02/04/2017 [facility] HEMATOLOGY PT 13.2 12.0 - 14.7 02/04/2017 [facility] HEMATOLOGY Sed Rate 20 0 - 15 02/04/2017 [facility] HEMATOLOGY PT 13.2 12.0 - 14.7 02/04/2017 [facility] HEMATOLOGY INR 0.98 0.85 - 1.17 02/04/2017 [facility] SPECIAL CHEMISTRY Hgb A1C 7.3 <=5.6 % 02/04/2017 [facility] TOXICOLOGY Vanco Tr 19.0 01/17/2015 [facility] TOXICOLOGY Vanco Tr TND 0900 01/17/2015 [facility] CHEM PANEL BUN 34 7 - 22 01/17/2015 [facility] CHEM PANEL CO2 24 24 - 32 01/17/2015 [facility] CHEM PANEL eGFR 46 01/17/2015 Result Comment: [...] should be multiplied by the estimated BMI. [facility] CHEM PANEL AGAP 14.7 10.0 - 20.0 01/17/2015 [facility] CHEM PANEL Chloride Lvl 100 95 - 109 01/17/2015 [facility] CHEM PANEL Glucose Lvl 125 70 - 99 01/17/2015 [facility] CHEM PANEL Calcium Lvl 7.5 8.5 - 10.5 01/17/2015 [facility] CHEM PANEL Sodium Lvl 134 135 - 145 01/17/2015 [facility] CHEM PANEL Potassium Lvl 4.7 3.5 - 5.1 01/17/2015 [facility] CHEM PANEL Creatinine Lvl 1.6 0.5 - 1.4 01/17/2015 [facility] HEMATOLOGY RBC Morph Neli l (01/17/15 3:36 AM) 01/17/2015 [facility] HEMATOLOGY Basophils 0.4 0.0 - 1.0 01/17/2015 [facility] HEMATOLOGY Lymphocytes 7.2 20.0 - 40.0 01/17/2015 [facility] HEMATOLOGY Eosinophils 2.1 0.0 - 4.0 01/17/2015 [facility] HEMATOLOGY Segs 80.7 45.0 - 75.0 01/17/2015 [facility] Monocytes 9.6 2.0 - 12.0 01/17/2015 [facility] Monocytes # 1.2 0.0 - 0.8 01/17/2015 [facility] HEMATOLOGY Eosinophils # 0.3 0.0 - 0.5 01/17/2015 [facility] Segs-Bands # 9.9 1.5 - 8.1 01/17/2015 [facility] Lymphocytes # 0.9 1.0 - 5.5 01/17/2015 [facility] Large Plt Moder ate *ABN* (01/17/15 3:36 AM) None Seen 01/17/2015 [facility] Basophils # 0.1 0.0 - 0.2 01/17/2015 [facility] HEMATOLOGY Hct 25.0 42.0 - 54.0 01/17/2015 [facility] HEMATOLOGY MCH 27.0 27.0 - 31.0 01/17/2015 [facility] HEMATOLOGY Platelet 235 133 - 450 01/17/2015 [facility] HEMATOLOGY MCV 83.6 80.0 - 94.0 01/17/2015 [facility] HEMATOLOGY MPV 9.7 7.4 - 10.4 01/17/2015 [facility] MCHC 32.3 32.0 - 36.0 01/17/2015 [facility] HEMATOLOGY RDW 16.6 11.5 - 14.5 01/17/2015 [facility] HEMATOLOGY WBC 12.2 3.7 - 10.4 01/17/2015 [facility] HEMATOLOGY Hgb 8.1 14.0 - 18.0 01/17/2015 [facility] HEMATOLOGY RBC 2.99 4.70 - 6.10 01/17/2015 [facility] CHEM PANEL Albumin Lvl 2.4 3.5 - 5.0 01/16/2015 [facility] CHEM PANEL CO2 24 24 - 32 01/16/2015 [facility] CHEM PANEL eGFR 42 01/16/2015 Result Comment: [...] should be multiplied by the estimated BMI. [facility] CHEM PANEL Potassium Lvl 4.8 3.5 - 5.1 01/16/2015 [facility] CHEM PANEL Chloride Lvl 97 95 - 109 01/16/2015 [facility] CHEM PANEL Creatinine Lvl 1.7 0.5 - 1.4 01/16/2015 [facility] CHEM PANEL Sodium Lvl 132 135 - 145 01/16/2015 [facility] CHEM PANEL Calcium Lvl 7.9 8.5 - 10.5 01/16/2015 [facility] CHEM PANEL Alk Phos 129 39 - 136 01/16/2015 [facility] CHEM PANEL AST 16 0 - 37 01/16/2015 [facility] CHEM PANEL Bili Total 1.1 0.2 - 1.3 01/16/2015 [facility] CHEM PANEL Total Protein 5.8 6.4 - 8.4 01/16/2015 [facility] CHEM PANEL BUN 31 7 - 22 01/16/2015 [facility] CHEM PANEL ALT 28 0 - 65 01/16/2015 [facility] CHEM PANEL Glucose Lvl 184 70 - 99 01/16/2015 [facility] CHEM PANEL AGAP 15.8 10.0 - 20.0 01/16/2015 [facility] CHEM PANEL Globulin 3.4 2.0 - 4.0 01/16/2015 [facility] CHEM PANEL B/C Ratio 18 6 - 25 01/16/2015 [facility] CHEM PANEL A/G Ratio 0.7 0.7 - 1.6 01/16/2015 [facility] CHEM PANEL Phosphorus 3.1 2.5 - 4.5 01/16/2015 [facility] HEMATOLOGY MPV 9.4 7.4 - 10.4 01/16/2015 [facility] HEMATOLOGY Platelet 269 133 - 450 01/16/2015 [facility] HEMATOLOGY MCHC 32.5 32.0 - 36.0 01/16/2015 [facility] HEMATOLOGY RDW 16.4 11.5 - 14.5 01/16/2015 [facility] MCH 27.3 27.0 - 31.0 01/16/2015 [facility] HEMATOLOGY MCV 83.8 80.0 - 94.0 01/16/2015 [facility] HEMATOLOGY Hct 27.1 42.0 - 54.0 01/16/2015 [facility] HEMATOLOGY Hgb 8.8 14.0 - 18.0 01/16/2015 [facility] HEMATOLOGY RBC 3.23 4.70 - 6.10 01/16/2015 [facility] HEMATOLOGY WBC 17.5 3.7 - 10.4 01/16/2015 [facility] HEMATOLOGY Lymphocytes # 0.8 1.0 - 5.5 01/16/2015 [facility] HEMATOLOGY Monocytes # 1.9 0.0 - 0.8 01/16/2015 [facility] HEMATOLOGY Eosinophils # 0.0 0.0 - 0.5 01/16/2015 [facility] HEMATOLOGY Eosinophils 0.1 0.0 - 4.0 01/16/2015 [facility] HEMATOLOGY Monocytes 11.0 2.0 - 12.0 01/16/2015 [facility] HEMATOLOGY Segs-Bands # 14.7 1.5 - 8.1 01/16/2015 [facility] HEMATOLOGY Basophils 0.3 0.0 - 1.0 01/16/2015 [facility] HEMATOLOGY Segs 84.0 45.0 - 75.0 01/16/2015 [facility] HEMATOLOGY Lymphocytes 4.6 20.0 - 40.0 01/16/2015 [facility] HEMATOLOGY Plt Morph Neli l (8/3/15 3:45 AM) 01/16/2015 [facility] HEMATOLOGY Basophils # 0.1 0.0 - 0.2 01/16/2015 [facility] HEMATOLOGY RBC Morph Neli l (01/16/15 3:45 AM) 01/16/2015 [facility] IMMUNOLOGY CRP, High Sensitivity >19 0.0 mg/L 01/16/2015 [facility] TOXICOLOGY Vanco Tr TND 2030 01/16/2015 [facility] TOXICOLOGY Vanco Tr 4.8 01/16/2015 [facility] CARDIAC ENZYMES CK MB 0.8 0.5 - 3.6 01/15/2015 [facility] CARDIAC ENZYMES Total CK 41 12 - 191 01/15/2015 [facility] CARDIAC ENZYMES Troponin-I 0.51 0.00 - 0.40 01/15/2015 Result Comment: Critical Result(s) jo quiroga at 01/15/2015 18:49 by bk. Read back OK. [facility] URINE AND STOOL UA Urobilinogen <=1.0 mg/dL 0.1 - 1.0 01/15/2015 [facility] URINE AND STOOL UA Bili Negative *NA* (01/15/15 4:40 PM) Negative 01/15/2015 [facility] URINE AND STOOL UA Ketones Negative mg/dL Negative mg/dL 01/15/2015 [facility] URINE AND STOOL UA Glucose Negative mg/dL Negative mg/dL 01/15/2015 [facility] URINE AND STOOL UA Protein 20 mg/dL Negative mg/dL 01/15/2015 [facility] URINE AND STOOL UA Nitrite Negative (01/15/15 4:40 PM) Negative 01/15/2015 [facility] URINE AND STOOL UA Blood Negative (01/15/15 4:40 PM) Negative 01/15/2015 [facility] URINE AND STOOL UA Leuk Est Negative (01/15/15 4:40 PM) Negative 01/15/2015 [facility] URINE AND STOOL UA Mucus Few /LPF None Seen /LPF 01/15/2015 [facility] URINE AND STOOL UA RBC <1 0 - 2 01/15/2015 [facility] URINE AND STOOL UA WBC 1 0 - 5 01/15/2015 [facility] URINE AND STOOL UA Sq Epi Few /LPF Few /LPF 01/15/2015 [facility] URINE AND STOOL UA pH 5.0 5.0 - 8.0 01/15/2015 [facility] URINE AND STOOL UA Color Yellow *NA* (01/15/15 4:40 PM) Yellow 01/15/2015 [facility] URINE AND STOOL UA Spec Grav 1.017 <=1.030 01/15/2015 [facility] URINE AND STOOL UA Turbidity Clear (01/15/15 4:40 PM) Clear 01/15/2015 [facility] URINE CHEM U Microalb 54.6 01/15/2015 [facility] URINE CHEM U Creatinine 158.5 01/15/2015 [facility] URINE CHEM U Alb/Crea 34.4 <=30.0 mcg/mg creat 01/15/2015 [facility] URINE CHEM U Sodium <5 01/15/2015 [facility] URINE CHEM U Eos None Seen (01/15/15 4:40 PM) None Seen 01/15/2015 [facility] CARDIAC ENZYMES CK MB 0.7 0.5 - 3.6 01/15/2015 [facility] CARDIAC ENZYMES Total CK 40 12 - 191 01/15/2015 [facility] CARDIAC ENZYMES Troponin-I 0.54 0.00 - 0.40 01/15/2015 Result Comment: Critical Result(s) osorio d to Leilani Quiroga at 01/15/2015 12:55 by hy. Read back OK. [facility] CHEM PANEL eGFR 42 01/15/2015 Result Comment: [...] should be multiplied by the estimated BMI. [facility] CHEM PANEL Creatinine Lvl 1.7 0.5 - 1.4 01/15/2015 [facility] HEMATOLOGY Platelet 294 133 - 450 01/15/2015 [facility] VIRAL - SEROLOGY Influ A Negative (01/15/15 6:50 AM) Negative 01/15/2015 [facility] VIRAL - SEROLOGY Influ B Negative (01/15/15 6:50 AM) Negative 01/15/2015 [facility] CARDIAC ENZYMES Troponin-I 0.66 0.00 - 0.40 01/15/2015 Result Comment: Critical Result(s) osorio d to zoran head rn at 01/15/2015 06:26 by hp. Read back OK. [facility] CARDIAC ENZYMES BNP 1369 <=100 pg/mL 01/15/2015 [facility] CARDIAC ENZYMES Total CK 42 12 - 191 01/15/2015 [facility] CARDIAC ENZYMES CK MB 0.8 0.5 - 3.6 01/15/2015 [facility] CARDIAC ENZYMES CK MB Index 1.9 0.0 - 2.5 01/15/2015 [facility] CHEM PANEL Lactic Acid Lvl 1.8 0.5 - 2.2 01/15/2015 [facility] CHEM PANEL Total Protein 6.6 6.4 - 8.4 01/15/2015 [facility] CHEM PANEL AST 17 0 - 37 01/15/2015 [facility] CHEM PANEL Alk Phos 157 39 - 136 01/15/2015 [facility] CHEM PANEL ALT 34 0 - 65 01/15/2015 [facility] CHEM PANEL Bili Total 1.1 0.2 - 1.3 01/15/2015 [facility] CHEM PANEL B/C Ratio 18 6 - 25 01/15/2015 [facility] CHEM PANEL A/G Ratio 0.7 0.7 - 1.6 01/15/2015 [facility] CHEM PANEL Globulin 3.8 2.0 - 4.0 01/15/2015 [facility] CHEM PANEL BUN 31 7 - 22 01/15/2015 [facility] CHEM PANEL CO2 26 24 - 32 01/15/2015 [facility] CHEM PANEL Calcium Lvl 8.6 8.5 - 10.5 01/15/2015 [facility] CHEM PANEL Albumin Lvl 2.8 3.5 - 5.0 01/15/2015 [facility] CHEM PANEL Potassium Lvl 5.1 3.5 - 5.1 01/15/2015 [facility] CHEM PANEL Chloride Lvl 99 95 - 109 01/15/2015 [facility] CHEM PANEL AGAP 16.1 10.0 - 20.0 01/15/2015 [facility] CHEM PANEL Sodium Lvl 136 135 - 145 01/15/2015 [facility] CHEM PANEL Glucose Lvl 167 70 - 99 01/15/2015 [facility] HEMATOLOGY PT 15.5 12.0 - 14.7 01/15/2015 [facility] HEMATOLOGY INR 1.22 0.85 - 1.17 01/15/2015 [facility] HEMATOLOGY PTT 41.5 22.9 - 35.8 01/15/2015 [facility] HEMATOLOGY MCHC 32.2 32.0 - 36.0 01/15/2015 [facility] HEMATOLOGY RDW 16.5 11.5 - 14.5 01/15/2015 [facility] HEMATOLOGY MPV 10.1 7.4 - 10.4 01/15/2015 [facility] MCV 83.9 80.0 - 94.0 01/15/2015 [facility] HEMATOLOGY WBC 17.1 3.7 - 10.4 01/15/2015 [facility] HEMATOLOGY RBC 3.73 4.70 - 6.10 01/15/2015 [facility] HEMATOLOGY Hgb 10.1 14.0 - 18.0 01/15/2015 [facility] HEMATOLOGY Hct 31.3 42.0 - 54.0 01/15/2015 [facility] HEMATOLOGY MCH 27.0 27.0 - 31.0 01/15/2015 [facility] HEMATOLOGY D-Dimer 3.78 01/15/2015 [facility] HEMATOLOGY Basophils # 0.1 0.0 - 0.2 01/15/2015 [facility] HEMATOLOGY Monocytes # 1.9 0.0 - 0.8 01/15/2015 [facility] HEMATOLOGY Eosinophils # 0.0 0.0 - 0.5 01/15/2015 [facility] HEMATOLOGY Segs 85.0 45.0 - 75.0 01/15/2015 [facility] HEMATOLOGY Plt Morph Neli l (01/15/15 5:51 AM) 01/15/2015 [facility] HEMATOLOGY RBC Morph Neli l (01/15/15 5:51 AM) 01/15/2015 [facility] HEMATOLOGY Eosinophils 0.1 0.0 - 4.0 01/15/2015 [facility] Segs-Bands # 14.5 1.5 - 8.1 01/15/2015 [facility] HEMATOLOGY Basophils 0.3 0.0 - 1.0 01/15/2015 [facility] HEMATOLOGY Lymphocytes 3.7 20.0 - 40.0 01/15/2015 [facility] HEMATOLOGY Lymphocytes # 0.6 1.0 - 5.5 01/15/2015 [facility] HEMATOLOGY Monocytes 10.9 2.0 - 12.0 01/15/2015 [facility] CHEM PANEL eGFR 54 11/04/2014 <sup>1</sup>Result Comment: [...] should be multiplied by the estimated BMI. [facility] CHEM PANEL Potassium Lvl 4.6 3.5 - 5.1 11/04/2014 [facility] CHEM PANEL Sodium Lvl 138 135 - 145 11/04/2014 [facility] CHEM PANEL Creatinine Lvl 1.4 0.5 - 1.4 11/04/2014 [facility] CHEM PANEL Calcium Lvl 9.0 8.5 - 10.5 11/04/2014 [facility] CHEM PANEL Chloride Lvl 103 95 - 109 11/04/2014 [facility] CHEM PANEL CO2 30 24 - 32 11/04/2014 [facility] CHEM PANEL BUN 27 7 - 22 11/04/2014 [facility] CHEM PANEL Glucose Lvl 191 70 - 99 11/04/2014 <sup>2</sup>Interpretive Data: Adult ref erence range values reflect the clinical guidelines
of the [employer]. [facility] CHEM PANEL AGAP 9.6 10.0 - 20.0 11/04/2014 [facility] HEMATOLOGY MCH 27.9 27.0 - 31.0 11/04/2014 [facility] HEMATOLOGY Hct 39.8 42.0 - 54.0 11/04/2014 [facility] HEMATOLOGY MCV 81.0 80.0 - 94.0 11/04/2014 [facility] HEMATOLOGY RBC 4.91 4.70 - 6.10 11/04/2014 [facility] HEMATOLOGY Hgb 13.7 14.0 - 18.0 11/04/2014 [facility] HEMATOLOGY MPV 10.1 7.4 - 10.4 11/04/2014 [facility] HEMATOLOGY Platelet 207 133 - 450 11/04/2014 [facility] HEMATOLOGY MCHC 34.4 32.0 - 36.0 11/04/2014 [facility] HEMATOLOGY RDW 18.1 11.5 - 14.5 11/04/2014 [facility] HEMATOLOGY WBC 7.4 3.7 - 10.4 11/04/2014 [facility] HEMATOLOGY PT 14.0 12.0 - 14.7 11/04/2014 [facility] HEMATOLOGY INR 1.08 0.85 - 1.17 11/04/2014 <sup>3</sup>Interpretive Data: RECOMMEND ED RANGES FOR PROTIME INR:
2.0- 3.0 for most medical and surgical thromboembolic states.
2.5-3.5 for artificial heart valves and recurrent embolism.

INR SHOULD BE USED ONLY FOR PATIENTS ON STABLE ANTICOAGULANT THERAPY. [facility] IMMUNOLOGY HIV 1/2 Ab Negat gail *NA* (11/04/14 2:00 PM) Negative 11/04/2014 [facility] Pathology Reports No Data Provided for This Section Diagnostic Reports Report Value Date Source Foot series DX Study: Right fo ot, 3 views Clinical Indication: -Post amputation Comparison: Right foot 02/04/2017 FINDINGS: The distal 5th metatarsal and the base of the 5th proximal phalanx have been resected. There is generalized osteopenia. Plantar and retrocalcaneal spurs are noted. Vascular calcifications are evident. SL: [id number] 02/05/2017 [facility] Chest 2 views DX EXAM: Chest 2 views DX DATE: 02/04/2017 2:57 PM CDT INDICATION: - infection COMPARISON: None. IMPRESSION: Moderately enlarged cardiac silhouette. Postoperative median sternotomy. No gross focal consolidation, significant pleural effusion or pneumothorax detected. Mild thoracic spondylosis. SL: [id number] 02/04/2017 [facility] Foot 3 views bilateral DX Stud y: [...] and large retrocalcaneal spurs are noted. SL: [id number] 02/04/2017 [facility] Chest 2 views DX EXAM: Chest x [...] sternotomy compatible with underlying heart disease. 03/28/2015 [facility] Chest 2 views DX EXAM: Chest x [...] probable small effusion. IMPRESSION: See above. 02/27/2015 [facility] Chest 1view DX Clinical Histor y: See Clinic Indication Exam: CHEST Jan 16, 2015 05:38:00 AM Comparison: 01/15/2015 exam. Findings: There is a retrocardiac opacity. The heart is enlarged .There is no pneumothorax or pleural effusion. There is no acute fracture. IMPRESSION: Stable cardiomegaly. Retrocardiac opacity, which may represent atelectasis or pneumonia 01/16/2015 [facility] Ext Lower Venous Doppler Bilat US LOWER [...] compressibility. IMPRESSION: No evidence of DVT. 01/15/2015 [facility] Retroperitoneal limited US FINDINGS: Right kidney: Length [...] are identified. IMPRESSION: No significant abnormality. 01/15/2015 [facility] Lung perfusion scan NM CLINICA L HISTORY: [...] evidence for acute pulmonary embol ism. 01/15/2015 [facility] Lung ventilation scan NM Pleas e refer to the Perfusion Lung Scan report, performed on 01/15/2015. 01/15/2015 [facility] Chest 1view DX Clinical Histor y: See Clinic Indication Exam: CHEST Jan 15, 2015 05:23:00 AM Comparison: 11/08/2014 exam. Findings: The lungs are clear. The heart is enlarged. There is no pneumothorax or pleural effusion. There is no acute fracture. IMPRESSION: No acute cardiopulmonary abnormality. 01/15/2015 [facility] Chest 1view DX STUDY: Chest, 1 view. COMPARISON: 05/13/2011 HISTORY: Arrhythmias. FINDINGS: The lungs are clear. No dense focal consolidation is seen. No pleural effusion or pneumothorax is seen. Mild cardiomegaly is seen. No pulmonary edema is seen. The osseous structures are unremarkable. IMPRESSION: No acute cardiopulmonary process. Cardiomegaly without pulmonary edema. 11/08/2014 [facility] Consultation Notes No Data Provided for This [...] [place] Height 182.88 cm 02/04/2017 [facility] Height 182.88 cm 05/17/2015 [facility] BMI Calculated 33.16 05/17/2015 [facility] Weight 110.909 05/17/2015 [facility] Weight 110.909 04/17/2015 [facility] BMI Calculated 33.16 04/17/2015 [facility] Height 182.88 cm 04/17/2015 [facility] Height 182.88 cm 03/22/2015 [facility] BMI Calculated 39.01 03/22/2015 [facility] Weight 130.455 03/22/2015 [facility] Weight 130.455 03/01/2015 [facility] BMI Calculated 39.01 03/01/2015 [facility] Height 182.88 cm 03/01/2015 [facility] Systolic (mm Hg) 122 01/18/2015 [facility] Diastolic (mm Hg) 62 01/18/2015 [facility] Respitory Rate 32 01/18/2015 [facility] Systolic (mm Hg) 118 01/17/2015 [facility] Diastolic (mm Hg) 64 01/17/2015 [facility] Respitory Rate 30 01/17/2015 [facility] Temperature Oral (F) 98.2 F 01/17/2015 [facility] Respitory Rate 21 01/17/2015 [facility] Systolic (mm Hg) 99 01/17/2015 [facility] Diastolic (mm Hg) 51 01/17/2015 [facility] Temperature Oral (F) 97.9 F 01/17/2015 [facility] Temperature Oral (F) 98.7 F 01/17/2015 [facility] Weight 124.727 01/17/2015 [facility] BMI Calculated 33.61 01/15/2015 [facility] Weight 112.4 01/15/2015 [facility] Height 182.88 cm 01/15/2015 [facility] BMI Calculated 33.45 01/15/2015 [facility] Weight 118.182 01/15/2015 [facility] Height 187.96 cm 01/15/2015 [facility] Heart Rate 87 01/15/2015 [facility] BMI Calculated 37.92 11/02/2014 [facility] Weight 126.818 11/02/2014 [facility] Height 182.88 cm 11/02/2014 [facility] Encounters Location Location Details Encounter Type Encounter Number Reason For Visit Attending Provider ADM Date DC Date Status Source [facility] Bedded Outpatient [id number] Arie Morillo 11/08/2014 11/09/[address] [facility] Inpatient [id number] Dali Escobar 01/15/2015 01/18/2015 [facility] [id number] Familia Perkins 02/27/2015 02/28/2015 [facility] OP Recurring [id number] Familia Perkins 03/01/2015 03/16/[address] [facility] OP Recurring [id number] Familia Perkins 03/16/2015 04/15/2015 [facility] [id number] Familia Perkins 03/28/2015 03/29/2015 [facility] OP Recurring [id number] Familia Perkins 04/17/2015 05/17/[address] [facility] OP Recurring [id number] Familia Perkins 05/17/2015 06/16/2015 [facility] Inpatient [id number] Aiden Richards 02/04/2017 02/07/2017 [facility] OP Therapy Patients [id number] Lemuel Vijaya 08/05/2017 09/04/2017 [facility] [place] Procedures Procedure Code Date Perfomer Comments Source Cardiac catheterization, combined right and left heart [id number] [facility] [place] Cholecystectomy [id number] [facility] [place],[facility] Tons[facility]lectomy [id number] [facility] [place],[facility] Triple coronary bypass [id number] [facility] [place],[facility] Assessment and Plan Assessment and Plan Date [...] present. Further follow-up as outpatient with primary gas treater. 4: Diabetes mellitus type 2: Continue current [...] with sedation.Cardiology c/s for clearance ordered. 02/07/2017 [facility] Plan of Care No Data Provided for This Section Social History Social History Date Source Social History TypeResponse Smoking Status Never smoker; Exposure to Tobacco Smoke None; Cigarette Smoking Last 365 Days No; Reg Smoking Cessation Counseling No entered on: 02/04/17 02/04/2017 [facility] Social History TypeResponse Smoking Status Never smoker; Exposure to Tobacco Smoke None; Cigarette Smoking Last 365 Days No; Reg Smoking Cessation Counseling No 02/04/2017 [facility] Social History TypeResponse Smoking Status Never smoker; Exposure to Tobacco Smoke None; Cigarette Smoking Last 365 Days No; Reg Smoking Cessation Counseling No 01/15/2015 [facility] Social History TypeResponse Smoking Status Never smoker; Exposure to Tobacco Smoke None; Cigarette Smoking Last 365 Days No; Reg Smoking Cessation Counseling No 01/15/2015 [facility] Family History No Data Provided for This Section Advance Directives No Data Provided for This Section Functional Status No Data Provided for This Section
--- OUTSIDE RECORDS SUMMARY | 2020-04-20 19:53 | XMS REPORT | Continuity of Care Document ---
Author Author [facility] t Organization [facility] Address [address] [place] [address] Phone Unavailable Care Team Providers Care Casino Assistant Manager Name Role Phone Mandi VALENTINE Attphys Unavailable Mihai HASTINGSCHING Attphys Unavailable LEMUEL LOPEZ M.D. Attphys Unavailable Abdirahman Lopez Attphys Armando Richards Attphys Chetan Perkins Attphys Lior Escobar Attphys Blas Morillo Attphys Mihai HASTINGS Admphys Unavailable Armando Richards Admphys Chetan Perkins Admphys Lior Escobar Dali Admphys Payers Payer Name Policy Type Policy Number Effective Date Expiration Date S ource Problems Condition Name Condition Details Condition Category Status Onset Date Resolution Date Last Treatment Date Treating Clinician Comments Source LEFT ACHILLES LEFT ACHILLES Active 08/05/2017 [facility] Diagnosis Active 2017-08-05 12:45:00 2017-08-05 12:48:00 Cayetano Crespo Methicillin resistant Staphylococcus aureus (organism) Methicillin resistant Staphylococcus aureus (organism) Active 02/04/2017 Problem 12/10/2017 RIGHT FOOT, 02/04/2017Problem added by Discern Expert. [facility] [place] Problem Active 2017-02-04 00:00:00 2017-12-10 11:40:27 [facility] Zak CELLULITIS INFECTED WOUND RIGHT FOOT,OST CELLULITIS INFECTED WOUND RIGHT FOOT,OST Active 02/04/[address] [facility] Diagnosis Active 2017-02-04 00:00:00 2017-02-13 22:03:00 [facility] Zak 425.4 - PRIM CARDIOMYOP 425. 4 - PRIM CARDIOMYOP Active 02/27/2015 [facility] [place] Diagnosis Active 2015-02-27 00:01:00 2015-02-27 16:05:00 [facility] Zak PNEUMONIA/GENERALIZED WEAKNESS PNEUMONIA/GENERALIZED WEAKNESS Active 01/15/2015 [facility] Diagnosis Active 01-15 00:00:00 2015-01-18 15:22:00 [facility] Her hinson WEAKNESS WEAK NESS Active 01/15/2015 [facility] Diagnosis Active 2015-01-15 00:00:00 2015-01-15 06:19:00 [facility] Zak POST CAB, POST AORTIV VALVE REPLACEMENT POST CAB, POST AORTIV VALVE REPLACEMENT Active 12/27/2014 [facility] Diagnosis Active 2014-12-27 08:00:00 2015-03-01 15:33:00 M emoridonte Crespo POST CAB, POST AORTIC VALVE REPLACEMENT POST CAB, POST AORTIC VALVE REPLACEMENT Active 12/27/2014 [facility] Diagnosis Active 2014-12-27 08:00:00 2015-03-21 14:05:00 M emoadeline Crespo POST CAB, POST AVR POST CAB, POST AVR Active 12/27/2014 [facility] Diagnosis Active 2014-12-27 08:00:00 2015-05-17 15:33:00 [facility] CAD Active 10/27/2014 [facility] Diagnosis Active 2014-10-27 00:00:00 2014-11-08 07:04:00 [facility] Zak Unspecified abnormalities of gait and mobility Unspecified abnormalities of gait and mobility 12/10/2017 [facility] [place] Problem 2017-12-10 11:40:27 [facility] Zak Unspecified injury of left Achilles tendon, sequela Unspecified injury of left Achilles tendon, sequela 12/10/2017 [facility] [place] Problem 2017-12-10 11:40:27 [facility] Type 2 diabetes mellitus without complications Type 2 diabetes mellitus without complications 12/10/2017 [facility] [place] Problem 2017-12-10 11:40:27 [facility] Pure hypercholesterolemia, unspecified Pure hypercholesterolemia, unspecified 12/10/2017 [facility] [place] Problem 2017-12-10 11:40:27 [facility] Amputation of finger tip (procedure) Amputation of finger tip (procedure) Resolved Problem 12/10/2017 Partial amputation of fingertip (right middle & ring finger) MANUEL Crespo, [facility], [facility] [place],[facility] Problem Resolved 2017-12-10 11:40:27 [facility] Aortic valve stenosis with insufficiency (disorder) Aortic valve stenosis with insufficiency (disorder) Active Problem 12/10/2017 MANUEL Crespo, [facility], [facility] [place],[facility] Problem Active 2017-12-10 11:40:27 Frank Crespo Disorder of carotid artery (disorder) Disorder of carotid artery (disorder) Active Problem 12/10/2017 MANUEL Crespo, [facility], [facility] [place],[facility] Problem Active 2017-12-10 11:40:27 [facility] Diabetes mellitus (disorder) D iabetes mellitus (disorder) Active Problem 12/10/2017 MANUEL Crespo, [facility], [facility] [place],[facility] Problem Active 2017-12-10 11:40:27 [facility] Diabetic neuropathy (disorder) Diabetic neuropathy (disorder) Active Problem 12/10/2017 MANUEL Crespo, [facility], [facility] [place],[facility] Problem Active 2017-12-10 11:40:27 [facility] Hypercholesterolemia (disorder) Hypercholesterolemia (disorder) Active Problem 12/10/[address] [facility], [facility] [place],[facility] Problem Active 2017-12-10 11:40:27 [facility] Hypertensive disorder, systemic arterial (disorder) Hypertensive disorder, systemic arterial (disorder) Active Problem 12/10/[address] [facility], [facility] [place],[facility] Problem Active 2017-12-10 11:40:27 Frank Crespo Psoriasis (disorder) Psor iasis (disorder) Active Problem 12/10/[address] [facility], [facility] [place],[facility] Problem Active 2017-12-10 11:40:27 Elijah Crespo PNEUMONIA, ORGANISM NOS PNEU MONIA, ORGANISM NOS Active [facility] Diagnosis Active 2015-01-18 15:22:00 [facility] MALAISE AND FATIGUE NEC OZZIE ISE AND FATIGUE NEC Active [facility] Diagnosis Active 2015-01-18 15:22:00 [facility] CELLULITIS OF RIGHT LOWER LIMB CELLULITIS OF RIGHT LOWER LIMB Active [facility] Diagnosis Active 2016 22:03:00 [facility] OSTEOMYELITIS OF RIGHT ORBIT O STEOMYELITIS OF RIGHT ORBIT Active [facility] Diagnosis Active 2016 22:03:00 [facility] OTHER INJURY OF UNSPECIFIED BODY REGION OTHER INJURY OF UNSPECIFIED BODY REGION Active [facility] Diagnosis Active 2017-02-13 22:03:00 [facility] Muscle weakness (generalized) Muscle weakness (generalized) 09/09/2017 12/10/2017 [facility] [place] Problem 2017-09-09 04:16:51 2017-12-10 11:40:27 2017-12-10 11:40:27 M ace Zak Allergies, Adverse Reactions, Alerts Allergy Name Allergy Type Status Severity Reaction(s) Onset Date Inacti ve Date Treating Clinician Comments Source No Known Allergies DA Active 2019-07-11 00:00:00 [facility] No Known Contrast Allergies DA Active 2003-11-26 00:00: 00 [facility] No Known Drug Allergies DA Active 2003-11-26 00:00:00 [facility] No Known Food Allergies DA Active 2003-11-26 00:00:00 [facility] No Known Other Allergies DA Active 2003-11-26 00:00:00 [facility] NKFA NKFA Active [facility] Social History Smoking Status Start Date Stop Date Source Social History [facility] Medications Ordered Medication Name Filled Medication Name Start Date Stop Da te Current Medication? Ordering Clinician Indication Dosage Frequency Signature (SIG) Comments Components Source Insulin Glargine 100 UNT/ML Injectable Solution 2017-02-07 21:11 :00 Yes 80 unit, SUB-Q, Bedtime, 0 Refill(s) [facility] cefdinir 300 MG Oral Capsule [Omnicef] 2017-02-07 21:11:00 Yes 300 mg = 1 cap, PO, Daily, X 10 day, # 10 cap, 0 Refill(s), Pharmacy: [facility] [id number] [facility] ciprofloxacin 500 mg oral tablet 2017-02-07 21:11:00 Yes 500 mg = 1 tab, PO, Daily, X 10 day, # 10 tab, 0 Refill(s), Pharmacy: [facility] [id number] [facility] Amlodipine 5 MG Oral Tablet [Norvasc] 2017-02-07 21:11:00 Y es 5 mg = 1 tab, PO, Daily, # 30 tab, 0 Refill(s), Pharmacy: [facility] [address] [place] [address] Kayexalate 2017-02-07 17:39:00 No Notes: (sodium polystyrene sulfonate 15 gm/60 ml VONNIE) Shake well before use. (Same as: Kayexalate, SPS) [facility] Hydralazine 2017-02-07 17:31:00 No Notes: (Same as: Apresoline) Push over 5 minutes [facility] Ceftriaxone 2017-02-07 01:00:00 No Notes: (Same As: Rocephin). Use with 100 mL NS and infuse over 30 min MEDICATION WASTE Product Size: 1000 mg Product Wasted: ___ mg [facility] Insulin Lispro 2017-02-06 19:24:00 No Notes: Roll in palms of hands gently; Do not shake `vigorously. (Same as: Humalog ) "Single Patient Use Only " WASTE: F/P - Black; E - Municipal Trash Bin Stable for 28 days at room temperature. Expires in days from Date [facility] Glucagon 2017-02-06 19:24:00 No 1 mg, Route: IM, Drug form: PDR/INJ, PRN, Dosing Weight 139.364, kg, PRN Blood Glucose Results, Start date: 02/06/17 14:24:00 CDT, Duration: 30 day, Stop date: 03/08/17 14:23:00 CDT [facility] Dextrose 50% Syringe 2017-02-06 19:24:00 No 12.5 gm, 25 mL, Route: IVP, Drug Form: INJ, Dosing Weight 139.364, kg, PRN, PRN Blood Glucose Results, Start date: 02/06/17 14:24:00 CDT, Duration: 30 day, Stop date: 03/08/17 14:23:00 CDT [facility] 3 ML Insulin Lispro 100 UNT/ML Pen Injector [Humalog] 2017-02-06 19:15:00 No 50 units, SUB-Q, TID-Before Meals, 0 Ref ill(s) [facility] Saline Flush 0.9% 2017-02-06 02:00:00 No Notes: Same as: BD Posiflush Sterile [facility] Saline Flush 0.9% 2017-02-05 19:43:00 No Notes: Same as: BD Posiflush Sterile [facility] Acetaminophen 325 MG / Hydrocodone Bitartrate 5 MG Oral Tabl et 2017-02-05 19:43:00 No Notes: (Sa me as: Jackson 325/5) Do not exceed 4gm/day of acetaminophen. [facility] Morphine 2017-02-05 19:43:00 No Not es: (Same as:MORPhine Sulfate) [facility] propofol (ANES) 2017-02-05 19:42:00 No Route: IV, Drug form: INJ, ONCE, Stop date: 02/05/17 14:42:00 [facility] 2017-02-05 19:37:00 No Route: IV, Drug form: INJ, ONCE, Stop date: 02/05/17 14:37:00 CDT [facility] fentaNYL (ANES) 2017-02-05 19:37:00 No Route: IV, Drug form: INJ, ONCE, Stop date: 02/05/17 14:37:00 [facility] famot[facility] ([facility]ES) 2017-02-05 19:37:00 No Route: IV, Drug form: INJ, ONCE, Stop date: 02/05/17 14:37:00 [facility]T [facility] midazolam (ANES) 2017-02-05 19:27:00 No Route: IV, Drug form: SOLN, ONCE, Stop date: 02/05/17 14:27:00 CDT venturaridonte [place] 1000 mL INJ (ANES) 2017-02-05 18:47:00 No Route: IV, Total Volume: 1,000, Start date: 02/05/17 13:47:00 CDT, Stop date: 02/05/17 14:47:00 CDT [facility] insulin detemir 2017-02-05 14:00:00 No 50 unit, Route: SUB-Q, Daily, Dosing Weight 139.364, kg, Start date: 02/05/17 9:00:00 CDT, Duration: 30 day, Stop date: 03/06/17 9:00:00 CDT [facility] Zak Lyrica 2017-02-05 14:00:00 No Notes: Same a s Jammie [facility] Zak insulin glargine 2017-02-05 14:00:00 No Notes: (Same as: Lantus) Do not hold insulin without contacting prescriber WASTE: F/P - Black; E - Municipal Trash Bin "single patient use only" Cayetano Crespo Lisinopril 2017-02-05 14:00:00 No Notes: (Same as: Prinivil, Zestril) Cayetano Crespo sodium hypochlorite topical 0.25% solution 2017-02-05 14:00:00 No Notes: Note: half-strength = 0.25% sodium hypochlorite. Cayetano Crespo Furosemide 2017-02-05 14:00:00 No Notes: (Same as: Lasix) May cause GI upset. Give with food or milk. Elijah Crespo Aspirin 2017-02-05 14:00:00 No Notes: Do not crush or chew. (Same As: Ecotrin) Cayetano Crespo Albuterol 0.833 MG/ML / Ipratropium [place] 0.167 MG/ML Inha lant Solution 2017-02-05 11:19:00 No Notes: (Same as: Yossi ujonahb) [facility] Zak Calcium Chloride 0.0014 MEQ/ML / Potassi um Chloride 0.004 MEQ/ML / Sodium Chloride 0.103 MEQ/ML / Sodium Lactate 0.028 MEQ/ML Injectable Solution 2017-02-05 11:19:00 No 1,000 mL, Rate: 25 ml/hr, Infuse over: 40 hr, Route: IV, Dosing Weight 139.364 kg, Total Volume: 1,000, Start date: 02/05/17 6:19:00 CDT, Duration: 30 day, Stop date: 03/07/17 6:18:00 CDT [facility] insulin detemir 2017-02-05 02:00:00 No 80 unit, Route: SUB-Q, Bedtime, Dosing Weight 139.364, kg, Start date: 02/04/17 21:00:00 CDT, Duration: 30 day, Stop date: 03/05/17 21:00:00 CDT [facility] heparin 2017-02-05 02:00:00 No Notes: porci ne heparin [facility] insulin glargine 2017-02-05 02:00:00 No Notes: (Same as: Lantus) Do not hold insulin without contacting prescriber WASTE: F/P - Black; E - Municipal Trash Bin "single patient use only" [facility] atorvastatin 2017-02-05 02:00:00 No Notes: (Same As: Lipitor) [facility] vancomycin + sodium chloride 0.9% INJ 250 mL 2017-02-05 01:00:00 No 2001 mg: infuse over 2.5 hours MEDICATION WASTE Product Size: 1000 mg Product Wasted: ___ mg [facility] chepe Zosyn + sodium chloride 0.9% INJ 100 mL 2017-02-05 01:00:00 No Notes: (Same as: Zosyn) Dosing based on Piperacillin component MEDICATION WASTE Product Size: 3375 mg Product Wasted: ___ mg [facility] Humalog 2017-02-04 22:09:00 No See Instructions, SUB-Q, 0 Refill(s), Pt uses this for sliding scale [facility] Amoxicillin 875 MG / Clavulanate 125 MG Oral Tablet 02-04 22:09:00 No 1 tab, PO, BID, # 20 tab, 0 Refill(s) [facility] Furosemide 2017-02-04 22:07:00 No 40 mg, Da [place], 0 Refill(s) [facility] Lisinopril 2017-02-04 22:07:00 No 10 mg, PO , Daily, 0 Refill(s) [facility] Trujeo 2017-02-04 22:04:00 No Trujeo, 50 units, SUB-Q, QAM, Refill(s) 0 [facility] Vancomycin 2017-02-04 21:00:00 No 1,000 mg, Route: IVPB, Drug form: INJ, [id number], Dosing Weight 110.909, kg, Start date: 02/04/17 16:00:00 CDT, Duration: 10 day, Stop date: 02/13/17 16:00:00 CDT, ABX Indication: Bone/Joint Infection [facility] Dakins Half Strength Solution 0.25% topical 2017-02-04 21:00:00 No Notes: Note: half-strength = 0.25% sodium hypochlorite. [facility] Zosyn 2017-02-04 21:00:00 No 3.375 gm, Route: IVPB, Drug form: PDR/INJ, [id number], Dosing Weight 110.909, kg, Start date: 02/04/17 16:00:00 CDT, Duration: 10 day, Stop date: 02/14/17 10:00:00 CDT, ABX Indication: Bone/Joint Infection [facility] cefepime 1 g injection 2015-01-18 00:40:00 Yes 1 gm, IV, Q12H, X 10 day, # 20 ea, 0 Refill(s), other Memoria l [place] Vancomycin 2015-01-18 00:40:00 Yes 1.5 gm = 250 mL, IVPB, [id number], 0 Refill(s) [facility] Enoxaparin 2015-01-18 00:40:00 Yes 40 mg = 0.4 mL, SUB-Q, [id number], 0 Refill(s) [facility] epoetin darnell 10,000 units/mL injectable solution 2015-01-18 00:40:00 Yes 10,000 unit = 1 mL, SUB-Q, [id number], 0 Refill(s) [facility] cefepime 2015-01-17 18:00:00 No 1 gm, Route: IVPB, [id number], Dosing Weight 124.727, kg, Start date: 01/17/15 13:00:00, Duration: 30 day, Stop date: 02/16/15 1:00:00 [facility] NS 1,000 mL 2015-01-17 15:50:00 No 1,000 mL, Rate: 50 ml/hr, Infuse over: 20 hr, Route: IV, Dosing Weight 124.727 kg, Total Volume: 1,000, Start date: 01/17/15 10:50:00, Duration: 30 day, Stop date: 02/16/15 10:49:00 [facility] ergocalciferol 2015-01-17 14:00:00 No 50,000 IntlUnit, 1 cap, Route: PO, Drug form: CAP, QTue, Dosing Weight 112.4, kg, Start date: 01/17/15 9:00:00, Duration: 30 day, Stop date: 02/14/15 9:00:00 [facility] Insulin, Aspart, Human 2015-01-17 09:45:00 No Notes: Roll in palms of hands gently; Do not shake vigorously. (Same as: NovoLOG) "single patient use only" Stable for 28 days at room temperature. Expires in days from Date [facility] Glucagon 2015-01-17 09:45:00 No 1 mg, Route: IM, Drug form: PDR/INJ, PRN, Dosing Weight 124.727, kg, PRN Blood Glucose Results, Start date: 01/17/15 4:45:00, Duration: 30 day, Stop date: 02/16/15 4:44:00 [facility] Dextrose 50% Syringe 2015-01-17 09:45:00 No 25 gm, 50 mL, Route: IVP, Drug Form: INJ, Dosing Weight 124.727, kg, PRN, PRN Blood Glucose Results, Start date: 01/17/15 4:45:00, Duration: 30 day, Stop date: 02/16/15 4:44:00 [facility] Sodium Chloride 0.154 MEQ/ML Injectable Solution 2015-01-16 22:5 9:00 No 500 mL, 500 ml/hr, Infuse Ov er: 1 hr, Route: IV, 500, Drug form: INJ, ONCE, Priority: STAT, Dosing Weight 112.4 kg, Start date: 01/16/15 17:59:00, Duration: 1 doses or times, Stop date: 01/16/15 17:59:00 [facility] Epogen 2015-01-16 22:00:00 No Notes: (Same as: Procrit) epoetin darnell [address]2908 unit/1 ml VL. For dialysis use only. (Procrit) MEDICATION WASTE Product Size: 96776 unit Product Wasted: ___ unit Cayetano Crespo [...] room temperature. Expires in days from Date [facility] Zak Humalog 2015-01-16 12:30:00 No 8 unit, Route: SUB-Q, QAM (Insulin), Dosing Weight 112.4, kg, Start date: 01/16/15 7:30:00, Duration: 30 day, Stop date: 02/14/15 7:30:00 Cayetano Crespo atorvastatin 2015-01-16 02:00:00 No 10 mg, Route: PO, Drug form: TAB, Bedtime, Dosing Weight 112.4, kg, Start date: 01/15/15 21:00:00, Duration: 30 day, Stop date: 02/13/15 21:00:00 Mem orial Zak Lantus 2015-01-16 02:00:00 No Notes: Same as [...] 2015-01-15 22:00:00 No Notes: Same a s Lyrica Cayetano Crespo Prinivil 2015-01-15 22:00:00 No Not es: (Same as: Prinivil, Zestril) Cayetano Crespo hydrochlorothiazide 25 mg oral tablet 2015-01-15 22:00:00 N o Notes: (Same as: Hydrodiuril) With food. Memshruthi Crespo NovoLOG FlexPen 2015-01-15 22:00:00 No Notes: Roll in palms of hands gently; Do not shake vigorously. (Same as: NovoLOG) "single patient use only" Stable for 28 days at room temperature. Expires in days from Date [facility] Zak Humalog 2015-01-15 21:30:00 No 5 unit, Route: SUB-Q, QPM (Insulin), Dosing Weight 112.4, kg, Start date: 01/15/15 16:30:00, Duration: 30 day, Stop date: 02/13/15 16:30:00 [facility] Zak NovoLOG FlexPen 2015-01-15 17:31:00 No Notes: Roll in palms of hands gently; Do not shake vigorously. (Same as: NovoLOG) "single patient use only" Stable for 28 days at room temperature. Expires in days from Date [facility] Zak Bisoprolol 2015-01-15 17:30:00 No Notes: (S ladarius As: Zebeta) Cayetano Crespo Aspirin 2015-01-15 17:30:00 No 81 mg, 1 tab, Route: PO, Drug form: ECTAB, Daily, Dosing Weight 112.4, kg, Start date: 01/15/15 12:30:00, Duration: 30 day, Stop date: 02/14/15 9:00:00 Elijah adeline Crespo Humalog 2015-01-15 17:00:00 No 5 unit, Route: SUB-Q, QNoon, Dosing Weight 112.4, kg, Start date: 01/15/15 12:00:00, Duration: 30 day, Stop date: 02/13/15 12:00:00 Cayetano Crespo cefepime 2015-01-15 17:00:00 No Notes: (Same As: Maxipime) MEDICATION WASTE Product Size: 1000 mg Product Wasted: ___ mg [facility] Enoxaparin 2015-01-15 16:00:00 No Notes: (S ladarius as: Lovenox) Cayetano Crespo Sodium Chloride 0.9% IV 2015-01-15 15:59:00 No 25 mL, Route: IV, Start date: 01/15/15 10:59:00, Duration: 30 day, Stop date: 02/14/15 10:58:00, PRN Line Flush [facility] BD Normal Saline Flush 2015-01-15 15:58:00 No Notes: (Same as: BD Posiflush) [facility] Ergocalciferol 77870 UNT Oral Capsule 2015-01-15 15:42:00 Y es 50,000 IntlUnit = 1 cap, PO, QTue, 0 Refill(s) [facility] Bisoprolol 2015-01-15 15:42:00 Yes 1 0 mg, PO, Daily, 0 Refill(s) [facility] Humalog 2015-01-15 15:42:00 No 5 unit, SUB-Q, QPM (Insulin), 0 Refill(s) [facility] Aspirin Low Dose 81 mg oral tablet 2015-01-15 14:39:00 Yes = 1 tab, PO, Daily, # 30 tab, 1 Refill(s) Memjoselito Crespo Sodium Chloride 0.154 MEQ/ML Injectable Solution 2015-01-15 12:4 9:00 No 250 mL, 250 ml/hr, Infuse Ov er: 1 hr, Route: IV, 250, Drug form: INJ, ONCE, Priority: STAT, Dosing Weight 118.182 kg, Start date: 01/15/15 7:49:00, Duration: 1 doses or times, Stop date: 01/15/15 7:49:00 [facility] Vancomycin 2015-01-15 12:27:00 No N otes: TIME CRITICAL MEDICATION [facility] Levaquin 2015-01-15 12:26:00 No Notes: (Jasper e as:Levaquin) [facility] Zosyn 2015-01-15 12:26:00 No Notes: (Same as: Zosyn) Dosing based on Piperacillin component MEDICATION WASTE Product Size: 3375 mg Product Wasted: _0__ mg [facility] Sodium Chloride 0.154 MEQ/ML Injectable Solution 2015-01-15 11:4 8:00 No 250 mL, 250 ml/hr, Infuse Ov er: 1 hr, Route: IV, 250, Drug form: INJ, ONCE, Priority: STAT, Dosing Weight 118.182 kg, Start date: 01/15/15 6:48:00, Duration: 1 doses or times, Stop date: 01/15/15 6:48:00 [facility] Saline Flush 0.9% 2015-01-15 10:14:00 No Notes: (Same as: BD Posiflush) [facility] normal saline 0.9% IV 500 mL 2014-11-08 17:54:00 No 500 mL, Rate: 100 ml/hr, Infuse over: 5 hr, Route: IV, Dosing Weight 126.818 kg, Total Volume: 500, Start date: 11/08/14 12:54:00, Duration: 30 day, Stop date: 12/08/14 12:53:00 [facility] Acetaminophen 2014-11-08 17:54:00 No Notes: Do not exceed 4 gm/day. (Same as: Tylenol) [facility] Ondansetron 2014-11-08 17:54:00 No Notes: (Same as: Ольга) MEDICATION WASTE Product Size: 4 mg Product Wasted: ___ mg Cayetano Crespo Psoriasis Drug Study 2014-11-04 19:51:00 Yes Psoriasis Drug Study, Q30D, Refill(s) 0 Cayetano Crespo atorvastatin 10 mg oral tablet 2014-11-04 18:57:00 Yes 10 mg = 1 tab, PO, Bedtime Cayetano Crespo gemfibrozil 600 mg oral tablet 2014-11-04 18:57:00 Yes 600 mg = 1 tab, PO, BID [facility] Zak 24 HR Metformin hydrochloride 500 MG Extended Release Tablet [Glumetza] 2014-11-04 18:57:00 Yes 500 mg = 1 tab, PO , Daily Cayetano Crespo Lantus 2014-11-04 18:57:00 Yes 80 unit, SUB- Q, Bedtime Cayetano Crespo Humalog 2014-11-04 18:57:00 Yes 50 unit, SUB-Q, TID-Before Meals, 0 Refill(s) Cayetano Crespo Aspirin 81 MG Enteric Coated Tablet 2014-11-04 18:57:00 Yes 81 mg = 1 tab, PO, Daily Cayetano Crespo pregabalin 150 MG Oral Capsule [Lyrica] 2014-11-04 18:57:00 Yes 150 mg = 1 cap, PO, TID Cayetano Crespo Hydrochlorothiazide 12.5 MG / Lisinopril 10 MG Oral Ta blet [Zestoretic 10/12.5] 2014-11-04 18:57:00 Yes 1 tab, PO, BID Cayetano Crespo bisoprolol 5 mg oral tablet 2014-11-04 18:57:00 Yes 5 mg = 1 tab, PO, [facility] Vital Name Observation Time Observation Value Comments Source Systolic (mm Hg) 2017-02-07 21:15:00 [facility] [place] Diastolic (mm Hg) 2017-02-07 21:15:00 [facility] [place] Systolic (mm Hg) 2017-02-07 20:40:00 Elijah [facility] [place] Diastolic (mm Hg) 2017-02-07 20:40:00 [facility] [place] Respitory Rate 2017-02-07 20:40:00 Alexa [facility] Heart Rate 2017-02-07 20:40:00 [facility] Temperature Oral (F) 2017-02-07 20:40:00 98.0 F [facility] [place] Temperature Oral (F) 2017-02-07 16:15:00 98.1 F [facility] Respitory Rate 2017-02-07 16:15:00 [facility] [place] Heart Rate 2017-02-07 16:15:00 [facility] Systolic (mm Hg) 2017-02-07 16:15:00 [facility] [place] Diastolic (mm Hg) 2017-02-07 16:15:00 [facility] [place] Temperature Oral (F) 2017-02-07 11:43:00 97.6 F [facility] [place] Heart Rate 2017-02-07 11:43:00 [facility] [place] Respitory Rate 2017-02-07 11:43:00 [facility] [place] Weight 2017-02-04 21:49:00 [facility] [place] BMI Calculated 2017-02-04 21:49:00 [facility] [place] Height 2017-02-04 21:49:00 182.88 cm [facility] Weight 2017-02-04 20:41:00 [facility] BMI Calculated 2017-02-04 20:41:00 [facility] Height 2017-02-04 20:41:00 182.88 cm [facility] [place] Height 2015-05-17 21:50:00 182.88 cm [facility] [place] BMI Calculated 2015-05-17 21:50:00 [facility] [place] Weight 2015-05-17 21:50:00 [facility] [place] Weight 2015-04-17 21:56:00 [facility] BMI Calculated 2015-04-17 21:56:00 [facility] [place] Height 2015-04-17 21:56:00 182.88 cm [facility] Height 2015-03-22 14:26:00 182.88 cm [facility] BMI Calculated 2015-03-22 14:26:00 [facility] [place] Weight 2015-03-22 14:26:00 [facility] [place] Weight 2015-03-01 21:21:00 [facility] BMI Calculated 2015-03-01 21:21:00 [facility] Height 2015-03-01 21:21:00 182.88 cm [facility] Systolic (mm Hg) 2015-01-18 01:00:00 [facility] [place] Diastolic (mm Hg) 2015-01-18 01:00:00 [facility] [place] Respitory Rate 2015-01-18 01:00:00 [facility] [place] Systolic (mm Hg) 2015-01-17 23:18:00 [facility] [place] Diastolic (mm Hg) 2015-01-17 23:18:00 [facility] [place] Respitory Rate 2015-01-17 23:18:00 [facility] Temperature Oral (F) 2015-01-17 21:00:00 98.2 F [facility] [place] Respitory Rate 2015-01-17 20:00:00 [facility] [place] Systolic (mm Hg) 2015-01-17 20:00:00 [facility]jah [facility] [place] Diastolic (mm Hg) 2015-01-17 20:00:00 [facility] [place] Temperature Oral (F) 2015-01-17 17:00:00 97.9 F [facility] Temperature Oral (F) 2015-01-17 13:00:00 98.7 F [facility] Weight 2015-01-17 09:19:00 [facility] [place] BMI Calculated 2015-01-15 15:35:00 [facility] Weight 2015-01-15 15:35:00 [facility] [place] Height 2015-01-15 15:35:00 182.88 cm [facility] BMI Calculated 2015-01-15 10:03:00 [facility] [place] Weight 2015-01-15 10:03:00 [facility] [place] Height 2015-01-15 10:03:00 187.96 cm [facility] Heart Rate 2015-01-15 10:03:00 [facility] [place] BMI Calculated 2014-11-02 17:47:00 [facility] Weight 2014-11-02 17:47:00 [facility] [place] Height 2014-11-02 17:47:00 182.88 cm [facility] Procedures Procedure Date / Time Performed Performing Clinician Sour e [U] XRAY ANKLE 2 VWS LEFT [id number] 2017-07-28 00:00:00 [facility] Cardiac catheterization, combined right and left heart [facility] Cholecystectomy [facility] [place] Tonsillectomy [facility] Triple coronary bypass [facility] [place] Encounters Start Date/Time End Date/Time Encounter Type Admission Type [facility] Care Department Encounter ID Source 2017-09-10 15:15:00 2017-09-10 15:15:00 Appointment; LEMUEL LOPEZ M. D. SHANI, RAJ, M.D. [facility] [id number] [facility] 2017-08-05 12:45:00 2017-09-03 23:59:00 Outpatient Lemuel Lopez [id number] 2017-07-28 11:00:00 2017-07-28 11:00:00 Appointment; LEMUEL LOPEZ M. D. SHANI, RAJ, M.D. [facility] [id number] [facility] 2017-02-04 14:28:00 2017-02-07 17:11:00 [facility] [id number] 2015-05-17 15:32:00 2015-06-15 23:59:00 Outpatient Marco Perkins [facility] [id number] 2015-04-17 15:46:00 2015-05-16 23:59:00 Outpatient Marco Perkins [facility] [id number] 2015-03-16 08:00:00 2015-04-14 23:59:00 Outpatient Marco Perkins [facility] [id number] 2015-03-28 14:08:00 2015-03-28 23:59:00 Outpatient Marco Perkins [facility] [id number] 2015-03-01 15:33:00 2015-03-15 19:10:00 Outpatient Marco Perkins [facility] [id number] 2015-02-27 15:55:00 2015-02-27 23:59:00 Outpatient Marco Perkins [facility] [id number] 2015-01-15 05:02:00 2015-01-17 22:42:00 Outpatient Dali Escobar [facility] [id number] 2014-11-08 07:04:00 2014-11-08 20:00:00 [id number] Results Test Description Test Time Test Comments Results Result Comments Source CHEST SINGLE (PORTABLE) 2020-04-20 08:38:00 [facility] : 1950 Sex: M [place] [address] Patient Name: DYLLAN WAGNER MR #: [id number] : 1950 Age/Sex: 69/M Req #: [id number] Adm Physician: Ordered by: NIURKA AVLENTINE DO Report #: [id number] Location: ER Room/Bed: Procedure: [id number] DX/CHEST SINGLE (PORTABLE) Exam Date: 04/20/20 Exam Time: 739 REPORT STATUS: Signed TECHNIQUE: Frontal view of the chest. INDICATION: SOB [id number] COMPARISON: 04/12/2020 DISCUSSION: Limited evaluation due to portable technique. Lines and hardware: Stable left chest wall dual-lead pacemaker. Interval removal of the right internal jugular central venous catheter. Heart and mediastinum: Stable cardiomegaly. New central vascular congestion is noted. Lungs and pleura: There are prominent bilateral perihilar opacities and prominent diffuse vascular markings. Blunting of the costophrenic angles is noted just above small pleural effusions. Negative for large pneumothorax. Soft tissues and bones: No acute abnormality. IMPRESSION: Cardiomegaly, central vascular congestion and prominent interstitial vascular markings with trace pleural effusions is concerning for CHF/fluid overload. Signed by: Tabby Tena MD on 04/20/2020 8:39 AM Dictated By: TABBY TENA MD 8 Transcribed By: FELIX on 04/20/20838 COPY TO: NIURKA VALENTINE DO CHEST SINGLE (PORTABLE) 2020-04-12 21:00:00 [facility] : 1950 Sex: M [facility] [address] [address] Patient Name: DYLLAN WAGNER MR #: [id number] : 1950 Age/Sex: 69/M Req #: [id number] [facility] Physician: XENA HASTINGS MD Ordered by: EL MARSHALL DO Report #: [id number] Location: MED/SURG Room/Bed: 115 Procedure: [id number] DX/CHEST SINGLE (PORTABLE) Exam Date: 04/12/20 Exam Time: 1838 REPORT STATUS: Signed EXAMINATION: CHEST SINGLE (PORTABLE) INDICATION: s/p pacemaker placement 20200412 COMPARISON: Chest radiograph 04/11/2020 FINDINGS: TUBES and LINES: Interval removal of right-sided cardiac device and placement of left-sided cardiac device with dual leads overlying the cardiac silhouette. Unchanged position of right IJ central venous catheter with tip at the mid SVC. LUNGS: Normal lung volumes. Redemonstrated central pulmonary mass or congestion with mild interstitial edema. Persistent right infrahilar opacity, favored to represent atelectasis. PLEURA: Questionable trace left ple ural effusion. No pneumothorax. HEART AND MEDIASTINUM: Unchanged enlarged cardiac silhouette. A surgical changes of the mediastinum with intact median sternotomy wires. BONES AND SOFT TISSUES: No acute osseous lesion. Soft tissues are unremarkable. UPPER ABDOMEN: No free air under the diaphragm. IMPRESSION: 1. Interval removal of right-sided cardiac device and placement of left-sided cardiac device with 2 leads overlying the cardiac silhouette. 2. Redemonstrated central pulmonary vascular congestion with mild interstitial edema. Questionable trace left pleural effusion. 3. Persistent right infrahilar opacity, favored to represent atelectasis. Signed by: Dr. Zeb Zelaya M.D. on 04/12/2020 10:52 PM Dictated By: ZEB ZELAYA MD 51 Transcribed By: FELIX on 04/12/202251 COPY TO: EL MARSHALL DO CHEST SINGLE (PORTABLE) 2020-04-11 06:51:00 [facility] 1950 Sex: M [place] [address] Patient Name: DYLLAN WAGNER MR #: [id number] : 1950 Age/Sex: 69/M Req #: [id number] Adm Physician: XENA HASTINGS MD Ordered by: JENNIFER BLAND MD, MD Report #: [id number] Location: ICU Room/Bed: ICU [facility] Procedure: [id number] DX/CHEST SINGLE (PORTABLE) Exam Date: 04/11/20 Exam Time: 0630 REPORT STATUS: Signed EXAMINATION: CHEST SINGLE (PORTABLE) INDICATION: PULMONARY CONGESTION COMPARISON: Radiograph dated 04/09/2020 FINDINGS: Unchanged sternotomy wires. Right internal jugular central venous catheter projects over the distal SVC. Single lead right chest wall cardiac device. Stable cardiomegaly. Persistent but improved distention of the pulmonary vessels improved aeration of the left upper lobe with persistent interstitial densities. Unchanged right infrahilar patchy opacity. No pneumothorax. No sizable effusion. IMPRESSION: Improving pulmonary edema. Unchanged right infrahilar patchy opacity could represent atelectasis. Pneumonia not excluded. Signed by: Roma Napier MD on 04/11/2020 6:55 AM Dictated By: ROMA NAPIER MD 4 Transcribed By: FELIX on 04/11/20654 COPY TO: JENNIFER BLAND RENAL RETROPERITONEAL COMP 2020-04-10 19:14:00 [facility] : 1950 Sex: M [facility] [address] [place] [address] Patient Name: DYLLAN WAGNER MR #: [id number] : 1950 Age/Sex: 69/M Req #: [id number] [facility] Physician: XENA HASTINGS MD Ordered by: BALDO JENKINS, JENNIFER JENKINS Report #: [id number] Location: ICU Room/Bed: [place] [address] Procedure: [id number] US/US RENAL RETROPERITONEAL COMP Exam Date: 04/10/20 Exam Time: 1801 REPORT STATUS: Signed EXAM: Renal Ultrasound INDICATION: KIDNEY FAILURE 20200410 COMPARISON: None TECHNIQUE: Transverse and longitudinal images of the kidneys and bladder were obtained. FINDINGS: Right Kidney: Size: 13.7 x 6.2 x 6.5 cm Echogenicity: Normal Parenchymal thickness: Normal Collecting system: No hydronephrosis Stones: None Cyst/Mass: None Left Kidney: Size: 12.8 x 7.1 x 4.8 cm Echogenicity: Normal Parenchymal thickness: Normal Collecting system: No hydronephrosis Stones: None Cyst/Mass: None Bladder: Urin jhony bladder is decompressed with Gaytan catheter in place however no catheter balloon visualized. IMPRESSION: 1. Kidneys are sonographically unremarkable. 2. Urinary bladder is decompressed with Gaytan catheter however no catheter balloon visualized. Signed by: Dr. Zeb Zelaya M.D. on 04/10/2020 7:17 PM Dictated By: ZEB ZELAYA MD 16 Transcribed By: FELIX on 04/10/201916 COPY TO: JENNIFER BLAND CHEST SINGLE (PORTABLE) 2020-04-09 12:39:[address] [facility] [facility] 1950 Sex: M [place] [address] Patient Name: DYLLAN WAGNER MR #: [id number] : 1950 Age/Sex: 69/M Req #: [id number] Adm Physician: XENA HASTINGS MD Ordered by: VINITA HERMOSILLO MD Report #: [id number] Location: ICU Room/Bed: ICU 193 Procedure: [id number] DX/CHEST SINGLE (PORTABLE) Exam Date: 04/09/20 Exam Time: 1110 REPORT STATUS: Signed EXAMINATION: CHEST SINGLE (PORTABLE) INDICATION: temporary pacemaker placement COMPARISON: Chest x-ray on 04/05/2020. FINDINGS: TUBES and LINES: Interval placement of a partially imaged right chest wall pacemaker. Partially imaged right central venous catheter which terminates in the distal SVC. LUNGS: Normal lung volumes. There is interval worsening of diffuse interstitial lung prominence. There is hazy opacification the bilateral lung bases, left more to right. PLEURA: No pleural effusion or pneumothorax. HEART AND MEDIASTINUM: The cardiomediastinal silhouette is enlarged. There are mild atherosclerotic calcifications within the aorta. BONES AND SOFT TISSUES: No acute osseous lesion. Median sternotomy wires are unchanged. Soft tissues are unremarkable. UPPER ABDOMEN: No free air under the diaphragm. IMPRESSION: 1. Interval placement of single lead right chest wall pacemaker. 2. Cardiomegaly with worsened pulmonary edema. 3. Hazy opacification of the left lung base which may represent atelectasis and/or aspiration. Signed by: Maria L Walter MD on 04/09/2020 1:48 PM Dictated By: MARIA L WALTER MD 1348 Transcribed By: FELIX on 04/09/20 1348 COPY TO: VINITA HERMOSILLO MD CHEST SINGLE (PORTABLE) 2020-04-08 15:33:00 [facility] : 1950 Sex: M [place] [address] Patient Name: DYLLAN WAGNER MR #: [id number] : 1950 Age/Sex: 69/M Req #: [id number] Adm Physician: XENA HASTINGS MD Ordered by: KT MULLINS MD Report #: [id number] Location: ICU Room/Bed: ICU [facility] Procedure: [id number] DX/CHEST SINGLE (PORTABLE) Exam Date: 04/08/20 Exam Time: 1525 REPORT STATUS: Signed EXAMINATION: CHEST SINGLE (PORTABLE) INDICATION: Central line placement. COMPARISON: Chest x- ray on 04/05/2020. FINDINGS: TUBES and LINES: Right central internal jugular central venous catheter which terminates in the distal SVC. LUNGS: Normal lung volumes. Interval worsening of diffuse interstitial opacities throughout both lungs. PLEURA: No pleural effusion or pneumothorax. HEART AND MEDIASTINUM: The cardiomediastinal silhouette is enlarged. There are atherosclerotic calcifications within the aorta. BONES AND SOFT TISSUES: Degenerative changes in the spine and shoulders. Soft tissues are unremarkable. UPPER ABDOMEN: No free air under the diaphragm. IMPRESSION: 1. Interval placement of right internal jugular central venous catheter which terminates in the distal SVC. 2. Cardiomegaly with worsening interstitial pulmonary edema. Underlying multifocal pneumonia cannot be excluded. Signed by: Maria L Walter MD on 04/08/2020 4:08 PM Dictated By: MARIA L WALTER MD 07 Transcribed By: FELIX on 04/08/201607 COPY TO: KT MULLINS MD CT LUMBAR SPINE WO 2020-04-07 20:02:00 [facility] : 1950 Sex: M [facility] [address] [address] Patient Name: DYLLAN WAGNER MR #: [id number] : 1950 Age/Sex: 69/M Req #: [id number] [facility] Physician: XENA HASTINGS MD Ordered by: TOMAS AHUMADA NP Report #: [id number] Location: [place] [address] Room/Bed: [facility] Procedure: [id number] CT/CT LUMBAR SPINE WO Exam Date: 04/07/20 Exam Time: 1929 REPORT STATUS: Signed History: Back pain, recent fall Comparison studies: None Technique: Axial images were obtained through the lumbar spine. Coronal and sagittal images reconstructed from the axial data. Dose modulation, iterative reconstruction, and/or weight based adjustment of the mA/kV was utilized to reduce the radiation dose to as low as reasonably achievable. Intravenous contrast: None Findings: Transitional lumbosacral anatomy with partially lumbarized S1 vertebral body with rudimentary disc and pseudoarthrosis on the left. Alignment: Normal lordosis. No significant scoliosis. Soft tissues: No gross acute abnormalities. Dorsal paraspinal muscles: Mild symmetric fatty-replaced atrophic changes. Vertebrae: L1 compression fracture with depression of the superior and inferior endplates results in approximately 40-50% height loss centrally. Fracture extends through the anterior vertebral body and there is a vacuum cleft along the fractured inferior L1 endplate. Fracture does not appear to involve the posterior L1 vertebral body. Irregularity of the left L1 transverse process compatible with evolving nondisplaced subacute to chronic fracture. Degenerative changes: L1-L2: Mildly degenerated disc with vacuum phenomenon. No significant canal or foraminal stenosis.. L2-L3: Mildly degenerated disc with loss of disc height and vacuum phenomenon. Disc bulge and mild left facet arthrosis without significant canal foraminal stenosis. L3-L4: Mildly degenerated disc with vacuum phenomenon. Disc bulge and mild facet arthrosis do not result significant canal or foraminal stenosis. L4-L5: Mildly degenerated disc with mild loss of disc height, vacuum disc and mild degenerative changes with Schmorl's node and sclerosis along the posterior inferior L4 endplate. Disc osteophyte complex, thickened ligamentum flavum and bilateral facet arthrosis result in at least mild canal stenosis and mild bilateral foraminal stenosis. L5- S1: Mildly degenerated disc with mild loss of disc height and vacuum disc. Disc osteophyte complex and bilateral facet arthrosis intravenous and mild canal stenosis and severe left and moderate right foraminal stenosis. S1-S2: Transitional level with bilateral facet arthrosis without significant canal or foraminal stenosis. Sacroiliac joints: Degenerative changes bilaterally with bilateral articular sclerosis. Incidental findings: Scattered aortoiliac calcified atherosclerosis. IMPRESSION: 1. Transitional lumbosacral anatomy with partially lumbarized S1. 2. 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 Consider spinal surgical consultation to further discuss if the patient may benefit from vertebral augmentation procedure. 3. Late subacute to chronic nondisplaced left L1 transverse process fracture. 4. Degenerative changes as described with moderate to severe foraminal stenosis at L5-S1. Findings and recommendations discussed with FLACO Valle on 04/07/2020 p.m. Signed by: Dr. Elin Quinn M.D. on 04/07/2020 8:30 PM Dictated By: ELIN QUINN MD 29 Transcribed By: FELIX on 04/07/202029 COPY TO: TOMAS AHUMADA SAFE EXPERT MRI FOOT LEFT WO 2020-04-06 16:06:00 [facility] : 1950 Sex: M [place] [address] Patient Name: DYLLAN WAGNER MR #: [id number] : 1950 Age/Sex: 69/M Req #: [id number] [facility] Physician: XENA HASTINGS MD Ordered by: PAWEL PATTON MD Report #: [id number] Location: MED/SURG2 Room/Bed: [facility] Procedure: [id number] MRI/MRI FOOT LEFT WO Exam Date: Exam Time: REPORT STATUS: Signed TECHNIQUE: Magnetic resonance imaging of the LEFT foot was performed WITHOUT injected contrast. HISTORY: Diabetic ulcer left great toe, rule out osteomyelitis COMPARISON: Left foot radiographs 04/05/2020 DISCUSSION: Bone: No fractures or acute osseous abnormality. Specifically, no bone marrow edema or T1 hypointense signal to suggest osteomyelitis. Increased signal within the lateral hallux sesamoid bone, favored to represent stress reaction or degenerative cystic change given lack of adjacent ulcer or inflammatory changes. Joints: No joint malalignment or dislocation. No joint effusion. Mild joint space narrowing and osteophytosis at the first MTP joint. 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 Visualized portions of flexor and extensor tendons are intact and unremarkable. Soft Tissues: Mild superficial edema along the dorsal aspect of the distal first toe, may represent nailbed or reported ulcer. No associated fluid collection or underlying osseous signal change. Mild dorsal subcutaneous edema overlying the metatarsals. IMPRESSION: 1. No evidence of acute osteomyelitis. 2. Mild superficial edema along the dorsal aspect of the first toe, may represent nailbed or reported ulcer. No associated fluid collection. 3. Bone marrow signal changes in the lateral hallux sesamoid bone, may represent stress reaction or degenerative cystic change. 4. Nonspecific mild dorsal subcutaneous edema overlying the metatarsals. Signed by: Dr. Zeb Zelaya M.D. on 04/06/2020 4:33 PM Dictated By: ZEB ZELAYA MD 32 Transcribed By: FELIX on 04/06/201632 COPY TO: PAWEL PATTON MD FOOT LEFT COMPLETE 2020-04-05 20:40:[address] [facility] [facility] 1950 Sex: M [facility] [address] [address] Patient Name: DYLLAN WAGNER MR #: [id number] : 1950 Age/Sex: 69/M Req #: [id number] Adm Physician: XENA HASTINGS MD Ordered by: XENA HASTINGS MD Report #: [id number] Location: MED/SURG2 Room/Bed: [facility] Procedure: [id number] DX/FOOT LEFT COMPLETE Exam Date: 04/05/20 Exam Time: 1907 REPORT STATUS: Signed X-ray 3 views of the foot. HISTORY: Foot pain. COMPARISON: None available. FINDINGS: Bones/joints: No acute fracture or dislocation. There are mild to moderate degenerative changes of the midfoot and multiple interphalangeal joints. Soft tissues: Atherosclerotic vascular calcification. The soft tissues are otherwise within normal limits. IMPRESSION: No acute fracture or dislocation. Mild to moderate degenerative changes of the midfoot and multiple interphalangeal joints. Signed by: Maria L Walter MD on 04/05/2020 8:41 PM Dictated By: MARIA L WALTER MD 40 Transcribed By: FELIX on 04/05/202040 COPY TO: XENA HASTINGS MD CHEST 2 VIEWS 2020-04-05 19:59:[address] [address] [facility] 1950 Sex: M [place] [address] Patient Name: DYLLAN WAGNER MR #: [id number] : 1950 Age/Sex: 69/M Req #: [id number] Adm Physician: XENA HASTINGS MD Ordered by: ELIN DOMINGUEZ MD Report #: [id number] Location: MED/SURG2 Room/Bed: [facility] Procedure: [id number] DX/CHEST 2 VIEWS Exam Date: 04/05/20 Exam Time: 1907 REPORT STATUS: Signed EXAMINATION: CHEST 2 VIEWS INDICATION: Chest pain. COMPARISON: Same day chest radiograph. FINDINGS: TUBES and LINES: None. LUNGS: Normal lung volumes. There is pulmonary vessel congestion without ar edema. Lungs are clear. No consolidations. PLEURA: No pleural effusion or pneumothorax. HEART AND MEDIASTINUM: The cardiomediastinal silhouette is enlarged. BONES AND SOFT TISSUES: No acute osseous lesion. Median sternotomy wires are stable. Soft tissues are unremarkable. UPPER ABDOMEN: No free air under the diaphragm. IMPRESSION: Cardiomegaly with pulmonary vascular congestion. No ar pulmonary edema Signed by: Maria L Walter MD on 04/05/2020 8:32 PM Dictated By: MARIA L WALTER MD 31 Transcribed By: FELIX on 04/05/202031 COPY TO: ELIN DOMINGUEZ MD CHEST SINGLE (PORTABLE) 2020-04-05 09:19:00 [facility] 1950 Sex: M [place] [address] Patient Name: DYLLAN WAGNER MR #: [id number] : 1950 Age/Sex: 69/M Req #: [id number] [facility] Physician: XENA HASTINGS MD Ordered by: XENA HASTINGS MD Report #: [id number] Location: [facility] Room/Bed: [place] [address] Procedure: [id number] DX/CHEST SINGLE (PORTABLE) Exam Date: 04/05/20 Exam Time: 509 REPORT STATUS: Signed TECHNIQUE: Frontal view of the chest. INDICATION: FEVER [id number] COMPARISON: None. IMPRESSION: Lines and hardware: Stable Heart and mediastinum: Stable. Lungs and pleura: Stable pulmonary interstitial edema. Stable hazy left basilar airspace opacity, may represent atelectasis versus pneumonitis. Probable layering left pleural effusion. No pneumothorax. Soft tissues and bones: No acute abnormality. Signed by: Ko Gutierrez MD on 04/05/2020 9:20 AM Dictated By: KO GUTIERREZ DO 9 Transcribed By: FELIX on 04/05/20919 COPY TO: XENA HASTINGS MD CHEST SINGLE (PORTABLE) 2020-04-04 16:36:00 [facility] : 1950 Sex: M [facility] [address] [address] Patient Name: DYLLAN WAGNER MR #: [id number] : 1950 Age/Sex: 69/M Req #: [id number] Adm Physician: XENA HASTINGS MD Ordered by: HOMAR MAYEN DO Report #: [id number] Location: MED/SURG Room/Bed: [facility] Procedure: [id number] DX/CHEST SINGLE (PORTABLE) Exam Date: 04/04/20 Exam Time: 1609 REPORT STATUS: Signed TECHNIQUE: Frontal view of [...] ng/ml < 600 HH Results called to [id number] by [email or web address] 07/11/19 1019Critical results verified and read back by Nurse? Y BASIC METABOLIC PBNJG7307-39-04 09:54:00* Test Item Value Reference Range Interpretation [...] CA) 9.3 mg/dL 8.4-10.2 N CBC W/O ZYDH1389-78-27 09:50:00* Test Item Value Reference Range Interpretation [...] [U] XRAY ANKLE MIN 3 VWS LEFT [id number] 11:44:00Images acquired, not reported on this accession number.[facility]iciansE[facility]ROLYTES 2017-02-07 20:03:004.3[facility] FGKVS2590-60-01 16:22:003.8[facility]annCHE[facility] ZKQKY3332-91-29 16:22:002.6[facility]annCHE[facility] OVWQZ5474-18-59 16:22:0045[facility]CHE[facility] JBGMB3470-47-74 16:22:008.8[facility]annCHE[facility] GGFOL6855-65-43 16:22:0030[facility] WDGUR3131-83-24 16:22:005.5 [facility]CHE[facility] TTKOI8344-69-84 16:22:66514Ggjwcqmv HermannCHEM PANEL 2017-02-07 16:22:0020[facility]annCHE[facility] VOIHJ0427-54-82 16:22:001.61[facility]annCHE[facility] UPXGI2618-12-77 16:22:51519Ybllyife HermannCHEM MVWLL1931-96-44 16:22:64470Kzeqtnqa [facility]annCHEM KRUJS3667-32-25 16:22:009.5[facility] KXDXNWZHTK5447-98-63 16:22:0015.8[facility] VlhtwnsSBKFWJWAWO9222-72-67 16:22:00 82.0[facility] RypzmmxIZZIUPPTUI0726-14-11 16:22:00* Test Item Value Reference Range Interpretation Comments MCH (test code = MCH) 27.6 pg 27.0-31.0 [facility] AudypurYLTVCUWGJP3464-55-05 16:22:0033.6[facility]annHEMATOLOGY 2017-02-07 16:22:0038.2[facility] ExsemvbYWQAQPVCPA1438-67-00 16:22:40359Ailhbort QqawikuAJUHKJUQGY5581-07-89 16:22:009.6[facility] PvxmvgkVBFTTJABKJ3704-08-03 16:22:007.4[facility] DgygpxoJLZQTSYVFG8463-93-11 16:22:004.65[facility] AXEUGRRQMP6918-16-41 16:22:0012.8[facility] XiqrhmsISRAIGRWKW7787-80-11 16:22:00 0.1[facility] RyvtfabDIOWCOGTZP0684-61-08 16:22:000.9[facility]annHEMATOLOGY 2017-02-07 16:22:000.3[facility] CqiraauBFVNRGBXXX0861-03-74 16:22:000.8[facility] QjgduzaXYESSVPMSG0374-35-07 16:22:003.7[facility] XlblupeOBCPHMSAQA6153-32-37 16:22:001.1[facility] NrdvjdmPYWTRMFDPZ5359-06-32 16:22:005.0[facility] XGUPQYWGQQ7740-26-72 16:22:0067.7[facility] ScibgdhUPVPPMJTZG9611-57-92 16:22:00 15.0[facility] RfzsjtqURSVWPXYOH4514-63-78 16:22:0012.8[facility] HermannCHEM PANEL 2017-02-06 09:23:0050[facility]annCHE[facility] XIWCG9939-06-89 09:23:004.4[facility]annCHEM KMAJZ8283-59-75 09:23:16526Zbgjxbwh HermannCHEM YVBFE3095-02-19 09:23:0029[facility]annCHEM DEABC5777-50-79 09:23:008.6[facility]annCHEM RHZVI4646-30-24 09:23:001.47[facility]annCHEM NEBYA0992-21-10 09:23:0019 [facility]CHE[facility] IBCXN3526-66-91 09:23:91172Jgpdvwpi HermannCHEM PANEL 2017-02-06 09:23:65347Stmnrgje HermannCHEM GQHPO4510-08-43 09:23:008.4[facility] ZbapjcfXDVNXICSYO6731-16-35 09:23:000.9[facility] JinmqsaRVTRRHBJGE3549-98-77 09:23:000.2[facility] LfzksmiKBCWDKBWKA1652-37-09 09:23:000.1[facility] UWIBHCZVKB1125-67-83 09:23:0076.4[facility] VxddvngYFZKRXCSSW8630-60-91 09:23:00 0.9[facility] HxwduvqROGIEXANTP6651-03-86 09:23:000.6[facility] HermannHEMATOLOGY 2017-02-06 09:23:0010.7[facility] VrcdbtfQBGJGFTRAX0787-29-73 09:23:002.0[facility] RfszrunOCACBWTWCZ1850-98-28 09:23:006.5[facility] CcmseviBJOTOKFZPL9314-78-81 09:23:0010.3[facility] UmgobpaLPKTDZWRGS4521-08-33 09:23:0016.4[facility] EXJZQXEJXP1120-36-21 09:23:0033.4[facility] HuuyarrPCXEKKIODM4814-06-40 09:23:00* Test Item Value Reference Range Interpretation Comments MCH (test code = MCH) 27.3 pg 27.0-31.0 [facility] QdbnhwsATVOZHQDUS8753-47-89 09:23:008.5[facility]annHEMATOLOGY 2017-02-06 09:23:004.74[facility] WjcgaonETGXMLSZGR4408-55-50 09:23:97602Ybrvuiod UegpapuYCIZITTAIA5721-48-13 09:23:009.6[facility] KhrbdbnZVXOFBGTYH4638-48-44 09:23:0082.0[facility] MtwxvztKOZHJYBDEB8729-24-18 09:23:0013.0[facility] OVHKLGNXNX5557-28-17 09:23:0038.8[facility]annCHEM VDPYK1720-37-21 10:07:00 8.8[facility]annCHEM MQQJI5253-48-12 10:07:73153Kfrkmkqe HermannCHEM PANEL 2017-02-05 10:07:0048[facility]annCHE[facility] CRHDD3245-79-74 10:07:0030[facility]annCHEM DAESM1191-88-17 10:07:55758Itxyyfup [facility]annCHEM JLTQG3377-11-46 10:07:0023[facility]annCHE[facility] ZVDBP9519-52-52 10:07:001.50[facility]annCHE[facility] TFMCO9132-03-84 10:07:19313Kglhcmia HermannCHEM DCVSI3871-13-80 10:07:007.6 [facility] DejkhvaMGZEVADATS1381-94-56 10:07:00* Test Item Value Reference Range Interpretation Comments PTT (test code = PTT) 29.3 s 22.9-35.8 [facility] JnnvqyiBSGQNOEBNG2940-05-84 10:07:00* Test Item Value Reference Range Interpretation Comments PT (test code = PT) 13.4 s 12.0-14.7 [facility] DaeldjzFTQQXNEFJA4440-50-32 10:07:001.00[facility]annHEMATOLOGY 2017-02-05 10:07:16450Jycxojey OxrovehMABFKIUJDY4472-08-05 10:07:0081.8[facility] SdhjdxuJZBRIXRBBP6409-80-55 10:07:00* Test Item Value Reference Range Interpretation Comments MCH (test code = MCH) 27.3 pg 27.0-31.0 [facility] CnbwxvuNOIUEQWDCE4904-06-56 10:07:0033.4[facility]annHEMATOLOGY 2017-02-05 10:07:0013.1[facility] LtijtjqTPWNEBQEEB5448-31-91 10:07:0039.3[facility] YitbctqKIRDHGOKYK2527-28-95 10:07:0015.7[facility] CjdygyuQDESPIDTIC4720-27-74 10:07:004.80[facility] LddbtiqKRQEPVOOSO5169-20-37 10:07:007.8[facility] QLGTLKMQRE1369-03-35 10:07:009.4[facility] IwrgbosNNQRAYAFMV8121-84-11 10:07:000.1 [facility] QucgtqeNFJHEPFSGS5015-95-64 10:07:002.0[facility] HermannHEMATOLOGY 2017-02-05 10:07:0071.3[facility] RwbgyitNBYQOAVSRK3627-94-02 10:07:0014.4[facility] DskiudsAOPRZZDKLJ3629-48-89 10:07:0011.4[facility] JuxzogtJHCHQIUUBD1918-76-03 10:07:005.6[facility] RdugfupTZOXOYZXZU5707-26-15 10:07:001.1[facility] UDIKTLISFZ2434-54-16 10:07:000.2[facility] ElhztkhARJIUXAKVC8122-33-37 10:07:000.9 [facility] LuzkeuiOPEUQTBDIA4807-68-52 10:07:000.9[facility]annURINE AND STOOL 2017-02-05 06:40:00Negative (02/05/17 1:40 AM)[facility] STOOL 2017-02-05 06:40:00Negative (02/05/17 1:40 AM)[facility] STOOL 2017-02-05 06:40:00Not Indicated (02/05/17 1:40 AM)[facility] VHARG8997-15-22 06:40:000.2[facility] PTAKL6747-50-88 06:40:00 Negative (02/05/17 1:40 AM)[facility] SSPFP0647-32-70 06:40:00 Clear (02/05/17 1:40 AM)[facility] TSUDG6898-78-99 06:40:00<=1.005 *NA*(02/05/17 1:40 AM)[facility] IJUDR2163-83-34 06:40:00Negative *NA*(02/05/17 1:40 AM)[facility] SGLJK6624-85-44 06:40:00* Test Item Value Reference Range Interpretation Comments UA pH (test code = UA pH) 6.0 1 5.0-8.0 [facility] NXILP7730-27-18 06:40:00Negative (02/05/17 1:40 AM) [facility] MZDUH4642-42-10 06:40:00Negative (02/05/17 1:40 AM) [facility] VHAZN6876-55-00 06:40:00Negative *NA*(02/05/17 1:40 AM) [facility] IjbmhwvQNLFMVTVPR6570-60-17 23:22:000.98[facility]annHEMATOLOGY 2017-02-04 23:22:00* Test Item Value Reference Range Interpretation Comments PTT (test code = PTT) 20.5 s 22.9-35.8 [facility] FbmelbaMFEBRSBSMN7410-20-98 23:22:00* Test Item Value Reference Range Interpretation Comments PT (test code = PT) 13.2 s 12.0-14.7 [facility] LzqmhkhTBFRIONZNI1389-38-96 23:22:0020[facility]annHEMATOLOGY 2017-02-04 23:22:00* Test Item Value Reference Range Interpretation Comments PT (test code = PT) 13.2 s 12.0-14.7 [facility] YeayhyiLXEKJNAVLF4714-25-73 23:22:000.98[facility] HermannSPECIAL KCCCCXYZD8305-33-86 23:22:007.3[facility] SzdrattYKKSWLFPIL1306-18-56 13:45:0019.0 [facility] PgrqowhXUIQACSBOB9071-00-00 13:45:395076Ofpagiou HermannCHEM PANEL 2015-01-17 08:36:0034[facility]annCHEM AEEJE9611-13-02 08:36:0024[facility]annCHEM FEVQV5262-54-34 08:36:0046[facility]annCHEM TKXKD6562-71-71 08:36:0014.7[facility]annCHEM OJSDK5812-85-76 08:36:47893Fyrrjzjo HermannCHEM XFUEJ2019-58-20 08:36:74512Newggeqn HermannCHEM TXISQ7704-89-58 08:36:007.5 [facility]annCHE[facility] URPHJ4175-05-90 08:36:12732Tyqknhls HermannCHEM PANEL 2015-01-17 08:36:004.7[facility]annCHEM MCURS0576-53-74 08:36:001.6[facility] YmntdpqXAHCUPHERP7591-15-52 08:36:00Normal (01/17/15 3:36 AM)[facility] ACMSACIXNK3635-42-38 08:36:000.4[facility] VgzwtfnVNKLSSNEJF8132-59-85 08:36:007.2 [facility] LjdohcfVMPRBJCDYA3023-53-00 08:36:002.1[facility]annHEMATOLOGY 2015-01-17 08:36:0080.7[facility] ShzonkwXTZKBHIFGI6597-08-99 08:36:009.6[facility] NjnuliqXCZKTMVVNU9079-62-51 08:36:001.2[facility] TglztgtANXFPFYXQH2586-93-81 08:36:000.3[facility] EhirynkBBQUPOBHOR2512-70-26 08:36:009.9[facility] KDJKAAINQV5047-41-19 08:36:000.9[facility] BzktluoEZMFZPIOEJ6893-26-35 08:36:00 Moderate *ABN*(01/17/15 3:36 AM)[facility] SxqkhyaMXSAIATFEH9413-21-60 08:36:000.1 [facility] WwzyviwULPOSOBMRM8902-45-30 08:36:0025.0[facility] HermannHEMATOLOGY 2015-01-17 08:36:00* Test Item Value Reference Range Interpretation Comments MCH (test code = MCH) 27.0 pg 27.0-31.0 [facility] WscerfoCDXSXBSXND8540-54-88 08:36:71203Hszqjhuu HermannHEMATOLOGY 2015-01-17 08:36:0083.6[facility] UewvbthMUITYIEIDV4645-03-00 08:36:009.7[facility] XfqhqgxVSIOUEZKPH6208-45-79 08:36:0032.3[facility] XvhaggnPBSVJJGOZM3241-76-69 08:36:0016.6[facility] LpjkwfnKQGRFVJTNC3993-45-17 08:36:0012.2[facility] NLAIQNGXOI1888-41-30 08:36:008.1[facility] XkeawocGMLKWFOKCP4633-03-60 08:36:00 2.99[facility]annCHEM BHVNJ7338-05-47 08:45:002.4[facility] HermannCHEM PANEL 2015-01-16 08:45:0024[facility]annCHEM KXSMT6411-00-99 08:45:0042[facility]annCHEM XMJKA3253-40-30 08:45:004.8[facility]annCHEM ZDAQT4215-54-02 08:45:0097[facility]annCHEM HMIRT0433-30-68 08:45:001.7[facility]annCHEM NTUHM1559-11-09 08:45:29745Qmytnzoh HermannCHEM DOKGR6627-48-02 08:45:007.9 [facility]annCHE[facility] EAOVQ7652-89-81 08:45:16618Hqyrndky HermannCHEM PANEL 2015-01-16 08:45:0016[facility]annCHEM WVTFL9839-01-53 08:45:001.1[facility]annCHEM AJGNW5365-08-38 08:45:005.8[facility]annCHEM VDMRM7731-27-49 08:45:0031[facility]annCHEM XELKZ5050-48-72 08:45:0028[facility]annCHEM IWOOD0306-29-08 08:45:46104Zsxipumy HermannCHEM RWZLL0443-91-88 08:45:0015.8 [facility]CHE[facility] TGZXU5614-58-42 08:45:003.4[facility] HermannCHEM PANEL 2015-01-16 08:45:0018[facility] HermannCHEM SHANO4102-53-58 08:45:000.7[facility]annCHEM KRXCU1463-53-96 08:45:003.1[facility] QchuryrJOQDIKMZSE5684-90-15 08:45:009.4[facility] NrkrecxTSYFIKLYWV7293-44-47 08:45:49054Weulhqaj [place] MQFDCFWFFU9075-94-81 08:45:0032.5[facility] NsjrpatYSNRWIGWSP6644-25-10 08:45:00 16.4[facility] NqyfhjwBLCZHTENPU1383-36-08 08:45:00* Test Item Value Reference Range Interpretation Comments MCH (test code = MCH) 27.3 pg 27.0-31.0 [facility] NsxnagvPCVTODYARC0441-84-60 08:45:0083.8[facility] HermannHEMATOLOGY 2015-01-16 08:45:0027.1[facility] QxlnoskIXKNDLAOYB4075-58-06 08:45:008.8[facility] TypdrnuTIYGHQUVOY1018-30-53 08:45:003.23[facility] AioryouVCOIZMIYKX9381-19-00 08:45:0017.5[facility] DwvqszdNLMXNBGJZF8332-92-49 08:45:000.8[facility] GNCVPLESOB7171-52-61 08:45:001.9[facility] GefrilbMIEHABHTFM6479-20-82 08:45:000.0 [facility] IpukfmhYHSRGMMHXI8047-42-25 08:45:000.1[facility] HermannHEMATOLOGY 2015-01-16 08:45:0011.0[facility] GasoycgDCWWEDBPPN6349-96-20 08:45:0014.7[facility] KybiyyqYIVJQBVOMR9549-65-44 08:45:000.3[facility] WexvqjnXDWICBVMKY7275-52-78 08:45:0084.0[facility] EuvmbvwVTTOTXCSOC4859-22-23 08:45:004.6[facility] GNPSOFWFOC5372-88-13 08:45:00Normal (01/16/15 3:45 AM)[facility]annHEMATOLOGY 2015-01-16 08:45:000.1[facility] ZxadtgsIHERFQDRML6970-69-19 08:45:00Normal (01/16/15 3:45 AM)[facility] UmfrbbeRSTMJDUUMC2999-42-87 01:39:942750Bjowmsvl GpfvlobJASAVKKGNB0388-84-57 01:39:004.8[facility] HermannCARDIAC EYWCVPN1055-51-34 23:12:000.8[facility]annCARDIAC HYTRBBZ6141-95-78 23:12:0041[facility] CARDIAC SHIUSAU3914-09-02 23:12:000.51[facility]UR[facility] AND WVPAL4619-66-33 21:40:00Negative *NA*(01/15/15 4:40 PM)[facility] OGCPN8637-77-72 21:40:00Negative (01/15/15 4:40 PM)[facility] QKEPQ8752-09-34 21:40:00Negative (01/15/15 4:40 PM)[facility] GSGQI2146-04-67 21:40:00Negative (01/15/15 4:40 PM)[facility] BXITY7775-61-60 21:40:00<1[facility] AND ICQIK2498-49-41 21:40:001[facility] URINE AND WTOGA7539-63-98 21:40:005.0[facility] EEGMB4682-84-20 21:40:00Yellow *NA*(01/15/15 4:40 PM)[facility] GFNXM6242-83-18 21:40:001.017[facility] AND SKBGD4616-46-95 21:40:00Clear (01/15/15 4:40 PM)[facility] TPID5006-70-32 21:40:0054.6[facility] TFLW7356-43-28 21:40:13232.5[facility]annURINE MORL7653-17-88 21:40:0034.4 [facility] HITH2033-12-07 21:40:00<5[facility] CHEM 2015-01-15 21:40:00None Seen (01/15/15 4:40 PM)[facility]annCARDIAC ENZYMES 2015-01-15 16:53:000.7[facility]annCARDIAC XUBPIGJ3370-28-27 16:53:0040 [facility]annC[facility]AC LTOOTKW1111-41-16 16:53:000.54[facility] HermannCHEM PANEL 2015-01-15 16:53:0042[facility] HermannCHEM IXDKQ4189-82-41 16:53:001.7[facility] MnclmbqHFPZPFVIWE3861-65-92 16:53:86118Nzndikxq HermannVIRAL - SEROLOGY 2015-01-15 11:50:00Negative (01/15/15 6:50 AM)[facility]annVIRAL - SEROLOGY 2015-01-15 11:50:00Negative (01/15/15 6:50 AM)[facility]annCARDIAC ENZYMES 2015-01-15 10:51:000.66[facility]annCARDIAC IPAKSWT9521-41-26 10:51:708629 [facility]annCARD[facility]AC FPYFUOR5862-40-13 10:51:0042[facility]annCARDIAC COTCHJM9056-39-38 10:51:000.8[facility]annCARDIAC FEDSYKC8710-51-03 10:51:00 1.9[facility]annCHEM BIDIQ1531-41-96 10:51:001.8[facility]annCHEM PANEL 2015-01-15 10:51:006.6[facility]annCHEM VHVFJ9743-73-49 10:51:0017[facility]annCHEM DPQFO8459-14-43 10:51:44345Jndhwell HermannCHEM HGJGO9768-52-40 10:51:0034[facility]annCHEM PFQTW8097-68-75 10:51:001.1[facility]annCHEM KPXIG0279-95-36 10:51:0018[facility]annCHEM XOXOU3034-29-52 10:51:000.7 [facility]annCHE[facility] FXAGF3671-23-47 10:51:003.8[facility]annCHEM PANEL 2015-01-15 10:51:0031[facility]annCHEM MCNMA9128-12-82 10:51:0026[facility]annCHEM HXLGT5173-21-59 10:51:008.6[facility]annCHEM ZWKRZ6159-70-76 10:51:002.8[facility]annCHEM CCKKG6606-31-55 10:51:005.1[facility]annCHEM QVPSR0126-83-87 10:51:0099[facility]annCHEM OVMOT5007-63-64 10:51:0016.1 [facility]annCHE[facility] XCNGH9208-39-34 10:51:59755Senqmkuu HermannCHEM PANEL 2015-01-15 10:51:85367Xrydpcun AeharvcCFNXNHFKNS1973-58-22 10:51:00* Test Item Value Reference Range Interpretation Comments PT (test code = PT) 15.5 s 12.0-14.7 [facility] IiheoxuRHUOZKDYHQ6862-77-36 10:51:001.22[facility]annHEMATOLOGY 2015-01-15 10:51:00* Test Item Value Reference Range Interpretation Comments PTT (test code = PTT) 41.5 s 22.9-35.8 [facility] KyanvheKSNOSETHNA3552-44-98 10:51:0032.2[facility]annHEMATOLOGY 2015-01-15 10:51:0016.5[facility] ZpactmnAFGMSFSOPQ5127-80-47 10:51:0010.1[facility] ApyncmhYIGMQZGEXZ4144-29-73 10:51:0083.9[facility] BtqkwmsRJODRQLWTE7564-42-31 10:51:0017.1[facility] JavtgnoPEEVQVEGMA7238-99-13 10:51:003.73[facility] FKSCMLOSZI6351-44-07 10:51:0010.1[facility] GqwesztVQPPABJMTA2641-18-48 10:51:00 31.3[facility] KbszmlfPMKXYARLLM4971-76-83 10:51:00* Test Item Value Reference Range Interpretation Comments MCH (test code = MCH) 27.0 pg 27.0-31.0 [facility] DrypgaiIRCRUMCWOY7167-10-22 10:51:003.78[facility]annHEMATOLOGY 2015-01-15 10:51:000.1[facility] ZqedoclSUDIRRAYKP7067-06-38 10:51:001.9[facility] QebkknlSRRSXKNSFU2491-77-24 10:51:000.0[facility] YifcvefAEVHGCBUFF6690-06-70 10:51:0085.0[facility] SelbobfBUTUYVZXUN5191-97-37 10:51:00Normal (01/15/15 5:51 AM) [facility] BjbnhojCZWPYAOJFU4008-63-48 10:51:00Normal (01/15/15 5:51 AM)[facility] FjbmxitBRHQODNWLH0633-01-17 10:51:000.1[facility] KkkjdkzWAEXLKWSBT4861-50-68 10:51:0014.5[facility] TgbsfzpEXQRYYCXVW3955-51-12 10:51:000.3[facility] AZUCNXMVFM3637-62-89 10:51:003.7[facility] VgsyrxzVMEODMEGDH0890-93-28 10:51:000.6 [facility] ZnprcmuDSQRCTZSXW5167-22-66 10:51:0010.9[facility] HermannCHEM PANEL 2014-11-04 19:00:0054[facility] HermannCHEM TIAKH8244-74-51 19:00:004.6[facility]annCHEM SCLYB5091-33-42 19:00:81948Wqdlarua HermannCHEM GYPMY0815-34-37 19:00:001.4[facility] HermannCHEM WVKDH1685-96-93 19:00:009.0[facility]annCHEM WURDN3722-53-74 19:00:89797Fvwrxszg HermannCHEM UJRWX8422-06-12 19:00:0030 [facility]annCHEM CXFJZ4911-23-10 19:00:0027[facility] HermannCHEM PANEL 2014-11-04 19:00:91204Jaxzvpsv HermannCHEM IXKWJ9662-51-28 19:00:009.6[facility] ErnawzlGZFOPSHFIP4205-40-58 19:00:00* Test Item Value Reference Range Interpretation Comments MCH (test code = MCH) 27.9 pg 27.0-31.0 [facility] GalrittMRJQTDFNHH1221-00-52 19:00:0039.8[facility] HermannHEMATOLOGY 2014-11-04 19:00:0081.0[facility] ZemvqotXETATFGFAD3840-33-12 19:00:004.91[facility] NcqzompDEYPYDSXUQ5587-56-98 19:00:0013.7[facility] BmjpljhVTPAMNAOQK0019-90-01 19:00:0010.1[facility] JcoatlwSGFIQREMNH0105-35-85 19:00:36586Lpixjqnc [place] VMKDHPUHAY7678-81-05 19:00:0034.4[facility] JggsfjfEJFVJAFEOO1758-08-83 19:00:00 18.1[facility] NjevfwyYKFESMXFZQ7214-32-00 19:00:007.4[facility] HermannHEMATOLOGY 2014-11-04 19:00:00* Test Item Value Reference Range Interpretation Comments PT (test code = PT) 14.0 s 12.0-14.[address] [facility] HospitalCxonysbIGPOWKQVTF4792-62-39 19:00:001.08[facility]fieldIMMUNOLOGY 2014-11-04 19:00:00Negative *NA*(11/04/14 2:00 PM)[facility]
--- OUTSIDE RECORDS SUMMARY | 2020-04-20 19:54 | XMS REPORT | Continuity of Care Document ---
Author Author Cayetano Crespo Information DYLLAN Anderson [facility] Information Exchange Address Unknown Phone Unavailable Care Team Providers Care Swimming Instructor Name Role Phone [facility] Information Exchange Unavailable Un available Problems Problem Status Onset Date Classification Date Reported Comments Source Muscle weakness (generalized) 09/09/2017 12/10/2017 [facility] LEFT ACHILLES Active 08/05/2017 [facility] Methicillin resistant Staphylococcus aureus (organism) Active 02/04/2017 Problem 12/10/2017 RIGHT FOOT, 02/05/20 17 Problem added by Discern Expert. 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 02/27/2015 MANUEL Crespo PNEUMONIA/GENERALIZED WEAKNESS Active 01/15/2015 [facility] WEAKNESS Active 01/15/2015 [facility] POST CAB, POST AORTIV VALVE REPLACEMENT Active 12/27/2014 [facility] POST CAB, POST AORTIC VALVE REPLACEMENT Active 12/27/2014 [facility] POST CAB, POST AVR Active 12/27/2014 [facility] CAD Active 0 10/27/2014 [facility] Unspecified abnormalities of gait and mobility 12/10/2017 [facility] Unspecified injury of left Achilles tendon, sequela 12/10/2017 [facility] Type 2 diabetes mellitus without complications 12/10/2017 [facility] Pure hypercholesterolemia, unspecified 12/10/2017 [facility] Amputation of finger tip (procedure) Resolved Problem 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 finger) [facility] Aortic valve stenosis with insufficiency (disorder) Active [facility] Disorder of carotid artery (disorder) [facility] Problem [facility] Diabetes mellitus (disorder) A ctive Problem [facility] Diabetic neuropathy (disorder) Active Problem MANUEL [facility] Hypercholesterolemia (disorder) Active Problem MANUEL [place],[facility] Hypertensive disorder, systemic arterial (disorder) Active Problem 12/10/2017 MANUEL [place],[facility] Psoriasis (disorder) Active Problem 12/10[facility] PNEUMONIA, ORGANISM NOS Active [facility] MALAISE AND FATIGUE NEC Active [facility] CELLULITIS OF RIGHT LOWER LIMB Active [facility] OSTEOMYELITIS OF RIGHT ORBIT A ctive [facility] OTHER INJURY OF UNSPECIFIED BODY REGION Active [facility] Medications Medication Details Route Status Patient Instructions Ordering Provider Order Date Source Insulin Glargine 100 UNT/ML Injectable Solution 80 unit, SUB-Q, Bedtime, 0 Refill(s) Active 02/07/2017 [facility] cefdinir 300 MG Oral Capsule [Omnicef] 300 mg = 1 cap, PO, Daily, X 10 day, # 10 cap, 0 Refill(s), Pharmacy: [facility] [id number] Active 02/07/2017 [facility] ciprofloxacin 500 mg oral tablet 500 mg = 1 tab, PO, Daily, X 10 day, # 10 tab, 0 Refill(s), Pharmacy: [facility] [id number] Active 02/07/2017 [facility] Amlodipine 5 MG Oral Tablet [Norvasc] 5 mg = 1 tab, PO, Daily, # 30 tab, 0 Refill(s), Pharmacy: [facility] [id number] Active 02/07/2017 [facility] Kayexalate Notes: (sodium poly styrene sulfonate 15 gm/60 ml VONNIE) Shake well before use. (Same as: Kayexalate, SPS) Inactive 02/07/2017 [facility] Hydralazine Notes: (Same as: A presoline) Push over 5 minutes Inactive 02/07/2017 [facility] Ceftriaxone Notes: (Same As: Hue ayala). Use [...] 5 MG Oral Tablet Notes: (Same as: [place] 325/5) Do not ex ceed 4gm/day of [...] Notes: (Same as: Duoneb) Inactive 02/05/2017 [facility] Calcium Chloride 0.0014 MEQ/ML / Potassi um Chloride 0.004 MEQ/ML / Sodium Chloride 0.103 MEQ/ML / Sodium Lactate 0.028 MEQ/ML Injectable Solution 1,000 mL, Rate: 25 ml/hr, Infuse over: 4 0 hr, Route: IV, Dosing Weight 139.364 kg, Total Volume: 1,000, Start date: 02/05/17 6:19:00 CDT, Duration: 30 day, Stop date: 03/07/17 6:18:00 CDT Inactive 02/05/2017 [facility] insulin detemir 80 unit, Route : SUB-Q, Bedtime, Dosing Weight 139.364, kg, Start date: 02/04/17 21:00:00 CDT, Duration: 30 day, Stop date: 03/05/17 21:00:00 CDT Inactive 02/05/2017 [facility] heparin Notes: porcine heparin Inactive 02/05/2017 [facility] insulin glargine Notes: (Same as: Lantus) Do not hold insulin without contacting prescriber WASTE: F/P - Black; E - Municipal Trash Bin "single patient use only" No Longer Active 02/05/2017 [facility] atorvastatin Notes: (Same As: Lipitor) No Longer Active 02/05/2017 [facility] vancomycin + sodium chloride 0.9% INJ 250 mL 2001 mg: infuse over 2.5 hours MEDICATION WASTE Product Size: 1000 mg Product Wasted: ___ mg No Longer Active 02/05/2017 [facility] Zosyn + sodium chloride 0.9% INJ 100 mL Notes: (Same as: Zosyn) Dosing based on Piperacillin component MEDICATION WASTE Product Size: 3375 mg Product Wasted: ___ mg No Longer Active 02/05/2017 [facility] Humalog See Instructions, SUB- Q, 0 Refill(s), Pt uses this for sliding scale No Longer Active 02/04/2017 [facility] Amoxicillin 875 MG / Clavulanate 125 MG Oral Tablet 1 tab, PO, BID, # 20 tab, 0 Refill(s) No Longer Active 02/04/2017 [facility] Furosemide 40 mg, Daily, 0 Ref ill(s) No Longer Active 02/04/2017 [facility] Lisinopril 10 mg, PO, Daily, 0 Refill(s) No Longer Active 02/04/2017 [facility] Trujeo Trujeo, 50 units, SUB-Q , QAM, Refill(s) 0 No Longer Active 02/04/2017 [facility] Vancomycin 1,000 mg, Route: IV PB, Drug form: INJ, [id number], Dosing Weight 110.909, kg, Start date: 02/04/17 16:00:00 CDT, Duration: 10 day, Stop date: 02/13/17 16:00:00 CDT, ABX Indication: Bone/Joint Infection Inactive 02/04/2017 [facility] Dakins Half Strength Solution 0.25% topical Notes: Note: half-strength = 0.25% sodium hypochlorite. Inactive 02/04/2017 [facility] Zosyn 3.375 gm, Route: IVPB, D rug form: PDR/INJ, [id number], Dosing Weight 110.909, kg, Start date: 02/04/17 16:00:00 CDT, Duration: 10 day, Stop date: 02/14/17 10:00:00 CDT, ABX Indication: Bone/Joint Infection Inactive 02/04/2017 [facility] cefepime 1 g injection 1 gm, I V, Q12H, X 10 day, # 20 ea, 0 Refill(s), other Active 01/18/2015 [facility] Vancomycin 1.5 gm = 250 mL, IV PB, [id number], 0 Refill(s) Active 01/18/2015 [facility] Enoxaparin 40 mg = 0.4 mL, SUB -Q, [id number], 0 Refill(s) Active 01/18/2015 [facility] epoetin darnell 10,000 units/mL injectable solution 10,000 unit = 1 mL, SUB-Q, [id number], 0 Refill(s) Active 01/18/2015 [facility] cefepime 1 gm, Route: IVPB, AB XQ12H, Dosing Weight 124.727, kg, Start date: 01/17/15 13:00:00, Duration: 30 day, Stop date: 02/16/15 1:00:00 Inactive 01/17/2015 [facility] NS 1,000 mL 1,000 mL, Rate: 50 ml/hr, Infuse over: 20 hr, Route: IV, Dosing Weight 124.727 kg, Total Volume: 1,000, Start date: 01/17/15 10:50:00, Duration: 30 day, Stop date: 02/16/15 10:49:00 Inactive 01/17/2015 [facility] ergocalciferol 50,000 IntlUnit , 1 cap, Route: PO, Drug form: CAP, QTue, Dosing Weight 112.4, kg, Start date: 01/17/15 9:00:00, Duration: 30 day, Stop date: 02/14/15 9:00:00 Inactive 01/17/2015 [facility] Insulin, Aspart, Human Notes: Roll in palms of hands gently; Do not shake vigorously. (Same as: NovoLOG) "single patient use only" Stable for 28 days at room temperature. Expires in days from Date Inactive 01/17/2015 [facility] Glucagon 1 mg, Route: IM, Drug form: PDR/INJ, PRN, Dosing Weight 124.727, kg, PRN Blood Glucose Results, Start date: 01/17/15 4:45:00, Duration: 30 day, Stop date: 02/16/15 4:44:00 Inactive 01/17/2015 [facility] Dextrose 50% Syringe 25 gm, 50 mL, Route: IVP, Drug Form: INJ, Dosing Weight 124.727, kg, PRN, PRN Blood Glucose Results, Start date: 01/17/15 4:45:00, Duration: 30 day, Stop date: 02/16/15 4:44:00 Inactive 01/17/2015 [facility] Sodium Chloride 0.154 MEQ/ML Injectable Solution 500 mL, 500 ml/hr, Infuse Over: 1 hr, Route: IV, 500, Drug form: INJ, ONCE, Priority: STAT, Dosing Weight 112.4 kg, Start date: 01/16/15 17:59:00, Duration: 1 doses or times, Stop date: 01/16/15 17:59:00 Inactive 01/16/2015 [facility] Epogen Notes: (Same as: Procri t) epoetin darnell 26547 unit/1 ml VL. For dialysis use only. (Procrit) MEDICATION WASTE Product Size: 74921 unit Product Wasted: ___ unit No Longer Active 01/16/2015 [facility] Sodium Chloride 0.154 MEQ/ML Injectable Solution 500 mL, 500 ml/hr, Infuse Over: 1 hr, Route: IV, ONCE, Priority: STAT, Dosing Weight 112.4 kg, Start date: 01/16/15 16:35:00, Duration: 1 doses or times, Stop date: 01/16/15 16:35:00 Inactive 01/16/2015 [facility] Furosemide Notes: (Same as: La six) May cause GI upset. Give with food or milk. Inactive 01/16/2015 [facility] Vancomycin 2001 mg: infuse ov er 2.5 hours No Longer Active 01/16/2015 [facility] NS 1,000 mL 1,000 mL, Rate: 75 ml/hr, Infuse over: 13.3 hr, Route: IV, Dosing Weight 112.4 kg, Total Volume: 1,000, Start date: 01/16/15 8:32:00, Duration: 30 day, Stop date: 02/15/15 8:31:00 No Longer Active 01/16/2015 [facility] NovoLOG FlexPen Notes: Roll in palms of hands gently; Do not shake vigorously. (Same as: NovoLOG) "single patient use only" Stable for 28 days at room temperature. Expires in days from Date No Longer Active 01/16/2015 [facility] Humalog 8 unit, Route: SUB-Q, QAM (Insulin), Dosing Weight 112.4, kg, Start date: 01/16/15 7:30:00, Duration: 30 day, Stop date: 02/14/15 7:30:00 No Longer Active 01/16/2015 [facility] atorvastatin 10 mg, Route: PO, Drug form: TAB, Bedtime, Dosing Weight 112.4, kg, Start date: 01/15/15 21:00:00, Duration: 30 day, Stop date: 02/13/15 21:00:00 Inactive 01/16/2015 [facility] Lantus Notes: Same as Laxmi parkinson PEN "single patient use only" Stable for 28 days at room temperature. Expires in days from Date No Longer Active 01/16/2015 [facility] Vancomycin Notes: TIME CRITICA L MEDICATION No Longer Active 01/16/2015 [facility] Hydrochlorothiazide 12.5 MG / Lisinopril 10 MG Oral Tablet [Zestoretic 10/12.5] 1 tab, Route: PO, Drug Form: TAB, Dosing Weight 112.4, kg, BID, Start date: 01/15/15 17:00:00, Duration: 30 day, Stop date: 02/14/15 9:00:00 Inactive 01/15/2015 [facility] Lyrica Notes: Same as Lyrica No Longer Active 01/15/2015 [facility] Prinivil Notes: (Same as: Prin ivil, Zestril) Inactive 01/15/2015 [facility] hydrochlorothiazide 25 mg oral tablet Notes: (Same as: Hydrodiuril) With food. Inactive 01/15/2015 [facility] NovoLOG FlexPen Notes: Roll in palms of hands gently; Do not shake vigorously. (Same as: NovoLOG) "single patient use only" Stable for 28 days at room temperature. Expires in days from Date No Longer Active 01/15/2015 [facility] Humalog 5 unit, Route: SUB-Q, QPM (Insulin), Dosing Weight 112.4, kg, Start date: 01/15/15 16:30:00, Duration: 30 day, Stop date: 02/13/15 16:30:00 Inactive 01/15/2015 [facility] NovoLOG FlexPen Notes: Roll in palms of hands gently; Do not shake vigorously. (Same as: NovoLOG) "single patient use only" Stable for 28 days at room temperature. Expires in days from Date No Longer Active 01/15/2015 [facility] Bisoprolol Notes: (Same As: Ze beta) No Longer Active 01/15/2015 [facility] Aspirin 81 mg, 1 tab, Route: P O, Drug form: ECTAB, Daily, Dosing Weight 112.4, kg, Start date: 01/15/15 12:30:00, Duration: 30 day, Stop date: 02/14/15 9:00:00 No Longer Active 01/15/2015 [facility] Humalog 5 unit, Route: SUB-Q, QNoon, Dosing Weight 112.4, kg, Start date: 01/15/15 12:00:00, Duration: 30 day, Stop date: 02/13/15 12:00:00 Inactive 01/15/2015 [facility] cefepime Notes: (Same As: Yossi jama) MEDICATION WASTE Product Size: 1000 mg Product Wasted: ___ mg No Longer Active 01/15/2015 [facility] Enoxaparin Notes: (Same as: Lo venox) No Longer Active 01/15/2015 [facility] Sodium Chloride 0.9% IV 25 mL, Route: IV, Start date: 01/15/15 10:59:00, Duration: 30 day, Stop date: 02/14/15 10:58:00, PRN Line Flush No Longer Active 01/15/2015 [facility] BD Normal Saline Flush Notes: (Same as: BD Posiflush) No Longer Active 01/15/2015 [facility] Ergocalciferol 82293 UNT Oral Capsule 50,000 IntlUnit = 1 cap, PO, QTue, 0 Refill(s) Active 01/15/2015 [facility] Bisoprolol 10 mg, PO, Daily, 0 Refill(s) Active 01/15/2015 [facility] Humalog 5 unit, SUB-Q, QPM (In sulin), 0 Refill(s) No Longer Active 01/15/2015 [facility] Aspirin Low Dose 81 mg oral tablet = 1 tab, PO, Daily, # 30 tab, 1 Refill(s) Active 01/15/2015 [facility] Sodium Chloride 0.154 MEQ/ML Injectable Solution 250 mL, 250 ml/hr, Infuse Over: 1 hr, Route: IV, 250, Drug form: INJ, ONCE, Priority: STAT, Dosing Weight 118.182 kg, Start date: 01/15/15 7:49:00, Duration: 1 doses or times, Stop date: 01/15/15 7:49:00 Inactive 01/15/2015 [facility] Vancomycin Notes: TIME CRITICA L MEDICATION Inactive 01/15/2015 [facility] Levaquin Notes: (Same as:Levaq uin) Inactive 01/15/2015 [facility] Zosyn Notes: (Same as: Zosyn) Dosing based on Piperacillin component MEDICATION WASTE Product Size: 3375 mg Product Wasted: _0__ mg Inactive 01/15/2015 [facility] Sodium Chloride 0.154 MEQ/ML Injectable Solution 250 mL, 250 ml/hr, Infuse Over: 1 hr, Route: IV, 250, Drug form: INJ, ONCE, Priority: STAT, Dosing Weight 118.182 kg, Start date: 01/15/15 6:48:00, Duration: 1 doses or times, Stop date: 01/15/15 6:48:00 Inactive 01/15/2015 [facility] Saline Flush 0.9% Notes: (Same as: BD Posiflush) No Longer Active 01/15/2015 [facility] normal saline 0.9% IV 500 mL 5 00 mL, Rate: 100 ml/hr, Infuse over: 5 hr, Route: IV, Dosing Weight 126.818 kg, Total Volume: 500, Start date: 11/08/14 12:54:00, Duration: 30 day, Stop date: 12/08/14 12:53:00 Inactive 11/08/2014 [facility] Acetaminophen Notes: Do not ex ceed 4 gm/day. (Same as: Tylenol) Inactive 11/08/2014 [facility] Ondansetron Notes: (Same as: Faiza long) MEDICATION WASTE Product Size: 4 mg Product Wasted: ___ mg Inactive 11/08/2014 [facility] Psoriasis Drug Study Psoriasis Drug Study, Q30D, Refill(s) 0 Active 11/04/2014 [facility] atorvastatin 10 mg oral tablet 10 mg = 1 tab, PO, Bedtime Active 11/04/2014 [facility] gemfibrozil 600 mg oral tablet 600 mg = 1 tab, PO, BID Active 11/04/2014 [facility] 24 HR Metformin hydrochloride 500 MG Ext ended Release Tablet [Glumetza] 500 mg = 1 tab, PO, Daily Active 11/04/2014 [facility] Lantus 80 unit, SUB-Q, Bedtime Active 11/04/2014 [facility] Humalog 50 unit, SUB-Q, TID-Be fore Meals, 0 Refill(s) Active 11/04/2014 [facility] Aspirin 81 MG Enteric Coated Tablet 81 mg = 1 tab, PO, Daily Active 11/04/2014 [facility] pregabalin 150 MG Oral Capsule [Lyrica] 150 mg = 1 cap, PO, TID Active 11/04/2014 [facility] Hydrochlorothiazide 12.5 MG / Lisinopril 10 MG Oral Tablet [Zestoretic 10/12.5] 1 tab, PO, BID Active 11/04/2014 [facility] bisoprolol 5 mg oral tablet 5 mg = 1 tab, PO, Daily Active 11/04/2014 [facility] Allergies, Adverse Reactions, Alerts Substance Category Reaction Severity Reaction type Status Date Reported Comments Source NKFA Assertion Drug allergy Active [facility] Immunizations Immunization Date Given Site Status Last Updated Comments Source pneumococcal 23-valent vaccine 01/16/2015 Left deltoid [facility] Order Name Results Value Reference Range Date Interpretation Comments Source ELECTROLYTES Potassium Lvl 4.3 3.5 - 5.1 02/07/2017 [facility] CHEM PANEL Phosphorus 3.8 2.5 - 4.5 02/07/2017 [facility] CHEM PANEL Magnesium Lvl 2.6 1.8 - 2.4 02/07/2017 [facility] CHEM PANEL eGFR 45 02/07/2017 Result Comment: [...] should be multiplied by the estimated BMI. [facility] CHEM PANEL Calcium Lvl 8.8 8.5 - 10.5 02/07/2017 [facility] CHEM PANEL CO2 30 24 - 32 02/07/2017 [facility] CHEM PANEL Potassium Lvl 5.5 3.5 - 5.1 02/07/2017 [facility] CHEM PANEL Chloride Lvl 101 95 - 109 02/07/2017 [facility] CHEM PANEL BUN 20 7 - 22 02/07/2017 [facility] CHEM PANEL Creatinine Lvl 1.61 0.50 - 1.40 02/07/2017 [facility] CHEM PANEL Sodium Lvl 135 135 - 145 02/07/2017 [facility] CHEM PANEL Glucose Lvl 267 70 - 99 02/07/2017 [facility] CHEM PANEL AGAP 9.5 10.0 - 20.0 02/07/2017 [facility] HEMATOLOGY RDW 15.8 11.5 - 14.5 02/07/2017 [facility] HEMATOLOGY MCV 82.0 80.0 - 94.0 02/07/2017 [facility] HEMATOLOGY MCH 27.6 27.0 - 31.0 02/07/2017 [facility] HEMATOLOGY MCHC 33.6 32.0 - 36.0 02/07/2017 [facility] HEMATOLOGY Hct 38.2 42.0 - 54.0 02/07/2017 [facility] HEMATOLOGY Platelet 170 133 - 450 02/07/2017 [facility] HEMATOLOGY MPV 9.6 7.4 - 10.4 02/07/2017 [facility] HEMATOLOGY WBC 7.4 3.7 - 10.4 02/07/2017 [facility] HEMATOLOGY RBC 4.65 4.70 - 6.10 02/07/2017 [facility] HEMATOLOGY Hgb 12.8 14.0 - 18.0 02/07/2017 [facility] HEMATOLOGY Basophils # 0.1 0.0 - 0.2 02/07/2017 [facility] HEMATOLOGY Monocytes # 0.9 0.0 - 0.8 02/07/2017 [facility] HEMATOLOGY Eosinophils # 0.3 0.0 - 0.5 02/07/2017 [facility] HEMATOLOGY Basophils 0.8 0.0 - 1.0 02/07/2017 [facility] HEMATOLOGY Eosinophils 3.7 0.0 - 4.0 02/07/2017 [facility] HEMATOLOGY Lymphocytes # 1.1 1.0 - 5.5 02/07/2017 [facility] HEMATOLOGY Segs-Bands # 5.0 1.5 - 8.1 02/07/2017 [facility] HEMATOLOGY Segs 67.7 45.0 - 75.0 02/07/2017 [facility] HEMATOLOGY Lymphocytes 15.0 20.0 - 40.0 02/07/2017 [facility] HEMATOLOGY Monocytes 12.8 2.0 - 12.0 02/07/2017 [facility] CHEM PANEL eGFR 50 02/06/2017 Result Comment: [...] should be multiplied by the estimated BMI. [facility] CHEM PANEL Potassium Lvl 4.4 3.5 - 5.1 02/06/2017 [facility] CHEM PANEL Chloride Lvl 106 95 - 109 02/06/2017 [facility] CHEM PANEL CO2 29 24 - 32 02/06/2017 [facility] CHEM PANEL Calcium Lvl 8.6 8.5 - 10.5 02/06/2017 [facility] CHEM PANEL Creatinine Lvl 1.47 0.50 - 1.40 02/06/2017 [facility] CHEM PANEL BUN 19 7 - 22 02/06/2017 [facility] CHEM PANEL Glucose Lvl 164 70 - 99 02/06/2017 [facility] CHEM PANEL Sodium Lvl 139 135 - 145 02/06/2017 [facility] CHEM PANEL AGAP 8.4 10.0 - 20.0 02/06/2017 [facility] HEMATOLOGY Lymphocytes # 0.9 1.0 - 5.5 02/06/2017 [facility] HEMATOLOGY Eosinophils # 0.2 0.0 - 0.5 02/06/2017 [facility] HEMATOLOGY Basophils # 0.1 0.0 - 0.2 02/06/2017 [facility] HEMATOLOGY Segs 76.4 45.0 - 75.0 02/06/2017 [facility] HEMATOLOGY Monocytes # 0.9 0.0 - 0.8 02/06/2017 [facility] HEMATOLOGY Basophils 0.6 0.0 - 1.0 02/06/2017 [facility] HEMATOLOGY Lymphocytes 10.7 20.0 - 40.0 02/06/2017 [facility] HEMATOLOGY Eosinophils 2.0 0.0 - 4.0 02/06/2017 [facility] HEMATOLOGY Segs-Bands # 6.5 1.5 - 8.1 02/06/2017 [facility] HEMATOLOGY Monocytes 10.3 2.0 - 12.0 02/06/2017 [facility] HEMATOLOGY RDW 16.4 11.5 - 14.5 02/06/2017 [facility] HEMATOLOGY MCHC 33.4 32.0 - 36.0 02/06/2017 [facility] HEMATOLOGY MCH 27.3 27.0 - 31.0 02/06/2017 [facility] HEMATOLOGY WBC 8.5 3.7 - 10.4 02/06/2017 [facility] HEMATOLOGY RBC 4.74 4.70 - 6.10 02/06/2017 [facility] HEMATOLOGY Platelet 177 133 - 450 02/06/2017 [facility] HEMATOLOGY MPV 9.6 7.4 - 10.4 02/06/2017 [facility] HEMATOLOGY MCV 82.0 80.0 - 94.0 02/06/2017 [facility] HEMATOLOGY Hgb 13.0 14.0 - 18.0 02/06/2017 [facility] HEMATOLOGY Hct 38.8 42.0 - 54.0 02/06/2017 [facility] CHEM PANEL Calcium Lvl 8.8 8.5 - 10.5 02/05/2017 [facility] CHEM PANEL Chloride Lvl 107 95 - 109 02/05/2017 [facility] CHEM PANEL eGFR 48 02/05/2017 Result Comment: [...] should be multiplied by the estimated BMI. [facility] CHEM PANEL CO2 30 24 - 32 02/05/2017 [facility] CHEM PANEL Sodium Lvl 140 135 - 145 02/05/2017 [facility] CHEM PANEL BUN 23 7 - 22 02/05/2017 [facility] CHEM PANEL Creatinine Lvl 1.50 0.50 - 1.40 02/05/2017 [facility] CHEM PANEL Glucose Lvl 103 70 - 99 02/05/2017 [facility] CHEM PANEL AGAP 7.6 10.0 - 20.0 02/05/2017 [facility] HEMATOLOGY PTT 29.3 22.9 - 35.8 02/05/2017 [facility] HEMATOLOGY PT 13.4 12.0 - 14.7 02/05/2017 [facility] HEMATOLOGY INR 1.00 0.85 - 1.17 02/05/2017 [facility] HEMATOLOGY Platelet 176 133 - 450 02/05/2017 [facility] HEMATOLOGY MCV 81.8 80.0 - 94.0 02/05/2017 [facility] HEMATOLOGY MCH 27.3 27.0 - 31.0 02/05/2017 [facility] HEMATOLOGY MCHC 33.4 32.0 - 36.0 02/05/2017 [facility] HEMATOLOGY Hgb 13.1 14.0 - 18.0 02/05/2017 [facility] HEMATOLOGY Hct 39.3 42.0 - 54.0 02/05/2017 [facility] HEMATOLOGY RDW 15.7 11.5 - 14.5 02/05/2017 [facility] HEMATOLOGY RBC 4.80 4.70 - 6.10 02/05/2017 [facility] HEMATOLOGY WBC 7.8 3.7 - 10.4 02/05/2017 [facility] HEMATOLOGY MPV 9.4 7.4 - 10.4 02/05/2017 [facility] HEMATOLOGY Basophils # 0.1 0.0 - 0.2 02/05/2017 [facility] HEMATOLOGY Eosinophils 2.0 0.0 - 4.0 02/05/2017 [facility] HEMATOLOGY Segs 71.3 45.0 - 75.0 02/05/2017 [facility] HEMATOLOGY Lymphocytes 14.4 20.0 - 40.0 02/05/2017 [facility] HEMATOLOGY Monocytes 11.4 2.0 - 12.0 02/05/2017 [facility] HEMATOLOGY Segs-Bands # 5.6 1.5 - 8.1 02/05/2017 [facility] HEMATOLOGY Lymphocytes # 1.1 1.0 - 5.5 02/05/2017 [facility] HEMATOLOGY Eosinophils # 0.2 0.0 - 0.5 02/05/2017 [facility] HEMATOLOGY Basophils 0.9 0.0 - 1.0 02/05/2017 [facility] HEMATOLOGY Monocytes # 0.9 0.0 - 0.8 02/05/2017 [facility] URINE AND STOOL UA Nitrite Negative (02/05/17 1:40 AM) Negative 02/05/2017 [facility] URINE AND STOOL UA Leuk Est Negative (02/05/17 1:40 AM) Negative 02/05/2017 [facility] URINE AND STOOL Micro? Not Indicated (02/05/17 1:40 AM) 02/05/2017 [facility] URINE AND STOOL UA Urobilinogen 0.2 0.1 - 1.0 02/05/2017 [facility] URINE AND STOOL UA Blood Negative (02/05/17 1:40 AM) Negative 02/05/2017 [facility] URINE AND STOOL UA Turbidity Clear (02/05/17 1:40 AM) Clear 02/05/2017 [facility] URINE AND STOOL UA Color STRAW 02/05/2017 [facility] URINE AND STOOL UA Spec Grav <=1.005 *NA* (02/05/17 1:40 AM) <=1.030 02/05/2017 [facility] URINE AND STOOL UA Ketones Negative *NA* (02/05/17 1:40 AM) Negative 02/05/2017 [facility] URINE AND STOOL UA pH 6.0 5.0 - 8.0 02/05/2017 [facility] URINE AND STOOL UA Protein Negative (02/05/17 1:40 AM) Negative 02/05/2017 [facility] URINE AND STOOL UA Glucose Negative (02/05/17 1:40 AM) Negative 02/05/2017 [facility] URINE AND STOOL UA Bili Negative *NA* (02/05/17 1:40 AM) Negative 02/05/2017 [facility] HEMATOLOGY INR 0.98 0.85 - 1.17 02/04/2017 [facility] HEMATOLOGY PTT 20.5 22.9 - 35.8 02/04/2017 [facility] HEMATOLOGY PT 13.2 12.0 - 14.7 02/04/2017 [facility] HEMATOLOGY Sed Rate 20 0 - 15 02/04/2017 [facility] HEMATOLOGY PT 13.2 12.0 - 14.7 02/04/2017 [facility] HEMATOLOGY INR 0.98 0.85 - 1.17 02/04/2017 [facility] SPECIAL CHEMISTRY Hgb A1C 7.3 <=5.6 % 02/04/2017 [facility] TOXICOLOGY Vanco Tr 19.0 01/17/2015 [facility] TOXICOLOGY Vanco Tr TND 0900 01/17/2015 [facility] CHEM PANEL BUN 34 7 - 22 01/17/2015 [facility] CHEM PANEL CO2 24 24 - 32 01/17/2015 [facility] CHEM PANEL eGFR 46 01/17/2015 Result Comment: [...] should be multiplied by the estimated BMI. [facility] CHEM PANEL AGAP 14.7 10.0 - 20.0 01/17/2015 [facility] CHEM PANEL Chloride Lvl 100 95 - 109 01/17/2015 [facility] CHEM PANEL Glucose Lvl 125 70 - 99 01/17/2015 [facility] CHEM PANEL Calcium Lvl 7.5 8.5 - 10.5 01/17/2015 [facility] CHEM PANEL Sodium Lvl 134 135 - 145 01/17/2015 [facility] CHEM PANEL Potassium Lvl 4.7 3.5 - 5.1 01/17/2015 [facility] CHEM PANEL Creatinine Lvl 1.6 0.5 - 1.4 01/17/2015 [facility] HEMATOLOGY RBC Morph Neli l (01/17/15 3:36 AM) 01/17/2015 [facility] HEMATOLOGY Basophils 0.4 0.0 - 1.0 01/17/2015 [facility] HEMATOLOGY Lymphocytes 7.2 20.0 - 40.0 01/17/2015 [facility] HEMATOLOGY Eosinophils 2.1 0.0 - 4.0 01/17/2015 [facility] HEMATOLOGY Segs 80.7 45.0 - 75.0 01/17/2015 [facility] Monocytes 9.6 2.0 - 12.0 01/17/2015 [facility] Monocytes # 1.2 0.0 - 0.8 01/17/2015 [facility] HEMATOLOGY Eosinophils # 0.3 0.0 - 0.5 01/17/2015 [facility] Segs-Bands # 9.9 1.5 - 8.1 01/17/2015 [facility] Lymphocytes # 0.9 1.0 - 5.5 01/17/2015 [facility] Large Plt Moder ate *ABN* (01/17/15 3:36 AM) None Seen 01/17/2015 [facility] Basophils # 0.1 0.0 - 0.2 01/17/2015 [facility] HEMATOLOGY Hct 25.0 42.0 - 54.0 01/17/2015 [facility] HEMATOLOGY MCH 27.0 27.0 - 31.0 01/17/2015 [facility] HEMATOLOGY Platelet 235 133 - 450 01/17/2015 [facility] HEMATOLOGY MCV 83.6 80.0 - 94.0 01/17/2015 [facility] HEMATOLOGY MPV 9.7 7.4 - 10.4 01/17/2015 [facility] MCHC 32.3 32.0 - 36.0 01/17/2015 [facility] HEMATOLOGY RDW 16.6 11.5 - 14.5 01/17/2015 [facility] HEMATOLOGY WBC 12.2 3.7 - 10.4 01/17/2015 [facility] HEMATOLOGY Hgb 8.1 14.0 - 18.0 01/17/2015 [facility] HEMATOLOGY RBC 2.99 4.70 - 6.10 01/17/2015 [facility] CHEM PANEL Albumin Lvl 2.4 3.5 - 5.0 01/16/2015 [facility] CHEM PANEL CO2 24 24 - 32 01/16/2015 [facility] CHEM PANEL eGFR 42 01/16/2015 Result Comment: [...] should be multiplied by the estimated BMI. [facility] CHEM PANEL Potassium Lvl 4.8 3.5 - 5.1 01/16/2015 [facility] CHEM PANEL Chloride Lvl 97 95 - 109 01/16/2015 [facility] CHEM PANEL Creatinine Lvl 1.7 0.5 - 1.4 01/16/2015 [facility] CHEM PANEL Sodium Lvl 132 135 - 145 01/16/2015 [facility] CHEM PANEL Calcium Lvl 7.9 8.5 - 10.5 01/16/2015 [facility] CHEM PANEL Alk Phos 129 39 - 136 01/16/2015 [facility] CHEM PANEL AST 16 0 - 37 01/16/2015 [facility] CHEM PANEL Bili Total 1.1 0.2 - 1.3 01/16/2015 [facility] CHEM PANEL Total Protein 5.8 6.4 - 8.4 01/16/2015 [facility] CHEM PANEL BUN 31 7 - 22 01/16/2015 [facility] CHEM PANEL ALT 28 0 - 65 01/16/2015 [facility] CHEM PANEL Glucose Lvl 184 70 - 99 01/16/2015 [facility] CHEM PANEL AGAP 15.8 10.0 - 20.0 01/16/2015 [facility] CHEM PANEL Globulin 3.4 2.0 - 4.0 01/16/2015 [facility] CHEM PANEL B/C Ratio 18 6 - 25 01/16/2015 [facility] CHEM PANEL A/G Ratio 0.7 0.7 - 1.6 01/16/2015 [facility] CHEM PANEL Phosphorus 3.1 2.5 - 4.5 01/16/2015 [facility] HEMATOLOGY MPV 9.4 7.4 - 10.4 01/16/2015 [facility] HEMATOLOGY Platelet 269 133 - 450 01/16/2015 [facility] HEMATOLOGY MCHC 32.5 32.0 - 36.0 01/16/2015 [facility] HEMATOLOGY RDW 16.4 11.5 - 14.5 01/16/2015 [facility] MCH 27.3 27.0 - 31.0 01/16/2015 [facility] HEMATOLOGY MCV 83.8 80.0 - 94.0 01/16/2015 [facility] HEMATOLOGY Hct 27.1 42.0 - 54.0 01/16/2015 [facility] HEMATOLOGY Hgb 8.8 14.0 - 18.0 01/16/2015 [facility] HEMATOLOGY RBC 3.23 4.70 - 6.10 01/16/2015 [facility] HEMATOLOGY WBC 17.5 3.7 - 10.4 01/16/2015 [facility] HEMATOLOGY Lymphocytes # 0.8 1.0 - 5.5 01/16/2015 [facility] HEMATOLOGY Monocytes # 1.9 0.0 - 0.8 01/16/2015 [facility] HEMATOLOGY Eosinophils # 0.0 0.0 - 0.5 01/16/2015 [facility] HEMATOLOGY Eosinophils 0.1 0.0 - 4.0 01/16/2015 [facility] HEMATOLOGY Monocytes 11.0 2.0 - 12.0 01/16/2015 [facility] HEMATOLOGY Segs-Bands # 14.7 1.5 - 8.1 01/16/2015 [facility] HEMATOLOGY Basophils 0.3 0.0 - 1.0 01/16/2015 [facility] HEMATOLOGY Segs 84.0 45.0 - 75.0 01/16/2015 [facility] HEMATOLOGY Lymphocytes 4.6 20.0 - 40.0 01/16/2015 [facility] HEMATOLOGY Plt Morph Neli l (8/3/15 3:45 AM) 01/16/2015 [facility] HEMATOLOGY Basophils # 0.1 0.0 - 0.2 01/16/2015 [facility] HEMATOLOGY RBC Morph Neli l (01/16/15 3:45 AM) 01/16/2015 [facility] IMMUNOLOGY CRP, High Sensitivity >19 0.0 mg/L 01/16/2015 [facility] TOXICOLOGY Vanco Tr TND 2030 01/16/2015 [facility] TOXICOLOGY Vanco Tr 4.8 01/16/2015 [facility] CARDIAC ENZYMES CK MB 0.8 0.5 - 3.6 01/15/2015 [facility] CARDIAC ENZYMES Total CK 41 12 - 191 01/15/2015 [facility] CARDIAC ENZYMES Troponin-I 0.51 0.00 - 0.40 01/15/2015 Result Comment: Critical Result(s) jo quiroga at 01/15/2015 18:49 by [email or web address]. Read back OK. [facility] URINE AND STOOL UA Urobilinogen <=1.0 mg/dL 0.1 - 1.0 01/15/2015 [facility] URINE AND STOOL UA Bili Negative *NA* (01/15/15 4:40 PM) Negative 01/15/2015 [facility] URINE AND STOOL UA Ketones Negative mg/dL Negative mg/dL 01/15/2015 [facility] URINE AND STOOL UA Glucose Negative mg/dL Negative mg/dL 01/15/2015 [facility] URINE AND STOOL UA Protein 20 mg/dL Negative mg/dL 01/15/2015 [facility] URINE AND STOOL UA Nitrite Negative (01/15/15 4:40 PM) Negative 01/15/2015 [facility] URINE AND STOOL UA Blood Negative (01/15/15 4:40 PM) Negative 01/15/2015 [facility] URINE AND STOOL UA Leuk Est Negative (01/15/15 4:40 PM) Negative 01/15/2015 [facility] URINE AND STOOL UA Mucus Few /LPF None Seen /LPF 01/15/2015 [facility] URINE AND STOOL UA RBC <1 0 - 2 01/15/2015 [facility] URINE AND STOOL UA WBC 1 0 - 5 01/15/2015 [facility] URINE AND STOOL UA Sq Epi Few /LPF Few /LPF 01/15/2015 [facility] URINE AND STOOL UA pH 5.0 5.0 - 8.0 01/15/2015 [facility] URINE AND STOOL UA Color Yellow *NA* (01/15/15 4:40 PM) Yellow 01/15/2015 [facility] URINE AND STOOL UA Spec Grav 1.017 <=1.030 01/15/2015 [facility] URINE AND STOOL UA Turbidity Clear (01/15/15 4:40 PM) Clear 01/15/2015 [facility] URINE CHEM U Microalb 54.6 01/15/2015 [facility] URINE CHEM U Creatinine 158.5 01/15/2015 [facility] URINE CHEM U Alb/Crea 34.4 <=30.0 mcg/mg creat 01/15/2015 [facility] URINE CHEM U Sodium <5 01/15/2015 [facility] URINE CHEM U Eos None Seen (01/15/15 4:40 PM) None Seen 01/15/2015 [facility] CARDIAC ENZYMES CK MB 0.7 0.5 - 3.6 01/15/2015 [facility] CARDIAC ENZYMES Total CK 40 12 - 191 01/15/2015 [facility] CARDIAC ENZYMES Troponin-I 0.54 0.00 - 0.40 01/15/2015 Result Comment: Critical Result(s) osorio d to Leilani Quiroga at 01/15/2015 12:55 by hy. Read back OK. [facility] CHEM PANEL eGFR 42 01/15/2015 Result Comment: [...] should be multiplied by the estimated BMI. [facility] CHEM PANEL Creatinine Lvl 1.7 0.5 - 1.4 01/15/2015 [facility] HEMATOLOGY Platelet 294 133 - 450 01/15/2015 [facility] VIRAL - SEROLOGY Influ A Negative (01/15/15 6:50 AM) Negative 01/15/2015 [facility] VIRAL - SEROLOGY Influ B Negative (01/15/15 6:50 AM) Negative 01/15/2015 [facility] CARDIAC ENZYMES Troponin-I 0.66 0.00 - 0.40 01/15/2015 Result Comment: Critical Result(s) osorio d to zoran head rn at 01/15/2015 06:26 by hp. Read back OK. [facility] CARDIAC ENZYMES BNP 1369 <=100 pg/mL 01/15/2015 [facility] CARDIAC ENZYMES Total CK 42 12 - 191 01/15/2015 [facility] CARDIAC ENZYMES CK MB 0.8 0.5 - 3.6 01/15/2015 [facility] CARDIAC ENZYMES CK MB Index 1.9 0.0 - 2.5 01/15/2015 [facility] CHEM PANEL Lactic Acid Lvl 1.8 0.5 - 2.2 01/15/2015 [facility] CHEM PANEL Total Protein 6.6 6.4 - 8.4 01/15/2015 [facility] CHEM PANEL AST 17 0 - 37 01/15/2015 [facility] CHEM PANEL Alk Phos 157 39 - 136 01/15/2015 [facility] CHEM PANEL ALT 34 0 - 65 01/15/2015 [facility] CHEM PANEL Bili Total 1.1 0.2 - 1.3 01/15/2015 [facility] CHEM PANEL B/C Ratio 18 6 - 25 01/15/2015 [facility] CHEM PANEL A/G Ratio 0.7 0.7 - 1.6 01/15/2015 [facility] CHEM PANEL Globulin 3.8 2.0 - 4.0 01/15/2015 [facility] CHEM PANEL BUN 31 7 - 22 01/15/2015 [facility] CHEM PANEL CO2 26 24 - 32 01/15/2015 [facility] CHEM PANEL Calcium Lvl 8.6 8.5 - 10.5 01/15/2015 [facility] CHEM PANEL Albumin Lvl 2.8 3.5 - 5.0 01/15/2015 [facility] CHEM PANEL Potassium Lvl 5.1 3.5 - 5.1 01/15/2015 [facility] CHEM PANEL Chloride Lvl 99 95 - 109 01/15/2015 [facility] CHEM PANEL AGAP 16.1 10.0 - 20.0 01/15/2015 [facility] CHEM PANEL Sodium Lvl 136 135 - 145 01/15/2015 [facility] CHEM PANEL Glucose Lvl 167 70 - 99 01/15/2015 [facility] HEMATOLOGY PT 15.5 12.0 - 14.7 01/15/2015 [facility] HEMATOLOGY INR 1.22 0.85 - 1.17 01/15/2015 [facility] HEMATOLOGY PTT 41.5 22.9 - 35.8 01/15/2015 [facility] HEMATOLOGY MCHC 32.2 32.0 - 36.0 01/15/2015 [facility] HEMATOLOGY RDW 16.5 11.5 - 14.5 01/15/2015 [facility] HEMATOLOGY MPV 10.1 7.4 - 10.4 01/15/2015 [facility] MCV 83.9 80.0 - 94.0 01/15/2015 [facility] HEMATOLOGY WBC 17.1 3.7 - 10.4 01/15/2015 [facility] HEMATOLOGY RBC 3.73 4.70 - 6.10 01/15/2015 [facility] HEMATOLOGY Hgb 10.1 14.0 - 18.0 01/15/2015 [facility] HEMATOLOGY Hct 31.3 42.0 - 54.0 01/15/2015 [facility] HEMATOLOGY MCH 27.0 27.0 - 31.0 01/15/2015 [facility] HEMATOLOGY D-Dimer 3.78 01/15/2015 [facility] HEMATOLOGY Basophils # 0.1 0.0 - 0.2 01/15/2015 [facility] HEMATOLOGY Monocytes # 1.9 0.0 - 0.8 01/15/2015 [facility] HEMATOLOGY Eosinophils # 0.0 0.0 - 0.5 01/15/2015 [facility] HEMATOLOGY Segs 85.0 45.0 - 75.0 01/15/2015 [facility] HEMATOLOGY Plt Morph Neli l (01/15/15 5:51 AM) 01/15/2015 [facility] HEMATOLOGY RBC Morph Neli l (01/15/15 5:51 AM) 01/15/2015 [facility] HEMATOLOGY Eosinophils 0.1 0.0 - 4.0 01/15/2015 [facility] Segs-Bands # 14.5 1.5 - 8.1 01/15/2015 [facility] HEMATOLOGY Basophils 0.3 0.0 - 1.0 01/15/2015 [facility] HEMATOLOGY Lymphocytes 3.7 20.0 - 40.0 01/15/2015 [facility] HEMATOLOGY Lymphocytes # 0.6 1.0 - 5.5 01/15/2015 [facility] HEMATOLOGY Monocytes 10.9 2.0 - 12.0 01/15/2015 [facility] CHEM PANEL eGFR 54 11/04/2014 <sup>1</sup>Result Comment: [...] should be multiplied by the estimated BMI. [facility] CHEM PANEL Potassium Lvl 4.6 3.5 - 5.1 11/04/2014 [facility] CHEM PANEL Sodium Lvl 138 135 - 145 11/04/2014 [facility] CHEM PANEL Creatinine Lvl 1.4 0.5 - 1.4 11/04/2014 [facility] CHEM PANEL Calcium Lvl 9.0 8.5 - 10.5 11/04/2014 [facility] CHEM PANEL Chloride Lvl 103 95 - 109 11/04/2014 [facility] CHEM PANEL CO2 30 24 - 32 11/04/2014 [facility] CHEM PANEL BUN 27 7 - 22 11/04/2014 [facility] CHEM PANEL Glucose Lvl 191 70 - 99 11/04/2014 <sup>2</sup>Interpretive Data: Adult ref erence range values reflect the clinical guidelines
of the [employer]. [facility] CHEM PANEL AGAP 9.6 10.0 - 20.0 11/04/2014 [facility] HEMATOLOGY MCH 27.9 27.0 - 31.0 11/04/2014 [facility] HEMATOLOGY Hct 39.8 42.0 - 54.0 11/04/2014 [facility] HEMATOLOGY MCV 81.0 80.0 - 94.0 11/04/2014 [facility] HEMATOLOGY RBC 4.91 4.70 - 6.10 11/04/2014 [facility] HEMATOLOGY Hgb 13.7 14.0 - 18.0 11/04/2014 [facility] HEMATOLOGY MPV 10.1 7.4 - 10.4 11/04/2014 [facility] HEMATOLOGY Platelet 207 133 - 450 11/04/2014 [facility] HEMATOLOGY MCHC 34.4 32.0 - 36.0 11/04/2014 [facility] HEMATOLOGY RDW 18.1 11.5 - 14.5 11/04/2014 [facility] HEMATOLOGY WBC 7.4 3.7 - 10.4 11/04/2014 [facility] HEMATOLOGY PT 14.0 12.0 - 14.7 11/04/2014 [facility] HEMATOLOGY INR 1.08 0.85 - 1.17 11/04/2014 <sup>3</sup>Interpretive Data: RECOMMEND ED RANGES FOR PROTIME INR:
2.0- 3.0 for most medical and surgical thromboembolic states.
2.5-3.5 for artificial heart valves and recurrent embolism.

INR SHOULD BE USED ONLY FOR PATIENTS ON STABLE ANTICOAGULANT THERAPY. [facility] IMMUNOLOGY HIV 1/2 Ab Negat gail *NA* (11/04/14 2:00 PM) Negative 11/04/2014 [facility] Pathology Reports No Data Provided for This Section Diagnostic Reports Report Value Date Source Foot series DX Study: Right fo ot, 3 views Clinical Indication: -Post amputation Comparison: Right foot 02/04/2017 FINDINGS: The distal 5th metatarsal and the base of the 5th proximal phalanx have been resected. There is generalized osteopenia. Plantar and retrocalcaneal spurs are noted. Vascular calcifications are evident. SL: [id number] 02/05/2017 [facility] Chest 2 views DX EXAM: Chest 2 views DX DATE: 02/04/2017 2:57 PM CDT INDICATION: - infection COMPARISON: None. IMPRESSION: Moderately enlarged cardiac silhouette. Postoperative median sternotomy. No gross focal consolidation, significant pleural effusion or pneumothorax detected. Mild thoracic spondylosis. SL: [id number] 02/04/2017 [facility] Foot 3 views bilateral DX Stud y: [...] and large retrocalcaneal spurs are noted. SL: [id number] 02/04/2017 [facility] Chest 2 views DX EXAM: Chest x [...] which may represent atelectasis or pneumonia 01/16/2015 [facility] Ext Lower Venous Doppler Bilat US LOWER [...] compressibility. IMPRESSION: No evidence of DVT. 01/15/2015 [facility] Retroperitoneal limited US FINDINGS: Right kidney: Length [...] are identified. IMPRESSION: No significant abnormality. 01/15/2015 [facility] Lung perfusion scan NM CLINICA L HISTORY: [...] evidence for acute pulmonary embol ism. 01/15/2015 [facility] Lung ventilation scan NM Pleas e refer to the Perfusion Lung Scan report, performed on 01/15/2015. 01/15/2015 [facility] Chest 1view DX Clinical Histor y: See Clinic Indication Exam: CHEST Jan 15, 2015 05:23:00 AM Comparison: 11/08/2014 exam. Findings: The lungs are clear. The heart is enlarged. There is no pneumothorax or pleural effusion. There is no acute fracture. IMPRESSION: No acute cardiopulmonary abnormality. 01/15/2015 [facility] Chest 1view DX STUDY: Chest, 1 view. COMPARISON: 05/13/2011 HISTORY: Arrhythmias. FINDINGS: The lungs are clear. No dense focal consolidation is seen. No pleural effusion or pneumothorax is seen. Mild cardiomegaly is seen. No pulmonary edema is seen. The osseous structures are unremarkable. IMPRESSION: No acute cardiopulmonary process. Cardiomegaly without pulmonary edema. 11/08/2014 [facility] Consultation Notes No Data Provided for This [...] [place] Height 182.88 cm 02/04/2017 [facility] Height 182.88 cm 05/17/2015 [facility] BMI Calculated 33.16 05/17/2015 [facility] Weight 110.909 05/17/2015 [facility] Weight 110.909 04/17/2015 [facility] BMI Calculated 33.16 04/17/2015 [facility] Height 182.88 cm 04/17/2015 [facility] Height 182.88 cm 03/22/2015 [facility] BMI Calculated 39.01 03/22/2015 [facility] Weight 130.455 03/22/2015 [facility] Weight 130.455 03/01/2015 [facility] BMI Calculated 39.01 03/01/2015 [facility] Height 182.88 cm 03/01/2015 [facility] Systolic (mm Hg) 122 01/18/2015 [facility] Diastolic (mm Hg) 62 01/18/2015 [facility] Respitory Rate 32 01/18/2015 [facility] Systolic (mm Hg) 118 01/17/2015 [facility] Diastolic (mm Hg) 64 01/17/2015 [facility] Respitory Rate 30 01/17/2015 [facility] Temperature Oral (F) 98.2 F 01/17/2015 [facility] Respitory Rate 21 01/17/2015 [facility] Systolic (mm Hg) 99 01/17/2015 [facility] Diastolic (mm Hg) 51 01/17/2015 [facility] Temperature Oral (F) 97.9 F 01/17/2015 [facility] Temperature Oral (F) 98.7 F 01/17/2015 [facility] Weight 124.727 01/17/2015 [facility] BMI Calculated 33.61 01/15/2015 [facility] Weight 112.4 01/15/2015 [facility] Height 182.88 cm 01/15/2015 [facility] BMI Calculated 33.45 01/15/2015 [facility] Weight 118.182 01/15/2015 [facility] Height 187.96 cm 01/15/2015 [facility] Heart Rate 87 01/15/2015 [facility] BMI Calculated 37.92 11/02/2014 [facility] Weight 126.818 11/02/2014 [facility] Height 182.88 cm 11/02/2014 [facility] Encounters Location Location Details Encounter Type Encounter Number Reason For Visit Attending Provider ADM Date DC Date Status Source [facility] Bedded Outpatient [id number] Arie Morillo 11/08/2014 11/09/2014 [facility] Inpatient [id number] Dali Escobar 01/15/2015 01/18/2015 [facility] [id number] Familia Perkins 02/27/2015 02/28/2015 [facility] OP Recurring [id number] Familia Perkins 03/01/2015 03/16/2015 [facility] OP Recurring [id number] Familia Perkins 03/16/2015 04/15/2015 [facility] [id number] Familia Perkins 03/28/2015 03/29/2015 [facility] OP Recurring [id number] Familia Perkins 04/17/2015 05/17/2015 [facility] OP Recurring [id number] Familia Perkins 05/17/2015 06/16/2015 [facility] Inpatient [id number] Aiden Richards 02/04/2017 02/07/2017 [facility] OP Therapy Patients [id number] Lemuel Vijaya 08/05/2017 09/04/2017 [facility] [place] Procedures Procedure Code Date Perfomer Comments Source Cardiac catheterization, combined right and left heart [id number] [facility] [place],[facility] Cholecystectomy [id number] MANUEL Crespo,[facility] [place],[facility] Tonsillectomy [id number] [facility] [place],[facility] Triple coronary bypass [id number] [facility] [place],[facility] Assessment and Plan Assessment and Plan Date [...] present. Further follow-up as outpatient with primary staffing program manager. 4: Diabetes mellitus type 2: Continue current [...] with sedation.Cardiology c/s for clearance ordered. 02/07/2017 [facility] Plan of Care No Data Provided for This Section Social History Social History Date Source Social History TypeResponse Smoking Status Never smoker; Exposure to Tobacco Smoke None; Cigarette Smoking Last 365 Days No; Reg Smoking Cessation Counseling No entered on: 02/04/17 02/04/2017 [facility] Social History TypeResponse Smoking Status Never smoker; Exposure to Tobacco Smoke None; Cigarette Smoking Last 365 Days No; Reg Smoking Cessation Counseling No 02/04/2017 [facility] Social History TypeResponse Smoking Status Never smoker; Exposure to Tobacco Smoke None; Cigarette Smoking Last 365 Days No; Reg Smoking Cessation Counseling No 01/15/2015 [facility] Social History TypeResponse Smoking Status Never smoker; Exposure to Tobacco Smoke None; Cigarette Smoking Last 365 Days No; Reg Smoking Cessation Counseling No 01/15/2015 [facility] C[facility] Family History No Data Provided for This Section Advance Directives No Data Provided for This Section Functional Status No Data Provided for This Section
--- OUTSIDE RECORDS SUMMARY | 2020-04-20 19:55 | XMS REPORT | Continuity of Care Document ---
Author Author [facility] t Organization [facility] Address [address] [place] [address] Phone Unavailable Care Team Providers Care Director Of Music Therapy Name Role Phone Mandi VALENTINE Attphys Unavailable [...] Source LEFT ACHILLES LEFT ACHILLES Active 08/05/2017 [facility] Diagnosis Active 2017-08-05 12:45:00 2017-08-05 12:48:00 Cayetano Crespo Methicillin resistant Staphylococcus aureus (organism) Methicillin resistant Staphylococcus aureus (organism) Active 02/04/2017 Problem 12/10/2017 RIGHT FOOT, 02/04/2017Problem added by Discern Expert. [facility] [place] Problem Active 2017-02-04 00:00:00 2017-12-10 11:40:27 [facility] Zak CELLULITIS INFECTED WOUND RIGHT FOOT,OST CELLULITIS INFECTED WOUND RIGHT FOOT,OST Active 02/04/2017 [facility] Diagnosis Active 2017-02-04 00:00:00 2017-02-13 22:03:00 [facility] Zak 425.4 - PRIM CARDIOMYOP 425. 4 - PRIM CARDIOMYOP Active 02/27/2015 [facility] [place] Diagnosis Active 2015-02-27 00:01:00 2015-02-27 16:05:00 [facility] Zak PNEUMONIA/GENERALIZED WEAKNESS PNEUMONIA/GENERALIZED WEAKNESS Active 01/15/2015 [facility] Diagnosis Active 01-15 00:00:00 2015-01-18 15:22:00 [facility] Her hinson WEAKNESS WEAK NESS Active 01/15/[address] [facility] Diagnosis Active 2015-01-15 00:00:00 2015-01-15 06:19:00 [facility] Zak POST CAB, POST AORTIV VALVE REPLACEMENT POST CAB, POST AORTIV VALVE REPLACEMENT Active 12/27/2014 [facility] Diagnosis Active 2014-12-27 08:00:00 2015-03-01 15:33:00 M emoridonte Crespo POST CAB, POST AORTIC VALVE REPLACEMENT POST CAB, POST AORTIC VALVE REPLACEMENT Active 12/27/2014 [facility] Diagnosis Active 2014-12-27 08:00:00 2015-03-21 14:05:00 M emoadeline Crespo POST CAB, POST AVR POST CAB, POST AVR Active 12/27/2014 [facility] Diagnosis Active 2014-12-27 08:00:00 2015-05-17 15:33:00 [facility] CAD CAD Active 10/27/[address] [facility] Diagnosis Active 2014-10-27 00:00:00 2014-11-08 07:04:00 [facility] Zak Unspecified abnormalities of gait and mobility Unspecified abnormalities of gait and mobility 12/10/2017 [facility] [place] Problem 2017-12-10 11:40:27 [facility] Zak Unspecified injury of left Achilles tendon, sequela Unspecified injury of left Achilles tendon, sequela 12/10/2017 [facility] [place] Problem 2017-12-10 11:40:27 [facility] Type 2 diabetes mellitus without complications Type 2 diabetes mellitus without complications 12/10/2017 [facility] [place] Problem 2017-12-10 11:40:27 [facility] Pure hypercholesterolemia, unspecified Pure hypercholesterolemia, unspecified 12/10/2017 [facility] [place] Problem 2017-12-10 11:40:27 [facility] Amputation of finger tip (procedure) Amputation of finger tip (procedure) Resolved Problem 12/10/2017 Partial amputation of fingertip (right middle & ring finger) MANUEL Crespo, [facility], [facility] [place],[facility] Problem Resolved 2017-12-10 11:40:27 [facility] Aortic valve stenosis with insufficiency (disorder) Aortic valve stenosis with insufficiency (disorder) Active Problem 12/10/2017 MANUEL Crespo, [facility], [facility] [place],[facility] Problem Active 2017-12-10 11:40:27 Frank Crespo Disorder of carotid artery (disorder) Disorder of carotid artery (disorder) Active Problem 12/10/2017 MANUEL Crespo, [facility], [facility] [place],[facility] Problem Active 2017-12-10 11:40:27 [facility] Diabetes mellitus (disorder) D iabetes mellitus (disorder) Active Problem 12/10/2017 MANUEL Crespo, [facility], [facility] [place],[facility] Problem Active 2017-12-10 11:40:27 [facility] Diabetic neuropathy (disorder) Diabetic neuropathy (disorder) Active Problem 12/10/2017 MANUEL Crespo, [facility], [facility] [place],[facility] Problem Active 2017-12-10 11:40:27 [facility] Hypercholesterolemia (disorder) Hypercholesterolemia (disorder) Active Problem 12/10/2017 MANUEL Crespo [facility], [facility] [place],[facility] Problem Active 2017-12-10 11:40:27 [facility] Hypertensive disorder, systemic arterial (disorder) Hypertensive disorder, systemic arterial (disorder) Active Problem 12/10/2017 MANUEL Crespo [facility], [facility] [place],[facility] Problem Active 2017-12-10 11:40:27 Frank Crespo Psoriasis (disorder) Psor iasis (disorder) Active Problem 12/10/2017 LIANNA Crespo [facility], [facility] [place],[facility] Problem Active 2017-12-10 11:40:27 Elijah Crespo PNEUMONIA, ORGANISM NOS PNEU MONIA, ORGANISM NOS Active [facility] Diagnosis Active 2015-01-18 15:22:00 [facility] MALAISE AND FATIGUE NEC OZZIE ISE AND FATIGUE NEC Active [facility] Diagnosis Active 2015-01-18 15:22:00 [facility] CELLULITIS OF RIGHT LOWER LIMB CELLULITIS OF RIGHT LOWER LIMB Active [facility] Diagnosis Active 2016 22:03:00 [facility] OSTEOMYELITIS OF RIGHT ORBIT O STEOMYELITIS OF RIGHT ORBIT Active [facility] Diagnosis Active 2016 22:03:00 [facility] OTHER INJURY OF UNSPECIFIED BODY REGION OTHER INJURY OF UNSPECIFIED BODY REGION Active [facility] Diagnosis Active 2017-02-13 22:03:00 [facility] Muscle weakness (generalized) Muscle weakness (generalized) 09/09/2017 12/10/2017 [facility] [place] Problem 2017-09-09 04:16:51 2017-12-10 11:40:27 2017-12-10 11:40:27 M ace [facility] Allergies, Adverse Reactions, Alerts Allergy Name Allergy Type Status Severity Reaction(s) Onset Date Inacti ve Date Treating Clinician Comments Source No Known Allergies DA Active 2019-07-11 00:00:00 [facility] No Known Contrast Allergies DA Active 2003-11-26 00:00: 00 [facility] No Known Drug Allergies DA Active 2003-11-26 00:00:00 [facility] No Known Food Allergies DA Active 2003-11-26 00:00:00 [facility] No Known Other Allergies DA Active 2003-11-26 00:00:00 [facility] NKFA NKFA Active [facility] Social History Smoking Status Start Date Stop Date Source Social History [facility] Medications Ordered Medication Name Filled Medication Name Start Date Stop Da te Current Medication? Ordering Clinician Indication Dosage Frequency Signature (SIG) Comments Components Source Insulin Glargine 100 UNT/ML Injectable Solution 2017-02-07 21:11 :00 Yes 80 unit, SUB-Q, Bedtime, 0 Refill(s) [facility] cefdinir 300 MG Oral Capsule [Omnicef] 2017-02-07 21:11:00 Yes 300 mg = 1 cap, PO, Daily, X 10 day, # 10 cap, 0 Refill(s), Pharmacy: [facility] [id number] [facility] ciprofloxacin 500 mg oral tablet 2017-02-07 21:11:00 Yes 500 mg = 1 tab, PO, Daily, X 10 day, # 10 tab, 0 Refill(s), Pharmacy: [facility] [id number] [facility] Amlodipine 5 MG Oral Tablet [Norvasc] 2017-02-07 21:11:00 Y es 5 mg = 1 tab, PO, Daily, # 30 tab, 0 Refill(s), Pharmacy: [facility] [address] [place] [address] Kayexalate 2017-02-07 17:39:00 No Notes: (sodium polystyrene sulfonate 15 gm/60 ml VONNIE) Shake well before use. (Same as: Kayexalate, SPS) [facility] Hydralazine 2017-02-07 17:31:00 No Notes: (Same as: Apresoline) Push over 5 minutes [facility] Ceftriaxone 2017-02-07 01:00:00 No Notes: (Same As: Rocephin). Use with 100 mL NS and infuse over 30 min MEDICATION WASTE Product Size: 1000 mg Product Wasted: ___ mg [facility] Insulin Lispro 2017-02-06 19:24:00 No Notes: Roll in palms of hands gently; Do not shake `vigorously. (Same as: Humalog ) "Single Patient Use Only " WASTE: F/P - Black; E - Municipal Trash Bin Stable for 28 days at room temperature. Expires in days from Date [facility] Glucagon 2017-02-06 19:24:00 No 1 mg, Route: IM, Drug form: PDR/INJ, PRN, Dosing Weight 139.364, kg, PRN Blood Glucose Results, Start date: 02/06/17 14:24:00 CDT, Duration: 30 day, Stop date: 03/08/17 14:23:00 CDT [facility] Dextrose 50% Syringe 2017-02-06 19:24:00 No 12.5 gm, 25 mL, Route: IVP, Drug Form: INJ, Dosing Weight 139.364, kg, PRN, PRN Blood Glucose Results, Start date: 02/06/17 14:24:00 CDT, Duration: 30 day, Stop date: 03/08/17 14:23:00 CDT [facility] 3 ML Insulin Lispro 100 UNT/ML Pen Injector [Humalog] 2017-02-06 19:15:00 No 50 units, SUB-Q, TID-Before Meals, 0 Ref ill(s) [facility] Saline Flush 0.9% 2017-02-06 02:00:00 No Notes: Same as: BD Posiflush Sterile [facility] Saline Flush 0.9% 2017-02-05 19:43:00 No Notes: Same as: BD Posiflush Sterile [facility] Acetaminophen 325 MG / Hydrocodone Bitartrate 5 MG Oral Tabl et 2017-02-05 19:43:00 No Notes: (Sa me as: Ada 325/5) Do not exceed 4gm/day of acetaminophen. [facility] Morphine 2017-02-05 19:43:00 No Not es: (Same as:MORPhine Sulfate) [facility] propofol (ANES) 2017-02-05 19:42:00 No Route: IV, Drug form: INJ, ONCE, Stop date: 02/05/17 14:42:00 [facility] 2017-02-05 19:37:00 No Route: IV, Drug form: INJ, ONCE, Stop date: 02/05/17 14:37:00 CDT [facility] fentaNYL (ANES) 2017-02-05 19:37:00 No Route: IV, Drug form: INJ, ONCE, Stop date: 02/05/17 14:37:[address] [facility] 2017-02-05 19:37:00 No Route: IV, Drug form: INJ, ONCE, Stop date: 02/05/17 14:37:[address] [facility] mid[facility]am (ANES) 2017-02-05 19:27:00 No Route: IV, Drug form: SOLN, ONCE, Stop date: 02/05/17 14:27:00 CDT [facility]urar[facility] [place] LR 1000 mL INJ (ANES) 2017-02-05 18:47:00 No Route: IV, Total Volume: 1,000, Start date: 02/05/17 13:47:00 CDT, Stop date: 02/05/17 14:47:00 CDT [facility] insulin detemir 2017-02-05 14:00:00 No 50 unit, Route: SUB-Q, Daily, Dosing Weight 139.364, kg, Start date: 02/05/17 9:00:00 CDT, Duration: 30 day, Stop date: 03/06/17 9:00:00 CDT [facility] Lyrica 2017-02-05 14:00:00 No Notes: Same a s Jammie [facility] insulin glargine 2017-02-05 14:00:00 No Notes: [...] Cayetano Crespo Albuterol 0.833 MG/ML / Ipratropium Strong 0.167 MG/ML Inha lant Solution 2017-02-05 11:19:00 No Notes: (Same as: Yossi ujonahb) [facility] Calcium Chloride 0.0014 MEQ/ML / Potassi um Chloride 0.004 MEQ/ML / Sodium Chloride 0.103 MEQ/ML / Sodium Lactate 0.028 MEQ/ML Injectable Solution 2017-02-05 11:19:00 No 1,000 mL, Rate: 25 ml/hr, Infuse over: 40 hr, Route: IV, Dosing Weight 139.364 kg, Total Volume: 1,000, Start date: 02/05/17 6:19:00 CDT, Duration: 30 day, Stop date: 03/07/17 6:18:00 CDT [facility] insulin detemir 2017-02-05 02:00:00 No 80 unit, Route: SUB-Q, Bedtime, Dosing Weight 139.364, kg, Start date: 02/04/17 21:00:00 CDT, Duration: 30 day, Stop date: 03/05/17 21:00:00 CDT [facility] heparin 2017-02-05 02:00:00 No Notes: porci ne heparin [facility] insulin glargine 2017-02-05 02:00:00 No Notes: (Same as: Lantus) Do not hold insulin without contacting prescriber WASTE: F/P - Black; E - Municipal Trash Bin "single patient use only" [facility] atorvastatin 2017-02-05 02:00:00 No Notes: (Same As: Lipitor) [facility] vancomycin + sodium chloride 0.9% INJ 250 mL 2017-02-05 01:00:00 No 2001 mg: infuse over 2.5 hours MEDICATION WASTE Product Size: 1000 mg Product Wasted: ___ mg [facility] chepe Zosyn + sodium chloride 0.9% INJ 100 mL 2017-02-05 01:00:00 No Notes: (Same as: Zosyn) Dosing based on Piperacillin component MEDICATION WASTE Product Size: 3375 mg Product Wasted: ___ mg [facility] Humalog 2017-02-04 22:09:00 No See Instructions, SUB-Q, 0 Refill(s), Pt uses this for sliding scale [facility] Amoxicillin 875 MG / Clavulanate 125 MG Oral Tablet 02-04 22:09:00 No 1 tab, PO, BID, # 20 tab, 0 Refill(s) [facility] Furosemide 2017-02-04 22:07:00 No 40 mg, Da [place], 0 Refill(s) [facility] Lisinopril 2017-02-04 22:07:00 No 10 mg, PO , Daily, 0 Refill(s) [facility] Trujeo 2017-02-04 22:04:00 No Trujeo, 50 units, SUB-Q, QAM, Refill(s) 0 [facility] Vancomycin 2017-02-04 21:00:00 No 1,000 mg, Route: IVPB, Drug form: INJ, [id number], Dosing Weight 110.909, kg, Start date: 02/04/17 16:00:00 CDT, Duration: 10 day, Stop date: 02/13/17 16:00:00 CDT, ABX Indication: Bone/Joint Infection [facility] Dakins Half Strength Solution 0.25% topical 2017-02-04 21:00:00 No Notes: Note: half-strength = 0.25% sodium hypochlorite. [facility] Zosyn 2017-02-04 21:00:00 No 3.375 gm, Route: IVPB, Drug form: PDR/INJ, [id number], Dosing Weight 110.909, kg, Start date: 02/04/17 16:00:00 CDT, Duration: 10 day, Stop date: 02/14/17 10:00:00 CDT, ABX Indication: Bone/Joint Infection [facility] cefepime 1 g injection 2015-01-18 00:40:00 Yes 1 gm, IV, Q12H, X 10 day, # 20 ea, 0 Refill(s), other Memoria l [place] Vancomycin 2015-01-18 00:40:00 Yes 1.5 gm = 250 mL, IVPB, [id number], 0 Refill(s) [facility] Enoxaparin 2015-01-18 00:40:00 Yes 40 mg = 0.4 mL, SUB-Q, [id number], 0 Refill(s) [facility] epoetin darnell 10,000 units/mL injectable solution 2015-01-18 00:40:00 Yes 10,000 unit = 1 mL, SUB-Q, [id number], 0 Refill(s) [facility] cefepime 2015-01-17 18:00:00 No 1 gm, Route: IVPB, [id number], Dosing Weight 124.727, kg, Start date: 01/17/15 13:00:00, Duration: 30 day, Stop date: 02/16/15 1:00:00 [facility] NS 1,000 mL 2015-01-17 15:50:00 No 1,000 mL, Rate: 50 ml/hr, Infuse over: 20 hr, Route: IV, Dosing Weight 124.727 kg, Total Volume: 1,000, Start date: 01/17/15 10:50:00, Duration: 30 day, Stop date: 02/16/15 10:49:00 [facility] ergocalciferol 2015-01-17 14:00:00 No 50,000 IntlUnit, 1 cap, Route: PO, Drug form: CAP, QTue, Dosing Weight 112.4, kg, Start date: 01/17/15 9:00:00, Duration: 30 day, Stop date: 02/14/15 9:00:00 [facility] Insulin, Aspart, Human 2015-01-17 09:45:00 No Notes: Roll in palms of hands gently; Do not shake vigorously. (Same as: NovoLOG) "single patient use only" Stable for 28 days at room temperature. Expires in days from Date [facility] Glucagon 2015-01-17 09:45:00 No 1 mg, Route: IM, Drug form: PDR/INJ, PRN, Dosing Weight 124.727, kg, PRN Blood Glucose Results, Start date: 01/17/15 4:45:00, Duration: 30 day, Stop date: 02/16/15 4:44:00 [facility] Dextrose 50% Syringe 2015-01-17 09:45:00 No 25 gm, 50 mL, Route: IVP, Drug Form: INJ, Dosing Weight 124.727, kg, PRN, PRN Blood Glucose Results, Start date: 01/17/15 4:45:00, Duration: 30 day, Stop date: 02/16/15 4:44:00 [facility] Sodium Chloride 0.154 MEQ/ML Injectable Solution 2015-01-16 22:5 9:00 No 500 mL, 500 ml/hr, Infuse Ov er: 1 hr, Route: IV, 500, Drug form: INJ, ONCE, Priority: STAT, Dosing Weight 112.4 kg, Start date: 01/16/15 17:59:00, Duration: 1 doses or times, Stop date: 01/16/15 17:59:00 [facility] Epogen 2015-01-16 22:00:00 No Notes: (Same as: Procrit) epoetin darnell 10709 unit/1 ml VL. For dialysis use only. (Procrit) MEDICATION WASTE Product Size: 71055 unit Product Wasted: ___ unit Cayetano Crespo [...] room temperature. Expires in days from Date [facility] Humalog 2015-01-16 12:30:00 No 8 unit, [...] room temperature. Expires in days from Date [facility] Humalog 2015-01-15 21:30:00 No 5 unit, Route: SUB-Q, QPM (Insulin), Dosing Weight 112.4, kg, Start date: 01/15/15 16:30:00, Duration: 30 day, Stop date: 02/13/15 16:30:00 [facility] NovoLOG FlexPen 2015-01-15 17:31:00 No Notes: Roll in palms of hands gently; Do not shake vigorously. (Same as: NovoLOG) "single patient use only" Stable for 28 days at room temperature. Expires in days from Date [facility] Bisoprolol 2015-01-15 17:30:00 No Notes: (S [...] Size: 1000 mg Product Wasted: ___ mg [facility] Enoxaparin 2015-01-15 16:00:00 No Notes: (S ladarius as: Lovenox) Cayetano Crespo Sodium Chloride 0.9% IV 2015-01-15 15:59:00 No 25 mL, Route: IV, Start date: 01/15/15 10:59:00, Duration: 30 day, Stop date: 02/14/15 10:58:00, PRN Line Flush [facility] BD Normal Saline Flush 2015-01-15 15:58:00 No Notes: (Same as: BD Posiflush) [facility] Ergocalciferol 19247 UNT Oral Capsule 2015-01-15 15:42:00 Y es 50,000 IntlUnit = 1 cap, PO, QTue, 0 Refill(s) [facility] Bisoprolol 2015-01-15 15:42:00 Yes 1 0 mg, PO, Daily, 0 Refill(s) [facility] Humalog 2015-01-15 15:42:00 No 5 unit, SUB-Q, QPM (Insulin), 0 Refill(s) [facility] Aspirin Low Dose 81 mg oral tablet 2015-01-15 14:39:00 Yes = 1 tab, PO, Daily, # 30 tab, 1 Refill(s) Memjosleito Crespo Sodium Chloride 0.154 MEQ/ML Injectable Solution 2015-01-15 12:4 9:00 No 250 mL, 250 ml/hr, Infuse Ov er: 1 hr, Route: IV, 250, Drug form: INJ, ONCE, Priority: STAT, Dosing Weight 118.182 kg, Start date: 01/15/15 7:49:00, Duration: 1 doses or times, Stop date: 01/15/15 7:49:00 [facility] Vancomycin 2015-01-15 12:27:00 No N otes: TIME CRITICAL MEDICATION [facility] Levaquin 2015-01-15 12:26:00 No Notes: (Jasper e as:Levaquin) [facility] Zosyn 2015-01-15 12:26:00 No Notes: (Same as: Zosyn) Dosing based on Piperacillin component MEDICATION WASTE Product Size: 3375 mg Product Wasted: _0__ mg [facility] Sodium Chloride 0.154 MEQ/ML Injectable Solution 2015-01-15 11:4 8:00 No 250 mL, 250 ml/hr, Infuse Ov er: 1 hr, Route: IV, 250, Drug form: INJ, ONCE, Priority: STAT, Dosing Weight 118.182 kg, Start date: 01/15/15 6:48:00, Duration: 1 doses or times, Stop date: 01/15/15 6:48:00 [facility] Saline Flush 0.9% 2015-01-15 10:14:00 No Notes: (Same as: BD Posiflush) [facility] normal saline 0.9% IV 500 mL 2014-11-08 17:54:00 No 500 mL, Rate: 100 ml/hr, Infuse over: 5 hr, Route: IV, Dosing Weight 126.818 kg, Total Volume: 500, Start date: 11/08/14 12:54:00, Duration: 30 day, Stop date: 12/08/14 12:53:00 [facility] Acetaminophen 2014-11-08 17:54:00 No Notes: Do not exceed 4 gm/day. (Same as: Tylenol) [facility] Ondansetron 2014-11-08 17:54:00 No Notes: (Same as: [...] 600 mg = 1 tab, PO, BID [facility] Zak 24 HR Metformin hydrochloride 500 MG [...] 5 mg = 1 tab, PO, Daily [facility] Vital Signs Vital Name Observation Time Observation Value Comments Source Systolic (mm Hg) 2017-02-07 21:15:00 Elijah rial [place] Diastolic (mm Hg) 2017-02-07 21:15:00 Mem orial [place] Systolic (mm Hg) 2017-02-07 20:40:00 Elijah rial [place] Diastolic (mm Hg) 2017-02-07 20:40:00 Mem orial [facility] Respitory Rate 2017-02-07 20:40:00 Alexa al [facility] Heart Rate 2017-02-07 20:40:00 [facility] Temperature Oral (F) 2017-02-07 20:40:00 98.0 F [facility] [place] Temperature Oral (F) 2017-02-07 16:15:00 98.1 F [facility] Respitory Rate 2017-02-07 16:15:00 [facility]ori [facility] [place] Heart Rate 2017-02-07 16:15:00 [facility] Systolic (mm Hg) 2017-02-07 16:15:00 Elijah rial [place] Diastolic (mm Hg) 2017-02-07 16:15:00 Mem orial [place] Temperature Oral (F) 2017-02-07 11:43:00 97.6 F [facility] [place] Heart Rate 2017-02-07 11:43:00 [facility] [place] Respitory Rate 2017-02-07 11:43:00 [facility] [place] Weight 2017-02-04 21:49:00 [facility] [place] BMI Calculated 2017-02-04 21:49:00 [facility] [place] Height 2017-02-04 21:49:00 182.88 cm [facility] Weight 2017-02-04 20:41:00 [facility] BMI Calculated 2017-02-04 20:41:00 [facility] Height 2017-02-04 20:41:00 182.88 cm [facility] [place] Height 2015-05-17 21:50:00 182.88 cm [facility] [place] BMI Calculated 2015-05-17 21:50:00 [facility] [place] Weight 2015-05-17 21:50:00 [facility] [place] Weight 2015-04-17 21:56:00 [facility] BMI Calculated 2015-04-17 21:56:00 [facility] [place] Height 2015-04-17 21:56:00 182.88 cm [facility] Height 2015-03-22 14:26:00 182.88 cm [facility] BMI Calculated 2015-03-22 14:26:00 [facility] [place] Weight 2015-03-22 14:26:00 [facility] [place] Weight 2015-03-01 21:21:00 [facility] BMI Calculated 2015-03-01 21:21:00 [facility]ori [facility] Height 2015-03-01 21:21:00 182.88 cm [facility] Systolic (mm Hg) 2015-01-18 01:00:00 Elijah rial [place] Diastolic (mm Hg) 2015-01-18 01:00:00 Mem orial [place] Respitory Rate 2015-01-18 01:00:00 Memori al [facility] Systolic (mm Hg) 2015-01-17 23:18:00 Elijah rial [place] Diastolic (mm Hg) 2015-01-17 23:18:00 Mem o[facility] [place] Respitory Rate 2015-01-17 23:18:00 Memori al [facility] Temperature Oral (F) 2015-01-17 21:00:00 98.2 F [facility] [place] Respitory Rate 2015-01-17 20:00:00 [facility] [place] Systolic (mm Hg) 2015-01-17 20:00:00 Elijah rial [facility] Diastolic (mm Hg) 2015-01-17 20:00:00 Mem o[facility] [place] Temperature Oral (F) 2015-01-17 17:00:00 97.9 F [facility] Temperature Oral (F) 2015-01-17 13:00:00 98.7 F [facility] Weight 2015-01-17 09:19:00 [facility] [place] BMI Calculated 2015-01-15 15:35:00 Mem[facility] Weight 2015-01-15 15:35:00 [facility] [place] Height 2015-01-15 15:35:00 182.88 cm [facility] BMI Calculated 2015-01-15 10:03:00 [facility] Weight 2015-01-15 10:03:00 [facility] Height 2015-01-15 10:03:00 187.96 cm [facility] Heart Rate 2015-01-15 10:03:00 [facility] [place] BMI Calculated 2014-11-02 17:47:00 Memori [facility] Weight 2014-11-02 17:47:00 [facility] Height 2014-11-02 17:47:00 182.88 cm [facility] Procedures Procedure Date / Time Performed Performing Clinician Sour e [U] XRAY ANKLE 2 VWS LEFT 19011 2017-07-28 00:00:00 [facility] Cardiac catheterization, combined right and left heart [facility] Cholecystectomy [facility] Tonsillectomy [facility] Triple coronary bypass [facility] Encounters Start Date/Time End Date/Time Encounter Type Admission Type [facility] Care Department Encounter ID Source 2017-09-10 15:15:00 2017-09-10 15:15:00 Appointment; LEMUEL LOPEZ M. D. SHANI, RAJ, M.D. [facility] [id number] [facility] 2017-08-05 12:45:00 2017-09-03 23:59:00 Outpatient Lemuel Lopez [id number] 2017-07-28 11:00:00 2017-07-28 11:00:00 Appointment; LEMUEL LOPEZ M. D. SHANI, RAJ, M.D. [facility] [id number] [facility] Phys[facility] 2017-02-04 14:28:00 2017-02-07 17:11:00 [facility] [id number] 2015-05-17 15:32:00 2015-06-15 23:59:00 Outpatient Marco Perkins [facility] [id number] 2015-04-17 15:46:00 2015-05-16 23:59:00 Outpatient Marco Perkins [facility] [id number] 2015-03-16 08:00:00 2015-04-14 23:59:00 Outpatient Marco Perkins [facility] [id number] 2015-03-28 14:08:00 2015-03-28 23:59:00 Outpatient Marco Perkins [facility] [id number] 2015-03-01 15:33:00 2015-03-15 19:10:00 Outpatient Marco Perkins [facility] [id number] 2015-02-27 15:55:00 2015-02-27 23:59:00 Outpatient Marco Perkins [facility] [id number] 2015-01-15 05:02:00 2015-01-17 22:42:00 Outpatient Dali Escobar [facility] [id number] 2014-11-08 07:04:00 2014-11-08 20:00:00 [id number] Results Test Description Test Time Test Comments Results Result Comments Source CHEST SINGLE (PORTABLE) 2020-04-20 08:38:00 [facility] : 1950 Sex: M [place] [address] Patient Name: DYLLAN WAGNER MR #: [id number] : 1950 Age/Sex: 69/M Req #: [id number] Adm Physician: Ordered by: NIURKA VALENTINE DO Report #: [id number] Location: ER Room/Bed: Procedure: [id number] DX/CHEST SINGLE (PORTABLE) Exam Date: 04/20/20 Exam Time: 739 REPORT STATUS: Signed TECHNIQUE: Frontal view of the chest. INDICATION: SOB [id number] COMPARISON: 04/12/2020 DISCUSSION: Limited evaluation due [...] By: FELIX on 04/20/20838 COPY TO: NIURKA VALNETINE DO CHEST SINGLE (PORTABLE) 2020-04-12 21:00:00 [facility] : 1950 Sex: M [facility] [address] [place] [address] Patient Name: DYLLAN WAGNER MR #: [id number] : 1950 Age/Sex: 69/M Req #: [id number] [facility] Physician: XENA HASTINGS MD Ordered by: EL MARSAHLL DO Report #: [id number] Location: MED/SURG Room/Bed: 115 Procedure: [id number] DX/CHEST SINGLE (PORTABLE) Exam Date: 04/12/20 Exam [...] MARSHALL DO CHEST SINGLE (PORTABLE) 2020-04-11 06:51:00 [facility] : 1950 Sex: M [place] [address] Patient Name: DYLLAN WAGNER MR #: [id number] : 1950 Age/Sex: 69/M Req #: [id number] Adm Physician: XENA HASTINGS MD Ordered by: JENNIFER BLAND MD, MD Report #: [id number] Location: ICU Room/Bed: ICU [facility] Procedure: [id number] DX/CHEST SINGLE (PORTABLE) Exam Date: 04/11/20 Exam [...] BLAND RENAL RETROPERITONEAL COMP 2020-04-10 19:14:00 [facility] : 1950 Sex: M [facility] [address] [place] [address] Patient Name: DYLLAN WAGNER MR #: [id number] : 1950 Age/Sex: 69/M Req #: [id number] [facility] Physician: XENA HASTINGS MD Ordered by: BALDO JENKINS, JENNIFER JENKINS Report #: [id number] Location: ICU Room/Bed: [place] [address] Procedure: [id number] US/US RENAL RETROPERITONEAL COMP Exam Date: 04/10/20 [...] BLAND CHEST SINGLE (PORTABLE) 2020-04-09 12:39:00 [facility] 1950 Sex: [place] [address] Patient Name: DYLLAN WAGNER MR #: [id number] : 1950 Age/Sex: 69/M Req #: [id number] Adm Physician: XENA HASTINGS MD Ordered by: VINITA HERMOSILLO MD Report #: [id number] Location: ICU Room/Bed: ICU 193 Procedure: [id number] DX/CHEST SINGLE (PORTABLE) Exam Date: 04/09/20 Exam [...] MD CHEST SINGLE (PORTABLE) 2020-04-08 15:33:00 [facility] : 1950 Sex: M [place] [address] Patient Name: DYLLAN WAGNER MR #: [id number] : 1950 Age/Sex: 69/M Req #: [id number] Adm Physician: XENA HASTINGS MD Ordered by: KT MULLINS MD Report #: [id number] Location: ICU Room/Bed: ICU [facility] Procedure: [id number] DX/CHEST SINGLE (PORTABLE) Exam Date: 04/08/20 Exam [...] CT LUMBAR SPINE WO 2020-04-07 20:02:00 [facility] : 1950 Sex: M 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 [address] [place] [address] Patient Name: DYLLAN WAGNER MR #: [id number] : 1950 Age/Sex: 69/M Req #: [id number] Adm Physician: XENA HASTINGS MD Ordered by: XENA HASTINGS MD Report #: [id number] Location: MED/SURG2 Room/Bed: [facility] Procedure: [id number] DX/FOOT LEFT COMPLETE Exam Date: 04/05/20 Exam [...] MD CHEST 2 VIEWS 2020-04-05 19:59:00 [facility] : 1950 Sex: [place] [address] Patient Name: DYLLAN WAGNER MR #: [id number] : 1950 Age/Sex: 69/M Req #: [id number] Adm Physician: XENA HASTINGS MD Ordered by: ELIN DOMINGUEZ MD Report #: [id number] Location: MED/SURG2 Room/Bed: [facility] Procedure: [id number] DX/CHEST 2 VIEWS Exam Date: 04/05/20 Exam [...] DOMINGUEZ MD CHEST SINGLE (PORTABLE) 2020-04-05 09:19:00 [facility] : 1950 Sex: M [place] [address] Patient Name: DYLLAN WAGNER MR #: [id number] : 1950 Age/Sex: 69/M Req #: [id number] [facility] Physician: XENA HASTINGS MD Ordered by: XENA HASTINGS MD Report #: [id number] Location: [facility] Room/Bed: [place] [address] Procedure: [id number] DX/CHEST SINGLE (PORTABLE) Exam Date: 04/05/20 Exam [...] MD CHEST SINGLE (PORTABLE) 2020-04-04 16:36:00 [facility] : 1950 Sex: M [facility] [address] [place] [address] Patient Name: DYLLAN WAGNER MR #: [id number] : 1950 Age/Sex: 69/M Req #: [id number] Adm Physician: XENA HASTINGS MD Ordered by: HOMAR MAYEN DO Report #: [id number] Location: MED/SURG Room/Bed: [facility] Procedure: [id number] DX/CHEST SINGLE (PORTABLE) Exam Date: 04/04/20 Exam [...] ng/ml < 600 HH Results called to [email or web address] by [email or web address] 07/11/19 1019Critical results verified and read back by Nurse? Y BASIC METABOLIC LZYYL1422-67-13 09:54:00* Test Item Value Reference Range Interpretation [...] CA) 9.3 mg/dL 8.4-10.2 N CBC W/O ZQNO7877-65-78 09:50:00* Test Item Value Reference Range Interpretation [...] [U] XRAY ANKLE MIN 3 VWS LEFT [id number] 11:44:00Images acquired, not reported on this accession number.[facility]icians[facility]LECTROLY[facility] 2017-02-07 20:03:004.3[facility] AJGMH9670-46-27 16:22:003.8[facility]annCHEM FFTTM8024-95-57 16:22:002.6[facility]annCHEM TARMR4060-21-92 16:22:0045[facility]annCHEM RTXHB9794-91-12 16:22:008.8[facility] HermannCHEM IZLOM1997-85-21 16:22:0030[facility]annCHEM RZNLB3149-25-89 16:22:005.5 [facility]annCHEM WKGIB4420-11-62 16:22:94855Sovgienk HermannCHEM PANEL 2017-02-07 16:22:0020[facility] HermannCHEM FIHNM2566-94-30 16:22:001.61[facility]annCHEM NONSF7683-16-60 16:22:82859Zhmhakmo HermannCHEM PULXF8656-49-26 16:22:78277Mamnntdn HermannCHEM JJSAC5336-70-35 16:22:009.5[facility] LGJZTDXEXY1022-83-72 16:22:0015.8[facility] DpssccjGCBSGILYQT2817-00-75 16:22:00 82.0[facility] JceglfmXCERZJMUCR9193-92-22 16:22:00* Test Item Value Reference Range Interpretation Comments MCH (test code = MCH) 27.6 pg 27.0-31.0 [facility] XjayhjhYMKQNSCRAZ6738-03-69 16:22:0033.6[facility] HermannHEMATOLOGY 2017-02-07 16:22:0038.2[facility] LklblqkZSTFEEFCJQ2699-46-59 16:22:570[address]Tuqbafkj AbtclubVTNTJGXJUP8701-36-99 16:22:009.6[facility] YrvhnhmJBKXQTCRUC0171-33-27 16:22:007.4[facility] CfiaaqwPTVASVQIAZ9291-50-79 16:22:004.65[facility] WSCVXRKVAJ4252-50-25 16:22:0012.8[facility] TmyhlxxHQJIQEICCX5552-32-03 16:22:00 0.1[facility] GxqtehzDNNTLDBYFH9527-06-83 16:22:000.9[facility]annHEMATOLOGY 2017-02-07 16:22:000.3[facility] LpxdselKBGPXSVURF4567-49-06 16:22:000.8[facility] CgewkkqASWWYHXURN6080-58-17 16:22:003.7[facility] TntbipzHHQANVIYEM6277-78-93 16:22:001.1[facility] HqlqorcZTQRYCTAIQ1469-64-10 16:22:005.0[facility] VJJXMMCTIQ5930-26-99 16:22:0067.7[facility] QrorwhfICYFGYGBYB2924-90-30 16:22:00 15.0[facility] NwsqwdnLOKYUDHZVB6157-02-32 16:22:0012.8[facility] HermannCHEM PANEL 2017-02-06 09:23:0050[facility] HermannCHEM QIEPZ0224-26-13 09:23:004.4[facility] HermannCHEM CWHSV4826-42-68 09:23:71517Ldfrfijl HermannCHEM ORCSV7242-91-32 09:23:0029[facility]annCHEM PHXBE6499-10-88 09:23:008.6[facility] HermannCHEM AEEIC7975-79-45 09:23:001.47[facility]annCHEM JNPVD0652-32-98 09:23:0019 [facility]annCHEM CVUOJ2775-04-83 09:23:87151Iakahabz HermannCHEM PANEL 2017-02-06 09:23:65940Ebhpnefg HermannCHEM MLZNU2759-82-36 09:23:008.4[facility] HtdijdtJIDKAOOOEE8610-27-92 09:23:000.9[facility] QnwumfqSCNSQDQHMF7631-58-41 09:23:000.2[facility] HzkzthoAPSYOGSZAA9198-84-64 09:23:000.1[facility] ZCBNGGTSDU0070-34-73 09:23:0076.4[facility] YrcflpxYMHNTJNCLG8226-05-10 09:23:00 0.9[facility] KgxmuyeBVJFLLPTQV9408-76-21 09:23:000.6[facility] HermannHEMATOLOGY 2017-02-06 09:23:0010.7[facility] MqubkioCNLSKTCNGN9744-19-28 09:23:002.0[facility] DkdmkzuZGNSOJUYVK4483-36-43 09:23:006.5[facility] IrfwridLTQTZREERI7631-06-07 09:23:0010.3[facility] KgqqagpRQQEFLBWKY6598-47-26 09:23:0016.4[facility] KJNSDMOKTA1923-50-18 09:23:0033.4[facility] PboytpuWNCQOCEEWV9621-17-89 09:23:00* Test Item Value Reference Range Interpretation Comments MCH (test code = MCH) 27.3 pg 27.0-31.0 [facility] NhnnbuqSCFWXJTPTE2129-34-80 09:23:008.5[facility] HermannHEMATOLOGY 2017-02-06 09:23:004.74[facility] BwnkwblNJMOLQQMED1706-84-31 09:23:38742Fnpigami KqjovmiCXNFHZKKPV8644-93-89 09:23:009.6[facility] YsuefbdUENFIBUSXJ1130-16-73 09:23:0082.0[facility] PnhhqctVXOHCLLOLC2406-72-00 09:23:0013.0[facility] TCBEDAYIZQ4958-76-13 09:23:0038.8[facility] HermannCHEM SDNCG0784-37-45 10:07:00 8.8[facility] HermannCHEM KUHLQ6894-21-66 10:07:62903Gvuiqsfh HermannCHEM PANEL 2017-02-05 10:07:0048[facility] HermannCHEM TMHDZ2953-96-13 10:07:0030[facility] HermannCHEM IBPUF6624-39-80 10:07:26735Lapnrodn HermannCHEM AYTHU9760-82-13 10:07:0023[facility] HermannCHEM EHKWB8605-19-54 10:07:001.50[facility]annCHEM SPHRX7463-18-00 10:07:39906Arkqlgbc HermannCHEM JCMCL4027-81-70 10:07:007.6 [facility] BvexiagSPTOOBVIDM3357-09-81 10:07:00* Test Item Value Reference Range Interpretation Comments PTT (test code = PTT) 29.3 s 22.9-35.8 [facility] UookyvoNPKELZYDHH6063-25-95 10:07:00* Test Item Value Reference Range Interpretation Comments PT (test code = PT) 13.4 s 12.0-14.7 [facility] RbhamazSGKRVGGGPC8557-61-14 10:07:001.00[facility] HermannHEMATOLOGY 2017-02-05 10:07:45863Qegqpjbx RjgqsxmYPFKFXDTBQ0714-07-50 10:07:0081.8[facility] PgfywhfKRUNMDAAVP0010-85-90 10:07:00* Test Item Value Reference Range Interpretation Comments MCH (test code = MCH) 27.3 pg 27.0-31.0 [facility] IrprjchLECBMJEDHU4058-53-91 10:07:0033.4[facility] HermannHEMATOLOGY 2017-02-05 10:07:0013.1[facility] IeqvdqiOVVQEDWFYR1452-76-66 10:07:0039.3[facility] DbqsbsxNGKQWDXUBN0979-01-76 10:07:0015.7[facility] DxsbtkdMGFNIYQBZX9616-95-78 10:07:004.80[facility] ZkaqvolPKWLGFVEVR8485-10-76 10:07:007.8[facility] KBLVJFWFRO2570-16-67 10:07:009.4[facility] WiwlnguQHBJRIGCAM2079-70-96 10:07:000.1 [facility] KzashadBJXYPRHRRQ4453-39-28 10:07:002.0[facility] HermannHEMATOLOGY 2017-02-05 10:07:0071.3[facility] EdngvcpQFWAEZCYEO7486-46-72 10:07:0014.4[facility] MmzxhaeAHENTHVMUW6863-81-25 10:07:0011.4[facility] VhnwqcmWLVMSJNGXF4303-96-06 10:07:005.6[facility] OtvslloJVUPHSKRDY9832-11-44 10:07:001.1[facility] PFIFJPTMHG4272-72-95 10:07:000.2[facility] QyetfcwWOICEKCALN3979-98-78 10:07:000.9 [facility] XfdfylsUMCGFMPVVG0023-75-29 10:07:000.9[facility] HermannURINE AND STOOL 2017-02-05 06:40:00Negative (02/05/17 1:40 AM)[facility] AND STOOL 2017-02-05 06:40:00Negative (02/05/17 1:40 AM)[facility]annUR[facility] AND STOOL 2017-02-05 06:40:00Not Indicated (02/05/17 1:40 AM)[facility]ann[facility] AND PBRML7863-37-32 06:40:000.2[facility]annUR[facility] AND UFIAV6630-01-13 06:40:00 Negative (02/05/17 1:40 AM)[facility] URJFP3375-20-56 06:40:00 Clear (02/05/17 1:40 AM)[facility] AND HVKBC9424-02-90 06:40:00<=1.005 *NA*(02/05/17 1:40 AM)[facility] WHPNB9196-54-05 06:40:00Negative *NA*(02/05/17 1:40 AM)[facility] TIRPH0155-69-24 06:40:00* Test Item Value Reference Range Interpretation Comments UA pH (test code = UA pH) 6.0 1 5.0-8.0 [facility] NHSDQ3458-64-26 06:40:00Negative (02/05/17 1:40 AM) [facility] DIRQD7503-88-37 06:40:00Negative (02/05/17 1:40 AM) [facility] DQSFC8085-42-63 06:40:00Negative *NA*(02/05/17 1:40 AM) [facility] EkzkzsoCHASHFXLPD0957-74-48 23:22:000.98[facility] HermannHEMATOLOGY 2017-02-04 23:22:00* Test Item Value Reference Range Interpretation Comments PTT (test code = PTT) 20.5 s 22.9-35.8 [facility] WijwaaeTSTZSREAKS3862-66-68 23:22:00* Test Item Value Reference Range Interpretation Comments PT (test code = PT) 13.2 s 12.0-14.7 [facility] HdtxianONNWNBMNTO1068-80-12 23:22:0020[facility] HermannHEMATOLOGY 2017-02-04 23:22:00* Test Item Value Reference Range Interpretation Comments PT (test code = PT) 13.2 s 12.0-14.7 [facility] BhzwdcbKNWLFTPYKD4365-38-20 23:22:000.98[facility] HermannSPECIAL SCLJXBKBG1667-72-96 23:22:007.3[facility] TlnnfgdRMVEDUNDTS3307-73-05 13:45:0019.0 [facility] CdgnnkbJBWMFTBCHH7908-90-15 13:45:268084Girwhcrq HermannCHEM PANEL 2015-01-17 08:36:0034[facility] HermannCHEM CZOPL9031-28-89 08:36:0024[facility] HermannCHEM XMQVR1059-26-64 08:36:0046[facility] HermannCHEM BGTNC8298-22-99 08:36:0014.7[facility] HermannCHEM HKIGA1312-20-37 08:36:58876Slahtsat HermannCHEM QRLOA3193-27-35 08:36:78633Tafpvkuv HermannCHEM QHRBX2920-51-59 08:36:007.5 [facility] HermannCHEM GHTUD9533-07-62 08:36:11520Vidreqzw HermannCHEM PANEL 2015-01-17 08:36:004.7[facility] HermannCHEM CFKUO9143-55-24 08:36:001.6[facility] AazhcthOJCKMUNEQP2871-54-72 08:36:00Normal (01/17/15 3:36 AM)[facility] OBFRIOBUYO6865-38-58 08:36:000.4[facility] ZmiviedHJZUEZSOYB8874-04-15 08:36:007.2 [facility] HgtszuuCLDFXJFXOT4600-40-05 08:36:002.1[facility] HermannHEMATOLOGY 2015-01-17 08:36:0080.7[facility] AebgboaPXJUIYQBSK6722-39-11 08:36:009.6[facility] HjkjcgsHOTMYKKJKF3844-56-97 08:36:001.2[facility] BdzlklhPYRNWWKAZS5689-96-75 08:36:000.3[facility] UgkspcwDJPIHJCTYW7671-15-28 08:36:009.9[facility] PXGGURVUBC8005-27-75 08:36:000.9[facility] UpovinhSOGIYMXGKP5023-83-72 08:36:00 Moderate *ABN*(01/17/15 3:36 AM)[facility] KihovcmAIJQRCPSIC8229-44-29 08:36:000.1 [facility] QfpakrfBRYUBJYHQD1813-52-38 08:36:0025.0[facility] HermannHEMATOLOGY 2015-01-17 08:36:00* Test Item Value Reference Range Interpretation Comments MCH (test code = MCH) 27.0 pg 27.0-31.0 [facility] YqdmpvpTIRCAZMYJV3781-69-15 08:36:02157Mqubhtcv HermannHEMATOLOGY 2015-01-17 08:36:0083.6[facility] QogvzveGWICMWUOUK1832-88-59 08:36:009.7[facility] BwumswuYBTRIUMUNO7368-32-29 08:36:0032.3[facility] HwqpxtcTPOJPOMOGV5440-94-00 08:36:0016.6[facility] QdlxvgeOTQSEKSXLE6881-33-04 08:36:0012.2[facility] BZRCLHDZFB6665-09-70 08:36:008.1[facility] BhcmpoiUAYCUEZDGB4309-49-71 08:36:00 2.99[facility] HermannCHEM CFVGM5337-29-56 08:45:002.4[facility] HermannCHEM PANEL 2015-01-16 08:45:0024[facility] HermannCHEM CEPAP9974-94-55 08:45:0042[facility] HermannCHEM VCSNJ9099-96-96 08:45:004.8[facility] HermannCHEM ZWYJS1629-03-91 08:45:0097[facility] HermannCHEM EPNBP0749-58-29 08:45:001.7[facility] HermannCHEM MEXFG3595-53-87 08:45:99580Kmnciziz HermannCHEM RHSWS2837-16-21 08:45:007.9 [facility] HermannCHEM GWVGW5471-63-63 08:45:45179Izsmnsoy HermannCHEM PANEL 2015-01-16 08:45:0016[facility] HermannCHEM HQATI0203-28-69 08:45:001.1[facility] HermannCHEM ELKIG0100-06-47 08:45:005.8[facility] HermannCHEM RZVFD5387-08-09 08:45:0031[facility] HermannCHEM EQUNW5579-02-42 08:45:0028[facility] HermannCHEM EXUUH5560-94-48 08:45:09072Ucubngms HermannCHEM ZZXZR5596-05-93 08:45:0015.8 [facility] HermannCHEM NMHJC3967-08-08 08:45:003.4[facility] HermannCHEM PANEL 2015-01-16 08:45:0018[facility] HermannCHEM VMLYR2163-49-52 08:45:000.7[facility] HermannCHEM MGWYT5906-65-50 08:45:003.1[facility] VodfksdHJPDQSHGAH8985-23-11 08:45:009.4[facility] ZswufrtJFLIATDSKX5072-11-92 08:45:34433Dlcwkisl [place] POGVLYRCNK2466-25-25 08:45:0032.5[facility] JjhcvrfYOTLEHBODN8555-23-10 08:45:00 16.4[facility] DaepdotSEFQRXVFKQ8042-21-36 08:45:00* Test Item Value Reference Range Interpretation Comments MCH (test code = MCH) 27.3 pg 27.0-31.0 [facility] JjfwxyfISSTHSBJCW9117-19-50 08:45:0083.8[facility] HermannHEMATOLOGY 2015-01-16 08:45:0027.1[facility] PlkvgumYPTKHOCQFY2222-50-73 08:45:008.8[facility] LvcmznwUVDVRCWFJU5464-33-34 08:45:003.23[facility] CzmmvlrQFDNBBYXYH8840-05-53 08:45:0017.5[facility] KatbbztXCTEJDIRTH9280-08-95 08:45:000.8[facility] SCYZTBIAVF7945-82-99 08:45:001.9[facility] CnyfebkZIVZIWIAUQ7983-62-13 08:45:000.0 [facility] JowigzxHLQRNQYDIS6128-08-86 08:45:000.1[facility] HermannHEMATOLOGY 2015-01-16 08:45:0011.0[facility] FvswzmeOSTLOHBWDB5304-00-14 08:45:0014.7[facility] QwsxzdgMHENFISFQK2839-08-56 08:45:000.3[facility] TinjmxzUHWNBBZDFJ3358-24-27 08:45:0084.0[facility] QyjivejJDXFVDGHQG9253-67-38 08:45:004.6[facility] MAYLIAIGJI6264-32-00 08:45:00Normal (01/16/15 3:45 AM)[facility] HermannHEMATOLOGY 2015-01-16 08:45:000.1[facility] WvvnepcIRVPQNYLEF8653-85-29 08:45:00Normal (01/16/15 3:45 AM)[facility] YshojzsDTELUQALCH8081-53-97 01:39:462951Weoaoydo NatewrpXYOICSHRHL2370-40-71 01:39:004.8[facility] HermannCARDIAC DFAAFLL9526-97-16 23:12:000.8[facility] HermannCARDIAC GKZLQNR7678-57-69 23:12:0041[facility] CARDIAC IXEMCLD6347-68-94 23:12:000.51[facility]annUR[facility] AND KYYUR6750-53-82 21:40:00Negative *NA*(01/15/15 4:40 PM)[facility] VTCCI7217-49-10 21:40:00Negative (01/15/15 4:40 PM)[facility] STPWW8452-75-61 21:40:00Negative (01/15/15 4:40 PM)[facility] YLLCM5633-74-51 21:40:00Negative (01/15/15 4:40 PM)[facility] ZJXQT2260-20-01 21:40:00<1[facility] UBJGR1490-08-22 21:40:001[facility] [place] [facility]INE AND IUJGL7556-03-69 21:40:005.0[facility] AND EFDWZ3747-83-73 21:40:00Yellow *NA*(01/15/15 4:40 PM)[facility] WRWVP8735-81-80 21:40:001.017[facility] AND JXBHX9321-59-81 21:40:00Clear (01/15/15 4:40 PM)[facility] YQGZ4401-13-57 21:40:0054.6[facility] WAQK2039-39-68 21:40:95441.5[facility] HSAK5374-26-65 21:40:0034.4 [facility] ULEI9465-12-33 21:40:00<5[facility] CHEM 2015-01-15 21:40:00None Seen (01/15/15 4:40 PM)[facility]annCARD[facility]AC ENZYMES 2015-01-15 16:53:000.7[facility]annC[facility]AC TQTWCZJ1567-24-16 16:53:0040 [facility] MTBJSAS5965-55-16 16:53:000.54[facility]annCHEM PANEL 2015-01-15 16:53:0042[facility]annCHEM JHYDJ9464-44-15 16:53:001.7[facility] EacgzzgVOANFPGQZN6355-86-68 16:53:11306Rxgyyexo HermannVIRAL - SEROLOGY 2015-01-15 11:50:00Negative (01/15/15 6:50 AM)[facility]annVIRAL - SEROLOGY 2015-01-15 11:50:00Negative (01/15/15 6:50 AM)[facility]annCARDIAC ENZYMES 2015-01-15 10:51:000.66[facility]annCARDIAC FDMVVQH3643-24-50 10:51:530448 [facility]AC GWUCPRW3792-79-66 10:51:0042[facility]annCARDIAC CHNBDTJ0897-72-22 10:51:000.8[facility]annCARDIAC TEBTSPL6465-82-50 10:51:00 1.9[facility]annCHEM XFHPB1967-84-60 10:51:001.8[facility]annCHEM PANEL 2015-01-15 10:51:006.6[facility]annCHEM REBTC7888-50-17 10:51:0017[facility]annCHEM XWGKV0679-72-66 10:51:79554Twcviqab HermannCHEM STPJD5330-20-88 10:51:0034[facility]annCHEM NJZBT7224-40-11 10:51:001.1[facility]annCHEM ASUAX1420-35-22 10:51:0018[facility]annCHEM HBKMX1299-67-49 10:51:000.7 [facility]annCHEM ZCJTP2159-04-59 10:51:003.8[facility]annCHEM PANEL 2015-01-15 10:51:0031[facility]annCHEM RGIFA1948-64-08 10:51:0026[facility]annCHEM ITTOC3265-72-72 10:51:008.6[facility]annCHEM WBHSA0472-79-41 10:51:002.8[facility]annCHEM JLPUE7812-95-77 10:51:005.1[facility]annCHEM URZAX1229-69-94 10:51:0099[facility]annCHEM UVIXX3096-99-55 10:51:0016.1 [facility]annCHEM CJFWY1737-92-31 10:51:96339Imwqbjhb HermannCHEM PANEL 2015-01-15 10:51:77810Vuxhaayp YuqhjzkWDNQTZSZBQ0906-25-84 10:51:00* Test Item Value Reference Range Interpretation Comments PT (test code = PT) 15.5 s 12.0-14.7 [facility] IpiomowSXKXLXQWNH7590-44-62 10:51:001.22[facility] HermannHEMATOLOGY 2015-01-15 10:51:00* Test Item Value Reference Range Interpretation Comments PTT (test code = PTT) 41.5 s 22.9-35.8 [facility] XtapmncVNPGCXJKNI1878-17-28 10:51:0032.2[facility] HermannHEMATOLOGY 2015-01-15 10:51:0016.5[facility] NjzdluzHNJDJHUQZU2811-53-95 10:51:0010.1[facility] CoghizyOZIQNFWYCF9983-53-08 10:51:0083.9[facility] HemyhbzCHMVVNTFIY5577-40-93 10:51:0017.1[facility] SwzbyiuQAEUYWCQCL7314-19-38 10:51:003.73[facility] NVBWFSCYDH2406-44-32 10:51:0010.1[facility] VgdvakgJYDHWBKUYM8256-99-16 10:51:00 31.3[facility] WfjczqdMOEXDRTZTU0499-49-30 10:51:00* Test Item Value Reference Range Interpretation Comments MCH (test code = MCH) 27.0 pg 27.0-31.0 [facility] TsbdvnoQLENUWTILH5692-28-49 10:51:003.78[facility] HermannHEMATOLOGY 2015-01-15 10:51:000.1[facility] WdixiblWUJHJTSIFV3574-19-57 10:51:001.9[facility] JkvuypqMZGGHHUQAE7870-92-95 10:51:000.0[facility] SiuacxbIGREDWMJRV6573-92-21 10:51:0085.0[facility] HpibpcaIWANTFNDKE2386-95-45 10:51:00Normal (01/15/15 5:51 AM) [facility] XhsztruXQFKECCCYW0664-53-47 10:51:00Normal (01/15/15 5:51 AM)[facility] BiolmjmSZETGUAQPT1672-14-67 10:51:000.1[facility] UpgoqwzUZOFTVTFHG0161-53-08 10:51:0014.5[facility] TaeuyqoUSNPKKVAEZ4248-16-08 10:51:000.3[facility] WZTTOBWFQR9264-81-19 10:51:003.7[facility] MwgkfmxGDCRLXFLDW0416-05-99 10:51:000.6 [facility] ZnoddtdRAJQPPQTWI1915-17-58 10:51:0010.9[facility] HermannCHEM PANEL 2014-11-04 19:00:0054[facility] HermannCHEM LWRIB6186-31-50 19:00:004.6[facility] HermannCHEM JHTQM2189-68-87 19:00:37935Fqrjhghl HermannCHEM CESOY5388-74-65 19:00:001.4[facility] HermannCHEM IXSMJ4594-74-56 19:00:009.0[facility] HermannCHEM KFFAJ1784-65-75 19:00:28873Dpajjsle HermannCHEM TXYVP4836-24-25 19:00:0030 [facility]annCHEM IFXFI1665-57-10 19:00:0027[facility] HermannCHEM PANEL 2014-11-04 19:00:36165Wbcmykiz HermannCHEM UYLHC4754-03-94 19:00:009.6[facility] VyibcwoJIRRXKPSRP8026-44-50 19:00:00* Test Item Value Reference Range Interpretation Comments MCH (test code = MCH) 27.9 pg 27.0-31.0 [facility] [id number] 19:00:0039.8[facility] 2014-[facility]-04 19:00:0081.0[facility] PyikfqcSNVZKNVBGD9931-63-42 19:00:004.91[facility] KulkfuvHFTAZTQXHX6262-42-82 19:00:0013.7[facility] ImecohvKQZQYOOWDL8123-92-52 19:00:0010.1[facility] EstqwslCTAWITNEOZ3559-42-66 19:00:14574[facility]op[place]gt [place] AUFKHAGCEW5439-16-02 19:00:0034.4[facility] JfizwwyMNEHTMYKIX5172-99-86 19:00:00 18.1[facility] WqtpfeoTTIVPZIEYE5404-75-72 19:00:007.4[facility] 2014-11-04 19:00:00* Test Item Value Reference Range Interpretation Comments PT (test code = PT) 14.0 s 12.0-14.7 [facility]ecABDIFDKXCU3744-45-89 19:00:001.08[facility]seeIMMUNOLOGY 2014-11-04 19:00:00Negative *NA*(11/04/14 2:00 PM)[facility]
[2020-04-20 20:00] VITALS: BP 141/74
[2020-04-20 20:32] VITALS: BP 141/74
[2020-04-20] MEDS ORDERED: ATORVASTATIN 20 MG TAB PO SCH (21:00)
[2020-04-20] MEDS: INSULIN GLARGINE 100 UNITS/ML VIAL SQ SCH (21:00)
[2020-04-20] MEDS: ATORVASTATIN 20 MG TAB PO SCH (21:00)
[2020-04-20] MEDS: FUROSEMIDE INJ 10 MG/ML 4 ML VIAL IV SCH (21:20)
[2020-04-21] VITALS (9 sets, daily range): BP systolic 144–168; BP diastolic 77–88
--- NOTE | 2020-04-21 00:26 | History and Physical ---
PRIMARY CARE PHYSICIAN: Dr. Rain at [facility]. CHIEF COMPLAINT: Shortness of breath and generalized increased edema. HISTORY OF PRESENT ILLNESS: This is a 69-year-old male, who was discharged 2 days ago from this hospital with a history of hypertension, diastolic CHF, CAD, diabetes, CKD, left foot cellulitis, and third-degree AV block, status post pacemaker, presented with complaints of increased shortness of breath and generalized edema. He reports since his discharge, he has had increased shortness of breath, unable to lay flat or ambulate. He reports last night he was unable to sleep at all, all-night due to his shortness of breath and unable to get comfortable. Upon arrival to the ER, he was noted to be in fluid overload. He was given Lasix IV x1, which he reports has improved his dyspnea. Chest x-ray showed cardiomegaly, central vascular congestion and prominent interstitial vascular markings with trace pleural effusion is concerning for CHF or fluid overload. He is admitted for further evaluation. He denies any fever, chills, nausea, vomiting, chest pain. BNP in the ER was 1154, creatinine 2.27, BUN 28. Troponin x2 were negative. PAST MEDICAL HISTORY: 1. Hypertension. 2. Diastolic CHF. 3. Coronary artery disease. 4. Diabetes type 2. 5. CKD. 6. Left foot cellulitis. 7. Third-degree AV block, status post pacemaker placement. PAST SURGICAL HISTORY: Cath, bio prosthetic aortic valve replacement, and pacemaker placement. FAMILY MEDICAL HISTORY: Diabetes. SOCIAL HISTORY: He denies any tobacco, alcohol, or illicit drug use. ALLERGIES: NO KNOWN DRUG ALLERGIES. REVIEW OF SYSTEMS: Twelve-system reviewed and negative except as reported in HPI. PHYSICAL EXAMINATION: VITAL SIGNS: Temperature 97.6, pulse is 70, respirations 18, blood pressure 152/76, pulse ox is 98% on room air. GENERAL: Obese, fatigued. HEENT: Normocephalic and atraumatic. NECK: Supple. LUNGS: Decreased breath sounds. CARDIOVASCULAR: Regular rate and rhythm. GI: Soft, nontender, obese. NEUROLOGIC: Alert, awake, and oriented x3. MUSCULOSKELETAL: Moves all extremities. 2+ edema in the lower extremities noted. SKIN: Dry. Left foot cellulitis noted. Dressing intact. PSYCH: Calm. LABORATORY DATA: WBC 7.87, hemoglobin 10.4, hematocrit 33.8, and platelets 261. Sodium 140, potassium 4.1, BUN is 28, creatinine 2.27, estimated GFR is 29, glucose 232, AST 15, ALT 19. Troponin is 0.048 and 0.069. BNP is 1154.4. Total protein 6.5, albumin 2.6, globulin 3.9. PT 13.9, INR is 1.0, APTT 34.0. Coronavirus is pending. Chest x-ray indicative of CHF or fluid overload. IMPRESSION: 1. Dyspnea due to vyaoi-ms-dicayjs diastolic congestive heart failure with fluid overload. Started on IV Lasix b.i.d. Cardiology has been consulted. We will resume home medications. 2. Acute kidney injury on chronic kidney disease. Creatinine is 2.27. Renal on the case, we will continue to monitor BMP. 3. Diabetes type 2. Continue sliding scale insulin and Lantus at bedtime. 4. High blood pressure. Continue Norvasc. 5. History of coronary artery disease. Continue aspirin and statin. 6. Recent third-degree block, status post pacemaker. Site looks intact. Continue to monitor on tele. 7. Left foot cellulitis with recent bacteremia. We will continue on Keflex 500 t.i.d. 8. Prophylaxis. Lovenox subcu. PLAN: To continue aggressive diuresis, further recommendations per Cardiology and Renal. Dictated by MIN Matias Liseth Abbasi MD MY/MODL /[id number]
[2020-04-21] MEDS: CEPHALEXIN 500 MG CAP PO SCH ×3 (05:25→21:02)
[2020-04-21] MEDS: FUROSEMIDE INJ 10 MG/ML 4 ML VIAL IV SCH (05:25)
--- NOTE | 2020-04-21 06:45 | NUR ---
new iv #20 gauge placed to right wrist x 1 stick. iv to right ac d/c'd due to redness and swelling. clean, dry dressing applied to site.
[2020-04-21 07:25] LABS: ALBUMIN 2.8 g/dL (3.5-5.0); ALBUMIN/GLOBULIN RATIO 0.7 (0.8-2.0); ANION GAP 15.5 mmol/L (8-16); CALCIUM 8.5 mg/dL (8.4-10.2); CREATININE, SERUM 2.36 mg/dL (0.72-1.25); POTASSIUM 3.5 mmol/L (3.5-5.1)
[2020-04-21] MEDS: INSULIN REGULAR, HUMAN 100 UNIT/1 ML 3ML VIAL SQ SCH ×4 (07:30→22:52)
[2020-04-21 07:48] LABS: CREATINE KINASE 97 IU/L (30-200)
[2020-04-21] MEDS ORDERED: AMLODIPINE BESYLATE 5 MG TAB PO SCH (09:00)
[2020-04-21] MEDS: PREGABALIN 50 MG CAP PO SCH ×2 (09:36→18:13)
[2020-04-21] MEDS: ASPIRIN 81 MG CHEW TAB PO SCH (09:36)
[2020-04-21] MEDS ORDERED: POTASSIUM CHLORIDE 20MEQ/100ML 200 ML IV ONE (11:30)
--- NOTE | 2020-04-21 12:07 | Diagnostic Imaging Report ---
EXAMINATION: CHEST SINGLE (PORTABLE) INDICATION: Pulmonary edema COMPARISON: Chest radiograph 04/20/2020 FINDINGS: LINES/TUBES:Left chest pacer unchanged. LUNGS:The lungs are well-inflated. There is perihilar fullness and indistinctness of the pulmonary vasculature. Unchanged lower lung opacities. PLEURA:No pleural effusion or pneumothorax. MEDIASTINUM:The cardiomediastinal silhouette appears normal in size and shape. BONES/SOFT TISSUES:No acute osseous injury. Sternotomy wires in place. ABDOMEN:No free air under the diaphragm. IMPRESSION: Unchanged pulmonary edema. Signed by: Peewee Milan MD on 04/21/2020 12:04 PM
[2020-04-21] MEDS ORDERED: SODIUM CHLORIDE 0.9% 250ML 250 ML ONE (12:51)
--- NOTE | 2020-04-21 12:58 | Progress Note ---
DATE: 04/21/2020 CONSULTANTS: 1. Dr. Cloud, Cardiology. 2. Dr. Morse, Nephrology. SUBJECTIVE: The patient is sitting up in a recliner. Reports still unable to lie flat due to shortness of breath. Bilateral lower extremity with still significant edema. He denies any chest pain, nausea, vomiting, fever, or chills. OBJECTIVE: VITAL SIGNS: Temperature 97.9, pulse is 73, respirations 18, blood pressure 168/82, and pulse ox is 100% on room air. GENERAL: No acute distress. HEENT: Normocephalic and atraumatic. NECK: Supple. LUNGS: With decreased breath sounds. CARDIOVASCULAR: Regular rate and rhythm. GI: Soft and nontender. Obese. NEUROLOGIC: Alert, awake, and oriented x3. MUSCULOSKELETAL: Moves all extremities. 2+ edema in bilateral lower extremities. SKIN: Dry. Left foot cellulitis noted. Dressing intact. PSYCH: Calm. LABORATORY DATA: Sodium 140, potassium 3.5, CO2 27, BUN 30, creatinine 2.36, and blood glucose 127. AST 17 and ALT 20. BNP 768. Albumin 2.8. COVID PCR pending. IMPRESSION: 1. Sncqf-jb-ouacoep diastolic congestive heart failure with fluid overload. Lasix changed to Bumex and metolazone per Nephrology. Cardiology on the case. We will resume home medication. 2. Acute kidney injury on chronic kidney disease. Creatinine is 2.36. Renal on the case. 3. Diabetes type 2. Continue sliding scale and Lantus at bedtime. 4. Hypertension. We will increase Norvasc to 5 mg daily. 5. History of coronary artery disease, status post stent. Continue aspirin and statin. 6. Recent third-degree block, status post pacemaker. Continue on telemonitor. 7. Left foot cellulitis with recent bacteremia. Continue Keflex t.i.d. and Wound Care consulted. 8. Deep vein thrombosis prophylaxis. Lovenox subcutaneous. PLAN: Continue aggressive diuresis. Repeat labs in a.m. Wound Care consulted. Dictated by MIN Matias Kariching Sohan Abbasi MD MY/MODL /[id number]
[2020-04-21] MEDS: BUMETANIDE INJ 0.25MG/ML 4ML VIAL IV SCH ×3 (13:07→23:47)
[2020-04-21] MEDS: METOLAZONE 5 MG TAB PO SCH (13:07)
--- NOTE | 2020-04-21 13:54 | Consultation ---
DATE OF CONSULTATION: 04/21/2020 HISTORY OF PRESENT ILLNESS: Mr. Juarez is known to me, 69-year-old gentleman, underlying history of diabetes, diabetic nephropathy, CKD 3, possibly 4 with diabetic complications including neuropathy, diabetic kidney disease, has bioprosthetic aortic valve replacement in the past, recent pacemaker placement, underlying history of hypertension, hyperlipidemia, finished 2 weeks of IV antibiotics and currently on cephalexin for MSSA bacteremia. Presented with orthopnea and dyspnea on exertion. Currently, sitting up in no apparent respiratory distress. States he is not voiding as much urine as he did before. He has no history of any prostate issues and has no problem voiding urine. Denies fever, cough, abdominal pain, nausea, or vomiting. ALLERGIES: NO APPARENT DRUG ALLERGIES. MEDICATIONS: Currently on enoxaparin, aspirin, furosemide, atorvastatin, pregabalin, hydralazine, amlodipine, insulin, and cephalexin. SOCIAL HISTORY: Does not smoke or drink. Very supportive . FAMILY HISTORY: Significant for diabetes. PHYSICAL EXAMINATION: GENERAL: Awake, alert, oriented x3, sitting up in no apparent distress. VITAL SIGNS: Blood pressure 168/82, pulse is 73, afebrile. HEAD AND NECK: Cornea clear. Oral mucosa moist. LUNGS: Bibasilar rales. HEART: S1 and S2 audible. ABDOMEN: Obese, soft, and nontender. EXTREMITIES: Lower extremity examination shows 1 to 2+ lower extremity edema. Chronic skin changes. LABORATORY DATA: Sodium 140, potassium 3.5, bicarbonate 27, and creatinine 2.3. Hemoglobin 10.4 and white count 7.8. LFTs within normal range. IMPRESSION AND PLAN: 1. Heart failure, history of bioprosthetic aortic valve, recent pacemaker. 2. Toe infection, osteomyelitis. 3. Methicillin-susceptible Staphylococcus aureus bacteremia. 4. Hypertension. 5. Acute kidney injury, resolved. 6. Chronic kidney disease 3. PLAN: On diuresing aggressively with Bumex and Zaroxolyn. Lasix discontinued. Spot urine protein/creatinine ratio ordered. Replace potassium. Monitor the patient's intake output. The patient was placed on fluid restriction. Discussed with bedside RN. The patient to keep his legs elevated. MD IRVIN Nunez/REJI /[id number]
--- NOTE | 2020-04-21 14:19 | NUR ---
69 y/o male Dx with CHF evaluated for PT services. BNP was 768 this morning. Pt demo high level of function at Mod(I) for bed mobility, transfers and gait w/o AD. Pt was instructed to ambulate short distances frequently throughout the day vs walking far at one time. Pt agreed. Safe to ambulate on his own. No PT needed at this time. Addendum: 04/21/20 at 1420 by Von Doherty PT Amended: Links added.
--- NOTE | 2020-04-21 16:03 | NUR ---
I spoke with the wound care nurse and was advised to cleanse the great toe and pain with betadine as the pt. is scheduled in their clinic on Friday.
--- NOTE | 2020-04-21 16:43 | NUR ---
Nutrition Screen Note RD Recommendation for Physician: -Recommend cardiac/ADA diet Plan of Care: RD following, monitoring for tolerance and adequacy Nutrition reason for involvement: Diagnosis - CHF Primary Diagnose(s): CHF PMH: Hypertension, Diastolic CHF, Coronary artery disease, Diabetes type 2, CKD, Left foot cellulitis, Third-degree AV block, status post pacemaker placement. Ht: 72 in Wt:273 lb BMI: 37.0 kg/m2 IBW:[address] Assessment: (04/21/20) Chart reviewed. Labs and meds reviewed. Pt is a 69 year old male admitted with CHF. Pt reports not eating much for breakfast but ate most of his lunch today. Prior to admission, pt mentioned he had a good appetite. Pt stated he usually weighs 270 lbs. No N/V or chewing/swallowing issues. Pt declined the need for diet education. Will continue to monitor Current Diet: 1800 ADA Malnutrition Evaluation (04/21/20) The patient does not meet criteria for a specified degree of malnutrition at this time. Will re-evaluate at follow-up as appropriate. Diet Education Needs Assessment: Pt declined the need for diet education Nutrition Care Level: low Signed: Emerita Alvares, RD, LD
[2020-04-21] MEDS: ENOXAPARIN SOD INJ 40 MG/0.4 ML SYR SC SCH (18:13)
[2020-04-21] MEDS: ATORVASTATIN 20 MG TAB PO SCH (21:08)
[2020-04-21] MEDS: INSULIN GLARGINE 100 UNITS/ML VIAL SQ SCH (22:53)
--- NOTE | 2020-04-22 00:25 | Progress Note ---
DATE: 04/21/2020 SUBJECTIVE: Continues to notice gradual improvement in symptoms. OBJECTIVE: VITAL SIGNS: Temperature 97.4, heart rate 79, blood pressure 161/77, respiratory rate 20, and O2 saturation 97%. GENERAL: In no acute distress, alert. NECK: No JVD. CHEST: Clear to auscultation. CARDIOVASCULAR: Regular rate and rhythm. Normal S1, S2. Systolic murmur. ABDOMEN: Soft. Bowel sounds positive. EXTREMITIES: 2+ edema to bilateral lower extremities.Left first toe wound is healing. CARDIOVASCULAR MEDICATIONS: Reviewed: Metolazone 20 mg daily, Lovenox 40 mg daily, atorvastatin 20 mg at bedtime, aspirin 81 mg daily, bumetanide 2 mg every six hours, and amlodipine 5 mg daily. LABORATORY DATA: Studiesreviewed creatinine 2.3, bicarbonate 27, BUN 30, glucose 127, sodium 140, and potassium 3.5. White blood cell 7.8, hemoglobin 10, and platelets 261. ASSESSMENT AND PLAN: 1. A 69-year-old man presents with acute on chronic diastolic heart failure. 2. Acute on chronic renal failure. 3. Anemia. 4. Volume overload. 5. Hypertension. 6. Dyslipidemia. 7. Diabetes. 8. Coronary artery disease with history of bypass. 9. Aortic valve stenosis, continue volume optimization per Nephrology expertise. Currently on metolazone and bumetanide. Blood pressure slightly elevated, however with liberalized control currently as attempting to diurese. Continue statin and antiplatelet therapy. We will follow closely with you. Please call with questions. MD RAGHAVENDRA Dunn/REJI /[id number] MARY ANN
[2020-04-22 04:00] VITALS: BP 151/72
[2020-04-22] MEDS: CEPHALEXIN 500 MG CAP PO SCH ×3 (05:06→22:00)
[2020-04-22] MEDS: BUMETANIDE INJ 0.25MG/ML 4ML VIAL IV SCH ×4 (05:24→23:35)
[2020-04-22 07:07] LABS: ALBUMIN 2.9 g/dL (3.5-5.0); ALBUMIN/GLOBULIN RATIO 0.8 (0.8-2.0); ANION GAP 15.1 mmol/L (8-16); CALCIUM 8.5 mg/dL (8.4-10.2); CREATININE, SERUM 2.27 mg/dL (0.72-1.25); POTASSIUM 3.1 mmol/L (3.5-5.1)
[2020-04-22 09:25] VITALS: BP 143/78
[2020-04-22] MEDS: ASPIRIN 81 MG CHEW TAB PO SCH (09:35)
[2020-04-22] MEDS: PREGABALIN 50 MG CAP PO SCH ×2 (09:35→18:15)
[2020-04-22] MEDS: METOLAZONE 5 MG TAB PO SCH (09:36)
[2020-04-22] MEDS: AMLODIPINE BESYLATE 5 MG TAB PO SCH (09:36)
[2020-04-22] MEDS: INSULIN REGULAR, HUMAN 100 UNIT/1 ML 3ML VIAL SQ SCH ×4 (09:40→21:00)
[2020-04-22 10:10] VITALS: BP 143/78
[2020-04-22] MEDS ORDERED: POTASSIUM CHLORIDE 10MEQ EA PO ONE (12:30)
[2020-04-22 13:37] VITALS: BP 141/68
[2020-04-22] MEDS: LACTOBACILLUS ACIDOPHILUS CAPSULE PO SCH ×2 (15:02→22:00)
[2020-04-22 17:54] VITALS: BP 135/78
[2020-04-22] MEDS: ENOXAPARIN SOD INJ 40 MG/0.4 ML SYR SC SCH (18:21)
[2020-04-22 20:00] VITALS: BP 129/64
[2020-04-22] MEDS: INSULIN GLARGINE 100 UNITS/ML VIAL SQ SCH (21:00)
[2020-04-22] MEDS: ATORVASTATIN 20 MG TAB PO SCH (22:00)
[2020-04-23] VITALS (8 sets, daily range): BP systolic 105–143; BP diastolic 52–81
--- NOTE | 2020-04-23 00:59 | Progress Note ---
DATE: 04/22/2020 Cardiology Progress Note SUBJECTIVE: Able to lie flat without orthopnea now. Edema continues to improve. OBJECTIVE: VITAL SIGNS: Temperature 98.1, heart rate 79, blood pressure 141/68, respiratory rate 16, and O2 saturation 98%. GENERAL: No acute distress, alert. NECK: No JVD. CHEST: Clear to auscultation. CARDIOVASCULAR: Regular rate and rhythm. Normal S1 and S2. Systolic ejection murmur. ABDOMEN: Soft. EXTREMITIES: 2+ edema. CARDIOVASCULAR MEDICATIONS: Reviewed. Metolazone 20 mg daily, amlodipine 5 mg daily, bumetanide 2 mg q.6 hours, atorvastatin 20 mg at bedtime, aspirin 81 mg daily, Lovenox 40 mg daily. STUDIES: Reviewed. Sodium 139, potassium 3.1, chloride 98, bicarbonate 29, BUN 30, creatinine 2.2, glucose 173. White blood cell 7.8, hemoglobin 10.4, platelets 261. ASSESSMENT AND PLAN: 1. Acute on chronic diastolic heart failure. 2. Acute on chronic renal failure presenting with volume overload. 3. Anemia. 4. Dyslipidemia. 5. Diabetes, hypertension and dyslipidemia. 6. Coronary artery disease status post bypass. 7. Aortic stenosis status post valve replacement with prosthetic valve increased gradient. RECOMMENDATIONS: 1. Continue diuretics per Nephrology expertise. 2. Continue rest of cardiovascular medications. MD RAGHAVENDRA Dunn/REJI /[id number]
[2020-04-23] MEDS: CEPHALEXIN 500 MG CAP PO SCH ×3 (05:49→20:33)
[2020-04-23] MEDS: BUMETANIDE INJ 0.25MG/ML 4ML VIAL IV SCH ×4 (05:49→23:54)
[2020-04-23 08:22] LABS: CREATININE, SERUM 2.37 mg/dL (0.72-1.25)
[2020-04-23] MEDS: LACTOBACILLUS ACIDOPHILUS CAPSULE PO SCH ×3 (09:25→20:33)
[2020-04-23] MEDS: METOLAZONE 5 MG TAB PO SCH (09:25)
[2020-04-23] MEDS: PREGABALIN 50 MG CAP PO SCH ×2 (09:25→17:11)
[2020-04-23] MEDS: AMLODIPINE BESYLATE 5 MG TAB PO SCH (09:25)
[2020-04-23] MEDS: ASPIRIN 81 MG CHEW TAB PO SCH (09:25)
[2020-04-23] MEDS: INSULIN REGULAR, HUMAN 100 UNIT/1 ML 3ML VIAL SQ SCH ×4 (09:28→21:35)
[2020-04-23] MEDS ORDERED: POTASSIUM CHLORIDE 10MEQ EA PO ONE (12:00)
--- NOTE | 2020-04-23 13:06 | Progress Note ---
DATE: 04/23/2020 CONSULTANTS: 1. Dr. Cloud, Cardiology. 2. Dr. Morse, Nephrology. SUBJECTIVE: The patient is sitting up in a chair. He reports shortness of breath and swelling is improving some. He denies any chest pain, nausea, vomiting, fever, or chills. He reports another right heel ulcer worsening, but otherwise no complaints. OBJECTIVE: VITAL SIGNS: Temperature 98.0, pulse is 83, respirations 16, blood pressure 105/52, and pulse ox is 99% on room air. GENERAL: In no acute distress. HEENT: Normocephalic, atraumatic. NECK: Supple. LUNGS: With decreased breath sounds. CARDIOVASCULAR: Regular rate and rhythm. GI: Soft, nontender, obese. NEUROLOGIC: Alert, awake, and oriented x3. MUSCULOSKELETAL: Moves all extremities. 2+ edema in the lower extremities. SKIN: Dry. Left great toe cellulitis and right heel scabbing ulcer. PSYCH: Calm and pleasant. LABORATORY DATA: Sodium 139, potassium 3.0, CO2 of 30, BUN is 33, creatinine 2.37, estimated GFR is 28, and glucose 156. IMPRESSION: 1. Qfmex-pw-kqtgumd diastolic congestive heart failure with fluid overload. Continue on Bumex and metolazone for Nephrology. Cardiology on the case. We will resume home medications. 2. Acute kidney injury on chronic kidney disease. Creatinine is 2.37. Renal on case. 3. Hypokalemia, potassium 3, replace and recheck. 4. Diabetes type 2. Continue sliding scale insulin and increase Lantus at bedtime. 5. Hypertension. We will continue on Norvasc. 6. History of coronary artery disease, status post stent. Continue aspirin and statin. 7. Recent third-degree block, status post pacemaker. Site intact, continue tele-monitor. 8. Left foot cellulitis, with recent bacteremia. Continue Keflex t.i.d. and Wound Care consulted. We will consult Podiatry for another right foot ulcer. 9. Deep vein thrombosis prophylaxis. Lovenox subcu. PLAN: To continue aggressive diuresis, replace and monitor electrolytes. Podiatry has been consulted. Dictated by MIN Matias Liseth Abbasi MD MY/MODL /[id number]
--- NOTE | 2020-04-23 15:07 | Progress Note ---
DATE: 04/22/2020 CONSULTING PHYSICIANS: 1. Dr. Cloud, Cardiology. 2. Dr. Morse, Nephrology. SUBJECTIVE: The patient is sitting up in a recliner, reports was able to sleep better. Shortness of breath is improving some. Bilateral lower extremity edema is improving as well. He denies any chest pain, nausea, vomiting, fever, or chills. Discussed about fluid restriction and medication compliance. PHYSICAL EXAMINATION: VITAL SIGNS: Temperature 97.8, pulse is 82, respirations 16, blood pressure 143/78, pulse ox is 96% on room air. GENERAL: In no acute distress. Obese. HEENT: Normocephalic, atraumatic. NECK: Supple. LUNGS: Decreased breath sounds. CARDIOVASCULAR: Regular rate and rhythm. GI: Soft and nontender, obese. NEUROLOGIC: Alert, awake, and oriented x3. MUSCULOSKELETAL: Moves all extremities. 2+ edema in bilateral lower extremities. SKIN: Dry. Left foot cellulitis. Open to air. PSYCH: Calm. LABORATORY DATA: Sodium 139, potassium 3.1, BUN 30, creatinine 2.27, estimated GFR 29. AST 15 and ALT 19. IMPRESSION: 1. Acute on chronic diastolic congestive heart failure with fluid overload. Continue on Bumex and metolazone per Nephrology. Cardiology on the case. We will resume home medications. 2. Acute kidney injury on chronic kidney disease. Creatinine is 2.27. Continue diuresis and renal on the case. 3. Diabetes type 2. Continue sliding scale insulin and Lantus at bedtime. 4. Hypertension. Norvasc increased to 5 mg daily. 5. History of coronary artery disease, status post stent. Continue aspirin and statin. 6. Recent third-degree AV block, status post pacemaker. Continued on tele monitor. 7. Left foot cellulitis with recent bacteremia with MSSA. Continue Keflex t.i.d. and lactobacillus. Wound Care has been consulted. 8. Deep vein thrombosis prophylaxis. Lovenox subcu. PLAN: Continue aggressive diuresis, wound care, and repeat labs in a.m. Dictated by MIN Matias Kariching Sohan Abbasi MD MY/MODL /[id number]
--- NOTE | 2020-04-23 15:57 | Consultation ---
DATE OF CONSULTATION: 04/23/2020 Physician requesting consultation is Dr. Abbasi REASON FOR CONSULTATION: 1. Consultation requested regarding soft tissue infection in the left foot and right heel. 2. Recent episode of Staphylococcus aureus septicemia. HISTORY OF PRESENT ILLNESS: This is a 69-year-old male, who had a recent hospitalization for cellulitis in the left great toe, had MSSA bacteremia, complicated by third-degree AV block, had a pacemaker that was placed. The patient also developed renal failure. After prolonged hospitalization, multiple negative blood cultures, the patient was discharged on oral Keflex, was admitted to the hospital because of generalized edema and shortness of breath. The patient has been seen by a Nephrology. The patient has received diuresis. His renal function has remained stable. He has not had any fever, chills, or rigors. REVIEW OF SYSTEMS: HEENT: Denies any headaches, visual complaints, sinus congestion, ear ache, throat pain, or neck pain. RESPIRATORY: Still has some shortness of breath. CARDIOVASCULAR: No chest pain or palpitations. GI: No nausea, vomiting, or diarrhea. PAST MEDICAL HISTORY: 1. Hypertension. 2. Coronary artery disease. 3. Diabetes mellitus. 4. Chronic renal insufficiency. 5. Third-degree AV block, pacemaker. 6. Left great toe cellulitis. 7. Recent episode of MSSA bacteremia. PAST SURGICAL HISTORY: 1. Cardiac catheterization. 2. Bioprosthetic aortic valve. 3. Pacemaker. ALLERGIES: NO KNOWN DRUG ALLERGIES. Chronic medications are reviewed. FAMILY HISTORY: Noncontributory. SOCIAL HISTORY: No active alcohol, tobaccos, or drug abuse. PHYSICAL EXAMINATION: VITAL SIGNS: Temperature 97.6, pulse 81, respiratory rate 16, and blood pressure 126/61. HEENT: Normocephalic, atraumatic. Extraocular movements not accessed. NECK: Supple. LUNGS: Fair air entry bilaterally. Clear to auscultation. HEART: Sounds S1, S2. No murmur. No gallop. ABDOMEN: Soft, nontender. Normoactive bowel sounds. EXTREMITIES: There is edema in both lower extremities, left great toe still has ulcer on the plantar aspect of the great toe with discoloration of the left great toe nail. There is also superficial ulceration in the right heel. LABORATORY DATA: Revealed BUN of 33, creatinine 2.3. ASSESSMENT: 1. Recent episode of Staphylococcus aureus septicemia. 2. Cellulitis of great toe. 3. Diabetic ulcer in the great toe and right heel. 4. Jjtgz-db-yozuvrp renal insufficiency. 5. Recent third-degree AV block status post pacemaker. RECOMMENDATIONS: Continue antibiotic treatment with Keflex as previously ordered. Wound care is ongoing. We will continue to follow. Thank you, Dr. Abbasi, we will follow the patient along with you. Felton Yeh MD SR/MODL /[id number] cc: Liseth Abbasi MD
[2020-04-23] MEDS: ENOXAPARIN SOD INJ 40 MG/0.4 ML SYR SC SCH (17:12)
[2020-04-23] MEDS ORDERED: INSULIN REGULAR, HUMAN 100 UNIT/1 ML 3ML VIAL SQ ONE (18:00)
[2020-04-23] MEDS: ATORVASTATIN 20 MG TAB PO SCH (20:33)
[2020-04-23] MEDS: INSULIN GLARGINE 100 UNITS/ML VIAL SQ SCH (21:34)
[2020-04-24] VITALS (9 sets, daily range): BP systolic 95–135; BP diastolic 54–73
[2020-04-24] MEDS: BUMETANIDE INJ 0.25MG/ML 4ML VIAL IV SCH (05:50)
[2020-04-24] MEDS: CEPHALEXIN 500 MG CAP PO SCH ×3 (05:50→21:25)
[2020-04-24 06:25] LABS: ANION GAP 21.3 mmol/L (8-16); CALCIUM 9.1 mg/dL (8.4-10.2); CREATININE, SERUM 2.46 mg/dL (0.72-1.25); POTASSIUM 3.3 mmol/L (3.5-5.1)
[2020-04-24 07:03] LABS: BASOPHILS # (AUTO) 0.1 (0.0-0.1); BASOPHILS % 0.8 % (0.0-1.0); EOSINOPHILS # (AUTO) 0.2 (0.0-0.4); EOSINOPHILS % 1.9 % (0.0-6.0); HEMATOCRIT 34.9 % (38.2-49.6); HEMOGLOBIN 11.1 g/dL (14.0-18.0); LYMPHOCYTES # (AUTO) 1.3 (1.0-3.2); LYMPHOCYTES % 15.4 % (18.0-39.1); MEAN CORPUSCULAR HEMOGLOBIN 27.3 pg (28-32); MEAN CORPUSCULAR HGB CONC 31.8 g/dL (31-35); MEAN CORPUSCULAR VOLUME 85.7 fL (81-99); MONOCYTES # (AUTO) 0.8 (0.2-0.8); MONOCYTES % 9.7 % (4.4-11.3); NEUTROPHILS % 69.8 % (38.7-80.0); PLATELET COUNT 323 x10e3/uL (140-360); RED BLOOD COUNT 4.07 x10e6/uL (4.3-5.7); RED CELL DISTRIBUTION WIDTH 17.6 % (11.7-14.4)
[2020-04-24] MEDS: INSULIN REGULAR, HUMAN 100 UNIT/1 ML 3ML VIAL SQ SCH ×4 (07:30→21:35)
--- NOTE | 2020-04-24 07:35 | NUR ---
PATIENT OUT OF BED TO RECLINING CHAIR WATCHING TV, NO COMPLAIN VOICED. ALL PERSONAL ITEMS CLOSE TO PATIENT. CALL LIGHT AT REACH.
[2020-04-24] MEDS: AMLODIPINE BESYLATE 5 MG TAB PO SCH (09:32)
[2020-04-24] MEDS: LACTOBACILLUS ACIDOPHILUS CAPSULE PO SCH ×3 (09:32→21:25)
[2020-04-24] MEDS: ASPIRIN 81 MG CHEW TAB PO SCH (09:32)
[2020-04-24] MEDS: PREGABALIN 50 MG CAP PO SCH ×2 (09:32→17:41)
[2020-04-24] MEDS: METOLAZONE 5 MG TAB PO SCH (09:32)
--- NOTE | 2020-04-24 10:40 | NUR ---
WOUND CARE INITIAL CONSULT FOR 69 YO MALE ADMITTED TO [facility] WITH A PRESENT HX OF CHF. BHARGAVI 19 ON CONSERVATIVE PUP STATUS AND INTERVENTIONS SURFACE: REGULAR VISCO LABS: WBC- 8.63 HGB- 11.1 GLUCOSE-210 MICRO: URINE CULTURE: NO GROWTH BLOOD CULTURE: NO GROWTH. MEDS: Keflex SEE E MAR FOR DOSAGE. SKIN ASSESSMENT COMPLETE, PATIENT PRESENTS WITH 1)LEFT MEDIAL HALLUX [place] 3 ULCER; 95% PINK GRANULATION 5% SLOUGH; MINIMAL SEROUS DRAINAGE; CALLUS PERIWOUND. MEASURING 0.6 CM X 1.7 CM X 0.3 CM. 2)RIGHT LATERAL HEEL [place] 3 ULCER; 80% PINK GRANULATION, 20% SLOUGH, MEASURING 2 CMX 1 CM X 0.3 CM. RECOMMENDATIONS: NURSING TO CLEAN LEFT MEDIAL HALLUX ULCER AND RIGHT LATERAL HEEL ULCER WITH NORMAL SALINE, PAT DRY WITH 4X4 GAUZE, PAINT WITH BETADINE, COVER WITH 4X4 GAUZE AND SECURE WITH KERLIX DAILY. NURSING TO CONTINUE TO MONITOR PATIENT AND KEEP SKIN CLEAN AND FREE FROM STOOL OR IRRITATING MOISTURE AND CONTINUE TO FOLLOW CONSERVATIVE PUP INTERVENTIONS DAILY. NURSING TO CONTINUE REPOSITION PT SIDE TO SIDE EVERY TWO HOURS AND NEEDED. NURSING TO APPLY REGULAR VISCO MATTRESS. NURSING TO CONTINUE TO OFFLOAD FEET AND HEELS AT ALL TIMES WITH PILLOW SUSPENSION WHEN IN BED. NURSING TO CONTINUE TO ASSIST WITH PT NUTRITIONAL SUPPLEMENTS TO ENSURE PROPER REQUIREMENTS FOR HEALING. NURSING TO RE- CONSULT WOUND CARE NEEDED. Addendum: 04/24/20 at 1559 by Idalmis Evangelitsa RN Amended: Links added.
[2020-04-24] MEDS ORDERED: POTASSIUM CHLORIDE 10MEQ EA PO ONE (11:30)
--- NOTE | 2020-04-24 11:31 | NUR ---
WOUND CARE NURSE AT BED SIDE, SOFTWARE DEVELOPMENT ANALYST IN TO SEE PATIENT. NEW ORDER GIVEN TO WOUND CARE NURSE
--- NOTE | 2020-04-24 12:42 | NUR ---
PATIENT NOTED WITH ELEVATED BLOOD SUGAR, PROCUREMENT OFFICER NOTIFIED, NEW ORDER RECEIVED.
[2020-04-24] MEDS ORDERED: DEXTROSE 50% SYRINGE 50 ML IV PRN (12:45)
--- NOTE | 2020-04-24 12:51 | Progress Note ---
DATE: 04/24/2020 CONSULTANTS: 1. Dr. Cloud, Cardiology. 2. Dr. Morse, Nephrology. 3. Dr. Yeh, ID. 4. Dr. Mock, Podiatry. SUBJECTIVE: The patient is resting in bed with no acute distress, reports has been urinating significantly. He denies any chest pain, nausea, vomiting, fever, or chills. He reports shortness of breath has significantly improved and able to sleep during the night. OBJECTIVE: VITAL SIGNS: Temperature 98.1, pulse is 80, respirations 18, blood pressure 103/58, pulse ox 100% on room air. GENERAL: No acute distress. HEENT: Normocephalic, atraumatic. NECK: Supple. LUNGS: With decreased breath sounds. CARDIOVASCULAR: Regular rate and rhythm. GI: Soft and nontender. Obese. NEURO: Alert, awake and oriented x3. MUSCULOSKELETAL: Moves all extremities. 1+ edema in the lower extremities. SKIN: Dry. Left great toe cellulitis and right heel ulcer. PSYCH: Calm and pleasant. LABORATORY DATA: WBC 8.63, hemoglobin 11.1, hematocrit 34.9, platelet 323. Sodium 138, potassium 3.3, CO2 of 30, BUN 36, creatinine 2.46, blood glucose 210. IMPRESSION: 1. Acute on chronic diastolic congestive heart failure with fluid overload. Continue on Bumex and metolazone per Renal. Cardiology on the case. We will resume home medications. 2. Acute kidney injury on chronic kidney disease. Creatinine is trending up 2.46 today. Renal on the case. 3. Hypokalemia. Potassium is 3.3. We will replace and recheck. 4. Diabetes type 2. Continue sliding scale insulin and increase Lantus to 20 units at bedtime. 5. Hypertension. Continue Norvasc. 6. History of coronary artery disease, status post stent. Continue aspirin and statin. 7. Recent third-degree AV block, status post pacemaker placement. Site intact. Continue telemonitor. 8. Left foot cellulitis and with recent bacteremia. Continue Keflex. ID on the case. 9. Podiatry also consulted for evaluation of multiple foot ulcer. 10. Deep vein thrombosis prophylaxis. Lovenox subcu. PLAN: To continue with diuretics, PT, replace electrolytes and wound care. Dictated by MIN Matias Yiching MD CLAUDIA Mac /[id number]
--- NOTE | 2020-04-24 12:56 | Progress Note ---
DATE: 04/24/2020 Cardiology Progress Note SUBJECTIVE: No complaints. OBJECTIVE: VITAL SIGNS: Temperature 98.1, heart rate 80, blood pressure 103/58, respiratory rate 18, and O2 saturation 100%. GENERAL: In no acute distress. Alert. NECK: No JVD. CHEST: Clear to auscultation. CARDIOVASCULAR: Regular rate and rhythm. Normal S1 and S2. Systolic murmur. ABDOMEN: Soft. Bowel sounds positive. EXTREMITIES: 1+ edema. CARDIOVASCULAR MEDICATIONS: Reviewed. Hydralazine 10 q.4 hours, amlodipine 5 mg daily, atorvastatin 20 mg at bedtime, Lovenox 40 mg subcutaneous daily, aspirin 81 mg daily, bumetanide 2 mg every 6 hours, and metolazone 20 mg daily. STUDIES: Reviewed. Sodium 138, potassium 3.3, chloride 90, bicarbonate 30, BUN 36, creatinine 2.4, and glucose 210. White blood cells 8.6, hemoglobin 11.1, and platelets 323. PT 13.9, PTT 34, and INR 1.02. AST 15, ALT 19, and alkaline phosphatase 99. ASSESSMENT AND PLAN: 1. A 69-year-old man presents with qhhxy-yq-sicqzhs diastolic heart failure. Has bioprosthetic aortic valve with increased gradient. 2. Coronary artery disease with bypass. 3. Cgzfr-lf-mofuivk renal failure. 4. Diabetes. 5. Hypertension. RECOMMEND: 1. Continue antihypertensives at current dose. 2. Continue statin therapy. 3. Continue aspirin. 4. Diuretics per Nephrology expertise. MD RAGHAVENDRA Dunn/REJI /[id number]
[2020-04-24 14:11] LABS: CREATININE,URINE RANDOM 42.61 mg/dL (63-166); TOTAL PROTEIN, URINE < 6.8 mg/dL (1-14)
--- NOTE | 2020-04-24 14:51 | Progress Note ---
DATE: 04/24/2020 SUBJECTIVE: The patient overall has been doing well. He has been aggressively diuresed with decreased swelling in the legs and improving shortness of breath. OBJECTIVE: VITAL SIGNS: Temperature 98, pulse 96, respiratory rate 17, and blood pressure 95/54. HEENT: Normocephalic, atraumatic. Extraocular movements not accessed. NECK: Supple. LUNGS: Bibasilar crackles. HEART: S1, S2. No murmur or gallop. ABDOMEN: Soft, nontender. EXTREMITIES: The edema in both lower extremities has improved. Ulcer on the plantar aspect of the left great toe and right heel. Discoloration of the left great toe nail. LABORATORY DATA: WBC count is 8.6, hemoglobin 11, and platelets 323. BUN 36, creatinine 2.4. ASSESSMENT: 1. Recent episode of Staphylococcus aureus septicemia, resolved. 2. Cellulitis of left great toe. 3. Diabetic ulcer in the great toe and right heel. 4. Giykp-yk-uxkuabe renal insufficiency. 5. Recent third-degree atrioventricular block, has pacemaker. RECOMMENDATIONS: Continue antibiotic treatment with cephalexin. Discharge followup at the wound care center. We will continue to follow. Felton Yeh MD SR/MODL /[id number]
--- NOTE | 2020-04-24 15:54 | NUR ---
URINE SPECIMEN COLLECTED AND SENT TO THE LAB. PATIENT SITTING AT BED SIDE TALKING ON THE PHONE, CALL LIGHT AT REACH.
[2020-04-24] MEDS: ENOXAPARIN SOD INJ 40 MG/0.4 ML SYR SC SCH (17:41)
--- NOTE | 2020-04-24 19:00 | NUR ---
Patient visited in room during nursing rounds. Patient alert and oriented x3. Ambulatory in room prn. BLE 2+ edema with diabetic foot wound noted on left great toe. Pt V-paced on telemetry. Call day within reach. Will monitor pt closely.
[2020-04-24] MEDS: ATORVASTATIN 20 MG TAB PO SCH (21:25)
[2020-04-24] MEDS: INSULIN GLARGINE 100 UNITS/ML VIAL SQ SCH (21:35)
[2020-04-25 04:00] VITALS: BP 127/63
[2020-04-25] MEDS: CEPHALEXIN 500 MG CAP PO SCH (06:04)
[2020-04-25 07:06] LABS: ANION GAP 16.4 mmol/L (8-16); CALCIUM 8.2 mg/dL (8.4-10.2); CREATININE, SERUM 2.38 mg/dL (0.72-1.25); POTASSIUM 3.4 mmol/L (3.5-5.1)
[2020-04-25 07:48] VITALS: BP 124/69
[2020-04-25 08:44] VITALS: BP 124/69
[2020-04-25] MEDS ORDERED: BUMETANIDE 1 MG TAB PO SCH (09:00)
[2020-04-25] MEDS ORDERED: POTASSIUM CHLORIDE 10MEQ EA PO ONE (10:00)
[2020-04-25] MEDS: INSULIN REGULAR, HUMAN 100 UNIT/1 ML 3ML VIAL SQ SCH ×2 (10:00→11:30)
[2020-04-25] MEDS: LACTOBACILLUS ACIDOPHILUS CAPSULE PO SCH ×2 (10:36→15:51)
[2020-04-25] MEDS: ASPIRIN 81 MG CHEW TAB PO SCH (10:36)
[2020-04-25] MEDS: PREGABALIN 50 MG CAP PO SCH (10:36)
[2020-04-25] MEDS ORDERED: BUMETANIDE1 MG PO (11:02)
[2020-04-25] MEDS ORDERED: Lactobacillus Acidophilus PO (11:02)
--- NOTE | 2020-04-25 11:32 | NUR ---
FAXED CLINICALS TO [facility] TO RE-INSTATE SERVICES
[2020-04-25 12:24] VITALS: BP 123/67
[2020-04-25] MEDS ORDERED: BISMUTH SUBSALICYLATE 262 MG/15 ML 8OZ BTL PO PRN (12:45)
--- NOTE | 2020-04-25 14:56 | Progress Note ---
DATE: 04/25/2020 SUBJECTIVE: The patient overall has been doing well. Progress noted. Notes reviewed. He has developed a loose stool this afternoon. OBJECTIVE: VITAL SIGNS: Temperature 97.5, pulse 83, respiratory rate 18, blood pressure 123/67. HEENT: Normocephalic, atraumatic. Extraocular movements not accessed. NECK: Supple. LUNGS: Fair entry bilaterally. Clear to auscultation. HEART: Sounds S1, S2. No murmur. No gallop. ABDOMEN: Soft, nontender. Normoactive bowel sounds. EXTREMITIES: No cyanosis, clubbing or edema. There is ulcer on the plantar aspect of the left great toe with a small superficial ulcer on the right heel. LABORATORY DATA: Reviewed. ASSESSMENT: 1. Staphylococcus aureus septicemia, resolved. The patient has received an extended course of antibiotics. 2. Cellulitis of left great toe, stable. 3. Diabetic ulcer in the great toe and right heel. 4. Glndy-sc-rxyoxbo renal insufficiency, stable. 5. Diarrhea, could be medication related. If there is persistence of diarrhea then evaluate for Clostridium difficile infection. There has been only one episode today without any fever or any leukocytosis. This may be transient event, nonetheless if it is persistent we will evaluate for C diff. 6. The patient has received and extended course of antibiotic treatment already. We will discontinue Keflex at this time. Felton Yeh MD SR/NANOL /[id number]
--- NOTE | 2020-04-25 21:08 | Discharge Summary ---
PCP: Dr. Rain at [facility]. FINAL DISCHARGE DIAGNOSES: 1. Tlynt-iv-gxzousx diastolic congestive heart failure with fluid overload. 2. Acute kidney injury on chronic kidney disease. 3. Hypokalemia. 4. Diabetes type 2. 5. Hypertension. 6. History of coronary artery disease, status post stents. 7. Third-degree AV block, status post pacemaker placement. 8. Left foot cellulitis with recent bacteremia. CONSULTANTS: 1. Dr. Cloud, Cardiology. 2. Dr. Morse, Nephrology. 3. Dr. Yeh, ID. 4. Dr. Mock, podiatry. PROCEDURES: None. HISTORY: Per HPI. HOSPITAL COURSE: This is a 69-year-old male, who presented with increased shortness of breath and edema in the lower extremities. He was started on aggressive diuretics with initially started on IV Lasix. Dr. Morse was consulted with Nephrology and changed to Bumex and metolazone. Steam Press Tender also consulted and have resumed his home medications. He has put out over 3000 mL urine per day. His shortness of breath and edema has significantly improved. His creatinine has improved to 2.38. He is cleared for discharge per Renal on Bumex 2 mg once daily. Infectious Disease and Podiatry were also consulted for his bilateral foot ulcer. He was continued on Keflex for his recent bacteremia and advised to follow up with outpatient Wound Care Center in 2 days. Home health has been reviewed and will discharge home on current medications. PHYSICAL EXAMINATION: VITAL SIGNS: Temperature 97.5, pulse is 83, respirations 18, blood 123/67, pulse ox is 96% on room air. GENERAL: No acute distress. HEENT: Normocephalic and atraumatic. NECK: Supple. LUNGS: Decreased breath sounds. CARDIOVASCULAR: Regular rate and rhythm. GI: Soft and nontender. NEURO: He is alert, awake, and oriented x3. MUSCULOSKELETAL: Moves all extremities. Trace edema in the lower extremities. SKIN: Dry. Left great toe cellulitis improving and right heel with eschar. PSYCH: Calm. CONDITION AT DISCHARGE: Improved and stable. DISCHARGE MEDICATIONS: Please see medication reconciliation list. FOLLOWUP: Follow up with PCP, dolly driver, and Wound Care per appointment. TIME SPENT: Total discharge time is 32 minutes. Dictated by Fanta Yitbarek, ANP Yiching MD PATRICIA Mac/REJI /[id number] cc: [facility]
== END 2020-04-25 16:01 | disposition home or self-care (01) | DRG 291 ==
LOC: ER 07:40 → ERHOLD 09:11 → MED/SURG3 10:42 → OBSVTOIN 04-22 12:40
PROVIDERS: ADMIT Internal Medicine; ATTEND Internal Medicine
DX: I13.0 Hypertensive heart and chronic kidney disease with heart failure and stage 1 through stage 4 chronic kidney disease, or unspecified chronic kidney disease (principal); I50.33 Acute on chronic diastolic (congestive) heart failure; L97.419 Non-pressure chronic ulcer of right heel and midfoot with unspecified severity; N17.9 Acute kidney failure, unspecified; E87.2 Acidosis; N18.9 Chronic kidney disease, unspecified; Z11.59 Encounter for screening for other viral diseases; I25.10 Atherosclerotic heart disease of native coronary artery without angina pectoris; Z95.0 Presence of cardiac pacemaker; E11.22 Type 2 diabetes mellitus with diabetic chronic kidney disease; E11.621 Type 2 diabetes mellitus with foot ulcer; L97.529 Non-pressure chronic ulcer of other part of left foot with unspecified severity; Z79.899 Other long term (current) drug therapy; Z95.3 Presence of xenogenic heart valve; E78.5 Hyperlipidemia, unspecified; E11.51 Type 2 diabetes mellitus with diabetic peripheral angiopathy without gangrene; Z95.1 Presence of aortocoronary bypass graft; L03.032 Cellulitis of left toe; E87.6 Hypokalemia; I35.0 Nonrheumatic aortic (valve) stenosis
CPT/HCPCS: 36415; 71045; 80048; 80053; 82550; 82553; 82570; 82948; 83880; 84156; 84484; 85025; 85610; 85730; 93005; 96372; 99251; 99284; G0378; J1650; J1815; J1817; J1940; J3480; J7050

== ENCOUNTER → 2020-05-05 | Outpatient (CLI) | payer MEDICARE ==
[~2020-05-05] MED LIST changes: +BUMETANIDE1 MG PO; +COLLAGENASE OINTMENT 30 GM TUBE ONE; +LIDOCAINE VISC 2% SOLN 15 ML UDC ONE; +Lactobacillus Acidophilus PO; +MINERAL OIL/PETROLAT/GLYCERI 6OZ BTL ONE; +MUPIROCIN 2% OINT 22 GM TUBE ONE
== END ==
LOC: WCC 11:09
PROVIDERS: ATTEND Internal Medicine Infectious Disease
DX: L97.411 Non-pressure chronic ulcer of right heel and midfoot limited to breakdown of skin (principal); L97.521 Non-pressure chronic ulcer of other part of left foot limited to breakdown of skin; L60.3 Nail dystrophy; R60.0 Localized edema; E08.22 Diabetes mellitus due to underlying condition with diabetic chronic kidney disease; L03.032 Cellulitis of left toe; N18.4 Chronic kidney disease, stage 4 (severe); I10 Essential (primary) hypertension; L40.9 Psoriasis, unspecified; I13.0 Hypertensive heart and chronic kidney disease with heart failure and stage 1 through stage 4 chronic kidney disease, or unspecified chronic kidney disease; I50.9 Heart failure, unspecified; I25.10 Atherosclerotic heart disease of native coronary artery without angina pectoris; I50.33 Acute on chronic diastolic (congestive) heart failure; E78.49 Other hyperlipidemia; I35.0 Nonrheumatic aortic (valve) stenosis; N17.9 Acute kidney failure, unspecified; W22.8XXA Striking against or struck by other objects, initial encounter; Z95.0 Presence of cardiac pacemaker

== ENCOUNTER → 2020-05-12 | Outpatient (CLI) | payer MEDICARE ==
[~2020-05-12] MED LIST changes: -COLLAGENASE OINTMENT 30 GM TUBE ONE; -LIDOCAINE VISC 2% SOLN 15 ML UDC ONE; -MINERAL OIL/PETROLAT/GLYCERI 6OZ BTL ONE; -MUPIROCIN 2% OINT 22 GM TUBE ONE
== END ==
LOC: WCC 09:44
PROVIDERS: ATTEND Internal Medicine Infectious Disease
DX: L97.411 Non-pressure chronic ulcer of right heel and midfoot limited to breakdown of skin (principal); L97.521 Non-pressure chronic ulcer of other part of left foot limited to breakdown of skin; L60.3 Nail dystrophy; R60.0 Localized edema; E08.22 Diabetes mellitus due to underlying condition with diabetic chronic kidney disease; N18.4 Chronic kidney disease, stage 4 (severe); E78.49 Other hyperlipidemia; I10 Essential (primary) hypertension; I13.0 Hypertensive heart and chronic kidney disease with heart failure and stage 1 through stage 4 chronic kidney disease, or unspecified chronic kidney disease; I25.10 Atherosclerotic heart disease of native coronary artery without angina pectoris; I35.0 Nonrheumatic aortic (valve) stenosis; I50.33 Acute on chronic diastolic (congestive) heart failure; I50.9 Heart failure, unspecified; L03.032 Cellulitis of left toe; L40.9 Psoriasis, unspecified; N17.9 Acute kidney failure, unspecified; W22.8XXA Striking against or struck by other objects, initial encounter; Z95.0 Presence of cardiac pacemaker

== ENCOUNTER → 2020-05-19 | Outpatient (CLI) | payer MEDICARE ==
[~2020-05-19] MED LIST changes: +COLLAGENASE OINTMENT 30 GM TUBE ONE
== END ==
LOC: WCC 10:39
PROVIDERS: ATTEND Internal Medicine Infectious Disease
DX: E08.22 Diabetes mellitus due to underlying condition with diabetic chronic kidney disease (principal); L97.411 Non-pressure chronic ulcer of right heel and midfoot limited to breakdown of skin; L97.521 Non-pressure chronic ulcer of other part of left foot limited to breakdown of skin; L60.3 Nail dystrophy; R60.0 Localized edema; L03.032 Cellulitis of left toe; L40.9 Psoriasis, unspecified; I13.0 Hypertensive heart and chronic kidney disease with heart failure and stage 1 through stage 4 chronic kidney disease, or unspecified chronic kidney disease; N17.9 Acute kidney failure, unspecified; N18.4 Chronic kidney disease, stage 4 (severe); I10 Essential (primary) hypertension; I35.0 Nonrheumatic aortic (valve) stenosis; E78.49 Other hyperlipidemia; I50.33 Acute on chronic diastolic (congestive) heart failure; I25.10 Atherosclerotic heart disease of native coronary artery without angina pectoris; I50.9 Heart failure, unspecified; W22.8XXA Striking against or struck by other objects, initial encounter; Z95.0 Presence of cardiac pacemaker

== ENCOUNTER 2020-09-03 07:24 | Emergency (ER) | payer MEDICARE ==
[~2020-09-03] VITALS: Ht 182.9 cm; Wt 123.8 kg
[~2020-09-03 07:24] MED LIST changes: -COLLAGENASE OINTMENT 30 GM TUBE ONE
[2020-09-03 08:08] VITALS: BP 145/96
[2020-09-04] MEDS ORDERED: AMLODIPINE BESYL5 MG PO (11:24)
[2020-09-04] MEDS ORDERED: LYRICA100 MG PO (11:24)
[2020-09-04] MEDS ORDERED: ULTRAM50 MG PO (11:24)
[2020-09-04] MEDS ORDERED: BUMETANIDE1 MG PO (11:24)
[2020-09-04] MEDS ORDERED: ELIQUIS5 MG PO (11:26)
== END 2020-09-03 08:02 | disposition home or self-care (01) ==
LOC: ER 07:52
DX: B34.9 Viral infection, unspecified (principal); I10 Essential (primary) hypertension; E11.40 Type 2 diabetes mellitus with diabetic neuropathy, unspecified; L40.9 Psoriasis, unspecified; Z95.810 Presence of automatic (implantable) cardiac defibrillator; Z95.1 Presence of aortocoronary bypass graft
CPT/HCPCS: 99282

== ENCOUNTER 2020-09-04 09:24 | Inpatient (IN) | payer MEDICARE ==
[~2020-09-04] VITALS: Ht 182.9 cm; Wt 122.5 kg
[2020-09-04 09:38] LABS: BASOPHILS # (AUTO) 0.1 (0.0-0.1); BASOPHILS % 0.5 % (0.0-1.0); EOSINOPHILS # (AUTO) 0.1 (0.0-0.4); EOSINOPHILS % 0.7 % (0.0-6.0); HEMATOCRIT 44.5 % (38.2-49.6); HEMOGLOBIN 14.2 g/dL (14.0-18.0); LYMPHOCYTES # (AUTO) 1.3 (1.0-3.2); LYMPHOCYTES % 8.3 % (18.0-39.1); MEAN CORPUSCULAR HEMOGLOBIN 25.5 pg (28-32); MEAN CORPUSCULAR HGB CONC 31.9 g/dL (31-35); MONOCYTES # (AUTO) 1.5 (0.2-0.8); NEUTROPHILS # (AUTO) 12.1 (2.1-6.9); NEUTROPHILS % 79.5 % (38.7-80.0); PLATELET COUNT 204 x10e3/uL (140-360); RED BLOOD COUNT 5.56 x10e6/uL (4.3-5.7); RED CELL DISTRIBUTION WIDTH 15.5 % (11.7-14.4)
[2020-09-04] MEDS ORDERED: MORPHINE SULFATE INJ 4 MG/ML INJ 1ML IV ONE (10:00)
[2020-09-04] MEDS ORDERED: ONDANSETRON HCL INJ 2MG/ML 2ML 2 MG/ML VIAL IV STA (10:00)
[2020-09-04 10:05] LABS: ALBUMIN 3.7 g/dL (3.5-5.0); ALBUMIN/GLOBULIN RATIO 0.9 (0.8-2.0); ANION GAP 12.8 mmol/L (8-16); CALCIUM 9.2 mg/dL (8.4-10.2); CREATININE, SERUM 1.74 mg/dL (0.72-1.25); MAGNESIUM 1.9 MG/DL (1.3-2.1); POTASSIUM 3.8 mmol/L (3.5-5.1)
[2020-09-04 10:10] LABS: INR 0.98; PROTHROMBIN TIME 13.6 seconds (11.9-14.5)
[2020-09-04 10:11] LABS: PARTIAL THROMBOPLASTIN TIME 30.7 seconds (23.8-35.5)
[2020-09-04 10:12] LABS: CREATINE KINASE MB 3.5 ng/mL (0-5.0)
[2020-09-04] MEDS ORDERED: MORPHINE SULFATE INJ 4 MG/ML INJ 1ML ONE (10:19)
[2020-09-04] MEDS ORDERED: ONDANSETRON HCL INJ 2MG/ML 2ML 2 MG/ML VIAL ONE (10:20)
[2020-09-04] MEDS ORDERED: AMLODIPINE BESYL5 MG PO (11:24)
[2020-09-04] MEDS ORDERED: BUMETANIDE1 MG PO (11:24)
[2020-09-04] MEDS ORDERED: LYRICA100 MG PO (11:24)
[2020-09-04] MEDS ORDERED: ULTRAM50 MG PO (11:24)
[2020-09-04] MEDS ORDERED: ELIQUIS5 MG PO (11:26)
[2020-09-04] MEDS ORDERED: MORPHINE SULFATE INJ 4 MG/ML INJ 1ML IV PRN (11:30)
[2020-09-04] MEDS ORDERED: SODIUM CHLORIDE 0.9% 1000ML 1,000 ML IV SCH (11:30)
[2020-09-04] MEDS ORDERED: MORPHINE SULFATE INJ 2 MG/ML SYR IV PRN (11:30)
[2020-09-04 12:06] LABS: CLARITY,URINE CLEAR (CLEAR); COLOR,URINE YELLOW (YELLOW); KETONES,URINE NEGATIVE (NEGATIVE); LEUKOCYTE ESTERASE ,URINE NEGATIVE (NEGATIVE); NITRITE,URINE NEGATIVE (NEGATIVE); PROTEIN,URINE DIPSTICK NEGATIVE (NEGATIVE); URINE UROBILINOGEN 0.2 mg/dL (0.2 - 1)
[2020-09-04 12:15] LABS: BACTERIA,URINE RARE /HPF; EPITHELIAL CELLS,URINE FEW /LPF; RBC,URINE 0-5 /HPF (0-5); WBC,URINE (MAN) 0-5 /HPF (0-5)
[2020-09-04] MEDS: ONDANSETRON HCL INJ 2MG/ML 2ML 2 MG/ML VIAL IV PRN ×2 (13:21→17:56)
[2020-09-04] MEDS: HYDROMORPHONE 1MG/1ML INJ IV PRN ×2 (13:21→17:56)
[2020-09-04] MEDS ORDERED: DEXTROSE 50% SYRINGE 50 ML IV PRN (13:45)
[2020-09-04 15:30] LABS: CREATINE KINASE MB 2.2 ng/mL (0-5.0)
[2020-09-04] MEDS: INSULIN LISPRO 100 UNIT/1 ML 3ML VIAL SQ SCH ×2 (16:17→21:00)
[2020-09-04] MEDS ORDERED: HYDROCODONE/APAP 5MG-325MG TAB PO PRN (19:15)
[2020-09-04] MEDS ORDERED: VANCOMYCIN 1GM/NS 250 ML 250 ML IV ONE (19:45)
[2020-09-04] MEDS: ATORVASTATIN 20 MG TAB PO SCH (20:16)
[2020-09-04] MEDS ORDERED: INSULIN GLARGINE 100 UNITS/ML VIAL SQ SCH (21:00)
[2020-09-04] MEDS ORDERED: DIPHENHYDRAMINE HCL INJ 50 MG/ML VIAL IV ONE (21:15)
[2020-09-05] VITALS (8 sets, daily range): BP systolic 114–128; BP diastolic 62–79
[2020-09-05 01:30] LABS: CREATINE KINASE MB 2.9 ng/mL (0-5.0)
[2020-09-05 01:33] LABS: ALBUMIN 3.4 g/dL (3.5-5.0); ANION GAP 17.6 mmol/L (8-16); CALCIUM 8.5 mg/dL (8.4-10.2); POTASSIUM 3.6 mmol/L (3.5-5.1)
[2020-09-05 01:41] LABS: CREATININE, SERUM 2.69 mg/dL (0.72-1.25)
[2020-09-05 07:46] LABS: BASOPHILS # (AUTO) 0.1 (0.0-0.1); BASOPHILS % 0.4 % (0.0-1.0); EOSINOPHILS % 0.1 % (0.0-6.0); HEMOGLOBIN 13.8 g/dL (14.0-18.0); LYMPHOCYTES # (AUTO) 1.5 (1.0-3.2); LYMPHOCYTES % 9.1 % (18.0-39.1); MEAN CORPUSCULAR HEMOGLOBIN 25.8 pg (28-32); MEAN CORPUSCULAR HGB CONC 31.4 g/dL (31-35); MEAN CORPUSCULAR VOLUME 82.4 fL (81-99); MONOCYTES # (AUTO) 2.3 (0.2-0.8); MONOCYTES % 14.6 % (4.4-11.3); NEUTROPHILS # (AUTO) 11.8 (2.1-6.9); NEUTROPHILS % 74.8 % (38.7-80.0); PLATELET COUNT 177 x10e3/uL (140-360); RED BLOOD COUNT 5.34 x10e6/uL (4.3-5.7); RED CELL DISTRIBUTION WIDTH 16.2 % (11.7-14.4)
[2020-09-05] MEDS: ASPIRIN 81 MG CHEW TAB PO SCH (09:06)
[2020-09-05] MEDS: BUMETANIDE 1 MG TAB PO SCH (09:06)
[2020-09-05] MEDS: HYDROMORPHONE 1MG/1ML INJ IV PRN (09:07)
[2020-09-05 09:34] LABS: LYMPHOCYTES % (MANUAL) 6 % (19-48); MONOCYTES % (MANUAL) 12 % (3.4-9.0); NEUTROPHILS % (MANUAL) 80 % (40-74); RBC MORPHOLOGY COMMENT NORMAL
[2020-09-05 09:35] LABS: PLATELET ESTIMATE ADEQUATE
[2020-09-05 09:36] LABS: BAND NEUTROPHILS % (MANUAL) 1 %
[2020-09-05] MEDS: INSULIN LISPRO 100 UNIT/1 ML 3ML VIAL SQ SCH ×4 (09:55→20:40)
[2020-09-05] MEDS ORDERED: ACETAMINOPHEN/CODEINE 300MG - 30MG TAB PO PRN (15:45)
[2020-09-05] MEDS: PREGABALIN 50 MG CAP PO SCH ×2 (16:56→20:40)
[2020-09-05] MEDS: APIXABAN 5 MG TABLET PO SCH (16:57)
[2020-09-05] MEDS: ATORVASTATIN 20 MG TAB PO SCH (20:40)
[2020-09-05] MEDS ORDERED: INSULIN GLARGINE 100 UNITS/ML VIAL SQ SCH (21:00)
[2020-09-06] VITALS: BP 106/60
[2020-09-06 04:58] VITALS: BP 127/69
[2020-09-06 05:09] LABS: BASOPHILS # (AUTO) 0.1 (0.0-0.1); BASOPHILS % 0.5 % (0.0-1.0); EOSINOPHILS # (AUTO) 0.2 (0.0-0.4); HEMATOCRIT 40.2 % (38.2-49.6); HEMOGLOBIN 12.7 g/dL (14.0-18.0); LYMPHOCYTES # (AUTO) 1.1 (1.0-3.2); LYMPHOCYTES % 11.8 % (18.0-39.1); MEAN CORPUSCULAR HEMOGLOBIN 25.2 pg (28-32); MEAN CORPUSCULAR HGB CONC 31.6 g/dL (31-35); MEAN CORPUSCULAR VOLUME 79.8 fL (81-99); MONOCYTES # (AUTO) 1.1 (0.2-0.8); NEUTROPHILS # (AUTO) 6.8 (2.1-6.9); NEUTROPHILS % 73.2 % (38.7-80.0); PLATELET COUNT 186 x10e3/uL (140-360); RED BLOOD COUNT 5.04 x10e6/uL (4.3-5.7)
[2020-09-06 05:28] LABS: ANION GAP 14.7 mmol/L (8-16); CALCIUM 8.5 mg/dL (8.4-10.2); CREATININE, SERUM 1.91 mg/dL (0.72-1.25); POTASSIUM 3.7 mmol/L (3.5-5.1)
[2020-09-06 07:32] VITALS: BP 127/69
[2020-09-06 08:13] VITALS: BP 123/69
[2020-09-06] MEDS: INSULIN LISPRO 100 UNIT/1 ML 3ML VIAL SQ SCH ×3 (08:15→16:30)
[2020-09-06] MEDS: ASPIRIN 81 MG CHEW TAB PO SCH (08:35)
[2020-09-06] MEDS: BUMETANIDE 1 MG TAB PO SCH (08:35)
[2020-09-06] MEDS: APIXABAN 5 MG TABLET PO SCH ×2 (08:35→16:31)
[2020-09-06] MEDS: PREGABALIN 50 MG CAP PO SCH ×2 (08:35→15:00)
[2020-09-06 12:18] VITALS: BP 137/78
[2020-09-06] MEDS ORDERED: ONDANSETRON HCL 4 MG ORAL DISINTEGRATING TAB PO PRN (16:00)
[2020-09-06 16:07] VITALS: BP 140/83
[2020-09-06] MEDS ORDERED: ATORVASTATIN 10 MG TAB PO SCH (21:00)
== END 2020-09-06 16:50 | disposition home or self-care (01) | DRG 603 ==
LOC: ER 09:39 → ERHOLD 11:20 → IMCU 09-05 02:54
PROVIDERS: ADMIT Internal Medicine; ATTEND Internal Medicine
DX: L03.116 Cellulitis of left lower limb (principal); I13.0 Hypertensive heart and chronic kidney disease with heart failure and stage 1 through stage 4 chronic kidney disease, or unspecified chronic kidney disease; I50.32 Chronic diastolic (congestive) heart failure; M19.012 Primary osteoarthritis, left shoulder; E11.22 Type 2 diabetes mellitus with diabetic chronic kidney disease; N18.30 Chronic kidney disease, stage 3 unspecified; I48.0 Paroxysmal atrial fibrillation; I25.10 Atherosclerotic heart disease of native coronary artery without angina pectoris; Z20.822 Contact with and (suspected) exposure to COVID-19; Z95.5 Presence of coronary angioplasty implant and graft; Z95.2 Presence of prosthetic heart valve
CPT/HCPCS: 36415; 71045; 74470; 76882; 80048; 80053; 81001; 82550; 82553; 82948; 83605; 83735; 83880; 84484; 85025; 85610; 85651; 85730; 87040; 87086; 93005; 99285; J1170; J1200; J1815; J2270; J2405; J3370; J7030; U0002

== ENCOUNTER 2024-07-24 21:29 | Emergency (ER) | payer MEDICARE ==
[~2024-07-24] VITALS: Ht 182.9 cm; Wt 127.0 kg
[~2024-07-24 21:29] MED LIST changes: +AMLODIPINE BESYL5 MG PO; +ELIQUIS5 MG PO; +ULTRAM50 MG PO
[2024-07-24 23:06] LABS: BASOPHILS # (AUTO) 0.1 (0.0-0.1); BASOPHILS % 0.6 % (0.0-1.0); EOSINOPHILS # (AUTO) 0.2 (0.0-0.4); EOSINOPHILS % 2.1 % (0.0-6.0); HEMOGLOBIN 16.3 g/dL (14.0-18.0); LYMPHOCYTES # (AUTO) 1.3 (1.0-3.2); LYMPHOCYTES % 15.8 % (18.0-39.1); MEAN CORPUSCULAR VOLUME 84.6 fL (81-99); MONOCYTES # (AUTO) 0.8 (0.2-0.8); MONOCYTES % 10.3 % (4.4-11.3); NEUTROPHILS # (AUTO) 5.7 (2.1-6.9); NEUTROPHILS % 70.5 % (38.7-80.0); PLATELET COUNT 192 x10e3/uL (140-360); RED BLOOD COUNT 6.03 x10e6/uL (4.3-5.7); RED CELL DISTRIBUTION WIDTH 17.2 % (11.7-14.4); WHITE BLOOD COUNT 8.09 x10e3/uL (4.8-10.8)
[2024-07-24 23:39] LABS: ALBUMIN/GLOBULIN RATIO 1.3 (0.8-2.0); ANION GAP 17.5 mmol/L (8-16); BILIRUBIN,TOTAL 1.2 mg/dL (0.2-1.2); CREATININE, SERUM 2.23 mg/dL (0.72-1.25); POTASSIUM 3.5 mmol/L (3.5-5.1); TOTAL PROTEIN 7.2 g/dL (6.5-8.1)
[2024-07-24 23:45] LABS: TROPONIN I 0.03 ng/mL (0-0.300)
[2024-07-25 00:18] VITALS: PULSE 71; RESP 18; TEMP 98.3; O2SAT 96
== END 2024-07-25 00:25 | disposition home or self-care (01) ==
LOC: ER 21:35
DX: R06.00 Dyspnea, unspecified (principal); N28.9 Disorder of kidney and ureter, unspecified; E11.65 Type 2 diabetes mellitus with hyperglycemia; E11.40 Type 2 diabetes mellitus with diabetic neuropathy, unspecified; I10 Essential (primary) hypertension; R94.31 Abnormal electrocardiogram [ECG] [EKG]; Z95.810 Presence of automatic (implantable) cardiac defibrillator; Z95.1 Presence of aortocoronary bypass graft
CPT/HCPCS: 36415; 71045; 80053; 82550; 83690; 83880; 84484; 85025; 93005; 99284

== ENCOUNTER 2024-08-18 16:39 | Emergency (ER) | payer MEDICARE ==
[~2024-08-18] VITALS: Ht 182.9 cm; Wt 122.5 kg
[2024-08-18 17:10] VITALS: TEMP 98
[2024-08-18 17:47] LABS: BASOPHILS # (AUTO) 0.1 (0.0-0.1); BASOPHILS % 1.1 % (0.0-1.0); EOSINOPHILS # (AUTO) 0.2 (0.0-0.4); EOSINOPHILS % 2.8 % (0.0-6.0); HEMATOCRIT 49.6 % (38.2-49.6); HEMOGLOBIN 15.8 g/dL (14.0-18.0); LYMPHOCYTES # (AUTO) 1.3 (1.0-3.2); LYMPHOCYTES % 17.7 % (18.0-39.1); MEAN CORPUSCULAR HEMOGLOBIN 27.1 pg (28-32); MEAN CORPUSCULAR HGB CONC 31.9 g/dL (31-35); MEAN CORPUSCULAR VOLUME 85.1 fL (81-99); MONOCYTES # (AUTO) 0.9 (0.2-0.8); NEUTROPHILS # (AUTO) 4.7 (2.1-6.9); NEUTROPHILS % 64.8 % (38.7-80.0); PLATELET COUNT 181 x10e3/uL (140-360); RED BLOOD COUNT 5.83 x10e6/uL (4.3-5.7); RED CELL DISTRIBUTION WIDTH 17.1 % (11.7-14.4); WHITE BLOOD COUNT 7.22 x10e3/uL (4.8-10.8)
[2024-08-18 18:07] LABS: ALBUMIN 3.9 g/dL (3.5-5.0); ALBUMIN/GLOBULIN RATIO 1.2 (0.8-2.0); ANION GAP 16.9 mmol/L (8-16); BILIRUBIN,TOTAL 1.5 mg/dL (0.2-1.2); CALCIUM 9.6 mg/dL (8.4-10.2); CREATININE, SERUM 2.25 mg/dL (0.72-1.25); POTASSIUM 3.9 mmol/L (3.5-5.1); TOTAL PROTEIN 7.1 g/dL (6.5-8.1)
[2024-08-18 18:14] LABS: TROPONIN I 0.029 ng/mL (0-0.300)
[2024-08-18] MEDS ORDERED: DOXYCYCLINE HY100 MG PO (19:55)
[2024-08-18 20:11] VITALS: PULSE 69; RESP 20; O2SAT 99
== END 2024-08-18 20:18 | disposition home or self-care (01) ==
LOC: ER 16:57
DX: R06.02 Shortness of breath (principal); L03.116 Cellulitis of left lower limb; I89.0 Lymphedema, not elsewhere classified; I10 Essential (primary) hypertension; E11.65 Type 2 diabetes mellitus with hyperglycemia; R94.31 Abnormal electrocardiogram [ECG] [EKG]; Z95.1 Presence of aortocoronary bypass graft; Z95.810 Presence of automatic (implantable) cardiac defibrillator
CPT/HCPCS: 36415; 71045; 80053; 82550; 83690; 83880; 84484; 85025; 93005; 93971; 99284